=== PATIENT | female | born 1970 | race Caucasian/White ===

== ENCOUNTER → 2017-01-07 | Outpatient (CLI) | payer BC ==
--- NOTE | 2017-01-08 10:43 | MM ---
Reason for exam: screening (asymptomatic). Last mammogram was performed 1 year and 2 months ago. Physical Findings: A clinical breast exam by your physician is recommended on an annual basis and results should be correlated with mammographic findings. MG Screening Mammo w CAD Bilateral CC and MLO view(s) were taken. Prior study comparison: October 26, 2015, bilateral MG screening mammo w CAD. December 26, 2010, left diagnostic mammogram w/CAD. There are scattered fibroglandular densities. No significant changes when compared with prior studies. ASSESSMENT: Benign, BI-RAD 2 RECOMMENDATION: Routine screening mammogram of both breasts in 1 year.
== END ==
LOC: RADMAMWWP 16:42
PROVIDERS: ATTEND Family Medicine
DX: Z12.31 Encounter for screening mammogram for malignant neoplasm of breast (principal)

== ENCOUNTER → 2018-05-24 | Outpatient (CLI) | payer BC ==
--- NOTE | 2018-05-29 09:39 | MM ---
Reason for exam: screening (asymptomatic). Last mammogram was performed 1 year and 4 months ago. MG Screening Mammo w CAD Bilateral CC and MLO view(s) were taken. Prior study comparison: January 07, 2017, bilateral MG screening mammo w CAD. October 26, 2015, bilateral MG screening mammo w CAD. There are scattered fibroglandular densities. There are benign-appearing diffuse and grouped round dystrophic bilateral breast calcifications. No discrete abnormality. Increase in number of calcifications. ASSESSMENT: Benign, BI-RAD 2 RECOMMENDATION: Routine screening mammogram of both breasts in 1 year.
== END | disposition home or self-care (01) ==
LOC: RADMAMWWP 13:24
PROVIDERS: ATTEND Family Medicine
DX: Z12.31 Encounter for screening mammogram for malignant neoplasm of breast (principal)
CPT/HCPCS: 77067

== ENCOUNTER → 2018-05-26 | Outpatient (CLI) | payer BC ==
--- NOTE | 2018-05-26 08:20 | US ---
EXAMINATION TYPE: US abdomen complete DATE OF EXAM: 05/26/2018 COMPARISON: NONE CLINICAL HISTORY: R74.8 Abnormal levels of other serum enzymes. EXAM MEASUREMENTS: Liver Length: 17.0 cm Gallbladder Wall: 0.1 cm CBD: 0.2 cm Spleen: 11.4 cm Right Kidney: 10.0 x 5.4 x 4.2 cm Left Kidney: 11.8 x 5.2 x 4.7 cm Pancreas: Partially Obscured by bowel gas. Tail is poorly visualized. An body visualized appears nor mal. Liver: There is moderate fatty infiltration of the liver. Gallbladder: No stones seen Evidence for sonographic Rizo's sign: No CBD: wnl Spleen: wnl Right Kidney: No hydronephrosis or masses seen Left Kidney: No hydronephrosis or masses seen Upper IVC: wnl Abd Aorta: wnl Suboptimal exam overall due to large patient size and large amounts of overlying bowel gas. IMPRESSION: 1. Moderate fatty infiltration liver. 2. Exam is limited due to patient body habitus and bowel gas.
== END | disposition home or self-care (01) ==
LOC: RADUSWWP 06:50
PROVIDERS: ATTEND Family Medicine
DX: K76.0 Fatty (change of) liver, not elsewhere classified (principal)
CPT/HCPCS: 76700

== ENCOUNTER 2019-06-13 14:23 | Emergency (ER) | payer BC, MEDICARE ==
[2019-06-13 14:32] VITALS: TEMP 98.1
[2019-06-13] MEDS ORDERED: cefTRIAXone IN SWFI 1,000 MG/10 ML SYRINGE IVP STA (15:20)
[2019-06-13] MEDS ORDERED: MORPHINE SULFATE 4 MG/ML SYRINGE IV STA (15:37)
--- NOTE | 2019-06-13 15:41 | ED ---
General Adult HPI - General Chief complaint: Skin/Abscess/Foreign Body Stated complaint: lt leg pain Time Seen by Provider: 06/13/19 14:48 Source: patient, RN notes reviewed, old records reviewed Mode of arrival: ambulatory Limitations: no limitations - History of Present Illness Initial comments: 49-year-old female patient with past history of hypertension, scleroderma, polymyositis procedure chief complaint of painful left inner thigh region. Patient course of this discomfort started on . Reports that she has calcium deposits. Please of this is rubbing against her thigh causing it to rub and become painful. Denies any fevers chills. No other systemic symptoms. Denies any other complaints at this time. Systemic: Pt denies fatigue, fever/chills, rash. Pt denies weakness, night sweats, weight loss. Neuro: Pt denies headache, visual disturbances, syncope or pre-syncope. HEENT: Pt denies ocular discharge or irritation, otalgia, rhinorrhea, pharyngitis or notable lymphadenopathy. Cardiopulmonary: Pt denies chest pain, SOB, heart palpitations, dyspnea on exertion. Abdominal/GI: Pt denies abdominal pain, n/v/d. : Pt denies dysuria, burning w/ urination, frequency/urgency. Denies new onset urinary or bowel incontinence. MSK: Pt denies myalgia, loss of strength or function in extremities. Neuro: Pt denies new onset weakness, paresthesias. - Related Data Previous Rx's Medication Instructions Recorded Cephalexin [Keflex] 500 mg PO Q6HR 10 Days #40 cap 06/13/19 Sulfamethox-Tmp 800-160Mg [Bactrim 1 tab PO Q12HR 10 Days #20 tab 06/13/19 DS 800-160 mg] Allergies Allergy/AdvReac Type Severity Reaction Status Date / Time No Known Allergies Allergy Verified 06/13/19 14:24 Review of Systems ROS Statement: Those systems with pertinent positive or pertinent negative responses have been documented in the HPI. ROS Other: All systems not noted in ROS Statement are negative. Past Medical History Past Medical History: Hypertension, Thyroid Disorder Additional Past Medical History / Comment(s): scleroderma, polymyositis History of Any Multi-Drug Resistant Organisms: None Reported Past Surgical History: Breast Surgery Past Psychological History: No Psychological Hx Reported Smoking Status: Never smoker Past Alcohol Use History: None Reported Past Drug Use History: None Reported General Exam - General Exam Comments Initial Comments: Constitutional: NAD, AOX3, Pt has pleasant affect. HEENT: NC/AT, trachea midline, neck supple, no lymphadenopathy. Posterior phary nx non erythematous, without exudates. External ears appear normal, without discharge. Mucous membranes moist. Eyes PERRLA, EOM intact. There is no scleral icterus. No pallor noted. Cardiopulmonary: RRR, no murmurs, rubs or gallops, no JVD noted. Lungs CTAB in anterior and posterior resendiz. No peripheral edema. Abdominal exam: Abdomen soft and non-distended. Abdomen non-tender to palpation in all 4 quadrants. Bowel sounds active in LLQ. No hepatosplenomegaly. No ecchymosis Neuro: CN II-XII grossly intact. No nuchal rigidity. No raccon eyes, no contreras sign, no hemotympanum. No cervical spinal tenderness. MSK: 4 x 4 centimeters abscess left upper extremity, Erythematous fluctuant mass noted. incision and drainage did display a large amount of pus. No posterior calf tenderness bilaterally, homans sign negative bilaterally. Posterior tibialis and radial pulse +2 bilaterally. Sensation intact in upper and lower extremities. Full active ROM in upper and lower extremities, 5/5 stregnth. Limitations: no limitations Course Vital Signs 06/13/19 06/13/19 14:25 16:24 Temperature 98.1 F Pulse Rate 98 94 Respiratory 16 18 Rate Blood Pressure 180/122 172/94 O2 Sat by Pulse 100 97 Oximetry Procedures - Incision & Drainage Consent Obtained: verbal consent Indication: left medial thigh abscess Site: lower extremity Size (cm): 4 I&D Cleaning Method: Alcohol Wipe Sterile Field Used?: Yes Scalpel Used: #11 I&D Drainage Obtained: Pus Culture Obtained?: Yes Patient Tolerated Procedure: well Medical Decision Making - Medical Decision Making 49-year-old female patient with past history of hypertension, scleroderma, polymyositis procedure chief complaint of painful left inner thigh region. Patient course of this discomfort started on . Reports that she has calcium deposits. Please of this is rubbing against her thigh causing it to rub and become painful. Denies any fevers chills. No other systemic symptoms. Denies any other complaints at this time. Patient vital signs displayed hypertension. Physical exam displayed: 4 x 4 centimeters abscess left upper extremity, Erythematous fluctuant mass noted. incision and drainage did display a large amount of pus. Laboratory investigations are noncompressive. Plain film densely acute process. Patient was discharged will be covered with Bactrim and Keflex. Case discussed the patient seen by Dr. Hamilton. - Lab Data Result diagrams: 06/13/19 15:30 06/13/19 15:30 Lab Results 06/13/19 06/13/19 06/13/19 Range/Units 15:30 15:30 15:30 WBC 9.6 (3.8-10.6) k/uL RBC 4.81 (3.80-5.40) m/uL Hgb 13.6 (11.4-16.0) gm/dL Hct 42.5 (34.0-46.0) % MCV 88.3 (80.0-100.0) fL MCH 28.2 (25.0-35.0) pg MCHC 31.9 (31.0-37.0) g/dL RDW 14.6 (11.5-15.5) % Plt Count 277 (150-450) k/uL Neutrophils % 68 % Lymphocytes % 21 % Monocytes % 6 % Eosinophils % 2 % Basophils % 1 % Neutrophils # 6.5 (1.3-7.7) k/uL Lymphocytes # 2.0 (1.0-4.8) k/uL Monocytes # 0.6 (0-1.0) k/uL Eosinophils # 0.2 (0-0.7) k/uL Basophils # 0.1 (0-0.2) k/uL Sodium 137 (137-145) mmol/L Potassium 3.8 (3.5-5.1) mmol/L Chloride 100 (98-107) mmol/L Carbon Dioxide 28 (22-30) mmol/L Anion Gap 9 mmol/L BUN 8 (7-17) mg/dL Creatinine 0.33 L (0.52-1.04) mg/dL Est GFR (CKD-EPI)AfAm >90 (>60 ml/min/1.73 sqM) Est GFR (CKD-EPI)NonAf >90 (>60 ml/min/1.73 sqM) Glucose 87 (74-99) mg/dL Plasma Lactic Acid Zack (0.7-2.0) mmol/L Calcium 8.3 L (8.4-10.2) mg/dL Total Bilirubin 0.6 (0.2-1.3) mg/dL AST 49 H (14-36) U/L ALT 33 (4-34) U/L Alkaline Phosphatase 131 H (38-126) U/L Total Protein 6.7 (6.3-8.2) g/dL Albumin 3.9 (3.5-5.0) g/dL Urine Color Yellow Urine Appearance Cloudy H (Clear) Urine pH 6.0 (5.0-8.0) Ur Specific [place] 1.021 (1.001-1.035) Urine Protein Trace H (Negative) Urine Glucose (UA) Negative (Negative) Urine Ketones Negative (Negative) Urine Blood Negative (Negative) Urine Nitrite Negative (Negative) Urine Bilirubin Negative (Negative) Urine Urobilinogen <2.0 (<2.0) mg/dL Ur Leukocyte Esterase Small H (Negative) Urine RBC 2 (0-5) /hpf Urine WBC 12 H (0-5) /hpf Ur Squamous Epith Cells 7 H (0-4) /hpf Urine Bacteria Rare H (None) /hpf Hyaline Casts 1 (0-2) /lpf Urine Mucus Few H (None) /hpf 06/13/19 Range/Units 15:39 WBC (3.8-10.6) k/uL RBC (3.80-5.40) m/uL Hgb (11.4-16.0) gm/dL Hct (34.0-46.0) % MCV (80.0-100.0) fL MCH (25.0-35.0) pg MCHC (31.0-37.0) g/dL RDW (11.5-15.5) % Plt Count (150-450) k/uL Neutrophils % % Lymphocytes % % Monocytes % % Eosinophils % % Basophils % % Neutrophils # (1.3-7.7) k/uL Lymphocytes # (1.0-4.8) k/uL Monocytes # (0-1.0) k/uL Eosinophils # (0-0.7) k/uL Basophils # (0-0.2) k/uL Sodium (137-145) mmol/L Potassium (3.5-5.1) mmol/L Chloride (98-107) mmol/L Carbon Dioxide (22-30) mmol/L Anion Gap mmol/L BUN (7-17) mg/dL Creatinine (0.52-1.04) mg/dL Est GFR (CKD-EPI)AfAm (>60 ml/min/1.73 sqM) Est GFR (CKD-EPI)NonAf (>60 ml/min/1.73 sqM) Glucose (74-99) mg/dL Plasma Lactic Acid Zack 1.4 (0.7-2.0) mmol/L Calcium (8.4-10.2) mg/dL Total Bilirubin (0.2-1.3) mg/dL AST (14-36) U/L ALT (4-34) U/L Alkaline Phosphatase (38-126) U/L Total Protein (6.3-8.2) g/dL Albumin (3.5-5.0) g/dL Urine Color Urine Appearance (Clear) Urine pH (5.0-8.0) Ur Specific [place] (1.001-1.035) Urine Protein (Negative) Urine Glucose (UA) (Negative) Urine Ketones (Negative) Urine Blood (Negative) Urine Nitrite (Negative) Urine Bilirubin (Negative) Urine Urobilinogen (<2.0) mg/dL Ur Leukocyte Esterase (Negative) Urine RBC (0-5) /hpf Urine WBC (0-5) /hpf Ur Squamous Epith Cells (0-4) /hpf Urine Bacteria (None) /hpf Hyaline Casts (0-2) /lpf Urine Mucus (None) /hpf Disposition Clinical Impression: Abscess Disposition: HOME SELF-CARE Condition: Stable Instructions (If sedation given, give patient instructions): Abscess (ED) Additional Instructions: Take antibiotics as directed. Follow-up with primary care provider tomorrow. Return to ER if condition worsens. Prescriptions: Sulfamethox-Tmp 800-160Mg [Bactrim DS 800-160 mg] 1 tab PO Q12HR 10 Days #20 tab Cephalexin [Keflex] 500 mg PO Q6HR 10 Days #40 cap Is patient prescribed a controlled substance at d/c from ED?: No Referrals: Mumtaz Huang MD [Primary Care Provider] - 1-2 days
[2019-06-13 15:53] LABS: Basophils # (A) 0.1 k/uL (0-0.2); Basophils % (A) 1 %; Eosinophils # (A) 0.2 k/uL (0-0.7); Eosinophils % (A) 2 %; HCT 42.5 % (34.0-46.0); HGB 13.6 gm/dL (11.4-16.0); Lymphocytes % (A) 21 %; MCH 28.2 pg (25.0-35.0); MCHC 31.9 g/dL (31.0-37.0); MCV 88.3 fL (80.0-100.0); Mean Platelet Volume 8.5; Monocytes # (A) 0.6 k/uL (0-1.0); Monocytes % (A) 6 %; Neutrophils # (A) 6.5 k/uL (1.3-7.7); Neutrophils % (A) 68 %; Platelet Count 277 k/uL (150-450); RBC 4.81 m/uL (3.80-5.40); RDW 14.6 % (11.5-15.5); WBC 9.6 k/uL (3.8-10.6)
[2019-06-13 16:01] LABS: Appearance,Urine Cloudy (Clear); Bacteria,Urine Rare /hpf; Bilirubin,Urine Negative (Negative); Blood,Urine Negative (Negative); Color,Urine Yellow; Glucose,Urine (UA) Negative (Negative); Hyaline Casts,Urine 1 /lpf (0-2); Ketones,Urine Negative (Negative); Leukocyte Esterase,Urine Small (Negative); Mucus,Urine Few /hpf; Nitrite,Urine Negative (Negative); Protein,Urine Trace (Negative); RBC,Urine 2 /hpf (0-5); Specific Gravity,Urine 1.021 (1.001-1.035); Squamous Epithelial Cell,Urine 7 /hpf (0-4); Urobilinogen,Urine <2.0 mg/dL (<2.0); WBC,Urine 12 /hpf (0-5)
[2019-06-13 16:02] LABS: ALT 33 U/L (4-34); AST 49 U/L (14-36); African American GFR (CKD) >90 (>60 ml/min/1.73 sqM); Albumin 3.9 g/dL (3.5-5.0); Alkaline Phosphatase 131 U/L (38-126); Anion Gap 9 mmol/L; Blood Urea Nitrogen 8 mg/dL (7-17); Calcium 8.3 mg/dL (8.4-10.2); Carbon Dioxide 28 mmol/L (22-30); Chloride 100 mmol/L (98-107); Glucose 87 mg/dL (74-99); Non-African American GFR(CKD) >90 (>60 ml/min/1.73 sqM); Potassium 3.8 mmol/L (3.5-5.1); Sodium 137 mmol/L (137-145); Total Bilirubin 0.6 mg/dL (0.2-1.3); Total Protein 6.7 g/dL (6.3-8.2)
--- NOTE | 2019-06-13 16:11 | XR ---
EXAMINATION TYPE: XR femur LT DATE OF EXAM: 06/13/2019 CLINICAL HISTORY: pain TECHNIQUE: Two views of the left femur are obtained. COMPARISON: None. FINDINGS: There is no acute fracture or dislocation seen of the femur. The hip and knee joints cindy ear within normal limits. Increased density throughout the soft tissues may reflect interstitial and vascular engorgement. IMPRESSION: There is no acute fracture or dislocation seen of the femur. ICD 10 NO FRACTURE, INITIAL EVALUATION
[2019-06-13 16:25] VITALS: RESP 18
[2019-06-13] MEDS ORDERED: CEPHALEXIN 500MG STARTER PACK 4 CAP BTL PO STA (17:36)
[2019-06-13] MEDS ORDERED: SULFAMETH-TMP DS STARTER PACK 2 TAB BTL PO STA (17:37)
[2019-06-13] MEDS ORDERED: ACET/COD 300 MG/30 MG STARTER PACK 6 TAB BTL PO STA (17:59)
[2019-06-13 18:03] VITALS: BP 185/107; PULSE 92
--- NOTE | 2019-06-13 18:08 | ED ---
Medical Decision Making - Medical Decision Making Upon discharge pt again hypertensive. Denied any symptoms. Declined medication will take her BP medication at home. - Lab Data Result diagrams: 06/13/19 15:30 06/13/19 15:30 Lab Results 06/13/19 06/13/19 06/13/19 Range/Units 15:30 15:30 15:30 WBC 9.6 (3.8-10.6) k/uL RBC 4.81 (3.80-5.40) m/uL Hgb 13.6 (11.4-16.0) gm/dL Hct 42.5 (34.0-46.0) % MCV 88.3 (80.0-100.0) fL MCH 28.2 (25.0-35.0) pg MCHC 31.9 (31.0-37.0) g/dL RDW 14.6 (11.5-15.5) % Plt Count 277 (150-450) k/uL Neutrophils % 68 % Lymphocytes % 21 % Monocytes % 6 % Eosinophils % 2 % Basophils % 1 % Neutrophils # 6.5 (1.3-7.7) k/uL Lymphocytes # 2.0 (1.0-4.8) k/uL Monocytes # 0.6 (0-1.0) k/uL Eosinophils # 0.2 (0-0.7) k/uL Basophils # 0.1 (0-0.2) k/uL Sodium 137 (137-145) mmol/L Potassium 3.8 (3.5-5.1) mmol/L Chloride 100 (98-107) mmol/L Carbon Dioxide 28 (22-30) mmol/L Anion Gap 9 mmol/L BUN 8 (7-17) mg/dL Creatinine 0.33 L (0.52-1.04) mg/dL Est GFR (CKD-EPI)AfAm >90 (>60 ml/min/1.73 sqM) Est GFR (CKD-EPI)NonAf >90 (>60 ml/min/1.73 sqM) Glucose 87 (74-99) mg/dL Plasma Lactic Acid Zack (0.7-2.0) mmol/L Calcium 8.3 L (8.4-10.2) mg/dL Total Bilirubin 0.6 (0.2-1.3) mg/dL AST 49 H (14-36) U/L ALT 33 (4-34) U/L Alkaline Phosphatase 131 H (38-126) U/L Total Protein 6.7 (6.3-8.2) g/dL Albumin 3.9 (3.5-5.0) g/dL Urine Color Yellow Urine Appearance Cloudy H (Clear) Urine pH 6.0 (5.0-8.0) Ur Specific [place] 1.021 (1.001-1.035) Urine Protein Trace H (Negative) Urine Glucose (UA) Negative (Negative) Urine Ketones Negative (Negative) Urine Blood Negative (Negative) Urine Nitrite Negative (Negative) Urine Bilirubin Negative (Negative) Urine Urobilinogen <2.0 (<2.0) mg/dL Ur Leukocyte Esterase Small H (Negative) Urine RBC 2 (0-5) /hpf Urine WBC 12 H (0-5) /hpf Ur Squamous Epith Cells 7 H (0-4) /hpf Urine Bacteria Rare H (None) /hpf Hyaline Casts 1 (0-2) /lpf Urine Mucus Few H (None) /hpf 06/13/19 Range/Units 15:39 WBC (3.8-10.6) k/uL RBC (3.80-5.40) m/uL Hgb (11.4-16.0) gm/dL Hct (34.0-46.0) % MCV (80.0-100.0) fL MCH (25.0-35.0) pg MCHC (31.0-37.0) g/dL RDW (11.5-15.5) % Plt Count (150-450) k/uL Neutrophils % % Lymphocytes % % Monocytes % % Eosinophils % % Basophils % % Neutrophils # (1.3-7.7) k/uL Lymphocytes # (1.0-4.8) k/uL Monocytes # (0-1.0) k/uL Eosinophils # (0-0.7) k/uL Basophils # (0-0.2) k/uL Sodium (137-145) mmol/L Potassium (3.5-5.1) mmol/L Chloride (98-107) mmol/L Carbon Dioxide (22-30) mmol/L Anion Gap mmol/L BUN (7-17) mg/dL Creatinine (0.52-1.04) mg/dL Est GFR (CKD-EPI)AfAm (>60 ml/min/1.73 sqM) Est GFR (CKD-EPI)NonAf (>60 ml/min/1.73 sqM) Glucose (74-99) mg/dL Plasma Lactic Acid Zack 1.4 (0.7-2.0) mmol/L Calcium (8.4-10.2) mg/dL Total Bilirubin (0.2-1.3) mg/dL AST (14-36) U/L ALT (4-34) U/L Alkaline Phosphatase (38-126) U/L Total Protein (6.3-8.2) g/dL Albumin (3.5-5.0) g/dL Urine Color Urine Appearance (Clear) Urine pH (5.0-8.0) Ur Specific [place] (1.001-1.035) Urine Protein (Negative) Urine Glucose (UA) (Negative) Urine Ketones (Negative) Urine Blood (Negative) Urine Nitrite (Negative) Urine Bilirubin (Negative) Urine Urobilinogen (<2.0) mg/dL Ur Leukocyte Esterase (Negative) Urine RBC (0-5) /hpf Urine WBC (0-5) /hpf Ur Squamous Epith Cells (0-4) /hpf Urine Bacteria (None) /hpf Hyaline Casts (0-2) /lpf Urine Mucus (None) /hpf Disposition Clinical Impression: Abscess Disposition: HOME SELF-CARE Condition: Stable Instructions (If sedation given, give patient instructions): Abscess (ED) Additional Instructions: Take antibiotics as directed. Follow-up with primary care provider tomorrow. Return to ER if condition worsens. Continue to monitor blood pressure at home. Prescriptions: Sulfamethox-Tmp 800-160Mg [Bactrim DS 800-160 mg] 1 tab PO Q12HR 10 Days #20 tab Cephalexin [Keflex] 500 mg PO Q6HR 10 Days #40 cap Is patient prescribed a controlled substance at d/c from ED?: No Referrals: Mumtaz Huang MD [Primary Care Provider] - 1-2 days
== END 2019-06-13 18:34 | disposition home or self-care (01) ==
LOC: EC 14:23
DX: L02.416 Cutaneous abscess of left lower limb (principal); I10 Essential (primary) hypertension
CPT/HCPCS: 36415; 80053; 83605; 85025; 81001; 87040; 87070; 87086; 87205; 73552; 99284; 10060; 96374; 96375; J2270; J0696; 87077; 87186

== ENCOUNTER → 2020-04-09 | Outpatient (CLI) | payer BC ==
--- NOTE | 2020-04-10 07:24 | ECHOF ---
Referral Reason:R00.0 Tachycardia MEASUREMENTS -------- HEIGHT: 162.6 cm WEIGHT: 106.6 kg BP: RVIDd: 3.6 cm (< 3.3) IVSd: 1.1 cm (0.6 - 1.1) LVIDd: 3.8 cm (3.9 - 5.3) LVPWd: 1.3 cm (0.6 - 1.1) IVSs: 1.0 cm LVIDs: 2.7 cm LVPWs: 1.6 cm LAESV Index (A-L): 32.96 ml/m Ao Diam: 3.1 cm (2.0 - 3.7) AV Cusp: 2.1 cm (1.5 - 2.6) MV EXCURSION: 14.523 mm (> 18.000) MV EF SLOPE: 126 mm/s (70 - 150) EPSS: 0.4 cm MV E Bg: 0.65 m/s MV DecT: 136 ms MV A Bg: 0.67 m/s MV E/A Ratio: 0.98 RAP: 5.00 mmHg RVSP: 19.40 mmHg FINDINGS -------- Sinus rhythm. This was a technically adequate study. The left ventricular size is normal. There is mild concentric left ventricular hypertrophy. Overa ll left ventricular systolic function is normal with, an EF between 55 - 60 %. The right ventricle is normal in size. LA is midly dilated 29-33ml/m2. The right atrial size is normal. Interatrial and interventricular septum intact. The aortic valve is trileaflet, and appears structurally normal. No aortic stenosis or regurgitation. The mitral valve is normal. Mild mitral regurgitation is present. The tricuspid valve appears structurally normal. Mild tricuspid regurgitation present. Right vent ricular systolic pressure is normal at < 35 mmHg. The right ventricular systolic pressure, as measu red by Doppler, is 19.40mmHg. There is no pulmonic regurgitation present. The aortic root size is normal. IVC Not well visulized. There is no pericardial effusion. CONCLUSIONS -------- 1. There is mild concentric left ventricular hypertrophy. 2. Overall left ventricular systolic function is normal with, an EF between 55 - 60 %. 3. LA is midly dilated 29-33ml/m2. 4. The aortic valve is trileaflet, and appears structurally normal. No aortic stenosis or regurgitati on. 5. Mild mitral regurgitation is present. 6. Mild tricuspid regurgitation present. C[employer]ESSMAKER: Estephania Lora RDCS
== END | disposition home or self-care (01) ==
LOC: RADECHMAIN 14:11
PROVIDERS: ATTEND Family Medicine
DX: I08.1 Rheumatic disorders of both mitral and tricuspid valves (principal)
CPT/HCPCS: 93306

== ENCOUNTER → 2020-07-16 | Outpatient (CLI) | payer BC ==
--- NOTE | 2020-07-17 14:53 | MM ---
Reason for exam: screening (asymptomatic). Last mammogram was performed 2 years and 2 months ago. History: Benign excisional biopsy of the left breast, 2010. Physical Findings: A clinical breast exam by your physician is recommended on an annual basis and results should be correlated with mammographic findings. MG Screening Mammo w CAD Bilateral CC and MLO view(s) were taken. Prior study comparison: May 24, 2018, bilateral MG screening mammo w CAD. January 07, 2017, bilateral MG screening mammo w CAD. The breast tissue is almost entirely fat. No significant changes when compared with prior studies. ASSESSMENT: Benign, BI-RAD 2 RECOMMENDATION: Routine screening mammogram of both breasts in 1 year.
== END | disposition home or self-care (01) ==
LOC: RADMAMWWP 14:44
PROVIDERS: ATTEND Nurse Practitioner Adult Health
DX: Z12.31 Encounter for screening mammogram for malignant neoplasm of breast (principal)
CPT/HCPCS: 77067

== ENCOUNTER 2021-06-23 13:26 | Observation (INO) | payer BC ==
[2021-06-23] MEDS ORDERED: MORPHINE SULFATE 4 MG/ML SYRINGE IVP STA (14:59)
[2021-06-23] MEDS ORDERED: ONDANSETRON 4 MG/2 ML VIAL IVP STA (14:59)
[2021-06-23] MEDS ORDERED: SODIUM CHLORIDE 0.9% 1,000 ML IV STA (14:59)
[2021-06-23 15:18] LABS: Basophils # (A) 0.1 k/uL (0-0.2); Basophils % (A) 1 %; Eosinophils # (A) 0.1 k/uL (0-0.7); Eosinophils % (A) 2 %; HCT 40.2 % (34.0-46.0); HGB 12.8 gm/dL (11.4-16.0); Lymphocytes # (A) 1.4 k/uL (1.0-4.8); Lymphocytes % (A) 19 %; MCH 26.2 pg (25.0-35.0); MCHC 31.8 g/dL (31.0-37.0); MCV 82.3 fL (80.0-100.0); Mean Platelet Volume 8.8; Monocytes # (A) 0.3 k/uL (0-1.0); Monocytes % (A) 4 %; Neutrophils # (A) 5.1 k/uL (1.3-7.7); Neutrophils % (A) 72 %; Platelet Count 224 k/uL (150-450); RBC 4.88 m/uL (3.80-5.40); WBC 7.1 k/uL (3.8-10.6)
[2021-06-23 15:21] LABS: ALT 8 U/L (4-34); AST 23 U/L (14-36); African American GFR (CKD) >90 (>60 ml/min/1.73 sqM); Albumin 3.9 g/dL (3.5-5.0); Alkaline Phosphatase 191 U/L (38-126); Anion Gap 12 mmol/L; Blood Urea Nitrogen 7 mg/dL (7-17); Calcium 8.1 mg/dL (8.4-10.2); Carbon Dioxide 24 mmol/L (22-30); Chloride 101 mmol/L (98-107); Glucose 122 mg/dL (74-99); Lipase 45 U/L (23-300); Non-African American GFR(CKD) >90 (>60 ml/min/1.73 sqM); Potassium 3.6 mmol/L (3.5-5.1); Sodium 137 mmol/L (137-145); Total Bilirubin 0.6 mg/dL (0.2-1.3); Total Protein 7.1 g/dL (6.3-8.2)
[2021-06-23 15:38] LABS: Appearance,Urine Clear (Clear); Bilirubin,Urine Negative (Negative); Blood,Urine Negative (Negative); Color,Urine Yellow; Glucose,Urine (UA) Negative (Negative); Ketones,Urine Trace (Negative); Leukocyte Esterase,Urine Negative (Negative); Nitrite,Urine Negative (Negative); Protein,Urine Negative (Negative); Specific Gravity,Urine 1.014 (1.001-1.035); Urobilinogen,Urine <2.0 mg/dL (<2.0)
--- NOTE | 2021-06-23 16:05 | US ---
EXAMINATION TYPE: US gallbladder DATE OF EXAM: 06/23/2021 COMPARISON: US CLINICAL HISTORY: epigastric, RUQpain. Pain, N&V EXAM MEASUREMENTS: Liver Length: 20.5 cm Gallbladder Wall: 0.3 cm CBD: 0.4 cm Right Kidney: 11.7 x 3.9 x 4.3 cm Pancreas: wnl, tail obscured by overlying bowel gas Liver: Enlarged, echogenic Gallbladder: wnl Evidence for sonographic Rizo's sign: No CBD: wnl Right Kidney: wnl IMPRESSION: Gallbladder distended measuring 4.3 cm in diameter and 9 cm in length. This could relate to gallbladd er dysfunction or cholecystitis. No gallstones seen. No dilated ducts. Gallbladder increased compared to 05/26/2018 exam.
--- NOTE | 2021-06-23 16:45 | ED ---
Abdominal Pain HPI - General Chief Complaint: Abdominal Pain Stated Complaint: Abdominal Pain Time Seen by Provider: 06/23/21 14:35 Source: patient, family, RN notes reviewed, old records reviewed Mode of arrival: wheelchair Limitations: no limitations - History of Present Illness Initial Comments: Patient is a 51-year-old female, with history of hypertension, thyroid disorder, scleroderma, polymyositis, presenting to the emergency Department complains of upper abdominal pain and nausea and vomiting since this morning. Patient states she has similar episode last weekend but it seemed to go away fairly quickly. She states this happened after he ate a very large meal. This morning had upper abdomen pain radiation towards the right side as well as nausea and vomiting episodes. Patient decided to come in for evaluation. She denies history of abdominal surgeries. She does have history of calcium deposits on her abdomen. Denies shortness of breath, no fevers or chills. She denies any dysuria. She has no further complaints. - Related Data Home Medications Medication Instructions Recorded Confirmed Colchicine 0.6 mg PO DAILY 06/23/21 06/23/21 DULoxetine HCL [Cymbalta] 90 mg PO DAILY 06/23/21 06/23/21 Folic Acid 1 mg PO DAILY 06/23/21 06/23/21 HYDROcodone/APAP 5-325MG [[place] 1 tab PO Q6H PRN 06/23/21 06/23/21 5-325] Losartan Potassium [Cozaar] 100 mg PO DAILY 06/23/21 06/23/21 Omeprazole 20 mg PO DAILY 06/23/21 06/23/21 dilTIAZem HCL 30 mg PO DIRECTED 06/23/21 06/23/21 predniSONE 2 mg PO DAILY 06/23/21 06/23/21 Allergies Allergy/AdvReac Type Severity Reaction Status Date / Time No Known Allergies Allergy Verified 06/23/21 16:03 Review of Systems ROS Statement: Those systems with pertinent positive or pertinent negative responses have been documented in the HPI. ROS Other: All systems not noted in ROS Statement are negative. Past Medical History Past Medical History: Hypertension, Thyroid Disorder Additional Past Medical History / Comment(s): scleroderma, polymyositis History of Any Multi-Drug Resistant Organisms: None Reported Past Surgical History: Breast Surgery Past Psychological History: Anxiety, Depression Smoking Status: Never smoker Past Alcohol Use History: None Reported Past Drug Use History: None Reported General Exam - General Exam Comments Initial Comments: GENERAL: Patient is well-developed and well-nourished. Patient is nontoxic and in mild distress, actively vomiting. HEAD: Atraumatic, normocephalic. EYES: Pupils equal round and reactive to light, extraocular movements intact, sclera anicteric, conjunctiva are normal. Eyelids were unremarkable. ENT: TMs normal, nares patent, oropharynx clear without exudates. Moist mucous membranes. NECK: Normal range of motion, supple without lymphadenopathy or JVD. LUNGS: Unlabored respirations. Breath sounds clear to auscultation bilaterally and equal. No wheezes rales or rhonchi. HEART: Regular rate and rhythm without murmurs, rubs or gallops. ABDOMEN: Soft, tender to palpation epigastric and right upper quadrant, positive guarding. normoactive bowel sounds. patient has fairly large subcutaneous calcium deposits on the right side and left side of her abdomen. MUSCULOSKELETAL: Normal extremities with adequate strength and normal range of motion, no pitting or edema. No clubbing or cyanosis. NEUROLOGICAL: Patient is alert and oriented x 3. SKIN: Warm, Dry, normal turgor, no rashes or lesions noted. Limitations: no limitations Course Vital Signs 06/23/21 06/23/21 13:40 16:34 Temperature 97.5 F L Pulse Rate 86 82 Respiratory 20 20 Rate Blood Pressure 156/97 150/80 O2 Sat by Pulse 100 100 Oximetry Medical Decision Making - Medical Decision Making patient is a 51-year-old female here with epigastric and right upper quadrant pain and nausea and vomiting started this morning. She had similar episode last weekend. Vital signs are stable. Labs are showing a normal white count, normal liver enzymes. Urine is unremarkable. Ultrasound shows a gallbladder distended measuring 4.3 cm in diameter and 9 cm in length. This could be related to gallbladder dysfunction or cholecystitis. No gallstones seen, no dilated ducts. Gallbladder is increased in size compared to 2019 exam. Patient was given fluids, pain control and Zofran. Continues to have pain. Case disussed with Dr. Guevara who agrees to admission. Will consult Medicine for medical management. HIDA scan ordered. Case discussed with Dr. Ralph. - Lab Data Result diagrams: 06/23/21 15:00 06/23/21 15:00 Lab Results 06/23/21 06/23/21 06/23/21 Range/Units 15:00 15:00 15:00 WBC 7.1 (3.8-10.6) k/uL RBC 4.88 (3.80-5.40) m/uL Hgb 12.8 (11.4-16.0) gm/dL Hct 40.2 (34.0-46.0) % MCV 82.3 (80.0-100.0) fL MCH 26.2 (25.0-35.0) pg MCHC 31.8 (31.0-37.0) g/dL RDW 16.0 H (11.5-15.5) % Plt Count 224 (150-450) k/uL MPV 8.8 Neutrophils % 72 % Lymphocytes % 19 % Monocytes % 4 % Eosinophils % 2 % Basophils % 1 % Neutrophils # 5.1 (1.3-7.7) k/uL Lymphocytes # 1.4 (1.0-4.8) k/uL Monocytes # 0.3 (0-1.0) k/uL Eosinophils # 0.1 (0-0.7) k/uL Basophils # 0.1 (0-0.2) k/uL Sodium 137 (137-145) mmol/L Potassium 3.6 (3.5-5.1) mmol/L Chloride 101 (98-107) mmol/L Carbon Dioxide 24 (22-30) mmol/L Anion Gap 12 mmol/L BUN 7 (7-17) mg/dL Creatinine 0.33 L (0.52-1.04) mg/dL Est GFR (CKD-EPI)AfAm >90 (>60 ml/min/1.73 sqM) Est GFR (CKD-EPI)NonAf >90 (>60 ml/min/1.73 sqM) Glucose 122 H (74-99) mg/dL Plasma Lactic Acid Zack 1.6 (0.7-2.0) mmol/L Calcium 8.1 L (8.4-10.2) mg/dL Total Bilirubin 0.6 (0.2-1.3) mg/dL AST 23 (14-36) U/L ALT 8 (4-34) U/L Alkaline Phosphatase 191 H (38-126) U/L Total Protein 7.1 (6.3-8.2) g/dL Albumin 3.9 (3.5-5.0) g/dL Lipase 45 (23-300) U/L Urine Color Urine Appearance (Clear) Urine pH (5.0-8.0) Ur Specific [place] (1.001-1.035) Urine Protein (Negative) Urine Glucose (UA) (Negative) Urine Ketones (Negative) Urine Blood (Negative) Urine Nitrite (Negative) Urine Bilirubin (Negative) Urine Urobilinogen (<2.0) mg/dL Ur Leukocyte Esterase (Negative) 06/23/21 Range/Units 15:25 WBC (3.8-10.6) k/uL RBC (3.80-5.40) m/uL Hgb (11.4-16.0) gm/dL Hct (34.0-46.0) % MCV (80.0-100.0) fL MCH (25.0-35.0) pg MCHC (31.0-37.0) g/dL RDW (11.5-15.5) % Plt Count (150-450) k/uL MPV Neutrophils % % Lymphocytes % % Monocytes % % Eosinophils % % Basophils % % Neutrophils # (1.3-7.7) k/uL Lymphocytes # (1.0-4.8) k/uL Monocytes # (0-1.0) k/uL Eosinophils # (0-0.7) k/uL Basophils # (0-0.2) k/uL Sodium (137-145) mmol/L Potassium (3.5-5.1) mmol/L Chloride (98-107) mmol/L Carbon Dioxide (22-30) mmol/L Anion Gap mmol/L BUN (7-17) mg/dL Creatinine (0.52-1.04) mg/dL Est GFR (CKD-EPI)AfAm (>60 ml/min/1.73 sqM) Est GFR (CKD-EPI)NonAf (>60 ml/min/1.73 sqM) Glucose (74-99) mg/dL Plasma Lactic Acid Zack (0.7-2.0) mmol/L Calcium (8.4-10.2) mg/dL Total Bilirubin (0.2-1.3) mg/dL AST (14-36) U/L ALT (4-34) U/L Alkaline Phosphatase (38-126) U/L Total Protein (6.3-8.2) g/dL Albumin (3.5-5.0) g/dL Lipase (23-300) U/L Urine Color Yellow Urine Appearance Clear (Clear) Urine pH 8.0 (5.0-8.0) Ur Specific [place] 1.014 (1.001-1.035) Urine Protein Negative (Negative) Urine Glucose (UA) Negative (Negative) Urine Ketones Trace H (Negative) Urine Blood Negative (Negative) Urine Nitrite Negative (Negative) Urine Bilirubin Negative (Negative) Urine Urobilinogen <2.0 (<2.0) mg/dL Ur Leukocyte Esterase Negative (Negative) Disposition Clinical Impression: Abdominal pain, Nausea & vomiting Disposition: ADMITTED IP TO THIS [facility] Condition: Stable Is patient prescribed a controlled substance at d/c from ED?: No Referrals: Mumtaz Huang MD [Primary Care Provider] - 1-2 days Decision Date: 06/23/21 Decision Time: 17:02
[2021-06-23] MEDS ORDERED: NALOXONE 0.4 MG/ML 1 ML VIAL IV PRN (16:55)
[2021-06-23] MEDS ORDERED: ONDANSETRON 4 MG/2 ML VIAL IVP PRN (18:04)
[2021-06-23] MEDS: MORPHINE SULFATE 4 MG/ML SYRINGE IV PRN ×2 (18:28→23:16)
[2021-06-23] MEDS: SODIUM CHLORIDE 0.9% 1,000 ML IV SCH (22:49)
[2021-06-23] MEDS: DILTIAZEM ORAL 30 MG TAB PO SCH (22:50)
[2021-06-23] MEDS ORDERED: levETIRAcetam IV 500 MG in SODIUM CHLORIDE 0.9% 100 ML IVPB STA (22:55)
[2021-06-23 23:11] LABS: Glucose,Whole Blood 180 mg/dL (75-99)
--- NOTE | 2021-06-24 01:47 | P.CONS ---
History of Present Illness - Reason for Consult Consult date: 06/24/21 - History of Present Illness Notified of the consult at 11 PM on 06/23 Patient is a 51-year-old with a PMH of hypertension, scleroderma, and polymyositis who presented to the emergency room with complaints of abdominal pain along with nausea and vomiting. The patient was uncooperative at the time of interview and asked to be left alone and was not answering questions appropriately and history thereby obtained from the chart and from the ED staff. The patient had reportedly complained of abdominal pain which started this morning after she had a large medial subsequent nausea and multiple episodes of vomiting. The patient had denied any history of abdominal surgeries and had also denied fever, chills, or shortness of breath. A gallbladder ultrasound had revealed a distended gallbladder measuring at 9 cm with laboratory evaluation showing a lactic acid of 1.6 with alk phos 191. Patient was admitted to the [facility] surgery service and medicine consult. Notified regarding the patient's consult at 11 PM on 06/23 and notified that she had a witnessed tonic-clonic seizure lasting 45 seconds. Keppra 500 mg IV was ordered for the patient. At time of interview, the patient noted abdominal pain but would not elaborate further. She reportedly told the RN that she has a history of seizure disorder but no antiseizure medications were found in the home med list. Review of systems: Pertinent positives and negatives as discussed in HPI, a complete review of systems was performed and all other systems are negative. Physical examination: General: Chronically ill-appearing female, disheveled,, appears older than stated age Derm: Abdominal subcutaneous calcium deposits noted, warm, dry Head: atraumatic, normocephalic, symmetric Eyes: EOMI, no lid lag, anicteric sclera, pupils equal round reactive to light ENT: Nose and ears atraumatic Neck: No thyromegaly, no cervical lymphadenopathy, trachea midline, supple Mouth: no lip lesion, mucus membranes dry Cardiovascular: S1S2 reg, no murmur, positive posterior tibial pulse bilateral, no edema, capillary refill less than 2 seconds Lungs: CTA bilateral, no rhonchi, no rales , no accessory muscle use Abdominal: soft, mild diffuse tenderness, minimal guarding, no appreciable organomegaly, normal bowel sounds Ext: no gross muscle atrophy, no contractures, moving all extremities Neuro: CN II-XI grossly intact Psych: Lethargic, oriented to person and place, not answering questions and uncooperative Assessment/plan Seizure, unclear history -Continue with Ninfa for now -Attempted to contact family with both phone numbers in the chart with no response -Neurochecks -Neurology consult Abdominal pain and distended gallbladder -HIDA scan scheduled for the morning -General surgery following Chronic conditions: Scleroderma: Polymyositis, hypertension -Continue with home meds DVT prophylaxis -Heparin subcu The patient is admitted with an anticipated less than 2 midnight stay for evaluation of seizure d/o CODE STATUS: Full Code Discussed with: Patient Anticipated discharge date: in am Anticipated discharge place: Home Past Medical History Past Medical History: Hypertension, Thyroid Disorder Additional Past Medical History / Comment(s): scleroderma, polymyositis History of Any Multi-Drug Resistant Organisms: None Reported Past Surgical History: Breast Surgery Past Psychological History: Anxiety, Depression Smoking Status: Never smoker Past Alcohol Use History: None Reported Past Drug Use History: None Reported Medications and Allergies Home Medications Medication Instructions Recorded Confirmed Type Colchicine 0.6 mg PO DAILY 06/23/21 06/23/21 History DULoxetine HCL [Cymbalta] 90 mg PO DAILY 06/23/21 06/23/21 History Folic Acid 1 mg PO DAILY 06/23/21 06/23/21 History HYDROcodone/APAP 5-325MG [[place] 1 tab PO Q6H PRN 06/23/21 06/23/21 History 5-325] Losartan Potassium [Cozaar] 100 mg PO DAILY 06/23/21 06/23/21 History Omeprazole 20 mg PO DAILY 06/23/21 06/23/21 History dilTIAZem HCL 30 mg PO DIRECTED 06/23/21 06/23/21 History predniSONE 2 mg PO DAILY 06/23/21 06/23/21 History Allergies Allergy/AdvReac Type Severity Reaction Status Date / Time No Known Allergies Allergy Verified 06/23/21 16:03 Physical Exam Vitals: Vital Signs Temp Pulse Resp BP Pulse Ox 06/24/21 00:28 88 20 158/86 100 06/23/21 22:39 84 14 183/98 06/23/21 22:15 70 24 211/103 90 L 06/23/21 16:34 82 20 150/80 100 06/23/21 13:40 97.5 F L 86 20 156/97 100 Intake and Output 06/23/21 06/23/21 06/24/21 14:59 22:59 06:59 Other: Weight 90.718 kg Results CBC & Chem 7: 06/23/21 15:00 06/23/21 15:00 Labs: Abnormal Lab Results - Last 24 Hours (Table) 06/23/21 06/23/21 06/23/21 Range/Units 15:00 15:00 15:25 RDW 16.0 H (11.5-15.5) % Creatinine 0.33 L (0.52-1.04) mg/dL Glucose 122 H (74-99) mg/dL POC Glucose (mg/dL) (75-99) mg/dL Calcium 8.1 L (8.4-10.2) mg/dL Alkaline Phosphatase 191 H (38-126) U/L Urine Ketones Trace H (Negative) 06/23/21 Range/Units 23:09 RDW (11.5-15.5) % Creatinine (0.52-1.04) mg/dL Glucose (74-99) mg/dL POC Glucose (mg/dL) 180 H (75-99) mg/dL Calcium (8.4-10.2) mg/dL Alkaline Phosphatase (38-126) U/L Urine Ketones (Negative)
[2021-06-24 02:17] LABS: African American GFR (CKD) >90 (>60 ml/min/1.73 sqM); Anion Gap 5 mmol/L; Blood Urea Nitrogen 5 mg/dL (7-17); Calcium 7.7 mg/dL (8.4-10.2); Carbon Dioxide 28 mmol/L (22-30); Chloride 100 mmol/L (98-107); Glucose 145 mg/dL (74-99); Non-African American GFR(CKD) >90 (>60 ml/min/1.73 sqM); Potassium 3.8 mmol/L (3.5-5.1); Sodium 133 mmol/L (137-145)
[2021-06-24] MEDS: MORPHINE SULFATE 4 MG/ML SYRINGE IV PRN ×3 (02:25→21:11)
[2021-06-24] MEDS: HEPARIN SODIUM,PORCINE/PF 5,000 UNIT/0.5 ML SYRINGE SQ SCH ×2 (02:29→09:12)
[2021-06-24 02:35] LABS: HCT 39.3 % (34.0-46.0); HGB 12.1 gm/dL (11.4-16.0); Hypochromasia Slight; MCH 25.7 pg (25.0-35.0); MCHC 30.8 g/dL (31.0-37.0); MCV 83.4 fL (80.0-100.0); Platelet Count 176 k/uL (150-450); RBC 4.71 m/uL (3.80-5.40); RDW 15.9 % (11.5-15.5); WBC 7.9 k/uL (3.8-10.6)
[2021-06-24 06:55] LABS: Basophils # (A) 0.1 k/uL (0-0.2); Basophils % (A) 1 %; Eosinophils # (A) 0.1 k/uL (0-0.7); Eosinophils % (A) 1 %; HCT 42.2 % (34.0-46.0); HGB 12.9 gm/dL (11.4-16.0); Hypochromasia Slight; Lymphocytes # (A) 1.2 k/uL (1.0-4.8); Lymphocytes % (A) 12 %; MCH 26.1 pg (25.0-35.0); MCHC 30.6 g/dL (31.0-37.0); MCV 85.2 fL (80.0-100.0); Mean Platelet Volume 9.3; Monocytes # (A) 0.4 k/uL (0-1.0); Monocytes % (A) 5 %; Neutrophils # (A) 7.9 k/uL (1.3-7.7); Neutrophils % (A) 81 %; Platelet Count 187 k/uL (150-450); RBC 4.95 m/uL (3.80-5.40); RDW 15.5 % (11.5-15.5); WBC 9.8 k/uL (3.8-10.6)
[2021-06-24 07:00] LABS: ALT 11 U/L (4-34); AST 25 U/L (14-36); African American GFR (CKD) >90 (>60 ml/min/1.73 sqM); Albumin 3.8 g/dL (3.5-5.0); Alkaline Phosphatase 171 U/L (38-126); Anion Gap 9 mmol/L; Blood Urea Nitrogen 4 mg/dL (7-17); Calcium 7.9 mg/dL (8.4-10.2); Carbon Dioxide 26 mmol/L (22-30); Chloride 101 mmol/L (98-107); Glucose 108 mg/dL (74-99); Non-African American GFR(CKD) >90 (>60 ml/min/1.73 sqM); Potassium 4.1 mmol/L (3.5-5.1); Sodium 136 mmol/L (137-145); Total Bilirubin 0.8 mg/dL (0.2-1.3)
[2021-06-24] MEDS: FOLIC ACID 1 MG TAB PO SCH (09:12)
[2021-06-24] MEDS: PANTOPRAZOLE 40 MG TABLET PO SCH (09:12)
[2021-06-24] MEDS: DILTIAZEM ORAL 30 MG TAB PO SCH ×3 (09:12→21:28)
[2021-06-24] MEDS: LOSARTAN 50 MG TAB PO SCH (09:12)
--- NOTE | 2021-06-24 09:49 | P.CNNES ---
History of Present Illness Consult date: 06/24/21 Requesting physician: Jaun Nichole Reason for Consult: seizure History of Present Illness: This is a 51-year-old woman with medical history of hypertension, slceroderma and polymyositis who presented to the emergency department on 06/23/2021 for abdominal pain, nausea and vomiting. Neurology team is consulted for seizure- like activity. Some of the history is obtained from medical record and patient family members (who are at bedside). Per the primary team is seems that the patient had a witnessed tonic-clonic seizure lasting for 45 seconds on 06/23/2021. As a result the patient was loaded with Keppra 500 mg then was started on 500 every 12 hours. Per the patient's significant other and her daughter they stated that patient does not have history of seizure and have not witnessed a seizure-like activity at home. Per the patient the patient has history of seizures but is not on any antiepileptic drug but per family members, patient does not have history of seizures. Unknown of patient's history. S he has not had any further seizures in the hospital. She has history of scleroderma and polymyositis diagnosed about 5 years ago at [facility] and was following-up with [employer] in past but per family they think she was told no further work-up is needed from their side as result she is only following-up with her primary care physician. She is generalized weak and walks with a walker. Some of the patient home medications are Prednisone 2mg daily, omeprzole, cymbalata 90mg daily, folic acid 1mg daily, cozaar, cholchicine. Of note her daughter states she had seizure-like activity and it was felt it was due to medication effect. Some other workup in the hospital consisted of: Most recent vital signs is blood pressure of 129/73, heart rate of 87, respiratory of 16, pulse ox of 97% at room air. Upon reviewing the the EMR the only temperature recorded was 97.5 and it seems that on presentation. Gallbladder ultrasound revealed distended gallbladder measuring at 9 cm with elevated lactic acid was all call and phosphatase of 191. General surgery team is on board. Most recent CBC is the white blood cell is within normal limits, hemoglobin, hematocrit is also within normal limits as well as platelet. Most recent sodium is 136, creatinine is 0.29, glucose is 108, calcium is 7.9 Urinalysis is negative for urinary tract infection Jacques virus PCR was not detected. Review of Systems Review of system: The 12 point system was reviewed and apparent positive and negative per HPI. Past Medical History Past Medical History: Hypertension, Thyroid Disorder Additional Past Medical History / Comment(s): scleroderma, polymyositis History of Any Multi-Drug Resistant Organisms: None Reported Past Surgical History: Breast Surgery Past Psychological History: Anxiety, Depression Smoking Status: Never smoker Past Alcohol Use History: None Reported Past Drug Use History: None Reported - Past Family History Father Family Medical History: Hypertension Additional Family Medical History / Comment(s): Heart problems Mother Family Medical History: Cancer Additional Family Medical History / Comment(s): Liver cancer Medications and Allergies Home Medications Medication Instructions Recorded Confirmed Type Colchicine 0.6 mg PO DAILY 06/23/21 06/23/21 History DULoxetine HCL [Cymbalta] 90 mg PO DAILY 06/23/21 06/23/21 History Folic Acid 1 mg PO DAILY 06/23/21 06/23/21 History HYDROcodone/APAP 5-325MG [[place] 1 tab PO Q6H PRN 06/23/21 06/23/21 History 5-325] Losartan Potassium [Cozaar] 100 mg PO DAILY 06/23/21 06/23/21 History Omeprazole 20 mg PO DAILY 06/23/21 06/23/21 History dilTIAZem HCL 30 mg PO DIRECTED 06/23/21 06/23/21 History predniSONE 2 mg PO DAILY 06/23/21 06/23/21 History Allergies Allergy/AdvReac Type Severity Reaction Status Date / Time No Known Allergies Allergy Verified 06/23/21 16:03 Physical Examination - Vital Signs Vital Signs: Vital Signs Temp Pulse Resp BP Pulse Ox 06/24/21 05:13 87 16 129/73 97 06/24/21 04:22 89 17 124/80 99 06/24/21 03:23 87 16 130/88 06/24/21 00:28 88 20 158/86 100 06/23/21 22:39 84 14 183/98 06/23/21 22:15 70 24 211/103 90 L 06/23/21 16:34 82 20 150/80 100 06/23/21 13:40 97.5 F L 86 20 156/97 100 GENERAL: The patient is lying in bed and is mild in acute distress. CHEST: The heart rate is regular rate rhythm. No murmurs to auscultation. LUNG: Clear to auscultation bilaterally no wheezing noted throughout. Not labored breathing. ABDOMEN/GI: Bowel sounds present in all 4 quadrants. No tenderness to palpation throughout. NEUROLOGICAL: Higher mental function: The patient is drowsy but is awakeable to voice. Oriented to self and time. She states she is in the hospital. Patient is following commands. No aphasia and no neglect. Cranial nerves: The pupils are round, equal and reactive to light. Visual resendiz are hard to assess because of her cooperation. Extraocular movement is intact no nystagmus is noted. Facial sensation is normal to touch throughout. The facial strength is normal throughout (facial expression is limited). Hearing is normal bilaterally to hand rub. Tongue is midline and moved [id number] without any difficulty. Has smooth and glaze appearance tongue. No tongue bite noted. No dysarthria is noted. Shoulder shrug is antigravity but limited because of her old weakness. Motor: The strength: Distal strength > proximal (upper and lowers) and that is old per family. She has difficulty raising arms above gravity but able to bend elbow and has hand car cooper of 4- bilaterally. Hip flexion is 3-4, knee extension is 4- and ankle flexion/extension is 5- bilaterally. Slight decrease tone throughout. Cerebellum: could not assess because of her pain. Sensation: Sensation is normal to touch throughout. Has shiny appearance skin in hand. Reflexes (right/left): 1+ throughout. Plantars mute bilaterally. Results - Laboratory Findings CBC and BMP: 06/24/21 05:34 06/24/21 05:34 Abnormal Lab Findings: Abnormal Labs 06/23/21 06/23/21 06/23/21 15:00 15:00 15:25 MCHC RDW 16.0 H Neutrophils # Sodium BUN Creatinine 0.33 L Glucose 122 H POC Glucose (mg/dL) Calcium 8.1 L Alkaline Phosphatase 191 H Urine Ketones Trace H 06/23/21 06/24/21 06/24/21 23:09 01:51 01:51 MCHC 30.8 L RDW 15.9 H Neutrophils # Sodium 133 L BUN 5 L Creatinine 0.26 L Glucose 145 H POC Glucose (mg/dL) 180 H Calcium 7.7 L Alkaline Phosphatase Urine Ketones 06/24/21 06/24/21 05:34 05:34 MCHC 30.6 L RDW Neutrophils # 7.9 H Sodium 136 L BUN 4 L Creatinine 0.29 L Glucose 108 H POC Glucose (mg/dL) Calcium 7.9 L Alkaline Phosphatase 171 H Urine Ketones Assessment and Plan Assessment: New onset seizure (Reported witnessed seizure-like activity (GTC lasting 45 seconds)) Appears provoked. Per family patient does not have history of underlying seizure in past. Abdominal pain and distended gallbladder Hypertension and during this hospital stay her blood pressure was elevated but currently is stable Scleroderma Polymyositis Plan: Ordered routine EEG. Is on Keppra 500 mg every 12 hours and started by the primary team will continue the dose for now. Per family members they would like to continue same medication for now until rest of work-up. If negative they might consider stopping antiepileptic especially this is new onset. Family were notified of side-effects of Keppra (mood/behavioral changes). I ordered a CT of the brain Placed on seizure precautions seizure pads Every 4 neuro checks General surgery team is on board We'll defer the rest of the medical management to the primary team Upon discharge patient needs to follow-up with a neurologist within 1-2 weeks as an outpatient. Per [facility] patient cannot drive for 6 month until seizure-free, avoid the [place], swimming unassisted and avoid using heavy machinery. The plan is discussed with the patient significant other and her daughter (who are at bedside) and patient's nurse. Thank you for the consultation Jese Cisneros M.D. Neuro-hospitalist Time with Patient: Greater than 30
[2021-06-24] MEDS: levETIRAcetam IV 500 MG in SODIUM CHLORIDE 0.9% 100 ML IVPB SCH ×2 (10:19→21:37)
[2021-06-24] MEDS: SODIUM CHLORIDE 0.9% 1,000 ML IV SCH ×2 (10:20→21:11)
--- NOTE | 2021-06-24 10:21 | CT ---
EXAMINATION TYPE: CT brain wo con DATE OF EXAM: 06/24/2021 COMPARISON: None available HISTORY: Seizure. CT DLP: 1172.4 mGy.cm Automated exposure control for dose reduction was used. TECHNIQUE: CT scan of the brain is performed without IV contrast administration. FINDINGS: Unremarkable morphology of the cerebral hemispheres, cerebellum and brainstem. No acute intracranial hemorrhage. No gross acute cortical infarct. No midline shift, herniation or ventriculectomy. Unremarkable montgomery-white matter differentiation, basal cisterns, sella and CP angles. No gross space-o ccupying lesion, vasogenic edema or mass effect. Right scleral buckling, otherwise unremarkable orbits. Clear visualized paranasal sinuses and left ma stoid air cells. Opacified right inferior mastoid air cells. No aggressive bone lesion. IMPRESSION: No acute intracranial abnormality or gross space-occupying lesion by this nonenhanced CT scan.
--- NOTE | 2021-06-24 12:20 | P.GSHP ---
<Aileen Carter - Last Filed: 06/24/21 12:13> History of Present Illness H&P Date: 06/24/21 CHIEF COMPLAINT: Abdominal pain with nausea and vomiting HISTORY OF PRESENT ILLNESS: This is a 51-year-old female presented to the ER with abdominal pain with nausea and vomiting that started around 6 AM yesterday. Apparently she had eaten almond garden the night before. She had been complaining of indigestion and then woke up around 6 AM with complaints of right upper quadrant pain and vomiting. She had a gallbladder ultrasound completed on June 23 that showed a distended gallbladder. And apparently in the ER arou nd 11:00 last night patient had a witnessed tonic clonic seizure lasting 45 seconds. Patient was started on Keppra. No prior history of seizure disorder. Neurology is following. Patient was noted to have slight elevation in her alk phos. Otherwise LFTs are normal. Denies any fever, chills or sweats. PAST MEDICAL HISTORY: Scleroderma, polymyositis, hypertension, thyroid disorder, anxiety and depression PAST SURGICAL HISTORY: Breast surgery. No prior abdominal surgeries MEDICATIONS: See list. ALLERGIES: See list. SOCIAL HISTORY: No illicit drug use. REVIEW OF SYSTEMS: CONSTITUTIONAL: Denies fever or chills. HEENT: Denies blurred vision, vision changes, or eye pain. Denies hemoptysis CARDIOVASCULAR: Denies chest pain or pressure. RESPIRATORY: No shortness of breath. GASTROINTESTINAL: See HPI for pertinent findings HEMATOLOGIC: Denies bleeding disorders. GENITOURINARY: Denies any blood in urine or increased urinary frequency. SKIN: Denies pruitis. Denies rash. PHYSICAL EXAM: VITAL SIGNS: Reviewed GENERAL: Well-developed in no acute distress. HEENT: No sclera icterus. Extraocular movements grossly intact. Moist buccal mucosa. Head is atraumatic, normocephalic. No nasal drainage. ABDOMEN: Soft. Nondistended. Tenderness with palpation right upper quadrant NEUROLOGIC: Lethargic but Able to awaken and answer questions. LABORATORY DATA: WBC 9.8 hemoglobin 12.9 platelets 187 Sodium 136 potassium 4.1 creatinine 0.29 Lactic acid 1.3 AST 25 ALT 11 alk phos 171 total bilirubin 0.8 Urinalysis negative for infection COVID-19 not detected IMAGING: Gallbladder ultrasound shows no bladder distended measuring 4.3 cm in diameter and 9 cm in length. This could relate to gallbladder dysfunction or cholecystitis. No gallstones seen. No dilated ducts. Gallbladder increased compared to 05/26/2018 exam ASSESSMENT: 1. Abdominal pain with nausea and vomiting 2. Distended gallbladder 3. New onset seizure PLAN: -Awaiting HIDA scan results -Further recommendations forthcoming per surgeon -Continue supportive care -Keep patient nothing by mouth -Continue IV fluids -Continue pain medication as needed -Seizure workup per neurology -GI prophylaxis Protonix and DVT prophylaxis subcu heparin Physician Compressor Mechanic note has been reviewed by physician. Signing provider agrees with the documented findings, assessment, and plan of care. Past Medical History Past Medical History: Hypertension, Thyroid Disorder Additional Past Medical History / Comment(s): scleroderma, polymyositis History of Any Multi-Drug Resistant Organisms: None Reported Past Surgical History: Breast Surgery Past Psychological History: Anxiety, Depression Smoking Status: Never smoker Past Alcohol Use History: None Reported Past Drug Use History: None Reported Medications and Allergies Home Medications Medication Instructions Recorded Confirmed Type Colchicine 0.6 mg PO DAILY 06/23/21 06/23/21 History DULoxetine HCL [Cymbalta] 90 mg PO DAILY 06/23/21 06/23/21 History Folic Acid 1 mg PO DAILY 06/23/21 06/23/21 History HYDROcodone/APAP 5-325MG [[place] 1 tab PO Q6H PRN 06/23/21 06/23/21 History 5-325] Losartan Potassium [Cozaar] 100 mg PO DAILY 06/23/21 06/23/21 History Omeprazole 20 mg PO DAILY 06/23/21 06/23/21 History dilTIAZem HCL 30 mg PO DIRECTED 06/23/21 06/23/21 History predniSONE 2 mg PO DAILY 06/23/21 06/23/21 History Allergies Allergy/AdvReac Type Severity Reaction Status Date / Time No Known Allergies Allergy Verified 06/23/21 16:03 Surgical - Exam Vital Signs Temp Pulse Resp BP Pulse Ox 97.5 F L 86 20 156/97 100 06/23/21 13:40 06/23/21 13:40 06/23/21 13:40 06/23/21 13:40 06/23/21 13:40 Results - Labs 06/24/21 05:34 06/24/21 05:34 Abnormal Lab Results - Last 24 Hours (Table) 06/23/21 06/23/21 06/23/21 Range/Units 15:00 15:00 15:25 MCHC (31.0-37.0) g/dL RDW 16.0 H (11.5-15.5) % Neutrophils # (1.3-7.7) k/uL Sodium (137-145) mmol/L BUN (7-17) mg/dL Creatinine 0.33 L (0.52-1.04) mg/dL Glucose 122 H (74-99) mg/dL POC Glucose (mg/dL) (75-99) mg/dL Calcium 8.1 L (8.4-10.2) mg/dL Alkaline Phosphatase 191 H (38-126) U/L Urine Ketones Trace H (Negative) 06/23/21 06/24/21 06/24/21 Range/Units 23:09 01:51 01:51 MCHC 30.8 L (31.0-37.0) g/dL RDW 15.9 H (11.5-15.5) % Neutrophils # (1.3-7.7) k/uL Sodium 133 L (137-145) mmol/L BUN 5 L (7-17) mg/dL Creatinine 0.26 L (0.52-1.04) mg/dL Glucose 145 H (74-99) mg/dL POC Glucose (mg/dL) 180 H (75-99) mg/dL Calcium 7.7 L (8.4-10.2) mg/dL Alkaline Phosphatase (38-126) U/L Urine Ketones (Negative) 06/24/21 06/24/21 Range/Units 05:34 05:34 MCHC 30.6 L (31.0-37.0) g/dL RDW (11.5-15.5) % Neutrophils # 7.9 H (1.3-7.7) k/uL Sodium 136 L (137-145) mmol/L BUN 4 L (7-17) mg/dL Creatinine 0.29 L (0.52-1.04) mg/dL Glucose 108 H (74-99) mg/dL POC Glucose (mg/dL) (75-99) mg/dL Calcium 7.9 L (8.4-10.2) mg/dL Alkaline Phosphatase 171 H (38-126) U/L Urine Ketones (Negative) Diabetes panel 06/23/21 06/24/21 06/24/21 Range/Units 15:00 01:51 05:34 Sodium 137 133 L 136 L (137-145) mmol/L Potassium 3.6 3.8 4.1 (3.5-5.1) mmol/L Chloride 101 100 101 (98-107) mmol/L Carbon Dioxide 24 28 26 (22-30) mmol/L BUN 7 5 L 4 L (7-17) mg/dL Creatinine 0.33 L 0.26 L 0.29 L (0.52-1.04) mg/dL Glucose 122 H 145 H 108 H (74-99) mg/dL Calcium 8.1 L 7.7 L 7.9 L (8.4-10.2) mg/dL AST 23 25 (14-36) U/L ALT 8 11 (4-34) U/L Alkaline Phosphatase 191 H 171 H (38-126) U/L Total Protein 7.1 7.0 (6.3-8.2) g/dL Albumin 3.9 3.8 (3.5-5.0) g/dL Calcium panel 06/23/21 06/24/21 06/24/21 Range/Units 15:00 01:51 05:34 Calcium 8.1 L 7.7 L 7.9 L (8.4-10.2) mg/dL Albumin 3.9 3.8 (3.5-5.0) g/dL Pituitary panel 06/23/21 06/24/21 06/24/21 Range/Units 15:00 01:51 05:34 Sodium 137 133 L 136 L (137-145) mmol/L Potassium 3.6 3.8 4.1 (3.5-5.1) mmol/L Chloride 101 100 101 (98-107) mmol/L Carbon Dioxide 24 28 26 (22-30) mmol/L BUN 7 5 L 4 L (7-17) mg/dL Creatinine 0.33 L 0.26 L 0.29 L (0.52-1.04) mg/dL Glucose 122 H 145 H 108 H (74-99) mg/dL Calcium 8.1 L 7.7 L 7.9 L (8.4-10.2) mg/dL Adrenal panel 06/23/21 06/24/21 06/24/21 Range/Units 15:00 01:51 05:34 Sodium 137 133 L 136 L (137-145) mmol/L Potassium 3.6 3.8 4.1 (3.5-5.1) mmol/L Chloride 101 100 101 (98-107) mmol/L Carbon Dioxide 24 28 26 (22-30) mmol/L BUN 7 5 L 4 L (7-17) mg/dL Creatinine 0.33 L 0.26 L 0.29 L (0.52-1.04) mg/dL Glucose 122 H 145 H 108 H (74-99) mg/dL Calcium 8.1 L 7.7 L 7.9 L (8.4-10.2) mg/dL Total Bilirubin 0.6 0.8 (0.2-1.3) mg/dL AST 23 25 (14-36) U/L ALT 8 11 (4-34) U/L Alkaline Phosphatase 191 H 171 H (38-126) U/L Total Protein 7.1 7.0 (6.3-8.2) g/dL Albumin 3.9 3.8 (3.5-5.0) g/dL <Trevor Guevara - Last Filed: 06/24/21 13:14> Surgical - Exam Vital Signs Temp Pulse Resp BP Pulse Ox 97.5 F L 86 20 156/97 100 06/23/21 13:40 06/23/21 13:40 06/23/21 13:40 06/23/21 13:40 06/23/21 13:40 Results - Labs 06/24/21 05:34 06/24/21 05:34 Abnormal Lab Results - Last 24 Hours (Table) 06/23/21 06/23/21 06/23/21 Range/Units 15:00 15:00 15:25 MCHC (31.0-37.0) g/dL RDW 16.0 H (11.5-15.5) % Neutrophils # (1.3-7.7) k/uL Sodium (137-145) mmol/L BUN (7-17) mg/dL Creatinine 0.33 L (0.52-1.04) mg/dL Glucose 122 H (74-99) mg/dL POC Glucose (mg/dL) (75-99) mg/dL Calcium 8.1 L (8.4-10.2) mg/dL Alkaline Phosphatase 191 H (38-126) U/L Urine Ketones Trace H (Negative) 06/23/21 06/24/21 06/24/21 Range/Units 23:09 01:51 01:51 MCHC 30.8 L (31.0-37.0) g/dL RDW 15.9 H (11.5-15.5) % Neutrophils # (1.3-7.7) k/uL Sodium 133 L (137-145) mmol/L BUN 5 L (7-17) mg/dL Creatinine 0.26 L (0.52-1.04) mg/dL Glucose 145 H (74-99) mg/dL POC Glucose (mg/dL) 180 H (75-99) mg/dL Calcium 7.7 L (8.4-10.2) mg/dL Alkaline Phosphatase (38-126) U/L Urine Ketones (Negative) 06/24/21 06/24/21 Range/Units 05:34 05:34 MCHC 30.6 L (31.0-37.0) g/dL RDW (11.5-15.5) % Neutrophils # 7.9 H (1.3-7.7) k/uL Sodium 136 L (137-145) mmol/L BUN 4 L (7-17) mg/dL Creatinine 0.29 L (0.52-1.04) mg/dL Glucose 108 H (74-99) mg/dL POC Glucose (mg/dL) (75-99) mg/dL Calcium 7.9 L (8.4-10.2) mg/dL Alkaline Phosphatase 171 H (38-126) U/L Urine Ketones (Negative) Diabetes panel 06/23/21 06/24/21 06/24/21 Range/Units 15:00 01:51 05:34 Sodium 137 133 L 136 L (137-145) mmol/L Potassium 3.6 3.8 4.1 (3.5-5.1) mmol/L Chloride 101 100 101 (98-107) mmol/L Carbon Dioxide 24 28 26 (22-30) mmol/L BUN 7 5 L 4 L (7-17) mg/dL Creatinine 0.33 L 0.26 L 0.29 L (0.52-1.04) mg/dL Glucose 122 H 145 H 108 H (74-99) mg/dL Calcium 8.1 L 7.7 L 7.9 L (8.4-10.2) mg/dL AST 23 25 (14-36) U/L ALT 8 11 (4-34) U/L Alkaline Phosphatase 191 H 171 H (38-126) U/L Total Protein 7.1 7.0 (6.3-8.2) g/dL Albumin 3.9 3.8 (3.5-5.0) g/dL Calcium panel 06/23/21 06/24/21 06/24/21 Range/Units 15:00 01:51 05:34 Calcium 8.1 L 7.7 L 7.9 L (8.4-10.2) mg/dL Albumin 3.9 3.8 (3.5-5.0) g/dL Pituitary panel 06/23/21 06/24/21 06/24/21 Range/Units 15:00 01:51 05:34 Sodium 137 133 L 136 L (137-145) mmol/L Potassium 3.6 3.8 4.1 (3.5-5.1) mmol/L Chloride 101 100 101 (98-107) mmol/L Carbon Dioxide 24 28 26 (22-30) mmol/L BUN 7 5 L 4 L (7-17) mg/dL Creatinine 0.33 L 0.26 L 0.29 L (0.52-1.04) mg/dL Glucose 122 H 145 H 108 H (74-99) mg/dL Calcium 8.1 L 7.7 L 7.9 L (8.4-10.2) mg/dL Adrenal panel 06/23/21 06/24/21 06/24/21 Range/Units 15:00 01:51 05:34 Sodium 137 133 L 136 L (137-145) mmol/L Potassium 3.6 3.8 4.1 (3.5-5.1) mmol/L Chloride 101 100 101 (98-107) mmol/L Carbon Dioxide 24 28 26 (22-30) mmol/L BUN 7 5 L 4 L (7-17) mg/dL Creatinine 0.33 L 0.26 L 0.29 L (0.52-1.04) mg/dL Glucose 122 H 145 H 108 H (74-99) mg/dL Calcium 8.1 L 7.7 L 7.9 L (8.4-10.2) mg/dL Total Bilirubin 0.6 0.8 (0.2-1.3) mg/dL AST 23 25 (14-36) U/L ALT 8 11 (4-34) U/L Alkaline Phosphatase 191 H 171 H (38-126) U/L Total Protein 7.1 7.0 (6.3-8.2) g/dL Albumin 3.9 3.8 (3.5-5.0) g/dL Assessment and Plan Plan: HIDA scan shows nonvisualization of the gallbladder consistent with acalculous cholecystitis. Patient will undergo laparoscopic cholecystectomy today.
--- NOTE | 2021-06-24 12:47 | NM ---
Nuclear medicine hepatobiliary scan. HISTORY: Pain. DOSAGE: The patient is 4.4 mCi of Technetium 99m Choletec. FINDINGS: There is heterogeneous extraction. The gallbladder is seen definitively at 90 minutes.. T here is biliary to bowel clearance by 50 minutes. IMPRESSION: 1. Gallbladder is not seen at 90 minutes correlate for cholecystitis. 2. Heterogeneous hepatic extraction could be artifactual correlate with liver function studies.
[2021-06-24] MEDS ORDERED: IV FLUID CONTINUATION 1,000 ML IV ONE (13:48)
[2021-06-24] MEDS ORDERED: ONDANSETRON 4 MG/2 ML VIAL IVP ONE (14:05)
--- NOTE | 2021-06-24 14:08 | P.PN ---
<Kaushik Delarosa - Last Filed: 06/24/21 13:53> Subjective Progress Note Date: 06/24/21 Hospital course: Patient is a very pleasant 51-year-old female with a past medical history of hypertension, scleroderma, and polymyositis. She presented to the emergency department with a chief complaint of abdominal pain accompanied by nausea and vomiting. Patient reports pain in right upper quadrant coming on suddenly this morning accompanied by nausea and vomiting. Patient was admitted under Gen. surgery team and we were consulted for medical management. In the emergency department patient was reported to have a witnessed tonic-clonic seizure lasting approximately 45 seconds. Keppra 500 mg IV was ordered for patient. Patient reporting previous history of an isolated seizure but was never placed on a ntiepileptic medications. Gallbladder ultrasound showing gallbladder distention measuring 4.3 cm in diameter and [address] head negative for acute intercranial process, revealing right scleral buckling with opacified right inferior mastoid air cells. HIDA scan concerning for acute cholecystitis. Physical exam: Patient seen and fully evaluated at bedside and preop. HIDA scan was positive for concerns of acute cholecystitis. Patient being taken to the OR for cholecystectomy with Dr. Guevara. Patient currently reports pain is somewhat controlled from previously administered pain medications and denies any further episodes of nausea or vomiting. Patient has had no further episodes of reported seizure-like activity, possibly secondary to acute uncontrolled pain. At this time we will continue Keppra 500 mg twice a day pending further recommendations from neurology and EEG results. Patient denies having any headache, lightheadedness, dizziness, chest pain, palpitations, shortness of breath, or experiencing any numbness/tingling/weakness in her extremities. Neuro checks to continue every 4 hours along with seizure, aspiration, and fall precautions. Vital signs reviewed and stable. General: Nontoxic, no distress and appears stated age. Derm: Skin warm and dry, normal coloration for ethnicity. Head: Atraumatic, normocephalic and symmetric. Eyes: EOMs intact, no lid lag, and anicteric sclera Mouth: no lip lesions, mucus membranes moist Cardiovascular: regular rate and rhythm with normal S1S2, no murmur, positive posterior tibial pulses bilaterally, and cap refill < 2 seconds. Lungs: Respirations even, regular, and unlabored on room air. Lungs CTA bilat erally, no rhonchi, no rales, no wheezing, and no accessory muscle usage. Abdominal: soft, tenderness upon palpation to right upper quadrant, no guarding, no appreciable organomegaly Ext: ROM intact. No gross muscle atrophy, no edema, no contractures Neuro: Speech clear, face symmetrical and CN II-XII grossly intact with no noted focal neuro deficits Psych: Alert and oriented to person, place, time, and situation. Appropriate and pleasant affect. Assessment and Plan of Care: Seizure activity, Reported Witnessed tonic clonic seizure in the emergency department -Seizure precautions, aspiration precautions, and fall precautions in place. -Neurology consult -Neuro checks -Patient informed of [place] state law stating no driving until seizure free f or 6 months. Patient also instructed to avoid climbing ladders, operating dangerous or heavy machinery or unsupervised swimming until seizure free for 6 months. -Continue Keppra 500 mg IVPB every 12 hours pending further recommendations from neurology. -EEG completed, awaiting results. -CT negative for acute intercranial abnormality. Abdominal pain, VQ scan reporting concerns of cholecystitis -Gen. surgery managing, patient taken to or for cholecystectomy -Gen. surgery to manage pain management, advancement of diet, DVT prophylaxis, and postoperative wound care. Hypertension -Monitor vital signs and Continue daily medication regimen with losartan and Cardizem. Thank you for allowing us to participate in the care of this pleasant patient. Do not hesitate to contact us with questions. Someone can be reached from the [facility] hospitalist group all hours of the day at [phone] or via perfect serve. Objective - Vital Signs Vital signs: Vital Signs Temp 97.3 F L 06/24/21 13:23 Pulse 106 H 06/24/21 13:23 Resp 16 06/24/21 13:23 BP 147/82 06/24/21 13:23 Pulse Ox 99 06/24/21 13:23 Intake & Output 06/23/21 06/24/21 06/24/21 18:59 06:59 18:59 Weight 90.718 kg 90.718 kg Other: Voiding Method Diaper Incontinent - Labs CBC & Chem 7: 06/24/21 05:34 06/24/21 05:34 Labs: Abnormal Lab Results - Last 24 Hours (Table) 06/23/21 06/23/21 06/23/21 Range/Units 15:00 15:00 15:25 MCHC (31.0-37.0) g/dL RDW 16.0 H (11.5-15.5) % Neutrophils # (1.3-7.7) k/uL Sodium (137-145) mmol/L BUN (7-17) mg/dL Creatinine 0.33 L (0.52-1.04) mg/dL Glucose 122 H (74-99) mg/dL POC Glucose (mg/dL) (75-99) mg/dL Calcium 8.1 L (8.4-10.2) mg/dL Alkaline Phosphatase 191 H (38-126) U/L Urine Ketones Trace H (Negative) 06/23/21 06/24/21 06/24/21 Range/Units 23:09 01:51 01:51 MCHC 30.8 L (31.0-37.0) g/dL RDW 15.9 H (11.5-15.5) % Neutrophils # (1.3-7.7) k/uL Sodium 133 L (137-145) mmol/L BUN 5 L (7-17) mg/dL Creatinine 0.26 L (0.52-1.04) mg/dL Glucose 145 H (74-99) mg/dL POC Glucose (mg/dL) 180 H (75-99) mg/dL Calcium 7.7 L (8.4-10.2) mg/dL Alkaline Phosphatase (38-126) U/L Urine Ketones (Negative) 06/24/21 06/24/21 Range/Units 05:34 05:34 MCHC 30.6 L (31.0-37.0) g/dL RDW (11.5-15.5) % Neutrophils # 7.9 H (1.3-7.7) k/uL Sodium 136 L (137-145) mmol/L BUN 4 L (7-17) mg/dL Creatinine 0.29 L (0.52-1.04) mg/dL Glucose 108 H (74-99) mg/dL POC Glucose (mg/dL) (75-99) mg/dL Calcium 7.9 L (8.4-10.2) mg/dL Alkaline Phosphatase 171 H (38-126) U/L Urine Ketones (Negative) <Laverne Cronin A - Last Filed: 06/24/21 18:26> Subjective Kaushik Delarosa NP rendered care for this patient independently, reviewed the findings and plan as documented in the note above. I did not physically speak with or examine the patient on this date. Objective - Vital Signs Vital signs: Vital Signs Temp 98.1 F 06/24/21 15:41 Pulse 97 06/24/21 17:18 Resp 16 06/24/21 17:18 BP 149/78 06/24/21 17:18 Pulse Ox 99 06/24/21 17:18 Intake & Output 06/23/21 06/24/21 06/24/21 18:59 06:59 18:59 Intake Total 950 Output Total 5 Balance 945 Weight 90.718 kg 90.718 kg Intake: IV 950 Output: Estimated Blood Loss 5 Other: Voiding Method Diaper Incontinent - Labs CBC & Chem 7: 06/24/21 05:34 06/24/21 05:34 Labs: Abnormal Lab Results - Last 24 Hours (Table) 06/23/21 06/24/21 06/24/21 Range/Units 23:09 01:51 01:51 MCHC 30.8 L (31.0-37.0) g/dL RDW 15.9 H (11.5-15.5) % Neutrophils # (1.3-7.7) k/uL Sodium 133 L (137-145) mmol/L BUN 5 L (7-17) mg/dL Creatinine 0.26 L (0.52-1.04) mg/dL Glucose 145 H (74-99) mg/dL POC Glucose (mg/dL) 180 H (75-99) mg/dL Calcium 7.7 L (8.4-10.2) mg/dL Alkaline Phosphatase (38-126) U/L 06/24/21 06/24/21 Range/Units 05:34 05:34 MCHC 30.6 L (31.0-37.0) g/dL RDW (11.5-15.5) % Neutrophils # 7.9 H (1.3-7.7) k/uL Sodium 136 L (137-145) mmol/L BUN 4 L (7-17) mg/dL Creatinine 0.29 L (0.52-1.04) mg/dL Glucose 108 H (74-99) mg/dL POC Glucose (mg/dL) (75-99) mg/dL Calcium 7.9 L (8.4-10.2) mg/dL Alkaline Phosphatase 171 H (38-126) U/L
[2021-06-24] MEDS ORDERED: BUPIVACAIN-EPI 0.25%-1:200,000 30 ML VIAL SQ ONE ×2 (14:36→15:08)
[2021-06-24] MEDS ORDERED: SUGAMMADEX SODIUM 500 MG/5 ML SDV IV ONE (14:40)
[2021-06-24] MEDS ORDERED: PROPOFOL 10 MG/ML 20 ML VIAL IV ONE (14:40)
[2021-06-24] MEDS ORDERED: LIDOCAINE 1% INJ 10MG/ML (20 ML MDV) ONE (14:40)
[2021-06-24] MEDS ORDERED: fentaNYL (PF) 50 MCG/ML 2 ML AMP ONE (14:40)
[2021-06-24] MEDS ORDERED: MIDAZOLAM 2 MG/2 ML VIAL ONE (14:40)
[2021-06-24] MEDS ORDERED: ROCURONIUM 10 MG/ML (5 ML VIAL) IV ONE (14:40)
[2021-06-24] MEDS ORDERED: SUCCINYLCHOLINE CHLORIDE 100 MG/5 ML SYR IV ONE (14:40)
[2021-06-24] MEDS ORDERED: PHENYLEPHRINE-0.9% NACL SYG 1,000 MCG/10 ML SYRINGE ONE (14:40)
[2021-06-24] MEDS ORDERED: SODIUM CHLORIDE 0.9% 50 ML with ceFAZolin 2,000 MG IV ONE ×2 (14:45)
--- NOTE | 2021-06-24 15:01 | EEG ---
ELECTROENCEPHALOGRAM REPORT DATE OF SERVICE: 06/24/2021. CLINICAL HISTORY: This is a 51-year-old woman with reported witnessed seizure-like activity. The video EEG is obtained to evaluate for seizure and epileptiform activity. RELEVANT MEDICATIONS: Keppra. EEG TYPE: A routine 21 channel EEG is performed with video using the 10/20 electrode placement system. DESCRIPTION: The background consists of low to moderate voltage of 6.5-7.5 hertz theta activity and rarely to occasionally the background is intermixed with delta activity. There is no physiological stage 2 sleep architecture. There is no focal slowing. Interictal and ictal is none. ACTIVATION PROCEDURE: Photic stimulation did not evoke a posterior driving response. There is no abnormality during the photic stimulation. Hyperventilation is not performed. CLINICAL INTERPRETATION: This is an abnormal routine EEG. The background slowing is suggestive of mild to moderate encephalopathy. There is no focal slowing, epileptiform discharge or seizure on the EEG. Clinical correlation is recommended. ZAHIRA / JESSIE: [id number] / MTDD
[2021-06-24] MEDS ORDERED: LACTATED RINGERS 1,000 ML IV ONE (15:27)
[2021-06-24] MEDS ORDERED: HYDROmorphone 1 MG/ML 1 ML SYRINGE IVP PRN (15:47)
--- NOTE | 2021-06-24 15:47 | P.OP ---
Date of Procedure: 06/24/21 Preoperative Diagnosis: Cholecystitis Postoperative Diagnosis: Cholecystitis Procedure(s) Performed: Laparoscopic cholecystectomy Anesthesia: ELVI Surgeon: Trevor Guevara Estimated Blood Loss (ml): 5 Pathology: other (Gallbladder) Condition: stable Disposition: PACU Description of Procedure: The patient was placed on the operating table. The patient received a general endotracheal tube anesthesia. The patients abdomen was prepped and draped in the usual sterile fashion. Through an infraumbilical stab incision, the fascia of the anterior abdominal wall was grasped with a pair of Kochers and then the Veress needle was placed in the peritoneal cavity. Position of the Veress needle was confirmed with positive drop test. The abdomen was then insufflated. After adequate insufflation, the 10 mm trocar was placed in the peritoneal cavity. Following this the laparoscope was placed in the peritoneal cavity. The patient was placed in the head-up, right side up position and then a 5 mm trocar was placed in the right lateral and right subcostal position under direct visualization. A 8 mm trocar was placed in the epigastric position. The gallbladder was grasped in the fundus and infundibulum. The gallbladder was tense. The gallbladder was suctioned to relieve pressure. The gallbladder was hydropic. Traction on the gallbladder was placed in the lateral and the cephalad positions. The triangle of Calot was visualized.. The cystic duct was bluntly dissected until the union of the cystic duct and common bile duct was seen. A critical view of safety was achieved. The cystic duct was then divided and sealed with the Harmonic scissors. A PDS Endoloop was then placed throughout the cystic duct stump. The cystic artery divided and sealed with the Harmonic scissors. The gallbladder was then removed from the liver bed using Harmonic scissors. The gallbladder was then extracted through the epigastric port site. Operative field was checked for any bleeding spots and Harmonic scissors was used to coagulate the liver bed. The abdomen was irrigated. The trocars were removed. The skin was closed using interrupted 3-0 Vicryl suture. Dermabond dressing were applied. The patient tolerated the procedure well.
[2021-06-25] MEDS: levETIRAcetam IV 500 MG in SODIUM CHLORIDE 0.9% 100 ML IVPB SCH ×2 (09:20→21:12)
[2021-06-25] MEDS: LOSARTAN 50 MG TAB PO SCH (09:21)
[2021-06-25] MEDS: FOLIC ACID 1 MG TAB PO SCH (09:21)
[2021-06-25] MEDS: ENOXAPARIN 40 MG/0.4 ML SYRINGE SQ SCH (09:21)
[2021-06-25] MEDS: DILTIAZEM ORAL 30 MG TAB PO SCH ×3 (09:21→21:12)
[2021-06-25] MEDS: PANTOPRAZOLE 40 MG TABLET PO SCH (09:21)
[2021-06-25] MEDS: MORPHINE SULFATE 4 MG/ML SYRINGE IV PRN ×2 (09:22→21:30)
[2021-06-25] MEDS ORDERED: HYDROcodone/APAP 5-325MG 1 EACH TAB PO PRN (09:27)
--- NOTE | 2021-06-25 11:10 | P.PN ---
<Kaushik Delarosa - Last Filed: 06/25/21 17:55> Subjective Progress Note Date: 06/25/21 Hospital course: Patient is a very pleasant 51-year-old female with a past medical history of hypertension, scleroderma, and polymyositis. She presented to the emergency department with a chief complaint of abdominal pain accompanied by nausea and vomiting. Patient reports pain in right upper quadrant coming on suddenly this morning accompanied by nausea and vomiting. Patient was admitted under Gen. surgery team and we were consulted for medical management. In the emergency department patient was reported to have a witnessed tonic-clonic seizure lasting approximately 45 seconds. Keppra 500 mg IV was ordered for patient. Patient reporting previous history of an isolated seizure but was never placed on a ntiepileptic medications. Gallbladder ultrasound showing gallbladder distention measuring 4.3 cm in diameter and [address] head negative for acute intercranial process, revealing right scleral buckling with opacified right inferior mastoid air cells. HIDA scan concerning for acute cholecystitis. Physical exam: Patient seen and fully evaluated at bedside this morning. She appears to be doing well and denies having any complaints or needs. She reports postoperative pain is controlled at this time and denies having any nausea or vomiting. Patient tolerating regular diet. She reports urinating without difficulty and passing flatus. Patient denies bowel movement during postsurgical period. Patient medically stable at this time. Vital signs reviewed and stable. General: Nontoxic, no distress and appears stated age. Derm: Skin warm and dry, normal coloration for ethnicity. Head: Atraumatic, normocephalic and symmetric. Eyes: EOMs intact, no lid lag, and anicteric sclera Mouth: no lip lesions, mucus membranes moist Cardiovascular: regular rate and rhythm with normal S1S2, no murmur, positive posterior tibial pulses bilaterally, and cap refill < 2 seconds. Lungs: Respirations even, regular, and unlabored on room air. Lungs CTA bilaterally, no rhonchi, no rales, no wheezing, and no accessory muscle usage. Abdominal: soft, no guarding, no appreciable organomegaly. Mild diffuse tenderness, laparoscopic incisions intact with no surrounding erythema or drai nage. Ext: ROM intact. No gross muscle atrophy, no edema, no contractures Neuro: Speech clear, face symmetrical and CN II-XII grossly intact with no noted focal neuro deficits Psych: Alert and oriented to person, place, time, and situation. Appropriate and pleasant affect. Assessment and Plan of Care: Seizure activity, Reported Witnessed tonic clonic seizure in the emergency department -Seizure precautions, aspiration precautions, and fall precautions in place. -Neurology following recommending patient to continue Keppra 500 mg twice a day and follow-up with neurologist and hydraulic jack adjuster outpatient. -Neuro checks -Patient informed of [place] state law stating no driving until seizure free for 6 months. Patient also instructed to avoid climbing ladders, operating dangerous or heavy machinery or unsupervised swimming until seizure free for 6 months. -EEG abnormal findings showing background slowing suggestive of mild to moderate encephalopathy no focal slowing or epileptiform discharge for seizure activity noted on EEG. -CT negative for acute intercranial abnormality. Acute cholecystitis, status post laparoscopic cholecystectomy 06/24/21 Abdominal pain -Gen. surgery following, patient postop day 1 -Gen. surgery managing pain, advancement of diet, DVT prophylaxis, and postoper ative wound care. -Patient tolerating regular diet. Hypertension -Monitor vital signs and Continue daily medication regimen with losartan and Cardizem. Thank you for allowing us to participate in the care of this pleasant patient. Do not hesitate to contact us with questions. Someone can be reached from the [facility] hospitalist group all hours of the day at [phone] or via [employer]. Objective - Vital Signs Vital signs: Vital Signs Temp 99.0 F 06/25/21 08:00 Pulse 106 H 06/25/21 08:00 Resp 16 06/25/21 08:00 BP 128/77 06/25/21 08:00 Pulse Ox 94 L 06/25/21 08:00 Intake & Output 06/24/21 06/25/21 06/25/21 18:59 06:59 18:59 Intake Total 950 Output Total 5 Balance 945 Weight 90.718 kg Intake: IV 950 Output: Estimated Blood Loss 5 Other: Voiding Method Diaper Diaper Incontinent Incontinent # Voids 1 1 # Bowel Movements 0 - Labs CBC & Chem 7: 06/24/21 05:34 06/24/21 05:34 <Laverne Cronin - Last Filed: 06/25/21 18:47> Subjective Kaushik Delarosa NP rendered care for this patient independently, reviewed the findings and plan as documented in the note above. I did not physically speak with or examine the patient on this date. Objective - Vital Signs Vital signs: Vital Signs Temp 98.4 F 06/25/21 14:00 Pulse 101 H 06/25/21 14:00 Resp 17 06/25/21 14:00 BP 155/89 06/25/21 14:00 Pulse Ox 97 06/25/21 14:00 Intake & Output 06/24/21 06/25/21 06/25/21 18:59 06:59 18:59 Intake Total 950 118 Output Total 5 Balance 945 118 Weight 90.718 kg 90.718 kg Intake: IV 950 Oral 118 Output: Estimated Blood Loss 5 Other: Voiding Method Diaper Diaper Diaper Incontinent Incontinent Incontinent # Voids 1 1 # Bowel Movements 0 - Labs CBC & Chem 7: 06/24/21 05:34 06/24/21 05:34 Labs: Abnormal Lab Results - Last 24 Hours (Table) 06/25/21 Range/Units 15:01 Ionized Calcium Isabella 4.0 L (4.5-5.3) mg/dL
[2021-06-25] MEDS: SODIUM CHLORIDE 0.9% 1,000 ML IV SCH ×2 (11:15→21:12)
[2021-06-25 11:19] VITALS: BMI 34.3
--- NOTE | 2021-06-25 12:20 | P.PN ---
Subjective Progress Note Date: 06/25/21 The patient is seen at bedside and she feels somewhat better today compared to yesterday. Per nurse no further seizure-like activity. Objective - Vital Signs Vital signs: Vital Signs Temp 99.0 F 06/25/21 08:00 Pulse 106 H 06/25/21 08:00 Resp 16 06/25/21 08:00 BP 128/77 06/25/21 08:00 Pulse Ox 94 L 06/25/21 08:00 Intake & Output 06/24/21 06/25/21 06/25/21 18:59 06:59 18:59 Intake Total 950 Output Total 5 Balance 945 Weight 90.718 kg 90.718 kg Intake: IV 950 Output: Estimated Blood Loss 5 Other: Voiding Method Diaper Diaper Incontinent Incontinent # Voids 1 1 # Bowel Movements 0 - Exam GENERAL: The patient is lying in bed and is mild in acute distress. NEUROLOGICAL: Higher mental function: The patient is awake, alert, oriented to self and time. She states she is in the hospital. Patient is following commands. No aphasia and no neglect. Cranial nerves: The pupils are round, equal and reactive to light. Has mild ptosis over the left eye. Visual resendiz are hard to assess because of her cooperation. Extraocular movement is intact no nystagmus is noted. Facial sensation is normal to touch throughout. The facial strength is normal throughout (facial expression is limited). Tongue is midline and moved [id number] without any difficulty. Has smooth and glaze appearance tongue. No tongue bite noted. No dysarthria is noted. Shoulder shrug is antigravity but limited because of her old weakness. Motor: The strength: Distal strength > proximal (upper and lowers) and that is old per family. She has difficulty raising arms above gravity but able to bend elbow and has hand police worker of 4- bilaterally. Hip flexion is 3-4, knee extension is 4- and ankle flexion/extension is 5- bilaterally. Slight decrease tone throughout. Sensation: Sensation is normal to touch throughout. Has shiny appearance skin in hand. Reflexes (right/left): 1+ throughout. Plantars mute bilaterally. WORK-UP: Urinalysis is negative for urinary tract infection Jacques virus PCR was not detected. AST of 25 and ALT of 11. Most recent calcium is 7.9 and prior to that was 7.7. CT of the head is reported as no acute intracranial abnormality of gross space-occupying lesion by this noncontrast computed tomography scan Routine EEG on 06/24/2021 is abnormal. The back was SUGGESTIVE of mild to moderate encephalopathy. There is no focal slowing, epileptiform discharges or seizure on the EEG. - Labs CBC & Chem 7: 06/24/21 05:34 06/24/21 05:34 Assessment and Plan Assessment: New onset seizure (Reported witnessed seizure-like activity (GTC lasting 45 seconds)) Appears provoked. Per family patient does not have history of underlying seizure in past. Abdominal pain and distended gallbladder Hypertension and during this hospital stay her blood pressure was elevated but currently is stable Scleroderma Polymyositis Plan: Is on Keppra 500 mg every 12 hours and patient is in agreement of staying on the medication for now. Family were notified of side-effects of Keppra (mood/behavioral changes). I ordered MRI Brain seizure protocol. Ordered ionized calcium, magnesium and phosphorus level. Also ordered TSH. If any abnormality will defer management to primary team. On seizure precautions seizure pads Every 4 neuro checks General surgery team is on board We'll defer the rest of the medical management to the primary team Upon discharge patient needs to follow-up with a neurologist within 1-2 weeks as an outpatient. Patient is following-up with Stylist Apprentice as outpatient. Per [place] DM patient cannot drive for 6 month until seizure-free, avoid the [place], swimming unassisted and avoid using heavy machinery. The plan is discussed with the patient and her nurse. Jese Cisneros M.D. Neuro-hospitalist Time with Patient: Less than 30
--- NOTE | 2021-06-25 13:25 | P.PN ---
Subjective Progress Note Date: 06/25/21 CHIEF COMPLAINT: Cholecystitis HISTORY OF PRESENT ILLNESS: Patient is status post laparoscopic cholecystectomy. She reports no abdominal pain. Denies any nausea or vomiting. She is tolerating diet. She is eating small amounts. No further seizure activity reported. She is followed by neurology placed on [facility]. They've ordered an MRI of the brain. Afebrile. WBC is 9.8 hemoglobin 12.9 sodium 136 potassium 4.1 g her 0.9 PHYSICAL EXAM: VITAL SIGNS: Reviewed. GENERAL: Well-developed in no acute distress. HEENT: No sclera icterus. Extraocular movements grossly intact. Moist buccal mucosa. Head is atraumatic, normocephalic. ABDOMEN: Soft. Nondistended. Nontender. Incision sites clean dry and intact NEUROLOGIC: Alert and oriented. Cranial nerves II through XII grossly intact. ASSESSMENT: 1. Cholecystitis status post laparoscopic cholecystectomy 2. New onset seizure followed by neurology PLAN: -Continue regular diet -Continue pain medication as needed -Encouraged patient to increase activity -Patient is stable from surgical standpoint for discharge when medically cleared Physician Mechanical Cad Drafter note has been reviewed by physician. Signing provider agrees with the documented findings, assessment, and plan of care. Objective - Vital Signs Vital signs: Vital Signs Temp 99.0 F 06/25/21 08:00 Pulse 106 H 06/25/21 08:00 Resp 16 06/25/21 08:00 BP 128/77 06/25/21 08:00 Pulse Ox 94 L 06/25/21 08:00 Intake & Output 06/24/21 06/25/21 06/25/21 18:59 06:59 18:59 Intake Total 950 Output Total 5 Balance 945 Weight 90.718 kg 90.718 kg Intake: IV 950 Output: Estimated Blood Loss 5 Other: Voiding Method Diaper Diaper Incontinent Incontinent # Voids 1 1 # Bowel Movements 0 - Labs CBC & Chem 7: 06/24/21 05:34 06/24/21 05:34
[2021-06-26 04:02] LABS: Magnesium 1.9 mg/dL (1.5-2.4); Phosphorus 4.4 mg/dL (2.4-5.1)
[2021-06-26 07:22] VITALS: BP 144/85; PULSE 103; RESP 14
[2021-06-26] MEDS: levETIRAcetam IV 500 MG in SODIUM CHLORIDE 0.9% 100 ML IVPB SCH (07:43)
[2021-06-26] MEDS: DILTIAZEM ORAL 30 MG TAB PO SCH (07:43)
[2021-06-26] MEDS: ENOXAPARIN 40 MG/0.4 ML SYRINGE SQ SCH (07:44)
[2021-06-26] MEDS: PANTOPRAZOLE 40 MG TABLET PO SCH (07:44)
[2021-06-26] MEDS: LOSARTAN 50 MG TAB PO SCH (07:44)
[2021-06-26] MEDS: FOLIC ACID 1 MG TAB PO SCH (07:44)
[2021-06-26 09:02] VITALS: TEMP 98.1
--- NOTE | 2021-06-26 09:58 | MR ---
EXAMINATION TYPE: MR brain wo con DATE OF EXAM: 06/26/2021 COMPARISON: NONE HISTORY: Seizure TECHNIQUE: T1-weighted sagittal, T2, FLAIR, and diffusion axial, and T2 coronal coronal views of the brain are submitted. FINDINGS: There is no evidence of acute ischemia. The ventricles, basal cisterns, and sulci overlying the conv exities are consistent with the patient's age. There is no mass effect. Craniocervical junction maintained. Sella turcica has a normal appearance. Changes of chronic right mastoiditis and mild sinusitis. Deformity involving the right orbit suggesti ng prior surgery correlate clinically. Partially empty sella turcica. There are few focal areas of ab normal signal seen scattered bilaterally within the white matter of both cerebral hemispheres. May be on the basis of remote ischemic change. No cerebellopontine angle mass. IMPRESSION: 1. Severe right mastoiditis. There are a few scattered areas of nonspecific signal within the white m atter of the occipital lobes and parietal lobes most likely in the basis of remote ischemia. Recommen d a repeat follow-up CT noncontrast head to exclude the possibility of tiny areas of subarachnoid hem orrhage.
[2021-06-26 10:22] LABS: Basophils % (A) 1 %; Eosinophils # (A) 0.1 k/uL (0-0.7); Eosinophils % (A) 2 %; HCT 36.4 % (34.0-46.0); HGB 11.6 gm/dL (11.4-16.0); Hypochromasia Slight; Lymphocytes # (A) 1.6 k/uL (1.0-4.8); Lymphocytes % (A) 22 %; MCH 26.9 pg (25.0-35.0); MCHC 31.9 g/dL (31.0-37.0); MCV 84.3 fL (80.0-100.0); Monocytes # (A) 0.4 k/uL (0-1.0); Monocytes % (A) 5 %; Neutrophils # (A) 5.1 k/uL (1.3-7.7); Neutrophils % (A) 70 %; Platelet Count 183 k/uL (150-450); RBC 4.31 m/uL (3.80-5.40); RDW 15.5 % (11.5-15.5); WBC 7.3 k/uL (3.8-10.6)
--- NOTE | 2021-06-26 11:42 | P.PN ---
<Kaushik Delarosa - Last Filed: 06/26/21 11:07> Subjective Progress Note Date: 06/26/21 Hospital course: Patient is a very pleasant 51-year-old female with a past medical history of hypertension, scleroderma, and polymyositis. She presented to the emergency department with a chief complaint of abdominal pain accompanied by nausea and vomiting. Patient reports pain in right upper quadrant coming on suddenly this morning accompanied by nausea and vomiting. Patient was admitted under Gen. surgery team and we were consulted for medical management. In the emergency department patient was reported to have a witnessed tonic-clonic seizure lasting approximately 45 seconds. Keppra 500 mg IV was ordered for patient. Patient reporting previous history of an isolated seizure but was never placed on a ntiepileptic medications. Gallbladder ultrasound showing gallbladder distention measuring 4.3 cm in diameter and [address] head negative for acute intercranial process, revealing right scleral buckling with opacified right inferior mastoid air cells. HIDA scan concerning for acute cholecystitis. Physical exam: Patient seen and fully evaluated at bedside this morning. She was resting comfortably in bed showing no signs of acute distress. She reports no difficulties tolerating regular diet and denies any episodes of nausea or vomiting. Patient reports that she has had a bowel movement and that her pain has been controlled. Patient denied having any complaints or concerns including headache, lightheadedness, dizziness, chest pain, palpitations, shortness breath, or experiencing any numbness/tingling/weakness in her extremities. Patient continues to have slight tachycardia, patient reports normal baseline finding. Morning labs reviewed and were unremarkable. Patient medically stable for discharge at this time and recommend following up with neurologist, Gen. surgery, and PCP upon discharge. Vital signs reviewed and stable. General: Nontoxic, no distress and appears stated age. Derm: Skin warm and dry, normal coloration for ethnicity. Laparoscopic incisions to abdomen intact with no surrounding erythema or drainage noted. Head: Atraumatic, normocephalic and symmetric. Eyes: EOMs intact, no lid lag, and anicteric sclera Mouth: no lip lesions, mucus membranes moist Cardiovascular: regular rate and rhythm with normal S1S2, no murmur, positive posterior tibial pulses bilaterally, and cap refill < 2 seconds. Lungs: Respirations even, regular, and unlabored on room air. Lungs CTA bilaterally, no rhonchi, no rales, no wheezing, and no accessory muscle usage. Abdominal: soft, no guarding, no appreciable organomegaly. Nontender to palpation. laparoscopic incisions intact with no surrounding erythema or drainage. Ext: ROM intact. No gross muscle atrophy, no edema, no contractures Neuro: Speech clear, face symmetrical and CN II-XII grossly intact with no noted focal neuro deficits Psych: Alert and oriented to person, place, time, and situation. Appropriate and pleasant affect. Assessment and Plan of Care: Seizure activity, Reported Witnessed tonic clonic seizure in the emergency department -Seizure precautions, aspiration precautions, and fall precautions in place. -Neurology following recommending patient to continue Keppra 500 mg twice a day and follow-up with neurologist and vice president of customer service outpatient. -Neuro checks -Patient informed of [place] state law stating no driving until seizure free for 6 months. Patient also instructed to avoid climbing ladders, operating dangerous or heavy machinery or unsupervised swimming until seizure free for 6 months. -EEG abnormal findings showing background slowing suggestive of mild to moderate encephalopathy no focal slowing or epileptiform discharge for seizure activity noted on EEG. -CT negative for acute intercranial abnormality. -MRI brain without contrast report stated severe right mastoiditis with few scattered areas of nonspecific signal within the white matter obvious septal and parietal lobes most likely in the basis of remote ischemia, reviewed by neurologist Dr. Cisneros whom stated no need for further testing and cleared pt from neurology perspective safe for discharge home and follow up outpatient with neurologist. Acute cholecystitis, status post laparoscopic cholecystectomy 06/24/21 Abdominal pain -Gen. surgery following, patient postop day 2 -Gen. surgery managing pain, advancement of diet, DVT prophylaxis, and postoperative wound care. -Patient tolerating regular diet. Hypertension -Monitor vital signs and Continue daily medication regimen with losartan and Cardizem. Thank you for allowing us to participate in the care of this pleasant patient. Do not hesitate to contact us with questions. Someone can be reached from the [facility] hospitalist group all hours of the day at [phone] or via [employer]. Objective - Vital Signs Vital signs: Vital Signs Temp 100.5 F H 06/26/21 07:19 Pulse 103 H 06/26/21 07:19 Resp 14 06/26/21 07:19 BP 144/85 06/26/21 07:19 Pulse Ox 94 L 06/26/21 07:19 Intake & Output 06/25/21 06/26/21 06/26/21 18:59 06:59 18:59 Intake Total 118 Output Total 1100 Balance 118 -1100 Weight 90.718 kg Intake: Oral 118 Output: Urine 1100 Other: Voiding Method Diaper Diaper Incontinent Incontinent - Labs CBC & Chem 7: 06/26/21 10:01 06/24/21 05:34 Labs: Abnormal Lab Results - Last 24 Hours (Table) 06/25/21 Range/Units 15:01 Ionized Calcium Isabella 4.0 L (4.5-5.3) mg/dL <Laverne Cronin - Last Filed: 06/26/21 17:08> Subjective Kaushik Delarosa NP rendered care for this patient independently, reviewed the findings and plan as documented in the note above. I did not physically speak with or examine the patient on this date. Objective - Vital Signs Vital signs: Vital Signs Temp 98.1 F 06/26/21 07:20 Pulse 103 H 06/26/21 07:19 Resp 14 06/26/21 08:45 BP 144/85 06/26/21 07:19 Pulse Ox 94 L 06/26/21 07:19 Intake & Output 06/25/21 06/26/21 06/26/21 18:59 06:59 18:59 Intake Total 118 120 Output Total 1100 Balance 118 -1100 120 Weight 90.718 kg Intake: Oral 118 120 Output: Urine 1100 Other: Voiding Method Diaper Toilet Incontinent Diaper Incontinent - Labs CBC & Chem 7: 06/26/21 10:01 06/24/21 05:34
--- NOTE | 2021-06-26 11:55 | P.PN ---
Subjective Progress Note Date: 06/26/21 The patient is seen at bedside and per nurse no further seizure-like activity. Objective - Vital Signs Vital signs: Vital Signs Temp 98.1 F 06/26/21 09:01 Pulse 103 H 06/26/21 07:19 Resp 14 06/26/21 08:45 BP 144/85 06/26/21 07:19 Pulse Ox 94 L 06/26/21 07:19 Intake & Output 06/25/21 06/26/21 06/26/21 18:59 06:59 18:59 Intake Total 118 120 Output Total 1100 Balance 118 -1100 120 Weight 90.718 kg Intake: Oral 118 120 Output: Urine 1100 Other: Voiding Method Diaper Toilet Incontinent Diaper Incontinent - Exam GENERAL: The patient is lying in bed and is mild in acute distress. NEUROLOGICAL: Higher mental function: The patient is awake, alert, oriented to self and time. She states she is in the hospital. Patient is following commands. No aphasia and no neglect. Cranial nerves: The pupils are round, equal and reactive to light. Has mild ptosis over the left eye. Visual resendiz are hard to assess because of her cooperation. Extraocular movement is intact no nystagmus is noted. Facial sensation is normal to touch throughout. The facial strength is normal throughout (facial expression is limited). Tongue is midline and moved [id number] without any difficulty. Has smooth and glaze appearance tongue. No tongue bite noted. No dysarthria is noted. Shoulder shrug is antigravity but limited because of her old weakness. Motor: The strength: Distal strength > proximal (upper and lowers) and that is old per family. She has difficulty raising arms above gravity but able to bend elbow and has hand wool hat forming machine tender of 4- bilaterally. Hip flexion is 3-4, knee extension is 4- and ankle flexion/extension is 5- bilaterally. Slight decrease tone throughout. Sensation: Sensation is normal to touch throughout. Has shiny appearance skin in hand. Reflexes (right/left): 1+ throughout. Plantars mute bilaterally. WORK-UP: Urinalysis is negative for urinary tract infection Jacques virus PCR was not detected. AST of 25 and ALT of 11. Most recent calcium is 7.9 and prior to that was 7.7. CT of the head on 06/24/21 is reported as no acute intracranial abnormality of gross space-occupying lesion by this noncontrast computed tomography scan Routine EEG on 06/24/2021 is abnormal. The back was SUGGESTIVE of mild to moderate encephalopathy. There is no focal slowing, epileptiform discharges or seizure on the EEG. MRI of the brain w/o on 06/26/21 is reported as severe right mastoiditis. A few scattered areas of nonspecific signal within the white matter of the occipital lobe and parietal lobe most likely in the basis of remote ischemia. Recommend a repeat follow-up CT noncontrast head to exclude possibility of tiny area of subarachnoid hemorrhage. I personally reviewed it with Dr. Stanford (radiologist) and he stated it could possibly PRES since hyperintese lesion is seen on occipital, parietal lesion. - Labs CBC & Chem 7: 06/26/21 10:01 06/24/21 05:34 Labs: Abnormal Lab Results - Last 24 Hours (Table) 06/25/21 Range/Units 15:01 Ionized Calcium Isabella 4.0 L (4.5-5.3) mg/dL Assessment and Plan Assessment: New onset seizure (Reported witnessed seizure-like activity (GTC lasting 45 seconds)) Appears provoked (hypocalcemia, uncontrolled hypertension with possible PRES on MRI). Per family patient does not have history of underlying seizure in past. Hypocalcemia (with calcium level VII.9 and ionized calcium is 4.0) Hypertensive urgency on presentation (as high as 211/103)--improved. Abdominal pain and distended gallbladder Scleroderma Polymyositis Plan: Is on Keppra 500 mg every 12 hours and patient is in agreement of staying on the medication for now. Family were notified of side-effects of Keppra (mood/behavioral changes). ICT of the head on 06/24/21 is reported as no acute intracranial abnormality of gross space-occupying lesion by this noncontrast computed tomography scan Routine EEG on 06/24/2021 is abnormal. The back was SUGGESTIVE of mild to moderate encephalopathy. There is no focal slowing, epileptiform discharges or seizure on the EEG. MRI of the brain w/o on 06/26/21 is reported as severe right mastoiditis. A few scattered areas of nonspecific signal within the white matter of the occipital lobe and parietal lobe most likely in the basis of remote ischemia. Recommend a repeat follow-up CT noncontrast head to exclude possibility of tiny area of subarachnoid hemorrhage. I personally reviewed it with Dr. Stanford (radiologist) and he stated it could possibly PRES since hyperintese lesion is seen on occipital, parietal lesion. I feel possibly it's more press and I don't feel this was subarachnoid hemorrhage since the patient had a previous CT and was negative for any bleed. I recommend a repeat MRI of the brain within 2-3 weeks as an outpatient. Ionized calcium is 4.0, and the calcium level 7.9. Patient has a hypocalcemia will defer the management to the primary team Phosphorus is 4.4, magnesium is 1.9, TSH is 1.97. On seizure precautions seizure pads Every 4 neuro checks General surgery team is on board We'll defer the rest of the medical management to the primary team Upon discharge patient needs to follow-up with a neurologist within 1-2 weeks as an outpatient. Patient is following-up with Claims Auditor as outpatient. Per [facility] patient cannot drive for 6 month until seizure-free, avoid the [place], swimming unassisted and avoid using heavy machinery. The plan is discussed with the patient and her nurse. Patinet is clear from neurological perspective. Jese Cisneros M.D. Neuro-hospitalist Time with Patient: Less than 30
[2021-06-26] MEDS: SODIUM CHLORIDE 0.9% 1,000 ML IV SCH (14:02)
--- NOTE | 2021-06-26 14:57 | P.DS ---
Providers Date of admission: 06/23/21 16:56 Expected date of discharge: 06/26/21 Attending physician: Trevor Guevara Consults: 06/23/21 18:24 Consult Physician Routine Consulting Provider: Jeramy Rosenberg Consult Reason/Comments: medical management Do you want consulting provider notified?: Yes, Notify in am 06/24/21 01:46 Consult Physician Urgent Consulting Provider: Dilia Olsen Consult Reason/Comments: seizure Do you want consulting provider notified?: Yes Primary care physician: Mumtaz Co[facility]ho [facility] Course: Discharge diagnosis 1. Cholecystitis status post laparoscopic cholecystectomy 2. New onset seizure followed by neurology Hospital course This is a 51-year-old female presented to the ER with abdominal pain with nausea and vomiting that started around 6 AM yesterday. Apparently she had eaten almond garden the night before. She had been complaining of indigestion and then woke up around 6 AM with complaints of right upper quadrant pain and vomiting. She had a gallbladder ultrasound completed on June 23 that showed a distended gallbladder. And apparently in the ER around 11:00 last night patient had a witnessed tonic clonic seizure lasting 45 seconds. Patient was started on Keppra. No prior history of seizure disorder. Neurology is following. Patient was noted to have slight elevation in her alk phos. Otherwise LFTs are normal. Denies any fever, chills or sweats. HIDA scan completed showing gallbladder not seen correlate for cholecystitis. Patient is status post laparoscopic cholecystectomy. She tolerated surgery well. She is tolerating diet. She is having flatus. She has been up and ambulating. She also seen by neurology and medical service due to her seizures she was started on Keppra. Patient did have an MRI of the brain completed today please refer to neurology note. Also patient will follow-up with neurology outpatient. She's had no further seizures. She is stable for discharge. She's been cleared by ne urology and absent service for discharge. Please refer to chart for any further details. Physician Ballistic Technician note has been reviewed by physician. Signing provider agrees with the documented findings, assessment, and plan of care. Patient Condition at Discharge: Stable Plan - Discharge Summary Discharge Rx Participant: No New Discharge Prescriptions: New levETIRAcetam [Keppra] 500 mg PO Q12HR 30 Days #60 tab Continue Losartan Potassium [Cozaar] 100 mg PO DAILY HYDROcodone/APAP 5-325MG [[place] 5-325] 1 tab PO Q6H PRN PRN Reason: Pain Folic Acid 1 mg PO DAILY predniSONE 2 mg PO DAILY Omeprazole 20 mg PO DAILY DULoxetine HCL [Cymbalta] 90 mg PO DAILY dilTIAZem HCL 30 mg PO DIRECTED Colchicine 0.6 mg PO DAILY Discharge Medication List Colchicine 0.6 mg PO DAILY 06/23/21 [History] DULoxetine HCL [Cymbalta] 90 mg PO DAILY 06/23/21 [History] Folic Acid 1 mg PO DAILY 06/23/21 [History] HYDROcodone/APAP 5-325MG [[place] 5-325] 1 tab PO Q6H PRN 06/23/21 [History] Losartan Potassium [Cozaar] 100 mg PO DAILY 06/23/21 [History] Omeprazole 20 mg PO DAILY 06/23/21 [History] dilTIAZem HCL 30 mg PO DIRECTED 06/23/21 [History] predniSONE 2 mg PO DAILY 06/23/21 [History] levETIRAcetam [Keppra] 500 mg PO Q12HR 30 Days #60 tab 06/25/21 [Rx] Follow up Appointment(s)/Referral(s): Shira Saha MD [REFERRING] - 1 Week Mumtaz Huang MD [Primary Care Provider] - 1-2 days Trevor Guevara MD [STAFF PHYSICIAN] - 1 Week Patient Instructions/Handouts: Seizure/Epilepsy Discharge Instructions & Follow-Up Activity/Diet/Wound Care/Special Instructions: Activity: As tolerated. Take breaks as needed. Diet: Heart healthy and carb consistent diet. Avoid salts, or foods with hidden salts such as canned or boxed foods and frozen dinners. Extra salt makes your heart work harder and traps the fluid in your body for longer. Special Instructions: Take all of your medications as directed and remember to keep all of your doctor's appointments and follow-up as needed. Thank you for allowing us to participate in your care, it was truly a pleasure having you for our patient!!! No driving while taking [place] No lifting over 10 pounds You may shower. No soaking or tub baths for 2 weeks Very light activity until you are reevaluated at your follow up appointment with your surgeon Discharge Disposition: HOME SELF-CARE
== END 2021-06-26 16:53 | disposition home or self-care (01) ==
LOC: EC 13:26 → 1SOBS 16:56 → 6NMEDSUR 06-24 05:08
PROVIDERS: ADMIT Surgery; ATTEND Surgery
DX: K81.0 Acute cholecystitis (principal); I16.0 Hypertensive urgency; R56.9 Unspecified convulsions; R94.01 Abnormal electroencephalogram [EEG]; E83.51 Hypocalcemia; I10 Essential (primary) hypertension; H70.91 Unspecified mastoiditis, right ear; M33.20 Polymyositis, organ involvement unspecified; M34.9 Systemic sclerosis, unspecified; E07.9 Disorder of thyroid, unspecified; F32.A Depression, unspecified; F41.9 Anxiety disorder, unspecified; Z20.822 Contact with and (suspected) exposure to COVID-19; Z79.52 Long term (current) use of systemic steroids; Z79.899 Other long term (current) drug therapy; Z82.49 Family history of ischemic heart disease and other diseases of the circulatory system; Z80.0 Family history of malignant neoplasm of digestive organs
CPT/HCPCS: 47562; 96376 ×2; 96365; 96366 ×2; 96372; 96361; 96375; 99285; 36415; 95816; 97530 ×2; 97162; 88304; 80053 ×2; 80048; 84443; 82330; 83605 ×2; 83690; 83735; 84100; 85025 ×3; 85027; 81003; 87635; 76705; 70450; 70551; 78226; G0378 ×5; A9537; J2250; J2270 ×3; J2405 ×2; J0690; J2001; J1650 ×2; J3010; J1953 ×4; J2370; J0330; J2704; J1644

== ENCOUNTER → 2021-07-16 | Outpatient (CLI) | payer BC ==
--- NOTE | 2021-07-17 09:00 | ECHOF ---
Referral Reason:I27.21 Pulm arterial hypertension MEASUREMENTS -------- HEIGHT: 162.6 cm WEIGHT: 86.2 kg BP: RVIDd: 2.6 cm (< 3.3) IVSd: 1.4 cm (0.6 - 1.1) LVIDd: 3.8 cm (3.9 - 5.3) LVPWd: 1.1 cm (0.6 - 1.1) IVSs: 1.3 cm LVIDs: 3.4 cm LVPWs: 0.9 cm LAESV Index (A-L): 17.92 ml/m Ao Diam: 3.0 cm (2.0 - 3.7) AV Cusp: 1.6 cm (1.5 - 2.6) MV EXCURSION: 22.907 mm (> 18.000) MV EF SLOPE: 90 mm/s (70 - 150) EPSS: 0.2 cm MV E Bg: 0.46 m/s MV DecT: 191 ms MV A Bg: 0.90 m/s MV E/A Ratio: 0.51 RAP: 5.00 mmHg RVSP: 13.89 mmHg FINDINGS -------- Sinus rhythm. This was a technically adequate study. The left ventricular size is normal. There is moderate concentric left ventricular hypertrophy. O verall left ventricular systolic function is low-normal with, an EF between 50 - 55 %. The right ventricle is normal in size. Normal LA size by volume 22+/-6 ml/m2. The right atrial size is normal. The aortic valve is trileaflet, and appears structurally normal. No aortic stenosis or regurgitation. Mild mitral regurgitation is present. Mild tricuspid regurgitation present. Right ventricular systolic pressure is normal at < 35 mmHg. There is no pulmonic regurgitation present. There is no pericardial effusion. CONCLUSIONS -------- 1. The left ventricular size is normal. 2. There is moderate concentric left ventricular hypertrophy. 3. Overall left ventricular systolic function is low-normal with, an EF between 50 - 55 %. 4. The right ventricle is normal in size. 5. Normal LA size by volume 22+/-6 ml/m2. 6. The right atrial size is normal. 7. The aortic valve is trileaflet, and appears structurally normal. No aortic stenosis or regurgitati on. 8. Mild mitral regurgitation is present. 9. Mild tricuspid regurgitation present. 10. There is no pericardial effusion. HOOP ROLLS OPERATOR: Estephania Lora RDCS
== END | disposition home or self-care (01) ==
LOC: RADECHMAIN 15:12
PROVIDERS: ATTEND Family Medicine
DX: I08.1 Rheumatic disorders of both mitral and tricuspid valves (principal)
CPT/HCPCS: 93306

== ENCOUNTER 2021-09-01 19:10 | Emergency (ER) | payer BC, MEDICARE ==
[2021-09-01 19:41] LABS: Anisocytosis Slight; Basophils % (A) 1 %; Eosinophils # (A) 0.2 k/uL (0-0.7); Eosinophils % (A) 3 %; HCT 36.2 % (34.0-46.0); HGB 12.1 gm/dL (11.4-16.0); Lymphocytes # (A) 1.7 k/uL (1.0-4.8); Lymphocytes % (A) 34 %; MCH 27.5 pg (25.0-35.0); MCHC 33.5 g/dL (31.0-37.0); MCV 82.1 fL (80.0-100.0); Mean Platelet Volume 8.2; Monocytes # (A) 0.3 k/uL (0-1.0); Monocytes % (A) 7 %; Neutrophils # (A) 2.8 k/uL (1.3-7.7); Neutrophils % (A) 54 %; Platelet Count 197 k/uL (150-450); RBC 4.41 m/uL (3.80-5.40); RDW 16.7 % (11.5-15.5); WBC 5.2 k/uL (3.8-10.6)
[2021-09-01 19:57] LABS: Acetaminophen <10.0 ug/mL; African American GFR (CKD) >90 (>60 ml/min/1.73 sqM); Anion Gap 8 mmol/L; Blood Urea Nitrogen 7 mg/dL (7-17); Calcium 7.3 mg/dL (8.4-10.2); Carbon Dioxide 27 mmol/L (22-30); Chloride 103 mmol/L (98-107); Glucose 86 mg/dL (74-99); Non-African American GFR(CKD) >90 (>60 ml/min/1.73 sqM); Potassium 3.5 mmol/L (3.5-5.1); Sodium 138 mmol/L (137-145)
--- NOTE | 2021-09-01 20:41 | ED ---
General Adult HPI - General Chief complaint: Recheck/Abnormal Lab/Rx Stated complaint: Overdose Time Seen by Provider: 09/01/21 19:14 Source: patient, family, EMS, RN notes reviewed, old records reviewed Mode of arrival: EMS Limitations: no limitations - History of Present Illness Initial comments: 51-year-old female presents from home, family had requested evaluation as the patient took 2 of her prescribed [place]. This is prescribed for chronic pain. She admits to taking too and she usually just takes 1. The family was concerned. Patient is alert at the time my evaluation. No complaints. 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 She denies suicidal thoughts. She states this was taken just for pain. She has no complaints but is agreeable to basic laboratory testing. - Related Data Home Medications Medication Instructions Recorded Confirmed Colchicine 0.6 mg PO DAILY 06/23/21 06/23/21 DULoxetine HCL [Cymbalta] 90 mg PO DAILY 06/23/21 06/23/21 Folic Acid 1 mg PO DAILY 06/23/21 06/23/21 HYDROcodone/APAP 5-325MG [[place] 1 tab PO Q6H PRN 06/23/21 06/23/21 5-325] Losartan Potassium [Cozaar] 100 mg PO DAILY 06/23/21 06/23/21 Omeprazole 20 mg PO DAILY 06/23/21 06/23/21 dilTIAZem HCL 30 mg PO DIRECTED 06/23/21 06/23/21 predniSONE 2 mg PO DAILY 06/23/21 06/23/21 Previous Rx's Medication Instructions Recorded levETIRAcetam [Keppra] 500 mg PO Q12HR 30 Days #60 tab 06/25/21 Allergies Allergy/AdvReac Type Severity Reaction Status Date / Time No Known Allergies Allergy Verified 09/01/21 19:29 Review of Systems ROS Statement: Those systems with pertinent positive or pertinent negative responses have been documented in the HPI. ROS Other: All systems not noted in ROS Statement are negative. Past Medical History Past Medical History: Hypertension, Thyroid Disorder Additional Past Medical History / Comment(s): scleroderma, polymyositis History of Any Multi-Drug Resistant Organisms: None Reported Past Surgical History: Breast Surgery Additional Past Surgical History / Comment(s): Surgeries for scleroderma calcium deposits, bilateral cataract removals, surgery for detached retina. Past Anesthesia/Blood Transfusion Reactions: No Reported Reaction Past Psychological History: Anxiety, Depression Smoking Status: Never smoker Past Alcohol Use History: None Reported Past Drug Use History: None Reported - Past Family History Father Family Medical History: Hypertension Additional Family Medical History / Comment(s): Heart problems Mother Family Medical History: Cancer Additional Family Medical History / Comment(s): Liver cancer General Exam Limitations: no limitations General appearance: alert, in no apparent distress Head exam: Present: atraumatic, normocephalic Eye exam: Present: normal appearance, PERRL ENT exam: Present: normal exam Neck exam: Present: normal inspection. Absent: tenderness, meningismus Respiratory exam: Present: normal lung sounds bilaterally. Absent: respiratory distress, wheezes Cardiovascular Exam: Present: regular rate, normal rhythm GI/Abdominal exam: Present: soft. Absent: distended, tenderness Extremities exam: Present: normal capillary refill. Absent: pedal edema Neurological exam: Present: alert, oriented X3, CN II-XII intact. Absent: motor sensory deficit Skin exam: Present: warm, dry, intact. Absent: cyanosis, diaphoretic Course Vital Signs 09/01/21 19:26 Temperature 97.8 F Pulse Rate 91 Respiratory 20 Rate Blood Pressure 147/90 O2 Sat by Pulse 100 Oximetry Medical Decision Making - Medical Decision Making CBC is normal, calcium is 7.3 which is slightly low. Negative Tylenol level. Patient really has no complaints, the family just wanted an evaluation. She is alert and oriented and able to make her own decisions. She will follow-up with her primary care physician. Return parameters discussed. - Lab Data Result diagrams: 09/01/21 19:31 09/01/21 19:31 Lab Results 09/01/21 09/01/21 Range/Units 19:31 19:31 WBC 5.2 (3.8-10.6) k/uL RBC 4.41 (3.80-5.40) m/uL Hgb 12.1 (11.4-16.0) gm/dL Hct 36.2 (34.0-46.0) % MCV 82.1 (80.0-100.0) fL MCH 27.5 (25.0-35.0) pg MCHC 33.5 (31.0-37.0) g/dL RDW 16.7 H (11.5-15.5) % Plt Count 197 (150-450) k/uL MPV 8.2 Neutrophils % 54 % Lymphocytes % 34 % Monocytes % 7 % Eosinophils % 3 % Basophils % 1 % Neutrophils # 2.8 (1.3-7.7) k/uL Lymphocytes # 1.7 (1.0-4.8) k/uL Monocytes # 0.3 (0-1.0) k/uL Eosinophils # 0.2 (0-0.7) k/uL Basophils # 0.0 (0-0.2) k/uL Anisocytosis Slight Sodium 138 (137-145) mmol/L Potassium 3.5 (3.5-5.1) mmol/L Chloride 103 (98-107) mmol/L Carbon Dioxide 27 (22-30) mmol/L Anion Gap 8 mmol/L BUN 7 (7-17) mg/dL Creatinine 0.29 L (0.52-1.04) mg/dL Est GFR (CKD-EPI)AfAm >90 (>60 ml/min/1.73 sqM) Est GFR (CKD-EPI)NonAf >90 (>60 ml/min/1.73 sqM) Glucose 86 (74-99) mg/dL Calcium 7.3 L (8.4-10.2) mg/dL Acetaminophen <10.0 ug/mL Disposition Clinical Impression: Chronic pain Disposition: HOME SELF-CARE Condition: Fair Instructions (If sedation given, give patient instructions): Chronic Pain (ED) Is patient prescribed a controlled substance at d/c from ED?: No Referrals: Mumtaz Huang MD [Primary Care Provider] - 1-2 days Time of Disposition: 20:41
[2021-09-01 21:18] VITALS: BP 144/88; PULSE 76; RESP 18; TEMP 97.9
== END 2021-09-01 21:18 | disposition home or self-care (01) ==
LOC: EC 19:10
DX: G89.29 Other chronic pain (principal); I10 Essential (primary) hypertension
CPT/HCPCS: 36415; 80048; 80143; 85025; 99284

== ENCOUNTER → 2021-09-06 | Outpatient (CLI) | payer BC ==
[~2021-09-06] MED LIST: REGADENOSON 0.4 MG/5 ML SYRINGE IV PRN
--- NOTE | 2021-09-06 11:49 | NM ---
EXAMINATION TYPE: NM stress lexiscan cardiolite DATE OF EXAM: 09/06/2021 COMPARISON: NONE HISTORY: Cardiomegaly per order. History of hypertension and family history of heart attack with palp itations. TECHNIQUE: After the intravenous administration of 9.7 mCi Tc 99m Sestamibi - Cardiolite resting SPE CT images acquired 45 minutes post injection. The patient received 0.4mg Lexiscan, 24.2 mCi Tc 99m Sestamibi - Stress images obtained [address] injection FINDINGS: Review of stress and rest SPECT images demonstrates marked artifact from right ventricular wall and d iaphragm making interpretation of the inferior left ventricular wall nondiagnostic. Gated analysis s hows normal wall motion with an estimated left ventricular ejection fraction of 69 %. IMPRESSION: Suboptimal study. Nondiagnostic evaluation of the inferior left ventricular wall noted. No scintigraphic evidence for reversible ischemia otherwise.
--- NOTE | 2021-09-06 13:44 | CA ---
Lexiscan Nuclear Stress Test Report Name: Tami Wood Exam Date: 09/06/2021 10:24 Exam Location: [facility] Ht (in): 64 Wt (lb): 179 BSA: 1.87 Ordering Phys: Mumtaz Huang MD Referring Phys: Diamond Bhakta Technologist: Viktor Ha Age: 51 Gender: F : 1970 Procedure CPT: Indications: I51.7 Cardiomegaly ICD-10 Codes: Patient History: Cardiomegaly Medications: Flonase, Hydrochlorathiazide, Prednazone, Follic Acid, Methotresate, Losartan, Levothyroxine, Deloxitine, Omeperazole, Fildenafil, Colcahicine Meds past 24 hrs: Pretest Chest Pain: STRESS TEST Lexiscan Protocol Exercise Duration (min:sec): 02:[address] Depressions (mm): Angina Score: Reid Score: Resting HR (bpm): 91 Peak HR (bpm): 104 Resting BP (mmHg): 147 / 69 Peak BP (mmHg): 147 / 69 MPHR: 169 Target HR: 144 % MPHR: 62 METS: 1.0 Total Dose: Peak Dose: Atropine: Double Product: 66981 BP Response: Stress Termination: NA Stress Symptoms: No Sypmtoms Stress Summary: ECG ANALYSIS Resting ECG: Stress ECG: CONCLUSIONS Baseline EKG revealed normal sinus rhythm with no significant ST-T changes. With Lexiscan infusion the heart rate went up from 94 bpm to 100 bpm and blood pressure changed from 147/69- 111/67 and gradually came back to baseline. Patient was asymptomatic. By EKG criteria this is a unremarkable Lexiscan stress test. The nuclear scan results will be reported by radiologist Dr. Amari Felix MD (Electronically Signed) Final Date: 06 September 2021 13:43
== END | disposition home or self-care (01) ==
LOC: RADNMMAIN 08:16
PROVIDERS: ATTEND Family Medicine
DX: I51.7 Cardiomegaly (principal)
CPT/HCPCS: 93017; 78452; A9500; J2785

== ENCOUNTER → 2021-09-21 | Outpatient (CLI) | payer BC | END | disposition home or self-care (01) | LOC: LABWHC1 10:40 | PROVIDERS: ATTEND Psychiatry & Neurology Neurology | DX: R56.9 Unspecified convulsions (principal) | CPT/HCPCS: 36415; 80177 ==

== ENCOUNTER 2022-02-05 13:36 | Inpatient (IN) | payer BC, MEDICARE ==
--- NOTE | 2022-02-05 16:25 | XR ---
EXAMINATION TYPE: XR foot complete RT DATE OF EXAM: 02/05/2022 COMPARISON: None HISTORY: Pain TECHNIQUE: 3 view right foot FINDINGS: Structures are osteopenic. There is valgus deviation of the distal third digit. There is significant prominent soft tissue swelling over the distal fifth metatarsal and digit. Exten sive calcifications are present over the fifth metatarsophalangeal joint as well as calcifications be tween the first and second and second and third digits. Calcifications are adjacent to the first meta tarsophalangeal joint spaces, lateral to the second metatarsal proximal phalanx second digit. Dense c alcification is through the pad of the heel. Diffuse soft tissue swelling is present. There is some c alcification within the subcutaneous tissues of the distal foreleg. Consider scleroderma within the d ifferential. Gout should be considered. Joint space destruction however is not identified. IMPRESSION: 1. Extensive calcification at the fifth metatarsophalangeal joint and some at the first metatarsopha langeal joint as well as soft tissue calcification within the distal foreleg and along the pad of the heel. Consider scleroderma. Gout considered less likely. Differential diagnosis could include dystro phic soft tissue calcification.
--- NOTE | 2022-02-05 17:36 | ED ---
Extremity Problem HPI - General Chief complaint: Extremity Problem,Nontraumatic Stated complaint: rt foot wound Time Seen by Provider: 02/05/22 16:17 Source: patient Mode of arrival: ambulatory Limitations: no limitations - History of Present Illness Initial comments: Patient is a 51-year-old female with history of scleroderma presenting with chief complaint of pain and swelling to the right foot. Patient noticed a few days ago that there was a localized area of tenderness and swelling on the lateral side of the foot close to the fifth digit. Patient states that as days have gone on and is becoming more painful and swollen, it does not feel like her usual calcium deposits. She is concerned for an abscess. It is mainly white in color, and fluctuant. Denies any fever, chills, nausea, vomiting, numbness, tingling, weakness. - Related Data Home Medications Medication Instructions Recorded Confirmed Colchicine 0.6 mg PO HS 06/23/21 02/05/22 DULoxetine HCL [Cymbalta] 90 mg PO HS 06/23/21 02/05/22 Folic Acid 1 mg PO HS 06/23/21 02/05/22 Losartan Potassium [Cozaar] 100 mg PO HS 06/23/21 02/05/22 Omeprazole 20 mg PO HS 06/23/21 02/05/22 Levothyroxine Sodium [Synthroid] 88 mcg PO DAILY 02/05/22 02/05/22 Methotrexate 50mg/2ml Soln 25 mg INJ TRAYLOR 02/05/22 02/05/22 Sildenafil [Revatio] 20 mg PO DIRECTED 02/05/22 02/05/22 buprenorphine HCL [Belbuca] 150 mcg BUCCAL HS 02/05/22 02/05/22 dilTIAZem HCL [dilTIAZem HCL 24Hr 120 mg PO HS 02/05/22 02/05/22 ER (CD)] hydroCHLOROthiazide [Hydrodiuril] 50 mg PO DAILY 02/05/22 02/05/22 predniSONE 2.5 mg PO Q48H 02/05/22 02/05/22 Allergies Allergy/AdvReac Type Severity Reaction Status Date / Time No Known Allergies Allergy Verified 02/05/22 21:17 Review of Systems ROS Statement: Those systems with pertinent positive or pertinent negative responses have been documented in the HPI. ROS Other: All systems not noted in ROS Statement are negative. Past Medical History Past Medical History: Hypertension, Thyroid Disorder Additional Past Medical History / Comment(s): scleroderma, polymyositis History of Any Multi-Drug Resistant Organisms: None Reported Past Surgical History: Breast Surgery Additional Past Surgical History / Comment(s): Surgeries for scleroderma calcium deposits, bilateral cataract removals, surgery for detached retina. Past Anesthesia/Blood Transfusion Reactions: No Reported Reaction Past Psychological History: Anxiety, Depression Smoking Status: Never smoker Past Alcohol Use History: None Reported Past Drug Use History: None Reported - Past Family History Father Family Medical History: Hypertension Additional Family Medical History / Comment(s): Heart problems Mother Family Medical History: Cancer Additional Family Medical History / Comment(s): Liver cancer General Exam Limitations: no limitations General appearance: alert, in no apparent distress Head exam: Present: atraumatic, normocephalic, normal inspection Eye exam: Present: normal appearance, EOMI. Absent: scleral icterus, periorbital swelling Neck exam: Present: normal inspection Respiratory exam: Present: normal lung sounds bilaterally. Absent: respiratory distress, wheezes, rales, rhonchi, stridor Cardiovascular Exam: Present: regular rate, normal rhythm, normal heart sounds. Absent: systolic murmur, diastolic murmur, rubs, gallop, clicks Right Foot/Toe exam: Present: tenderness, swelling. Absent: erythema Neurological exam: Present: alert, oriented X3, CN II-XII intact Psychiatric exam: Present: normal affect, normal mood Course Vital Signs 02/05/22 02/05/22 02/05/22 14:48 21:00 22:42 Temperature 97.9 F 98.7 F 98.5 F Pulse Rate 59 L 100 105 H Respiratory 16 16 16 Rate Blood Pressure 122/91 153/71 149/87 O2 Sat by Pulse 95 98 98 Oximetry Procedures - Incision & Drainage Consent Obtained: verbal consent Site: foot Needle Aspiration Performed?: Yes I&D Drainage Obtained: Pus Culture Obtained?: Yes Patient Tolerated Procedure: well Medical Decision Making - Medical Decision Making Patient is a 51-year-old female history of scleroderma presenting with chief complaint of painful bump to the right foot. Patient states over the past few days there has been a area of tenderness and swelling that has been increasing in size, located on the lateral portion of the foot just beneath the pinky toe. On examination there is fluctuance and surrounding erythema, pus is seen underneath the skin. Area was drained using an 18-gauge needle and culture was sent. Labs show WBC 10.0. Lactic acid 2.3 and CRP 6.6. Patient is started on clindamycin. I spoke with Dr. Nichole who agreed to admit the patient. I discussed this case with my attending Dr. Ambrose. - Lab Data Result diagrams: 02/05/22 19:15 02/05/22 19:15 Lab Results 02/05/22 02/05/22 02/05/22 Range/Units 19:15 19:15 19:15 WBC 10.0 (3.8-10.6) k/uL RBC 4.62 (3.80-5.40) m/uL Hgb 12.0 (11.4-16.0) gm/dL Hct 38.5 (34.0-46.0) % MCV 83.2 (80.0-100.0) fL MCH 26.1 (25.0-35.0) pg MCHC 31.3 (31.0-37.0) g/dL RDW 15.9 H (11.5-15.5) % Plt Count 258 (150-450) k/uL MPV 8.3 Neutrophils % (Manual) 74 % Band Neuts % (Manual) 4 % Lymphocytes % (Manual) 20 % Monocytes % (Manual) 2 % Eosinophils % (Manual) 1 % Neutrophils # (Manual) 7.80 H (1.3-7.7) k/uL Lymphocytes # (Manual) 2.00 (1.0-4.8) k/uL Monocytes # (Manual) 0.20 (0-1.0) k/uL Eosinophils # (Manual) 0.10 (0-0.7) k/uL Nucleated RBCs 0 (0-0) /100 WBC Manual Slide Review Performed Hypochromasia Slight Sodium 133 L (137-145) mmol/L Potassium 3.9 (3.5-5.1) mmol/L Chloride 97 L (98-107) mmol/L Carbon Dioxide 24 (22-30) mmol/L Anion Gap 12 mmol/L BUN 11 (7-17) mg/dL Creatinine 0.27 L (0.52-1.04) mg/dL Est GFR (CKD-EPI)AfAm >90 (>60 ml/min/1.73 sqM) Est GFR (CKD-EPI)NonAf >90 (>60 ml/min/1.73 sqM) Glucose 105 H (74-99) mg/dL Lactic Ac Sepsis Rflx Plasma Lactic Acid Zack 2.3 H* (0.7-2.0) mmol/L Calcium 8.0 L (8.4-10.2) mg/dL Total Bilirubin 0.6 (0.2-1.3) mg/dL AST 20 (14-36) U/L ALT 7 (4-34) U/L Alkaline Phosphatase 179 H (38-126) U/L C-Reactive Protein 6.6 H (<1.0) mg/dL Total Protein 5.8 L (6.3-8.2) g/dL Albumin 3.0 L (3.5-5.0) g/dL 02/05/22 Range/Units 20:19 WBC (3.8-10.6) k/uL RBC (3.80-5.40) m/uL Hgb (11.4-16.0) gm/dL Hct (34.0-46.0) % MCV (80.0-100.0) fL MCH (25.0-35.0) pg MCHC (31.0-37.0) g/dL RDW (11.5-15.5) % Plt Count (150-450) k/uL MPV Neutrophils % (Manual) % Band Neuts % (Manual) % Lymphocytes % (Manual) % Monocytes % (Manual) % Eosinophils % (Manual) % Neutrophils # (Manual) (1.3-7.7) k/uL Lymphocytes # (Manual) (1.0-4.8) k/uL Monocytes # (Manual) (0-1.0) k/uL Eosinophils # (Manual) (0-0.7) k/uL Nucleated RBCs (0-0) /100 WBC Manual Slide Review Hypochromasia Sodium (137-145) mmol/L Potassium (3.5-5.1) mmol/L Chloride (98-107) mmol/L Carbon Dioxide (22-30) mmol/L Anion Gap mmol/L BUN (7-17) mg/dL Creatinine (0.52-1.04) mg/dL Est GFR (CKD-EPI)AfAm (>60 ml/min/1.73 sqM) Est GFR (CKD-EPI)NonAf (>60 ml/min/1.73 sqM) Glucose (74-99) mg/dL Lactic Ac Sepsis Rflx Y Plasma Lactic Acid Zack (0.7-2.0) mmol/L Calcium (8.4-10.2) mg/dL Total Bilirubin (0.2-1.3) mg/dL AST (14-36) U/L ALT (4-34) U/L Alkaline Phosphatase (38-126) U/L C-Reactive Protein (<1.0) mg/dL Total Protein (6.3-8.2) g/dL Albumin (3.5-5.0) g/dL Disposition Clinical Impression: Abscess Disposition: ADMITTED IP TO THIS HOSP Condition: Fair Time of Disposition: 20:52 Decision to Admit Reason: Admit from EC Decision Date: 02/05/22 Decision Time: 20:52
[2022-02-05] MEDS ORDERED: HYDROmorphone 1 MG/ML 1 ML SYRINGE IM STA (18:34)
[2022-02-05 19:39] LABS: HCT 38.5 % (34.0-46.0); Hypochromasia Slight; MCH 26.1 pg (25.0-35.0); MCHC 31.3 g/dL (31.0-37.0); MCV 83.2 fL (80.0-100.0); Mean Platelet Volume 8.3; Platelet Count 258 k/uL (150-450); RBC 4.62 m/uL (3.80-5.40); RDW 15.9 % (11.5-15.5)
[2022-02-05 20:15] LABS: ALT 7 U/L (4-34); AST 20 U/L (14-36); African American GFR (CKD) >90 (>60 ml/min/1.73 sqM); Alkaline Phosphatase 179 U/L (38-126); Anion Gap 12 mmol/L; Blood Urea Nitrogen 11 mg/dL (7-17); C Reactive Protein 6.6 mg/dL (<1.0); Carbon Dioxide 24 mmol/L (22-30); Chloride 97 mmol/L (98-107); Glucose 105 mg/dL (74-99); Non-African American GFR(CKD) >90 (>60 ml/min/1.73 sqM); Potassium 3.9 mmol/L (3.5-5.1); Sodium 133 mmol/L (137-145); Total Bilirubin 0.6 mg/dL (0.2-1.3); Total Protein 5.8 g/dL (6.3-8.2)
[2022-02-05] MEDS ORDERED: CLINDAMYCIN 600 MG in DEXTROSE 5% IN WATER 50 ML IVPB STA ×2 (20:37)
[2022-02-05 20:45] LABS: Band Neutrophils % 4 %; Neutrophils % (M) 74 %; Nucleated Red Blood Cells 0 /100 WBC (0-0); Total Cells Counted 200
[2022-02-05] MEDS ORDERED: ACETAMINOPHEN TAB 325 MG TAB PO PRN (20:50)
[2022-02-05] MEDS ORDERED: NALOXONE 0.4 MG/ML 1 ML VIAL IV PRN (20:50)
[2022-02-05] MEDS ORDERED: SODIUM CHLORIDE 0.9% 1,000 ML IV ONE (20:51)
[2022-02-05] MEDS: SODIUM CHLORIDE 0.9% 1,000 ML IV SCH (23:07)
--- NOTE | 2022-02-06 03:18 | P.HPIM ---
History of Present Illness H&P Date: 02/05/22 The patient is a 51-year-old female with a PMH of scleroderma (with severe calcinosis) follows with Dr Bell, hypertension, hypothyroidism, and multiple nonhealing ulcers who presents to the emergency room with complaints of right foot swelling and pain. The patient reports the pain started over the past 1 week and gradually worsened. Nonhealing ulcers over her bilateral anterior hips. She denied fever, chest discomfort, shortness of, nausea, vomiting, abdominal pain, diarrhea. The patient was noted to have a palpable abscess near the right fifth toe, which was drained in the emergency room. Laboratory evaluation was remarkable for lactic acid 2.3, CRP 6.6. Foot x-ray did reveal multiple joint severe constipation. Review of systems: Pertinent positives and negatives as discussed in HPI, a complete review of systems was performed and all other systems are negative. Physical examination: General: Ill-appearing female, no distress, appears at stated age, normal weight Derm: Bilateral anterior hip large calcific ulcerations with purulent base and surrounding erythema, right lateral fifth toe base tenderness with erythema and induration, warm Head: atraumatic, normocephalic, symmetric Eyes: EOMI, no lid lag, anicteric sclera, pupils equal round reactive to light ENT: Nose and ears atraumatic Neck: No cervical lymphadenopathy, trachea midline, supple Mouth: no lip lesion, mucus membranes moist Cardiovascular: S1S2 reg, no murmur, positive dorsalis pedis pulse bilateral, no edema Lungs: CTA bilateral, no rhonchi, no rales, no accessory muscle use Abdominal: soft, nontender to palpation, no guarding Ext: muscle strength 3 out of 5 in all 4 extremities grossly, muscle atrophy noted throughout Neuro: CN II-XI grossly intact, no gross focal neuro deficits Psych: Alert, oriented, appropriate affect Assessment/plan Multiple nonhealing ulcers -Infectious disease and wound care consult -Continue clindamycin IV 600 mg every 6 hourly -Follow-up blood and wound cultures Lactic acidosis -Monitor for resolution -Continue with IV fluids Chronic conditions: Hypertension, hypothyroidism -Continue with home meds DVT prophylaxis -Heparin subcu The patient is admitted with an anticipated greater than 2 midnight stay for evaluation of ulcers. CODE STATUS: Full Code Discussed with: Patient Anticipated discharge date: 3-[address]: Home Past Medical History Past Medical History: Hypertension, Thyroid Disorder Additional Past Medical History / Comment(s): scleroderma, polymyositis History of Any Multi-Drug Resistant Organisms: None Reported Past Surgical History: Breast Surgery Additional Past Surgical History / Comment(s): Surgeries for scleroderma calcium deposits, bilateral cataract removals, surgery for detached retina. Past Anesthesia/Blood Transfusion Reactions: No Reported Reaction Past Psychological History: Anxiety, Depression Smoking Status: Never smoker Past Alcohol Use History: None Reported Past Drug Use History: None Reported - Past Family History Father Family Medical History: Hypertension Additional Family Medical History / Comment(s): Heart problems Mother Family Medical History: Cancer Additional Family Medical History / Comment(s): Liver cancer Medications and Allergies Home Medications Medication Instructions Recorded Confirmed Type Colchicine 0.6 mg PO HS 06/23/21 02/05/22 History DULoxetine HCL [Cymbalta] 90 mg PO HS 06/23/21 02/05/22 History Folic Acid 1 mg PO HS 06/23/21 02/05/22 History Losartan Potassium [Cozaar] 100 mg PO HS 06/23/21 02/05/22 History Omeprazole 20 mg PO HS 06/23/21 02/05/22 History Levothyroxine Sodium [Synthroid] 88 mcg PO DAILY 02/05/22 02/05/22 History Methotrexate 50mg/2ml Soln 25 mg INJ TRAYLOR 02/05/22 02/05/22 History Sildenafil [Revatio] 20 mg PO DIRECTED 02/05/22 02/05/22 History buprenorphine HCL [Belbuca] 150 mcg BUCCAL HS 02/05/22 02/05/22 History dilTIAZem HCL [dilTIAZem HCL 24Hr 120 mg PO HS 02/05/22 02/05/22 History ER (CD)] hydroCHLOROthiazide [Hydrodiuril] 50 mg PO DAILY 02/05/22 02/05/22 History predniSONE 2.5 mg PO Q48H 02/05/22 02/05/22 History Allergies Allergy/AdvReac Type Severity Reaction Status Date / Time No Known Allergies Allergy Verified 02/05/22 21:17 Physical Exam Vitals: Vital Signs Temp Pulse Resp BP Pulse Ox 02/05/22 14:48 97.9 F 59 L 16 122/91 95 Intake and Output 02/05/22 02/05/22 02/05/22 06:59 14:59 22:59 Other: Weight 79.379 kg Results CBC & Chem 7: 02/05/22 19:15 02/05/22 19:15 Labs: Abnormal Lab Results - Last 24 Hours (Table) 02/05/22 02/05/22 02/05/22 Range/Units 19:15 19:15 19:15 RDW 15.9 H (11.5-15.5) % Neutrophils # (Manual) 7.80 H (1.3-7.7) k/uL Sodium 133 L (137-145) mmol/L Chloride 97 L (98-107) mmol/L Creatinine 0.27 L (0.52-1.04) mg/dL Glucose 105 H (74-99) mg/dL Plasma Lactic Acid Zack 2.3 H* (0.7-2.0) mmol/L Calcium 8.0 L (8.4-10.2) mg/dL Alkaline Phosphatase 179 H (38-126) U/L C-Reactive Protein 6.6 H (<1.0) mg/dL Total Protein 5.8 L (6.3-8.2) g/dL Albumin 3.0 L (3.5-5.0) g/dL
[2022-02-06] MEDS: CLINDAMYCIN 600 MG in DEXTROSE 5% IN WATER 50 ML IVPB SCH ×8 (03:57→23:13)
[2022-02-06 06:36] LABS: Basophils % (A) 1 %; Eosinophils # (A) 0.1 k/uL (0-0.7); Eosinophils % (A) 2 %; HCT 32.2 % (34.0-46.0); HGB 10.2 gm/dL (11.4-16.0); Hypochromasia Slight; Lymphocytes # (A) 1.6 k/uL (1.0-4.8); Lymphocytes % (A) 25 %; MCH 25.9 pg (25.0-35.0); MCHC 31.5 g/dL (31.0-37.0); MCV 82.2 fL (80.0-100.0); Mean Platelet Volume 8.8; Monocytes # (A) 0.4 k/uL (0-1.0); Monocytes % (A) 7 %; Neutrophils % (A) 64 %; Platelet Count 223 k/uL (150-450); RBC 3.92 m/uL (3.80-5.40); RDW 15.6 % (11.5-15.5); WBC 6.2 k/uL (3.8-10.6)
[2022-02-06 06:54] LABS: ALT <6 U/L (4-34); AST 13 U/L (14-36); African American GFR (CKD) >90 (>60 ml/min/1.73 sqM); Albumin 2.5 g/dL (3.5-5.0); Alkaline Phosphatase 153 U/L (38-126); Anion Gap 8 mmol/L; Blood Urea Nitrogen 9 mg/dL (7-17); Calcium 7.1 mg/dL (8.4-10.2); Carbon Dioxide 28 mmol/L (22-30); Chloride 99 mmol/L (98-107); Glucose 108 mg/dL (74-99); Non-African American GFR(CKD) >90 (>60 ml/min/1.73 sqM); Potassium 3.1 mmol/L (3.5-5.1); Sodium 135 mmol/L (137-145); Total Bilirubin 0.4 mg/dL (0.2-1.3); Total Protein 4.7 g/dL (6.3-8.2)
[2022-02-06] MEDS: predniSONE 2.5 MG TAB PO SCH (08:44)
[2022-02-06] MEDS: LEVOTHYROXINE 88 MCG TAB PO SCH (08:44)
[2022-02-06] MEDS: POTASSIUM CHLORIDE 10 MEQ in WATER FOR INJECTION 1 100ML.BAG IVPB SCH ×4 (08:51→13:49)
[2022-02-06] MEDS: HEPARIN SODIUM,PORCINE/PF 5,000 UNIT/0.5 ML SYRINGE SQ SCH ×3 (08:52→23:13)
--- NOTE | 2022-02-06 10:18 | P.PN ---
Subjective Progress Note Date: 02/06/22 The patient is a 51-year-old female with a PMH of scleroderma (with severe calcinosis) follows with Dr Bell, hypertension, hypothyroidism, and multiple nonhealing ulcers who presents to the emergency room with complaints of right foot swelling and pain. The patient reports the pain started over the past 1 week and gradually worsened. Nonhealing ulcers over her bilateral anterior hips. She denied fever, chest discomfort, shortness of, nausea, vomiting, abdominal pain, diarrhea. The patient was noted to have a palpable abscess near the right fifth toe, which was drained in the emergency room. Laboratory evaluation was remarkable for lactic acid 2.3, CRP 6.6. Foot x-ray did reveal multiple joint severe calcification. Patient was started on clindamycin IV. Infectious disease was consulted. Wound care was consulted. Wound and blood culture was pending. Patient was seen and examined. No acute events overnight. Patient reports increased pain in her right lower extremity when ambulating. She has no other complaints. General: Ill-appearing female, no distress, appears at stated age, normal weight Derm: Bilateral anterior hip large calcific ulcerations with purulent base and surrounding erythema, right lateral fifth toe base tenderness with erythema and induration, warm Head: atraumatic, normocephalic, symmetric Eyes: EOMI, no lid lag, anicteric sclera ENT: Nose and ears atraumatic Neck: No cervical lymphadenopathy, trachea midline, supple Mouth: no lip lesion, mucus membranes moist Cardiovascular: S1S2 reg, no murmur, no edema Lungs: CTA bilateral, no rhonchi, no rales, no accessory muscle use Ext: muscle strength 3 out of 5 in all 4 extremities grossly, muscle atrophy noted throughout Neuro: no gross focal neuro deficits Psych: Alert, oriented, appropriate affect #Multiple nonhealing ulcers with history of scleroderma #Hypokalemia #Normocytic anemia #Hypertension #Hypothyroidism Resolved: Lactic acidosis Patient be continued on clindamycin IV. CRP elevated. Wound care and infectious disease consulted. Blood culture and wound culture pending. She does not meet sepsis criteria. Potassium will be replaced with 40 mEq potassium chloride IV. BMP will be r epeated tomorrow morning. Drop in hemoglobin likely dilutional. No signs of active bleeding. Continue to monitor. Continue diltiazem, hydrochlorothiazide, losartan. Monitor vitals, adjust medication if necessary. Continue Synthroid. Objective - Vital Signs Vital signs: Vital Signs Temp 98.2 F 02/06/22 07:00 Pulse 94 02/06/22 07:00 Resp 14 02/06/22 08:44 BP 109/69 02/06/22 07:00 Pulse Ox 99 02/06/22 07:00 FiO2 Intake & Output 02/05/22 02/06/22 02/06/22 18:59 06:59 18:59 Intake Total 118 Balance 118 Weight 79.379 kg 79.379 kg Intake: Oral 118 Other: Voiding Method Bedside Commode # Voids 1 1 - Labs CBC & Chem 7: 02/06/22 06:15 02/06/22 06:15 Labs: Abnormal Lab Results - Last 24 Hours (Table) 02/05/22 02/05/22 02/05/22 Range/Units 19:15 19:15 19:15 Hgb (11.4-16.0) gm/dL Hct (34.0-46.0) % RDW 15.9 H (11.5-15.5) % Neutrophils # (Manual) 7.80 H (1.3-7.7) k/uL Sodium 133 L (137-145) mmol/L Potassium (3.5-5.1) mmol/L Chloride 97 L (98-107) mmol/L Creatinine 0.27 L (0.52-1.04) mg/dL Glucose 105 H (74-99) mg/dL Plasma Lactic Acid Zack 2.3 H* (0.7-2.0) mmol/L Calcium 8.0 L (8.4-10.2) mg/dL AST (14-36) U/L Alkaline Phosphatase 179 H (38-126) U/L C-Reactive Protein 6.6 H (<1.0) mg/dL Total Protein 5.8 L (6.3-8.2) g/dL Albumin 3.0 L (3.5-5.0) g/dL 02/06/22 02/06/22 Range/Units 06:15 06:15 Hgb 10.2 L (11.4-16.0) gm/dL Hct 32.2 L (34.0-46.0) % RDW 15.6 H (11.5-15.5) % Neutrophils # (Manual) (1.3-7.7) k/uL Sodium 135 L (137-145) mmol/L Potassium 3.1 L (3.5-5.1) mmol/L Chloride (98-107) mmol/L Creatinine 0.32 L (0.52-1.04) mg/dL Glucose 108 H (74-99) mg/dL Plasma Lactic Acid Zack (0.7-2.0) mmol/L Calcium 7.1 L (8.4-10.2) mg/dL AST 13 L (14-36) U/L Alkaline Phosphatase 153 H (38-126) U/L C-Reactive Protein (<1.0) mg/dL Total Protein 4.7 L (6.3-8.2) g/dL Albumin 2.5 L (3.5-5.0) g/dL Microbiology - Last 24 Hours (Table) 02/05/22 18:36 Gram Stain - Preliminary Foot - Right Wound Culture - Preliminary
[2022-02-06] MEDS: HYDROmorphone 1 MG/ML 1 ML SYRINGE IVP PRN ×3 (10:20→21:19)
--- NOTE | 2022-02-06 11:04 | P.CONS ---
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 Patient states that the ulcerations are extremely painful they do come and go. She has been to multiple doctors without any relief. Patient has multiple open ulcerations with granulation and calcium deposit noted within the wound bed. Minimal slough noted. She has medical history is significant for hypertension thyroid disease scleroderma and polymyositis. Review Of Systems: Constitutional: No fever, no chills, no night sweats. No weight change. No weakness, fatigue or lethargy. No daytime sleepiness. Integumentary:reports wounds, no lesions. No rash or pruritus. No unusual bruising. No change in hair or nails. Physical exam: General Appearance: Alert, cooperative, no distress, appears stated age. Skin: See HPI all other Skin color, texture, tugor normal, no rashes or lesions. Neurologic: Alert oriented x3 Assessment: 1. Nonhealing ulcerations and multiple sites with fat layer exposure 2.calciphylaxis Plan: 1. Apply Santyl, saline moistened gauze, dry gauze and ABD secure with tape to all open ulcerations. 2. Follow-up with dermatology Thank you for the consultation any questions please contact the wound care center DNP note has been reviewed and discussed with Dr. Brooks and the impression and plan of care has been directed as dictated. Past Medical History Past Medical History: Hypertension, Thyroid Disorder Additional Past Medical History / Comment(s): scleroderma, polymyositis History of Any Multi-Drug Resistant Organisms: None Reported Past Surgical History: Breast Surgery Additional Past Surgical History / Comment(s): Surgeries for scleroderma calcium deposits, bilateral cataract removals, surgery for detached retina. Past Anesthesia/Blood Transfusion Reactions: No Reported Reaction Past Psychological History: Anxiety, Depression Smoking Status: Never smoker Past Alcohol Use History: None Reported Past Drug Use History: None Reported - Past Family History Father Family Medical History: Hypertension Additional Family Medical History / Comment(s): Heart problems Mother Family Medical History: Cancer Additional Family Medical History / Comment(s): Liver cancer Medications and Allergies Home Medications Medication Instructions Recorded Confirmed Type Colchicine 0.6 mg PO HS 06/23/21 02/05/22 History DULoxetine HCL [Cymbalta] 90 mg PO HS 06/23/21 02/05/22 History Folic Acid 1 mg PO HS 06/23/21 02/05/22 History Losartan Potassium [Cozaar] 100 mg PO HS 06/23/21 02/05/22 History Omeprazole 20 mg PO HS 06/23/21 02/05/22 History Levothyroxine Sodium [Synthroid] 88 mcg PO DAILY 02/05/22 02/05/22 History Methotrexate 50mg/2ml Soln 25 mg INJ TRAYLOR 02/05/22 02/05/22 History Sildenafil [Revatio] 20 mg PO BID 02/05/22 02/06/22 History buprenorphine HCL [Belbuca] 150 mcg BUCCAL HS 02/05/22 02/05/22 History dilTIAZem HCL [dilTIAZem HCL 24Hr 120 mg PO HS 02/05/22 02/05/22 History ER (CD)] hydroCHLOROthiazide [Hydrodiuril] 50 mg PO DAILY 02/05/22 02/05/22 History predniSONE 2.5 mg PO Q48H 02/05/22 02/05/22 History Allergies Allergy/AdvReac Type Severity Reaction Status Date / Time No Known Allergies Allergy Verified 02/05/22 21:17 Physical Exam Vitals: Vital Signs Temp Pulse Pulse Resp BP BP Pulse Ox 02/06/22 08:44 14 02/06/22 07:00 98.2 F 94 14 109/69 99 02/06/22 00:03 98.3 F 54 L 18 142/86 99 02/05/22 22:46 98.9 F 98 18 137/89 100 02/05/22 22:42 98.5 F 105 H 16 149/87 98 02/05/22 21:00 98.7 F 100 16 153/71 98 02/05/22 14:48 97.9 F 59 L 16 122/91 95 Intake and Output 02/05/22 02/06/22 02/06/22 22:59 06:59 14:59 Intake Total 118 Balance 118 Intake: Oral 118 Other: Voiding Method Bedside Commode # Voids 0 1 1 # Bowel Movements 1 Weight 79.379 kg Results CBC & Chem 7: 02/06/22 06:15 02/06/22 06:15 Labs: Abnormal Lab Results - Last 24 Hours (Table) 02/05/22 02/05/22 02/05/22 Range/Units 19:15 19:15 19:15 Hgb (11.4-16.0) gm/dL Hct (34.0-46.0) % RDW 15.9 H (11.5-15.5) % Neutrophils # (Manual) 7.80 H (1.3-7.7) k/uL Sodium 133 L (137-145) mmol/L Potassium (3.5-5.1) mmol/L Chloride 97 L (98-107) mmol/L Creatinine 0.27 L (0.52-1.04) mg/dL Glucose 105 H (74-99) mg/dL Plasma Lactic Acid Zack 2.3 H* (0.7-2.0) mmol/L Calcium 8.0 L (8.4-10.2) mg/dL AST (14-36) U/L Alkaline Phosphatase 179 H (38-126) U/L C-Reactive Protein 6.6 H (<1.0) mg/dL Total Protein 5.8 L (6.3-8.2) g/dL Albumin 3.0 L (3.5-5.0) g/dL 02/06/22 02/06/22 Range/Units 06:15 06:15 Hgb 10.2 L (11.4-16.0) gm/dL Hct 32.2 L (34.0-46.0) % RDW 15.6 H (11.5-15.5) % Neutrophils # (Manual) (1.3-7.7) k/uL Sodium 135 L (137-145) mmol/L Potassium 3.1 L (3.5-5.1) mmol/L Chloride (98-107) mmol/L Creatinine 0.32 L (0.52-1.04) mg/dL Glucose 108 H (74-99) mg/dL Plasma Lactic Acid Zack (0.7-2.0) mmol/L Calcium 7.1 L (8.4-10.2) mg/dL AST 13 L (14-36) U/L Alkaline Phosphatase 153 H (38-126) U/L C-Reactive Protein (<1.0) mg/dL Total Protein 4.7 L (6.3-8.2) g/dL Albumin 2.5 L (3.5-5.0) g/dL Microbiology - Last 24 Hours (Table) 02/05/22 18:36 Gram Stain - Preliminary Foot - Right Wound Culture - Preliminary Assessment and Plan (1) Non-healing ulcer of multiple sites with fat layer exposed Current Visit: Yes Status: Acute Code(s): L98.492 - NON-PRS CHRONIC ULCER OF SKIN OF SITES W FAT LAYER EXPOSED SNOMED Code(s): 37029002 (2) Calciphylaxis cutis Current Visit: Yes Status: Acute Code(s): E83.59 - OTHER DISORDERS OF CALCIUM METABOLISM SNOMED Code(s): 718622449
--- NOTE | 2022-02-06 12:29 | P.CONS ---
History of Present Illness - Reason for Consult Consult date: 02/06/22 Abscess Requesting physician: Christina Keith - Chief Complaint Right foot swelling and wound - History of Present Illness This a pleasant 51-year-old female with a history of scleroderma, hypertension and thyroid disorder. Patient has had surgeries in the past for her scleroderma and calcium deposits. She states that she was concern for a wound that she noticed on her right foot about one week ago which has progressively become more red, drainage with pain and swelling of the right foot. She denies any injury to the foot., No fevers or chills. Denies any shortness of breath, chest pain, abdominal pain, nausea vomiting. She has also multiple other wounds on her body related to her scleroderma and calcium deposits. Review of Systems A 14 point review systems was completed all pertinent positives and negatives as stated in the HPI. Past Medical History Past Medical History: Hypertension, Thyroid Disorder Additional Past Medical History / Comment(s): scleroderma, polymyositis History of Any Multi-Drug Resistant Organisms: None Reported Past Surgical History: Breast Surgery Additional Past Surgical History / Comment(s): Surgeries for scleroderma calcium deposits, bilateral cataract removals, surgery for detached retina. Past Anesthesia/Blood Transfusion Reactions: No Reported Reaction Past Psychological History: Anxiety, Depression Smoking Status: Never smoker Past Alcohol Use History: None Reported Past Drug Use History: None Reported - Past Family History Father Family Medical History: Hypertension Additional Family Medical History / Comment(s): Heart problems Mother Family Medical History: Cancer Additional Family Medical History / Comment(s): Liver cancer Medications and Allergies Home Medications Medication Instructions Recorded Confirmed Type Colchicine 0.6 mg PO HS 06/23/21 02/05/22 History DULoxetine HCL [Cymbalta] 90 mg PO HS 06/23/21 02/05/22 History Folic Acid 1 mg PO HS 06/23/21 02/05/22 History Losartan Potassium [Cozaar] 100 mg PO HS 06/23/21 02/05/22 History Omeprazole 20 mg PO HS 06/23/21 02/05/22 History Levothyroxine Sodium [Synthroid] 88 mcg PO DAILY 02/05/22 02/05/22 History Methotrexate 50mg/2ml Soln 25 mg INJ TRAYLOR 02/05/22 02/05/22 History Sildenafil [Revatio] 20 mg PO BID 02/05/22 02/06/22 History buprenorphine HCL [Belbuca] 150 mcg BUCCAL HS 02/05/22 02/05/22 History dilTIAZem HCL [dilTIAZem HCL 24Hr 120 mg PO HS 02/05/22 02/05/22 History ER (CD)] hydroCHLOROthiazide [Hydrodiuril] 50 mg PO DAILY 02/05/22 02/05/22 History predniSONE 2.5 mg PO Q48H 02/05/22 02/05/22 History Allergies Allergy/AdvReac Type Severity Reaction Status Date / Time No Known Allergies Allergy Verified 02/05/22 21:17 Physical Exam Vitals: Vital Signs Temp Pulse Pulse Resp BP BP Pulse Ox 02/06/22 08:44 14 02/06/22 07:00 98.2 F 94 14 109/69 99 02/06/22 00:03 98.3 F 54 L 18 142/86 99 02/05/22 22:46 98.9 F 98 18 137/89 100 02/05/22 22:42 98.5 F 105 H 16 149/87 98 02/05/22 21:00 98.7 F 100 16 153/71 98 02/05/22 14:48 97.9 F 59 L 16 122/91 95 Intake and Output 02/05/22 02/06/22 02/06/22 22:59 06:59 14:59 Intake Total 118 Balance 118 Intake: Oral 118 Other: Voiding Method Bedside Commode # Voids 0 1 1 # Bowel Movements 1 Weight 79.379 kg General appearance: The patient is alert, oriented, appears in no acute distress. HET: Head is normocephalic and atraumatic. Pupils are equal and reactive. Neck: Supple without lymphadenopathy. Trachea midline. No audible carotid bruit. Heart: S1 S2. Regular rate and rhythm. Lungs: Clear to auscultation bilaterally. Abdomen: Soft, nontender, nondistended. Extremities: Bilateral palpable femoral, PT and DP pulses. Patient has nodularity/calcium deposits in the popliteal region. Rght foot lateral aspect surrounding the fifth toe with abscess, purulent drainage. With surrounding erythema Skin: Patient with dressings to bilateral hips. Neurological: No focal deficits. alert and oriented 3. Results CBC & Chem 7: 02/06/22 06:15 02/06/22 06:15 Labs: Abnormal Lab Results - Last 24 Hours (Table) 02/05/22 02/05/22 02/05/22 Range/Units 19:15 19:15 19:15 Hgb (11.4-16.0) gm/dL Hct (34.0-46.0) % RDW 15.9 H (11.5-15.5) % Neutrophils # (Manual) 7.80 H (1.3-7.7) k/uL Sodium 133 L (137-145) mmol/L Potassium (3.5-5.1) mmol/L Chloride 97 L (98-107) mmol/L Creatinine 0.27 L (0.52-1.04) mg/dL Glucose 105 H (74-99) mg/dL Plasma Lactic Acid Zack 2.3 H* (0.7-2.0) mmol/L Calcium 8.0 L (8.4-10.2) mg/dL AST (14-36) U/L Alkaline Phosphatase 179 H (38-126) U/L C-Reactive Protein 6.6 H (<1.0) mg/dL Total Protein 5.8 L (6.3-8.2) g/dL Albumin 3.0 L (3.5-5.0) g/dL 02/06/22 02/06/22 Range/Units 06:15 06:15 Hgb 10.2 L (11.4-16.0) gm/dL Hct 32.2 L (34.0-46.0) % RDW 15.6 H (11.5-15.5) % Neutrophils # (Manual) (1.3-7.7) k/uL Sodium 135 L (137-145) mmol/L Potassium 3.1 L (3.5-5.1) mmol/L Chloride (98-107) mmol/L Creatinine 0.32 L (0.52-1.04) mg/dL Glucose 108 H (74-99) mg/dL Plasma Lactic Acid Zack (0.7-2.0) mmol/L Calcium 7.1 L (8.4-10.2) mg/dL AST 13 L (14-36) U/L Alkaline Phosphatase 153 H (38-126) U/L C-Reactive Protein (<1.0) mg/dL Total Protein 4.7 L (6.3-8.2) g/dL Albumin 2.5 L (3.5-5.0) g/dL Microbiology - Last 24 Hours (Table) 02/05/22 18:36 Gram Stain - Preliminary Foot - Right Wound Culture - Preliminary Comments: X-ray right foot reports extensive calcification at the fifth metatarsophalangeal joint and some at the first metatarsophalangeal joint as well as soft tissue calcification within the distal foreleg and along the pad of the heel. Consider scleroderma. Gout considered less likely. Differential diagnosis could include dystrophic soft tissue calcification. Assessment and Plan Assessment: 1. Abscess right foot, possible osteomyelitis 2. Scleroderma Plan: 1. Continue on IV antibiotics per recommendations of infectious disease 2. She is scheduled for I&D, possible fifth toe amputation Thursday 3. Nothing by mouth after midnight Thursday Thank you for this consultation, we will continue to follow. The impression and plan of care has been dictated as directed. I performed a history and examination of this patient, discussed the same with the dictator. I agree with the dictator's note ,documented as a scribe. Any additional findings or plans will be noted.
--- NOTE | 2022-02-06 13:11 | P.GSCN ---
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 Patient with multiple open wounds present. She has been seen by various surgeons, wound care providers, and plastic surgeons in the past. She has a large area of calcium deposit involving the left hip region with a large open wound there. She was told in the past by plastic surgery this was not amenable to surgical resection and closure. We were consulted today because of 2 areas involving her upper buttock region bilaterally. Both areas suspicious for abscess. We were consulted for incision and drainage of those sites. Review of Systems The patient denies any acute changes in vision or hearing, no dysphagia or odynophagia, no chest pain or shortness of breath, no dysuria or hematuria, no headache, no runny nose, no rectal bleeding or melena, no unexplained weight loss Past Medical History Past Medical History: Hypertension, Thyroid Disorder Additional Past Medical History / Comment(s): scleroderma, polymyositis History of Any Multi-Drug Resistant Organisms: None Reported Past Surgical History: Breast Surgery Additional Past Surgical History / Comment(s): Surgeries for scleroderma calcium deposits, bilateral cataract removals, surgery for detached retina. Past Anesthesia/Blood Transfusion Reactions: No Reported Reaction Past Psychological History: Anxiety, Depression Smoking Status: Never smoker Past Alcohol Use History: None Reported Past Drug Use History: None Reported - Past Family History Father Family Medical History: Hypertension Additional Family Medical History / Comment(s): Heart problems Mother Family Medical History: Cancer Additional Family Medical History / Comment(s): Liver cancer Medications and Allergies Home Medications Medication Instructions Recorded Confirmed Type Colchicine 0.6 mg PO HS 06/23/21 02/05/22 History DULoxetine HCL [Cymbalta] 90 mg PO HS 06/23/21 02/05/22 History Folic Acid 1 mg PO HS 06/23/21 02/05/22 History Losartan Potassium [Cozaar] 100 mg PO HS 06/23/21 02/05/22 History Omeprazole 20 mg PO HS 06/23/21 02/05/22 History Levothyroxine Sodium [Synthroid] 88 mcg PO DAILY 02/05/22 02/05/22 History Methotrexate 50mg/2ml Soln 25 mg INJ TRAYLOR 02/05/22 02/05/22 History Sildenafil [Revatio] 20 mg PO BID 02/05/22 02/06/22 History buprenorphine HCL [Belbuca] 150 mcg BUCCAL HS 02/05/22 02/05/22 History dilTIAZem HCL [dilTIAZem HCL 24Hr 120 mg PO HS 02/05/22 02/05/22 History ER (CD)] hydroCHLOROthiazide [Hydrodiuril] 50 mg PO DAILY 02/05/22 02/05/22 History predniSONE 2.5 mg PO Q48H 02/05/22 02/05/22 History Allergies Allergy/AdvReac Type Severity Reaction Status Date / Time No Known Allergies Allergy Verified 02/05/22 21:17 Surgical - Exam Vital Signs Temp Pulse Resp BP Pulse Ox 97.9 F 59 L 16 122/91 95 02/05/22 14:48 02/05/22 14:48 02/05/22 14:48 02/05/22 14:48 02/05/22 14:48 Physical exam: General: Well-developed, well-nourished HEENT: Normocephalic, sclerae nonicteric Abdomen: Nontender, nondistended Extremities: No edema, multiple calcified nodules throughout the body, large calcified mass left hip region with open wound present, left upper buttock with area of erythema measuring 6 x 5 cm, central area of fluctuance measuring 3 cm with central wound measuring less than 1 cm draining pus, right lateral buttock with 2 x 2 centimeter abscess with small superficial wound draining purulent fluid Neuro: Alert and oriented Results - Labs 02/06/22 06:15 02/06/22 06:15 Abnormal Lab Results - Last 24 Hours (Table) 02/05/22 02/05/22 02/05/22 Range/Units 19:15 19:15 19:15 Hgb (11.4-16.0) gm/dL Hct (34.0-46.0) % RDW 15.9 H (11.5-15.5) % Neutrophils # (Manual) 7.80 H (1.3-7.7) k/uL Sodium 133 L (137-145) mmol/L Potassium (3.5-5.1) mmol/L Chloride 97 L (98-107) mmol/L Creatinine 0.27 L (0.52-1.04) mg/dL Glucose 105 H (74-99) mg/dL Plasma Lactic Acid Zack 2.3 H* (0.7-2.0) mmol/L Calcium 8.0 L (8.4-10.2) mg/dL AST (14-36) U/L Alkaline Phosphatase 179 H (38-126) U/L C-Reactive Protein 6.6 H (<1.0) mg/dL Total Protein 5.8 L (6.3-8.2) g/dL Albumin 3.0 L (3.5-5.0) g/dL 02/06/22 02/06/22 Range/Units 06:15 06:15 Hgb 10.2 L (11.4-16.0) gm/dL Hct 32.2 L (34.0-46.0) % RDW 15.6 H (11.5-15.5) % Neutrophils # (Manual) (1.3-7.7) k/uL Sodium 135 L (137-145) mmol/L Potassium 3.1 L (3.5-5.1) mmol/L Chloride (98-107) mmol/L Creatinine 0.32 L (0.52-1.04) mg/dL Glucose 108 H (74-99) mg/dL Plasma Lactic Acid Zack (0.7-2.0) mmol/L Calcium 7.1 L (8.4-10.2) mg/dL AST 13 L (14-36) U/L Alkaline Phosphatase 153 H (38-126) U/L C-Reactive Protein (<1.0) mg/dL Total Protein 4.7 L (6.3-8.2) g/dL Albumin 2.5 L (3.5-5.0) g/dL Microbiology - Last 24 Hours (Table) 02/05/22 18:36 Gram Stain - Preliminary Foot - Right Wound Culture - Preliminary Diabetes panel 02/05/22 02/06/22 Range/Units 19:15 06:15 Sodium 133 L 135 L (137-145) mmol/L Potassium 3.9 3.1 L (3.5-5.1) mmol/L Chloride 97 L 99 (98-107) mmol/L Carbon Dioxide 24 28 (22-30) mmol/L BUN 11 9 (7-17) mg/dL Creatinine 0.27 L 0.32 L (0.52-1.04) mg/dL Glucose 105 H 108 H (74-99) mg/dL Calcium 8.0 L 7.1 L (8.4-10.2) mg/dL AST 20 13 L (14-36) U/L ALT 7 <6 (4-34) U/L Alkaline Phosphatase 179 H 153 H (38-126) U/L Total Protein 5.8 L 4.7 L (6.3-8.2) g/dL Albumin 3.0 L 2.5 L (3.5-5.0) g/dL Calcium panel 02/05/22 02/06/22 Range/Units 19:15 06:15 Calcium 8.0 L 7.1 L (8.4-10.2) mg/dL Albumin 3.0 L 2.5 L (3.5-5.0) g/dL Pituitary panel 02/05/22 02/06/22 Range/Units 19:15 06:15 Sodium 133 L 135 L (137-145) mmol/L Potassium 3.9 3.1 L (3.5-5.1) mmol/L Chloride 97 L 99 (98-107) mmol/L Carbon Dioxide 24 28 (22-30) mmol/L BUN 11 9 (7-17) mg/dL Creatinine 0.27 L 0.32 L (0.52-1.04) mg/dL Glucose 105 H 108 H (74-99) mg/dL Calcium 8.0 L 7.1 L (8.4-10.2) mg/dL Adrenal panel 02/05/22 02/06/22 Range/Units 19:15 06:15 Sodium 133 L 135 L (137-145) mmol/L Potassium 3.9 3.1 L (3.5-5.1) mmol/L Chloride 97 L 99 (98-107) mmol/L Carbon Dioxide 24 28 (22-30) mmol/L BUN 11 9 (7-17) mg/dL Creatinine 0.27 L 0.32 L (0.52-1.04) mg/dL Glucose 105 H 108 H (74-99) mg/dL Calcium 8.0 L 7.1 L (8.4-10.2) mg/dL Total Bilirubin 0.6 0.4 (0.2-1.3) mg/dL AST 20 13 L (14-36) U/L ALT 7 <6 (4-34) U/L Alkaline Phosphatase 179 H 153 H (38-126) U/L Total Protein 5.8 L 4.7 L (6.3-8.2) g/dL Albumin 3.0 L 2.5 L (3.5-5.0) g/dL Assessment and Plan (1) Abscess of buttock Narrative/Plan: 51-year-old female with buttock abscess bilateral buttock region. Left is larger in size than the right. We'll proceed with incision and drainage tomorrow. We'll see if vascular surgery can coordinate their procedure with ours. Risks of bleeding, infection, nonhealing wound formation, possible need for further surgery reviewed. She understands and wishes to proceed. Current Visit: Yes Status: Acute Code(s): L02.31 - CUTANEOUS ABSCESS OF BUTTOCK SNOMED Code(s): 65875212
[2022-02-06] MEDS: SODIUM CHLORIDE 0.9% 1,000 ML IV SCH ×2 (13:54→23:13)
[2022-02-06] MEDS: COLLAGENASE 250 UNIT/GM OINTMENT 30 GM TUBE TOPICAL SCH (16:08)
[2022-02-06] MEDS: DULoxetine HCL 30 MG CAPSULE.DR PO SCH (21:17)
[2022-02-06] MEDS: COLCHICINE 0.6 MG EACH PO SCH (21:18)
[2022-02-06] MEDS: PANTOPRAZOLE 40 MG TABLET PO SCH (21:18)
[2022-02-06] MEDS: LOSARTAN 50 MG TAB PO SCH (21:18)
[2022-02-06] MEDS: DILTIAZEM CD 120 MG CAP.ER.24H PO SCH (21:18)
[2022-02-06] MEDS: FOLIC ACID 1 MG TAB PO SCH (23:13)
--- NOTE | 2022-02-06 23:54 | P.CONS ---
History of Present Illness - Reason for Consult Consult date: 02/06/22 - History of Present Illness Patient is a 51-year-old female with a past medical history significant for scleroderma in this patient with multiple wounds patient presenting to the ER last evening for evaluation of the right foot swelling and pain in this patient symptom started about a week ago before presentation to the hospital patient denies having history of any trauma has been complaining of pain to the right fifth toe rated to be more of a dull aching at times sharp 7-8 out of 10 no radiation and did have some purulent drainage patient also have multiple pressure ulcer to bilateral hip area that has been chronic for her however denies having any recent worsening patient was admitted to the hospital was afebrile and patient did have a normal white count local cultures have been obtained which are currently pending patient did have x-ray of the right foot which shows extensive calcification left fifth metatarsophalangeal joint and concern for dystrophic calcification patient has been admitted to the hospital currently being treated with clindamycin infectious disease was consulted for further management of antibiotic therapy Past Medical History Past Medical History: Hypertension, Thyroid Disorder Additional Past Medical History / Comment(s): scleroderma, polymyositis History of Any Multi-Drug Resistant Organisms: None Reported Past Surgical History: Breast Surgery Additional Past Surgical History / Comment(s): Surgeries for scleroderma calcium deposits, bilateral cataract removals, surgery for detached retina. Past Anesthesia/Blood Transfusion Reactions: No Reported Reaction Past Psychological History: Anxiety, Depression Smoking Status: Never smoker Past Alcohol Use History: None Reported Past Drug Use History: None Reported - Past Family History Father Family Medical History: Hypertension Additional Family Medical History / Comment(s): Heart problems Mother Family Medical History: Cancer Additional Family Medical History / Comment(s): Liver cancer Medications and Allergies Home Medications Medication Instructions Recorded Confirmed Type Colchicine 0.6 mg PO HS 06/23/21 02/05/22 History DULoxetine HCL [Cymbalta] 90 mg PO HS 06/23/21 02/05/22 History Folic Acid 1 mg PO HS 06/23/21 02/05/22 History Losartan Potassium [Cozaar] 100 mg PO HS 06/23/21 02/05/22 History Omeprazole 20 mg PO HS 06/23/21 02/05/22 History Levothyroxine Sodium [Synthroid] 88 mcg PO DAILY 02/05/22 02/05/22 History Methotrexate 50mg/2ml Soln 25 mg INJ TRAYLOR 02/05/22 02/05/22 History Sildenafil [Revatio] 20 mg PO BID 02/05/22 02/06/22 History buprenorphine HCL [Belbuca] 150 mcg BUCCAL HS 02/05/22 02/05/22 History dilTIAZem HCL [dilTIAZem HCL 24Hr 120 mg PO HS 02/05/22 02/05/22 History ER (CD)] hydroCHLOROthiazide [Hydrodiuril] 50 mg PO DAILY 02/05/22 02/05/22 History predniSONE 2.5 mg PO Q48H 02/05/22 02/05/22 History Allergies Allergy/AdvReac Type Severity Reaction Status Date / Time No Known Allergies Allergy Verified 02/05/22 21:17 Physical Exam Vitals: Vital Signs Temp Pulse Pulse Resp BP BP Pulse Ox 02/06/22 08:44 14 02/06/22 07:00 98.2 F 94 14 109/69 99 02/06/22 00:03 98.3 F 54 L 18 142/86 99 02/05/22 22:46 98.9 F 98 18 137/89 100 02/05/22 22:42 98.5 F 105 H 16 149/87 98 02/05/22 21:00 98.7 F 100 16 153/71 98 02/05/22 14:48 97.9 F 59 L 16 122/91 95 Intake and Output 02/05/22 02/06/22 02/06/22 22:59 06:59 14:59 Intake Total 118 Balance 118 Intake: Oral 118 Other: Voiding Method Bedside Commode # Voids 0 1 1 Weight 79.379 kg Results CBC & Chem 7: 02/06/22 06:15 02/06/22 06:15 Labs: Abnormal Lab Results - Last 24 Hours (Table) 02/05/22 02/05/22 02/05/22 Range/Units 19:15 19:15 19:15 Hgb (11.4-16.0) gm/dL Hct (34.0-46.0) % RDW 15.9 H (11.5-15.5) % Neutrophils # (Manual) 7.80 H (1.3-7.7) k/uL Sodium 133 L (137-145) mmol/L Potassium (3.5-5.1) mmol/L Chloride 97 L (98-107) mmol/L Creatinine 0.27 L (0.52-1.04) mg/dL Glucose 105 H (74-99) mg/dL Plasma Lactic Acid Zack 2.3 H* (0.7-2.0) mmol/L Calcium 8.0 L (8.4-10.2) mg/dL AST (14-36) U/L Alkaline Phosphatase 179 H (38-126) U/L C-Reactive Protein 6.6 H (<1.0) mg/dL Total Protein 5.8 L (6.3-8.2) g/dL Albumin 3.0 L (3.5-5.0) g/dL 02/06/22 02/06/22 Range/Units 06:15 06:15 Hgb 10.2 L (11.4-16.0) gm/dL Hct 32.2 L (34.0-46.0) % RDW 15.6 H (11.5-15.5) % Neutrophils # (Manual) (1.3-7.7) k/uL Sodium 135 L (137-145) mmol/L Potassium 3.1 L (3.5-5.1) mmol/L Chloride (98-107) mmol/L Creatinine 0.32 L (0.52-1.04) mg/dL Glucose 108 H (74-99) mg/dL Plasma Lactic Acid Zack (0.7-2.0) mmol/L Calcium 7.1 L (8.4-10.2) mg/dL AST 13 L (14-36) U/L Alkaline Phosphatase 153 H (38-126) U/L C-Reactive Protein (<1.0) mg/dL Total Protein 4.7 L (6.3-8.2) g/dL Albumin 2.5 L (3.5-5.0) g/dL Microbiology - Last 24 Hours (Table) 02/05/22 18:36 Gram Stain - Preliminary Foot - Right Wound Culture - Preliminary Assessment and Plan Plan: 1patient with right fifth toe abscess and cellulitis concerning for a infected callus on the plantar aspect of the right foot at the base of the fifth metatarsal head like responsible for the sepsis and will need to cover for the gram-positive skin luis suggestive for his plus anaerobes in view of the foul- smelling noticed at the time of dressing changes. 2patient related vascular surgery evaluation for drainage of this abscess and deep culture 3-patient also have a chronic nonhealing wound to bilateral hip area that may benefit from surgical debridement for which general surgery be consulted 4continue with clindamycin we will add cefazolin 2 g every 8 hours We will follow on clinical condition and cultures to further adjust medication if needed Thank you for this consultation will follow this patient along with you Time with Patient: Greater than 30
[2022-02-07] MEDS: CLINDAMYCIN 600 MG in DEXTROSE 5% IN WATER 50 ML IVPB SCH ×4 (03:14→10:28)
[2022-02-07] MEDS: HYDROmorphone 1 MG/ML 1 ML SYRINGE IVP PRN ×3 (03:58→20:18)
[2022-02-07] MEDS: LEVOTHYROXINE 88 MCG TAB PO SCH (05:30)
[2022-02-07 05:48] LABS: African American GFR (CKD) >90 (>60 ml/min/1.73 sqM); Anion Gap 9 mmol/L; Blood Urea Nitrogen 5 mg/dL (7-17); Calcium 7.6 mg/dL (8.4-10.2); Carbon Dioxide 26 mmol/L (22-30); Chloride 98 mmol/L (98-107); Glucose 107 mg/dL (74-99); Non-African American GFR(CKD) >90 (>60 ml/min/1.73 sqM); Potassium 3.5 mmol/L (3.5-5.1); Sodium 133 mmol/L (137-145)
[2022-02-07] MEDS ORDERED: LEVOTHYROXINE 88 MCG TAB PO SCH (06:30)
[2022-02-07] MEDS ORDERED: IV FLUID CONTINUATION 1,000 ML IV ONE ×2 (06:35→07:42)
[2022-02-07] MEDS ORDERED: ONDANSETRON 4 MG/2 ML VIAL ONE (06:51)
[2022-02-07] MEDS ORDERED: ONDANSETRON 4 MG/2 ML VIAL IVP ONE (06:54)
[2022-02-07] MEDS ORDERED: DEXAMETHASONE SOD PHOSPHATE 4 MG/ML 1 ML VIAL IVP ONE (06:55)
[2022-02-07] MEDS ORDERED: MIDAZOLAM 2 MG/2 ML VIAL ONE (07:30)
[2022-02-07] MEDS ORDERED: LIDOCAINE 2% INJ 20 MG/ML (2 ML VIAL) ONE (07:30)
[2022-02-07] MEDS ORDERED: PROPOFOL 10 MG/ML 20 ML VIAL IV ONE (07:30)
[2022-02-07] MEDS ORDERED: PHENYLEPHRINE-0.9% NACL SYG 1,000 MCG/10 ML SYRINGE ONE (07:30)
[2022-02-07] MEDS ORDERED: SODIUM CHLORIDE 0.9% 50 ML with ceFAZolin 2,000 MG IV ONE ×4 (07:30→07:42)
[2022-02-07] MEDS ORDERED: fentaNYL (PF) 50 MCG/ML 2 ML AMP ONE (07:30)
--- NOTE | 2022-02-07 08:13 | P.OP ---
Date of Procedure: 02/07/22 Description of Procedure: Preoperative diagnosis: [Right fifth toe abscess] Postoperative diagnosis: Same Procedure: [Incision and drainage with sharp excisional debridement of right fifth toe wound to bone measuring 3.2 x 1.7 x 1.0 cm] Surgeon: Alaina Stahl D.O. EBL: [Less than 5 mL] IV fluids: [See records] Urine output: [Not measured none] Drains: [None] Complications: [None immediately apparent] Condition: [Stable to recovery] Operative indication and findings: [Patient is a 51-year-old female with calciphylaxis and scleroderma who has multiple areas of calcium deposition. She has an abscess of her right fifth toe that requires drainage and possibly amputation. Risks and benefits were discussed. She seemingly understood and was willing to proceed] Procedure in detail: [Patient was taken to the operative suite placed in supine position. The right lower extremity was prepped and draped in usual sterile fashion. A preprocedure timeout was performed, all parties were in agreement. An incision was made over the area of fluctuance with purulent drainage and cultures were obtained. The overlying portion of nonviable skin was excised with scalpel. Given the calciphylaxis and deposits, a curet was utilized and the cavity was debrided. This did probe to the level of the bone. There was a plantar wound that also is congruent with this wound. The area was copiously irrigated, this time no amputation is performed as conservative hopes for improvement and healing of wound since there is no definite evidence of osteomyelitis at this time. The area was copiously irrigated and iodoform packing was placed. Dressings were placed. ]
--- NOTE | 2022-02-07 08:38 | P.OP ---
Date of Procedure: 02/07/22 Procedure(s) Performed: PREOPERATIVE DIAGNOSIS: Bilateral buttock abscess POSTOPERATIVE DIAGNOSIS: Left buttock abscess PROCEDURE: Incision and drainage left buttock abscess SURGEON: Dorothy EBL: 5 mL ANESTHESIA: Gen. COMPLICATIONS: None OPERATIVE PROCEDURE: Patient was kept in the operating room after her procedure by Dr. Stahl. She was placed initially in the left decubitus position. The right buttock region was inspected. No definable abscess was seen at this time. The patient had a few small wounds present related to pressure necrosis overlying the calciphylaxis deposits. No visible abscess was identified at this time. The patient was placed then in the right decubitus position. The left bu ttock abscess was noted. The thin portion of skin that was erythematous and fluctuant was removed using the scalpel. Entrance into a subcutaneous abscess cavity took place measuring 1.5 x 4 cm. This was irrigated. This was then packed with iodoform gauze. Sterile dressing was applied. DISPOSITION: Stable to recovery room
[2022-02-07] MEDS: HEPARIN SODIUM,PORCINE/PF 5,000 UNIT/0.5 ML SYRINGE SQ SCH ×3 (10:11→23:46)
[2022-02-07] MEDS: SODIUM CHLORIDE 0.9% 1,000 ML IV SCH (10:12)
--- NOTE | 2022-02-07 12:56 | P.PN ---
Subjective Progress Note Date: 02/07/22 The patient is a 51-year-old female with a PMH of scleroderma (with severe calcinosis) follows with Dr Bell, hypertension, hypothyroidism, and multiple nonhealing ulcers who presents to the emergency room with complaints of right foot swelling and pain. The patient reports the pain started over the past 1 week and gradually worsened. Nonhealing ulcers over her bilateral anterior hips. She denied fever, chest discomfort, shortness of, nausea, vomiting, abdominal pain, diarrhea. The patient was noted to have a palpable abscess near the right fifth toe, which was drained in the emergency room. Laboratory evaluation was remarkable for lactic acid 2.3, CRP 6.6. Foot x-ray did reveal multiple joint severe calcification. Patient was started on clindamycin IV. Infectious disease was consulted. Wound care was consulted. Wound and blood culture was pending. Patient was seen and examined. No acute events overnight. Patient reports fatigue. She has no other complaints. Underwent I&D, debridement of the right fifth toe along with I&D of left buttock abscess. General: Ill-appearing female, no distress, appears at stated age, normal weight Derm: Bilateral anterior hip large calcific ulcerations with purulent base and surrounding erythema, right lateral fifth toe base tenderness with erythema and induration, warm Head: atraumatic, normocephalic, symmetric Eyes: EOMI, no lid lag, anicteric sclera ENT: Nose and ears atraumatic Neck: No cervical lymphadenopathy, trachea midline, supple Mouth: no lip lesion, mucus membranes moist Cardiovascular: S1S2 reg, no murmur, no edema Lungs: CTA bilateral, no rhonchi, no rales, no accessory muscle use Ext: muscle strength 3 out of 5 in all 4 extremities grossly, muscle atrophy noted throughout Neuro: no gross focal neuro deficits Psych: Alert, oriented, appropriate affect #Multiple nonhealing ulcers with history of scleroderma #Normocytic anemia #Hypertension #Hypothyroidism Resolved: Lactic acidosis, hypokalemia Clindamycin be discontinued and patient be started on cefazolin. CRP elevated. Wound care and infectious disease consulted. Blood cultures negative. Wound cultures growing presumptive staph. Status post I&D right fifth toe and left buttock abscess. Intraoperative wound culture pending. She does not meet sepsi s criteria. Drop in hemoglobin likely dilutional. No signs of active bleeding. Continue to monitor. Continue diltiazem, hydrochlorothiazide, losartan. Monitor vitals, adjust medication if necessary. Continue Synthroid. Objective - Vital Signs Vital signs: Vital Signs Temp 97.7 F 02/07/22 09:32 Pulse 88 02/07/22 10:30 Resp 17 02/07/22 10:20 BP 109/75 02/07/22 10:30 Pulse Ox 100 02/07/22 10:30 FiO2 Intake & Output 02/06/22 02/07/22 02/07/22 18:59 06:59 18:59 Intake Total 336 350 Output Total 1200 5 Balance 336 -1200 345 Intake: IV 350 Oral 336 Output: Urine 1200 Estimated Blood Loss 5 Other: Voiding Method Bedside Commode External Catheter External Catheter # Voids 1 1 # Bowel Movements 1 - Labs CBC & Chem 7: 02/06/22 06:15 02/07/22 05:30 Labs: Abnormal Lab Results - Last 24 Hours (Table) 02/07/22 Range/Units 05:30 Sodium 133 L (137-145) mmol/L BUN 5 L (7-17) mg/dL Creatinine 0.31 L (0.52-1.04) mg/dL Glucose 107 H (74-99) mg/dL Calcium 7.6 L (8.4-10.2) mg/dL Microbiology - Last 24 Hours (Table) 02/06/22 11:01 Gram Stain - Preliminary Foot - Right Wound Culture - Preliminary Presumptive Staph aureus 02/05/22 22:00 Blood Culture - Preliminary Blood No Growth after 24 hours 02/05/22 21:45 Blood Culture - Preliminary Blood No Growth after 24 hours 02/05/22 18:36 Gram Stain - Preliminary Foot - Right Wound Culture - Preliminary Presumptive Staph aureus 02/06/22 11:01 Anaerobic Culture - Preliminary Foot - Right
--- NOTE | 2022-02-07 13:11 | P.PN ---
Subjective Progress Note Date: 02/07/22 Principal diagnosis: Right foot infected callus and bilateral hip chronic wounds Patient is a 51-year-old female with a past medical history significant for scleroderma did have a chronic nonhealing wound of bilateral hip area and this patient presented to hospital with infected callus on the plantar aspect of the right foot at the base of the fifth metatarsal head with associated abscess and cellulitis in this patient who is status post surgical drainage of these wound completed on 02/07/2022 both by vascular surgery and Gen. surgery. On today's evaluation that is 02/07/2022, the patient denies having any fever or any chills, the patient pain to the right foot and bilateral hip wound is currently controlled patient denies having any chest pain or shortness of breath or cough no nausea no vomiting no abdominal pain and no diarrhea Objective - Vital Signs Vital signs: Vital Signs Temp 97.7 F 02/07/22 09:32 Pulse 88 02/07/22 10:30 Resp 17 02/07/22 10:20 BP 109/75 02/07/22 10:30 Pulse Ox 100 02/07/22 10:30 FiO2 Intake & Output 02/06/22 02/07/22 02/07/22 18:59 06:59 18:59 Intake Total 336 350 Output Total 1200 5 Balance 336 -1200 345 Intake: IV 350 Oral 336 Output: Urine 1200 Estimated Blood Loss 5 Other: Voiding Method Bedside Commode External Catheter External Catheter # Voids 1 1 # Bowel Movements 1 - Exam GENERAL DESCRIPTION: Middle-aged female lying in bed in no distress RESPIRATORY SYSTEM: Unlabored breathing , decreased breath sounds at bases HEART: S1 S2 regular rate and rhythm , ABDOMEN: Soft , no tenderness EXTREMITIES: Right foot wound is dressed no drainage on the dressing - Labs CBC & Chem 7: 02/06/22 06:15 02/07/22 05:30 Labs: Abnormal Lab Results - Last 24 Hours (Table) 02/07/22 Range/Units 05:30 Sodium 133 L (137-145) mmol/L BUN 5 L (7-17) mg/dL Creatinine 0.31 L (0.52-1.04) mg/dL Glucose 107 H (74-99) mg/dL Calcium 7.6 L (8.4-10.2) mg/dL Microbiology - Last 24 Hours (Table) 02/06/22 11:01 Gram Stain - Preliminary Foot - Right Wound Culture - Preliminary Presumptive Staph aureus 02/05/22 22:00 Blood Culture - Preliminary Blood No Growth after 24 hours 02/05/22 21:45 Blood Culture - Preliminary Blood No Growth after 24 hours 02/05/22 18:36 Gram Stain - Preliminary Foot - Right Wound Culture - Preliminary Presumptive Staph aureus 02/06/22 11:01 Anaerobic Culture - Preliminary Foot - Right Assessment and Plan (1) Abscess Current Visit: Yes Status: Acute Code(s): L02.91 - CUTANEOUS ABSCESS, UNSPECIFIED SNOMED Code(s): 292585389 (2) Non-healing ulcer of multiple sites with fat layer exposed Current Visit: Yes Status: Acute Code(s): L98.492 - NON-PRS CHRONIC ULCER OF SKIN OF SITES W FAT LAYER EXPOSED SNOMED Code(s): 78397641 Plan: 1patient with right fifth toe abscess and cellulitis concerning for a infected callus on the plantar aspect of the right foot at the base of the fifth metatarsal head like responsible for the sepsis local culture currently showing staph aureus likely MSSA 2patient is status post vascular surgery evaluation for drainage of this abscess and deep culture obtained on 02/07/2022 3-patient also have a chronic nonhealing wound to bilateral hip area and is status post surgical debridement by general surgery on 02/07/2022 4patient to continue with cefazolin 2 g every 8 hours however discontinue clindamycin discussed with the medical team Time with Patient: Less than 30
--- NOTE | 2022-02-07 13:14 | CDI ---
Documentation Clarification Form Date: 02/07/2022 12:29:05 PM From: Kacie Putnam RN, CCDS Admit Date: 02/06/2022 03:17:00 AM Patient Name: Tami Wood Visit Number: [id number] Discharge Date: ATTENTION: The Clinical Documentation Specialists (CDI) and [facility] Coding Staff appreciate your assistance in clarifying documentation. Please respond to the clarification below the line at the bottom and electronically sign. The CDI & [facility] Coding staff will review the response and follow-up if needed. Please note: Queries are made part of the Legal Health Record. If you have any questions, please contact the author of this message via ITS. Dr. Stone De La Cruz Incision and drainage of left buttock abscess was in the procedure report on 02/07/2022. Additional clarification regarding the procedure is requested. 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 Procedure report has a left buttock abscess was noted. The thin portion of skin that was erythematous and fluctuant was removed using the scalpel. Treatment: 02/07 I/D Cefazolin 2,000 MG IVPB Q 8 HRS Clindamycin 600 MG IVPB Q 6 HRS 02/06-02/07 Please further clarify the technique used in the procedure: [ X ] Excisional debridement (the removal of necrotic, devitalized tissue or slough by means of cutting away of tissue) [ ] Non-excisional debridement (the removal of necrotic, devitalized tissue or slough by means of flushing, brushing, or washing. (Irrigation) [ ] Other; please specify [ ] Unable to determine Five elements required for accurate and compliant documentation of a debridement: Technique used (e.g., excisional, excised, cutting, brushing, jet lavage etc.) Instrument(s) used (e.g., scalpel, curette, etc.) Nature of the tissue removed (e.g., necrotic, devitalized tissues, non-viable tissue, etc.) Appearance and size of the wound (e.g., down to fresh bleeding tissue, 7cm x 10cm, etc.) Depth of the debridement* (e.g., skin, subcutaneous tissue, fascia, muscle, bone, etc.) (Template Last Revised: July 2020) MTDD
[2022-02-07] MEDS: COLLAGENASE 250 UNIT/GM OINTMENT 30 GM TUBE TOPICAL SCH (15:54)
[2022-02-07] MEDS: PANTOPRAZOLE 40 MG TABLET PO SCH (20:19)
[2022-02-07] MEDS: LOSARTAN 50 MG TAB PO SCH (20:19)
[2022-02-07] MEDS: DILTIAZEM CD 120 MG CAP.ER.24H PO SCH (20:19)
[2022-02-07] MEDS: COLCHICINE 0.6 MG EACH PO SCH (20:19)
[2022-02-07] MEDS: DULoxetine HCL 30 MG CAPSULE.DR PO SCH (20:19)
[2022-02-07] MEDS: FOLIC ACID 1 MG TAB PO SCH (20:19)
[2022-02-08] MEDS: SODIUM CHLORIDE 0.9% 1,000 ML IV SCH ×2 (02:27→16:48)
[2022-02-08] MEDS: HYDROmorphone 1 MG/ML 1 ML SYRINGE IVP PRN ×4 (02:27→21:53)
[2022-02-08] MEDS: LEVOTHYROXINE 88 MCG TAB PO SCH (05:47)
[2022-02-08] MEDS: HEPARIN SODIUM,PORCINE/PF 5,000 UNIT/0.5 ML SYRINGE SQ SCH ×3 (08:28→23:43)
[2022-02-08] MEDS: predniSONE 2.5 MG TAB PO SCH (08:29)
--- NOTE | 2022-02-08 10:10 | P.PN ---
Subjective Progress Note Date: 02/08/22 The patient is a 51-year-old female with a PMH of scleroderma (with severe calcinosis) follows with Dr Bell, hypertension, hypothyroidism, and multiple nonhealing ulcers who presents to the emergency room with complaints of right foot swelling and pain. The patient reports the pain started over the past 1 week and gradually worsened. Nonhealing ulcers over her bilateral anterior hips. She denied fever, chest discomfort, shortness of, nausea, vomiting, abdominal pain, diarrhea. The patient was noted to have a palpable abscess near the right fifth toe, which was drained in the emergency room. Laboratory evaluation was remarkable for lactic acid 2.3, CRP 6.6. Foot x-ray did reveal multiple joint severe calcification. Patient was started on clindamycin IV. Infectious disease was consulted. Wound care was consulted. Wound and blood culture was pending. Patient was seen and examined. No acute events overnight. Underwent I&D, debridement of the right fifth toe along with I&D of left buttock abscess. General: Ill-appearing female, no distress, appears at stated age, normal weight Derm: Bilateral anterior hip large, right lateral fifth toe base wrapped with dressing c/d/i Head: atraumatic, normocephalic, symmetric Eyes: EOMI, no lid lag, anicteric sclera ENT: Nose and ears atraumatic Neck: No cervical lymphadenopathy, trachea midline, supple Mouth: no lip lesion, mucus membranes moist Cardiovascular: S1S2 reg, no murmur, no edema Lungs: CTA bilateral, no rhonchi, no rales, no accessory muscle use Ext: muscle strength 3 out of 5 in all 4 extremities grossly, muscle atrophy noted throughout Neuro: no gross focal neuro deficits Psych: Alert, oriented, appropriate affect #Multiple nonhealing ulcers with history of scleroderma #Normocytic anemia #Hypertension #Hypothyroidism Resolved: Lactic acidosis, hypokalemia Clindamycin be discontinued and patient be continued on cefazolin. CRP elevated. Wound care and infectious disease consulted. Blood cultures negative. Wound cultures growing presumptive staph. Status post I&D right fifth toe and left buttock abscess. Intraoperative wound culture pending. She does not meet sepsis criteria. Drop in hemoglobin likely dilutional. No signs of active bleeding. Continue to monitor. Continue diltiazem, hydrochlorothiazide, losartan. Monitor vitals, adjust medication if necessary. Continue Synthroid. Case discussed with Dr. Keith, patient will likely need IV antibioitics on discharge. This cannot be set up until Thursday. Medically stable. Objective - Vital Signs Vital signs: Vital Signs Temp 98.2 F 02/07/22 19:57 Pulse 77 02/08/22 02:00 Resp 16 02/08/22 02:00 BP 120/80 02/08/22 02:00 Pulse Ox 93 L 02/08/22 02:00 FiO2 Intake & Output 02/07/22 02/08/22 02/08/22 18:59 06:59 18:59 Intake Total 550 500 Output Total 1005 800 Balance -455 -300 Intake: IV 350 Oral 200 500 Output: Urine 1000 800 Estimated Blood Loss 5 Other: Voiding Method External Catheter External Catheter - Labs CBC & Chem 7: 02/06/22 06:15 02/07/22 05:30 Labs: Microbiology - Last 24 Hours (Table) 02/07/22 08:35 Gram Stain - Preliminary Buttock Wound Culture - Preliminary 02/07/22 08:36 Gram Stain - Preliminary Toe - Right Fifth Wound Culture - Preliminary 02/05/22 22:00 Blood Culture - Preliminary Blood No Growth after 48 hours 02/05/22 21:45 Blood Culture - Preliminary Blood No Growth after 48 hours 02/05/22 18:36 Gram Stain - Final Foot - Right Wound Culture - Final Staphylococcus aureus 02/07/22 08:35 Anaerobic Culture - Preliminary Buttock 02/07/22 08:36 Anaerobic Culture - Preliminary Toe - Right Fifth 02/06/22 11:01 Gram Stain - Preliminary Foot - Right Wound Culture - Preliminary Presumptive Staph aureus
[2022-02-08] MEDS: COLLAGENASE 250 UNIT/GM OINTMENT 30 GM TUBE TOPICAL SCH (12:30)
--- NOTE | 2022-02-08 14:02 | P.PN ---
Subjective Progress Note Date: 02/08/22 CHIEF COMPLAINT: Status post debridement buttocks HISTORY OF PRESENT ILLNESS: The patient is a 51-year-old female status post debridement of bilateral buttocks. Pain is tolerable. She is tolerating re gular diet. Patient reports being fed by friends and family. She has difficulty raising her hands due to generalized weakness. ROS: No reports of nausea and vomiting. No fevers or chills. No new chest pain. PHYSICAL EXAM: VITAL SIGNS: Reviewed CONSTITUTIONAL: Cachectic. No acute distress. EYES: Conjuctivae without sclera icterus. Extraocular movements grossly intact. HEAD, EARS, NOSE, THROAT: Moist buccal mucosa. Head is atraumatic, normocephalic. Hears conversational speech. No nasal drainage. RESPIRATORY: Non-labored respirations and equal bilateral excursions. CARDIOVASCULAR: Palpable 2+ radial pulses. ABDOMEN: No peritonitis. MUSCULOSKELETAL: No gross deformity of the lower extremities noted. No clubbing. No cyanosis. SKIN: Good skin turgor. Well perfused. NEUROLOGIC: Cranial nerves II through XII grossly intact. No focal or lateralizing signs. PSYCH: Appropriate affect. Alert and oriented to person, place and time. CLINICAL LABS: Reviewed. ASSESSMENT: 1. Scleroderma 2. Underweight, BMI 13.6 3. Status post debridement buttocks PLAN: 1. Encourage dietary intake for proper wound healing 2. Schedule nonnarcotic pain medication Tylenol prescribed 500 mg every 6 hours Objective - Vital Signs Vital signs: Vital Signs Temp 98.2 F 02/07/22 19:57 Pulse 77 02/08/22 08:29 Resp 16 02/08/22 08:29 BP 120/80 02/08/22 02:00 Pulse Ox 93 L 02/08/22 02:00 FiO2 Intake & Output 02/07/22 02/08/22 02/08/22 18:59 06:59 18:59 Intake Total 550 500 Output Total 1005 800 Balance -455 -300 Weight 35.834 kg Intake: IV 350 Oral 200 500 Output: Urine 1000 800 Estimated Blood Loss 5 Other: Voiding Method External Catheter External Catheter External Catheter - Labs CBC & Chem 7: 02/06/22 06:15 02/07/22 05:30 Labs: Microbiology - Last 24 Hours (Table) 02/07/22 08:35 Gram Stain - Preliminary Buttock Wound Culture - Preliminary Presumptive Staph aureus 02/07/22 08:36 Gram Stain - Preliminary Toe - Right Fifth Wound Culture - Preliminary Presumptive Staph aureus 02/05/22 22:00 Blood Culture - Preliminary Blood No Growth after 48 hours 02/05/22 21:45 Blood Culture - Preliminary Blood No Growth after 48 hours 02/05/22 18:36 Gram Stain - Final Foot - Right Wound Culture - Final Staphylococcus aureus 02/07/22 08:35 Anaerobic Culture - Preliminary Buttock 02/07/22 08:36 Anaerobic Culture - Preliminary Toe - Right Fifth
[2022-02-08] MEDS: ACETAMINOPHEN TAB 500 MG TAB PO SCH ×2 (19:05→22:59)
[2022-02-08] MEDS: FOLIC ACID 1 MG TAB PO SCH (21:46)
[2022-02-08] MEDS: DILTIAZEM CD 120 MG CAP.ER.24H PO SCH (21:46)
[2022-02-08] MEDS: COLCHICINE 0.6 MG EACH PO SCH (21:46)
[2022-02-08] MEDS: PANTOPRAZOLE 40 MG TABLET PO SCH (21:46)
[2022-02-08] MEDS: DULoxetine HCL 30 MG CAPSULE.DR PO SCH (21:46)
[2022-02-08] MEDS: LOSARTAN 50 MG TAB PO SCH (21:46)
[2022-02-09] MEDS: LEVOTHYROXINE 88 MCG TAB PO SCH (05:18)
[2022-02-09] MEDS: HYDROmorphone 1 MG/ML 1 ML SYRINGE IVP PRN ×2 (05:19→09:11)
[2022-02-09] MEDS: ACETAMINOPHEN TAB 500 MG TAB PO SCH ×3 (05:19→17:48)
[2022-02-09] MEDS: SODIUM CHLORIDE 0.9% 1,000 ML IV SCH ×2 (06:57→07:53)
[2022-02-09] MEDS: HEPARIN SODIUM,PORCINE/PF 5,000 UNIT/0.5 ML SYRINGE SQ SCH ×2 (07:51→16:38)
[2022-02-09] MEDS: COLLAGENASE 250 UNIT/GM OINTMENT 30 GM TUBE TOPICAL SCH (09:10)
--- NOTE | 2022-02-09 10:54 | P.PN ---
Subjective Progress Note Date: 02/09/22 The patient is a 51-year-old female with a PMH of scleroderma (with severe calcinosis) follows with Dr Bell, hypertension, hypothyroidism, and multiple nonhealing ulcers who presents to the emergency room with complaints of right foot swelling and pain. The patient reports the pain started over the past 1 week and gradually worsened. Nonhealing ulcers over her bilateral anterior hips. She denied fever, chest discomfort, shortness of, nausea, vomiting, abdominal pain, diarrhea. The patient was noted to have a palpable abscess near the right fifth toe, which was drained in the emergency room. Laboratory evaluation was remarkable for lactic acid 2.3, CRP 6.6. Foot x-ray did reveal multiple joint severe calcification. Patient was started on clindamycin IV. Infectious disease was consulted. Wound care was consulted. Wound and blood culture was pending. Patient was seen and examined. No acute events overnight. Underwent I&D, debridement of the right fifth toe along with I&D of left buttock abscess. She reports well controlled pain. General: Ill-appearing female, no distress, appears at stated age, normal weight Derm: Bilateral anterior hip large, right lateral fifth toe base wrapped with dressing c/d/i Head: atraumatic, normocephalic, symmetric Eyes: EOMI, no lid lag, anicteric sclera ENT: Nose and ears atraumatic Neck: No cervical lymphadenopathy, trachea midline, supple Mouth: no lip lesion, mucus membranes moist Cardiovascular: S1S2 reg, no murmur, no edema Lungs: CTA bilateral, no rhonchi, no rales, no accessory muscle use Ext: muscle strength 3 out of 5 in all 4 extremities grossly, muscle atrophy noted throughout Neuro: no gross focal neuro deficits Psych: Alert, oriented, appropriate affect #Multiple nonhealing ulcers with history of scleroderma #Normocytic anemia #Hypertension #Hypothyroidism Resolved: Lactic acidosis, hypokalemia Clindamycin be discontinued and patient be continued on cefazolin. CRP elevated. Wound care and infectious disease consulted. Blood cultures negative. Wound cultures growing staph. Status post I&D right fifth toe and left buttock abscess. Intraoperative wound culture pending. She does not meet sepsis criteria. Drop in hemoglobin likely dilutional. No signs of active bleeding. Continue to monitor. Continue diltiazem, hydrochlorothiazide, losartan. Monitor vitals, adjust medication if necessary. Continue Synthroid. Case discussed with Dr. Keith, patient will likely need IV antibioitics on discharge. This cannot be set up until Thursday. Medically stable. Objective - Vital Signs Vital signs: Vital Signs Temp 97.7 F 02/09/22 07:50 Pulse 86 02/09/22 07:50 Resp 18 02/09/22 09:11 BP 112/74 02/09/22 09:08 Pulse Ox 100 02/09/22 07:50 FiO2 Intake & Output 02/08/22 02/09/22 02/09/22 18:59 06:59 18:59 Intake Total 240 500 118 Output Total 1100 Balance -860 500 118 Weight 35.834 kg Intake: Oral 240 500 118 Output: Urine 1100 Other: Voiding Method External Catheter External Catheter External Catheter - Labs CBC & Chem 7: 02/06/22 06:15 02/07/22 05:30 Labs: Microbiology - Last 24 Hours (Table) 02/07/22 08:35 Gram Stain - Final Buttock Wound Culture - Final Staphylococcus aureus 02/07/22 08:36 Gram Stain - Final Toe - Right Fifth Wound Culture - Final Staphylococcus aureus 02/05/22 22:00 Blood Culture - Preliminary Blood No Growth after 72 hours 02/05/22 21:45 Blood Culture - Preliminary Blood No Growth after 72 hours 02/06/22 11:01 Anaerobic Culture - Preliminary Foot - Right 02/06/22 11:01 Gram Stain - Final Foot - Right Wound Culture - Final Staphylococcus aureus
[2022-02-09] MEDS: HYDROcodone/APAP 5-325MG 1 EACH TAB PO PRN ×2 (13:23→18:26)
--- NOTE | 2022-02-09 15:12 | P.PN ---
Subjective Progress Note Date: 02/09/22 CHIEF COMPLAINT: Status post debridement buttocks HISTORY OF PRESENT ILLNESS: The patient is a 51-year-old female status post debridement of bilateral buttocks. Her pain is well-controlled. She feels better today than yesterday. Family is at bedside. She obtain relief with scheduled Tylenol. ROS: No reports of nausea and vomiting. No fevers or chills. No new chest pain. PHYSICAL EXAM: VITAL SIGNS: Reviewed CONSTITUTIONAL: Cachectic. No acute distress. EYES: Conjuctivae without sclera icterus. Extraocular movements grossly intact. HEAD, EARS, NOSE, THROAT: Moist buccal mucosa. Head is atraumatic, normocephalic. Hears conversational speech. No nasal drainage. RESPIRATORY: Non-labored respirations and equal bilateral excursions. CARDIOVASCULAR: Palpable 2+ radial pulses. ABDOMEN: No peritonitis. MUSCULOSKELETAL: No gross deformity of the lower extremities noted. No clubbing. No cyanosis. Dressing intact. SKIN: Good skin turgor. Well perfused. NEUROLOGIC: Cranial nerves II through XII grossly intact. No focal or lateralizing signs. PSYCH: Appropriate affect. Alert and oriented to person, place and time. CLINICAL LABS: Reviewed. No new labs ASSESSMENT: 1. Scleroderma 2. Underweight, BMI 13.6 3. Status post debridement buttocks PLAN: 1. Diet as tolerated. 2. Dressing changes daily. Objective - Vital Signs Vital signs: Vital Signs Temp 97.7 F 02/09/22 07:50 Pulse 86 02/09/22 07:50 Resp 18 02/09/22 09:11 BP 112/74 02/09/22 09:08 Pulse Ox 100 02/09/22 07:50 FiO2 Intake & Output 02/08/22 02/09/22 02/09/22 18:59 06:59 18:59 Intake Total 240 500 118 Output Total 1100 Balance -860 500 118 Weight 35.834 kg Intake: Oral 240 500 118 Output: Urine 1100 Other: Voiding Method External Catheter External Catheter External Catheter - Labs CBC & Chem 7: 02/06/22 06:15 02/07/22 05:30 Labs: Microbiology - Last 24 Hours (Table) 02/07/22 08:35 Anaerobic Culture - Preliminary Buttock 02/07/22 08:36 Anaerobic Culture - Preliminary Toe - Right Fifth 02/07/22 08:35 Gram Stain - Final Buttock Wound Culture - Final Staphylococcus aureus 02/07/22 08:36 Gram Stain - Final Toe - Right Fifth Wound Culture - Final Staphylococcus aureus 02/05/22 22:00 Blood Culture - Preliminary Blood No Growth after 72 hours 02/05/22 21:45 Blood Culture - Preliminary Blood No Growth after 72 hours 02/06/22 11:01 Anaerobic Culture - Preliminary Foot - Right 02/06/22 11:01 Gram Stain - Final Foot - Right Wound Culture - Final Staphylococcus aureus
[2022-02-09] MEDS: PANTOPRAZOLE 40 MG TABLET PO SCH (21:12)
[2022-02-09] MEDS: FOLIC ACID 1 MG TAB PO SCH (21:12)
[2022-02-09] MEDS: LOSARTAN 50 MG TAB PO SCH (21:12)
[2022-02-09] MEDS: DILTIAZEM CD 120 MG CAP.ER.24H PO SCH (21:12)
[2022-02-09] MEDS: COLCHICINE 0.6 MG EACH PO SCH (21:12)
[2022-02-09] MEDS: DULoxetine HCL 30 MG CAPSULE.DR PO SCH (21:16)
--- NOTE | 2022-02-09 23:54 | P.PN ---
Subjective Progress Note Date: 02/08/22 Principal diagnosis: Right foot infected callus and bilateral hip chronic wounds Patient is a 51-year-old female with a past medical history significant for scleroderma did have a chronic nonhealing wound of bilateral hip area and this patient presented to hospital with infected callus on the plantar aspect of the right foot at the base of the fifth metatarsal head with associated abscess and cellulitis in this patient who is status post surgical drainage of these wound completed on 02/07/2022 both by vascular surgery and Gen. surgery. On today's evaluation that is 02/08/2022 the patient denies having any fever or any chills the patient is breathing comfortably no chest pain or shortness of breath or cough denies any worsening pain to her wound area and no diarrhea Objective - Vital Signs Vital signs: Vital Signs Temp 98.2 F 02/07/22 19:57 Pulse 77 02/08/22 02:00 Resp 16 02/08/22 02:00 BP 120/80 02/08/22 02:00 Pulse Ox 93 L 02/08/22 02:00 FiO2 Intake & Output 02/07/22 02/08/22 02/08/22 18:59 06:59 18:59 Intake Total 550 500 Output Total 1005 800 Balance -455 -300 Intake: IV 350 Oral 200 500 Output: Urine 1000 800 Estimated Blood Loss 5 Other: Voiding Method External Catheter External Catheter - Exam GENERAL DESCRIPTION: Middle-aged female lying in bed in no distress RESPIRATORY SYSTEM: Unlabored breathing , decreased breath sounds at bases HEART: S1 S2 regular rate and rhythm , ABDOMEN: Soft , no tenderness EXTREMITIES: Right foot wound is dressed no drainage on the dressing - Labs CBC & Chem 7: 02/06/22 06:15 02/07/22 05:30 Labs: Microbiology - Last 24 Hours (Table) 02/07/22 08:35 Gram Stain - Preliminary Buttock Wound Culture - Preliminary 02/07/22 08:36 Gram Stain - Preliminary Toe - Right Fifth Wound Culture - Preliminary 02/05/22 22:00 Blood Culture - Preliminary Blood No Growth after 48 hours 02/05/22 21:45 Blood Culture - Preliminary Blood No Growth after 48 hours 02/05/22 18:36 Gram Stain - Final Foot - Right Wound Culture - Final Staphylococcus aureus 02/07/22 08:35 Anaerobic Culture - Preliminary Buttock 02/07/22 08:36 Anaerobic Culture - Preliminary Toe - Right Fifth 02/06/22 11:01 Gram Stain - Preliminary Foot - Right Wound Culture - Preliminary Presumptive Staph aureus Assessment and Plan (1) Abscess Current Visit: Yes Status: Acute Code(s): L02.91 - CUTANEOUS ABSCESS, UNSPECIFIED SNOMED Code(s): 705697963 (2) Non-healing ulcer of multiple sites with fat layer exposed Current Visit: Yes Status: Acute Code(s): L98.492 - NON-PRS CHRONIC ULCER OF SKIN OF SITES W FAT LAYER EXPOSED SNOMED Code(s): 11853261 Plan: 1patient with right fifth toe abscess and cellulitis concerning for a infected callus on the plantar aspect of the right foot at the base of the fifth metatarsal head like responsible for the sepsis local culture currently showing staph aureus likely MSSA 2patient is status post vascular surgery evaluation for drainage of this abscess and deep culture obtained on 02/07/2022 3-patient also have a chronic nonhealing wound to bilateral hip area and is status post surgical debridement by general surgery on 02/07/2022 4Patient cultures are currently growing MSSA patient to continue with the cefazolin and monitor clinical course closely Time with Patient: Less than 30
--- NOTE | 2022-02-09 23:56 | P.PN ---
Subjective Progress Note Date: 02/09/22 Principal diagnosis: Right foot infected callus and bilateral hip chronic wounds Patient is a 51-year-old female with a past medical history significant for scleroderma did have a chronic nonhealing wound of bilateral hip area and this patient presented to hospital with infected callus on the plantar aspect of the right foot at the base of the fifth metatarsal head with associated abscess and cellulitis in this patient who is status post surgical drainage of these wound completed on 02/07/2022 both by vascular surgery and Gen. surgery. On today's evaluation that is 02/09/2022 the patient denies having any fever or any chills, the patient is breathing comfortably on room air no chest pain or shortness of breath or cough overall pain discomfort to bilateral hip as well as right foot wound has decreased intensity no nausea no vomiting or diarrhea Objective - Vital Signs Vital signs: Vital Signs Temp 97.7 F 02/09/22 07:50 Pulse 86 02/09/22 07:50 Resp 18 02/09/22 09:11 BP 112/74 02/09/22 09:08 Pulse Ox 100 02/09/22 07:50 FiO2 Intake & Output 02/08/22 02/09/22 02/09/22 18:59 06:59 18:59 Intake Total 240 500 118 Output Total 1100 Balance -860 500 118 Weight 35.834 kg Intake: Oral 240 500 118 Output: Urine 1100 Other: Voiding Method External Catheter External Catheter External Catheter - Labs CBC & Chem 7: 02/06/22 06:15 02/07/22 05:30 Labs: Microbiology - Last 24 Hours (Table) 02/07/22 08:35 Gram Stain - Final Buttock Wound Culture - Final Staphylococcus aureus 02/07/22 08:36 Gram Stain - Final Toe - Right Fifth Wound Culture - Final Staphylococcus aureus 02/05/22 22:00 Blood Culture - Preliminary Blood No Growth after 72 hours 02/05/22 21:45 Blood Culture - Preliminary Blood No Growth after 72 hours 02/06/22 11:01 Anaerobic Culture - Preliminary Foot - Right 02/06/22 11:01 Gram Stain - Final Foot - Right Wound Culture - Final Staphylococcus aureus Assessment and Plan (1) Abscess Current Visit: Yes Status: Acute Code(s): L02.91 - CUTANEOUS ABSCESS, UNSPECIFIED SNOMED Code(s): 836592119 (2) Non-healing ulcer of multiple sites with fat layer exposed Current Visit: Yes Status: Acute Code(s): L98.492 - NON-PRS CHRONIC ULCER OF SKIN OF SITES W FAT LAYER EXPOSED SNOMED Code(s): 37827938 Plan: 1patient with right fifth toe abscess and cellulitis concerning for a infected callus on the plantar aspect of the right foot at the base of the fifth metatarsal head like responsible for the sepsis local culture currently showing staph aureus likely MSSA 2patient is status post vascular surgery evaluation for drainage of this abscess and deep culture obtained on 02/07/2022 Which has been finalized as MSSA 3-patient also have a chronic nonhealing wound to bilateral hip area and is status post surgical debridement by general surgery on 02/07/2022 4Patient seem to have shown clinical improvement however patient still have significant inflammation at the right fifth toe wound debridement site and will benefit from outpatient IV cefazolin once again she should be able to go home from ID standpoint, continue with cefazolin 2 g every 8 hours Time with Patient: Less than 30
[2022-02-10] MEDS: HEPARIN SODIUM,PORCINE/PF 5,000 UNIT/0.5 ML SYRINGE SQ SCH ×2 (00:12→08:50)
[2022-02-10] MEDS: ACETAMINOPHEN TAB 500 MG TAB PO SCH ×3 (00:13→14:37)
[2022-02-10] MEDS: HYDROcodone/APAP 5-325MG 1 EACH TAB PO PRN (01:38)
[2022-02-10] MEDS: LEVOTHYROXINE 88 MCG TAB PO SCH (06:03)
[2022-02-10] MEDS: predniSONE 2.5 MG TAB PO SCH (08:49)
[2022-02-10] MEDS: HYDROmorphone 1 MG/ML 1 ML SYRINGE IVP PRN ×2 (08:50→15:00)
[2022-02-10 09:16] VITALS: TEMP 97.7
--- NOTE | 2022-02-10 10:31 | P.PN ---
Subjective Progress Note Date: 02/10/22 Patient seen and examined today as a follow-up for right foot incision and drainage with surgical debridement of the fifth toe wound to bone. She is postop day #3. No acute changes. States her last dressing change was yesterday evening. She's been afebrile. Objective - Vital Signs Vital signs: Vital Signs Temp 98.9 F 02/10/22 02:20 Pulse 72 02/10/22 02:20 Resp 17 02/10/22 02:20 BP 132/74 02/10/22 02:20 Pulse Ox 99 02/10/22 02:20 FiO2 Intake & Output 02/09/22 02/10/22 02/10/22 18:59 06:59 18:59 Intake Total 118 Output Total 1050 Balance -932 Intake: Oral 118 Output: Urine 1050 Other: Voiding Method External Catheter External Catheter # Voids 2 # Bowel Movements 1 - Exam General appearance: The patient is alert, oriented, appears in no acute distress. HET: Head is normocephalic and atraumatic. Neck: Supple without lymphadenopathy. Trachea midline. No audible carotid bruit. Extremities: Normal skin color and turgor. Wound to right lateral aspect of foot near fifth toe with healthy tissue, minimal bleeding. Packed with iodoform dressing. No surrounding erythema. Good capillary refill. Neurological: No focal deficits. Strength and sensation are grossly intact. - Labs CBC & Chem 7: 02/06/22 06:15 02/07/22 05:30 Labs: Microbiology - Last 24 Hours (Table) 02/05/22 22:00 Blood Culture - Preliminary Blood No Growth after 96 hours 02/05/22 21:45 Blood Culture - Preliminary Blood No Growth after 96 hours 02/07/22 08:35 Anaerobic Culture - Preliminary Buttock 02/07/22 08:36 Anaerobic Culture - Preliminary Toe - Right Fifth 02/07/22 08:35 Gram Stain - Final Buttock Wound Culture - Final Staphylococcus aureus 02/07/22 08:36 Gram Stain - Final Toe - Right Fifth Wound Culture - Final Staphylococcus aureus Assessment and Plan Assessment: 1. Abscess right foot, possible osteomyelitis status post incision and drainage with sharp excisional debridement of right fifth toe wound to bone 2. Scleroderma Plan: 1. Continue with recommendations from medical team 2. Daily dressing changes with iodoform, 4 x 4, Kerlix 3. Recommend follow up outpatient with [facility] Thank you for this consultation, we will sign off at this time. The impression and plan of care has been dictated as directed. I performed a history and examination of this patient, discussed the same with the dictator. I agree with the dictator's note ,documented as a scribe. Any additional findings or plans will be noted.
--- NOTE | 2022-02-10 10:45 | P.DS ---
Providers Date of admission: 02/06/22 03:17 Expected date of discharge: 02/10/22 Attending physician: Jaun Nichole MD Consults: 02/06/22 03:15 Consult Physician Urgent Consulting Provider: Christina Keith Consult Reason/Comments: Nonhealing ulcers with abscess Do you want consulting provider notified?: Yes 02/06/22 10:59 Consult Physician Routine Consulting Provider: Alaina Stahl Consult Reason/Comments: R FOOT INFECTION Do you want consulting provider notified?: Yes 02/06/22 11:56 Consult Physician Routine Consulting Provider: Stone De La Cruz Consult Reason/Comments: abcess to R and L hip and buttocks Do you want consulting provider notified?: Yes Primary care physician: [place] Hospital Course: The patient is a 51-year-old female with a PMH of scleroderma (with severe calcinosis) follows with Dr Bell, hypertension, hypothyroidism, and multiple nonhealing ulcers who presents to the emergency room with complaints of right foot swelling and pain. The patient reports the pain started over the past 1 week and gradually worsened. Nonhealing ulcers over her bilateral anterior hips. She denied fever, chest discomfort, shortness of, nausea, vomiting, abdominal pain, diarrhea. The patient was noted to have a palpable abscess near the right fifth toe, which was drained in the emergency room. Laboratory evaluation was remarkable for lactic acid 2.3, CRP 6.6. Foot x-ray did reveal multiple joint severe calcification. Patient was started on clindamycin IV. Infectious disease was consulted. Wound care was consulted. Patient underwent I&D right fifth toe and left buttock abscess. Wound cultures grew staph aureus. Clindamycin was discontinued for Cefazolin. Case was discussed with Dr. Keith and recommended PICC line and 2 weeks of Cefazolin 2g IV Q8H. Case management was on board. PT and OT worked with the patient during her hospitalization. Patient was seen and examined. No acute events overnight. She reports well controlled pain. General: Ill-appearing female, no distress, appears at stated age, normal weight Derm: Bilateral anterior hip large, right lateral fifth toe base wrapped with dressing c/d/i Head: atraumatic, normocephalic, symmetric Eyes: EOMI, no lid lag, anicteric sclera ENT: Nose and ears atraumatic Neck: No cervical lymphadenopathy, trachea midline, supple Mouth: no lip lesion, mucus membranes moist Ext: muscle strength 3 out of 5 in all 4 extremities grossly, muscle atrophy noted throughout Neuro: no gross focal neuro deficits Psych: Alert, oriented, appropriate affect Discharge Diagnosis: #Multiple nonhealing ulcers with history of scleroderma #Normocytic anemia #Hypertension #Hypothyroidism Resolved: Lactic acidosis, hypokalemia This complex discharge took 35 minutes to complete. Pertinent Studies: Foot XR Procedures: I&D right fifth toe and left buttock abscess Patient Condition at Discharge: Stable Plan - Discharge Summary Discharge Rx Participant: Yes New Discharge Prescriptions: New HYDROcodone/APAP 5-325MG [Waterflow 5-325] 1 each PO Q4HR PRN #18 tab PRN Reason: Pain Continue Losartan Potassium [Cozaar] 100 mg PO HS Folic Acid 1 mg PO HS predniSONE 2.5 mg PO Q48H hydroCHLOROthiazide [Hydrodiuril] 50 mg PO DAILY Omeprazole 20 mg PO HS DULoxetine HCL [Cymbalta] 90 mg PO HS Colchicine 0.6 mg PO HS Sildenafil [Revatio] 20 mg PO BID Methotrexate 50mg/2ml Soln 25 mg INJ TRAYLOR Levothyroxine Sodium [Synthroid] 88 mcg PO DAILY dilTIAZem HCL [dilTIAZem HCL 24Hr ER (CD)] 120 mg PO HS buprenorphine HCL [Belbuca] 150 mcg BUCCAL HS Discharge Medication List Colchicine 0.6 mg PO HS 06/23/21 [History] DULoxetine HCL [Cymbalta] 90 mg PO HS 06/23/21 [History] Folic Acid 1 mg PO HS 06/23/21 [History] Losartan Potassium [Cozaar] 100 mg PO HS 06/23/21 [History] Omeprazole 20 mg PO HS 06/23/21 [History] Levothyroxine Sodium [Synthroid] 88 mcg PO DAILY 02/05/22 [History] Methotrexate 50mg/2ml Soln 25 mg INJ TRAYLOR 02/05/22 [History] Sildenafil [Revatio] 20 mg PO BID 02/05/22 [History] buprenorphine HCL [Belbuca] 150 mcg BUCCAL HS 02/05/22 [History] dilTIAZem HCL [dilTIAZem HCL 24Hr ER (CD)] 120 mg PO HS 02/05/22 [History] hydroCHLOROthiazide [Hydrodiuril] 50 mg PO DAILY 02/05/22 [History] predniSONE 2.5 mg PO Q48H 02/05/22 [History] HYDROcodone/APAP 5-325MG [Waterflow 5-325] 1 each PO Q4HR PRN #18 tab 02/10/22 [Rx] Follow up Appointment(s)/Referral(s): Stone De La Cruz MD [Medical Doctor] - 1 Week Mumtaz Huang MD [Primary Care Provider] - 1-2 days Alaina Stahl DO [STAFF PHYSICIAN] - [facility] [NON-STAFF] - 1 Week Activity/Diet/Wound Care/Special Instructions: Diet: Regular FU PCP within 1-2 day of DC. FU Surgery and Vascular surgery within 1 week of DC. Take all medications as advised. Discharge Disposition: HOME SELF-CARE
--- NOTE | 2022-02-10 13:24 | P.PN ---
Subjective Progress Note Date: 02/10/22 CHIEF COMPLAINT: Left buttocks abscess HISTORY OF PRESENT ILLNESS: Patient is status post incision and drainage of left buttock abscess. Treatment on antibiotics. She reports that her pain has improved greatly since surgery. She is currently sitting on the bedside chair. She denies any nausea vomiting. Tolerating diet. Afebrile. She is scheduled for discharge today. Buttocks wound culture MSSA PHYSICAL EXAM: VITAL SIGNS: Reviewed. GENERAL: Well-developed in no acute distress. HEENT: No sclera icterus. Extraocular movements grossly intact. Moist buccal mucosa. Head is atraumatic, normocephalic. ABDOMEN: Soft. Nondistended. Nontender. NEUROLOGIC: Alert and oriented. Cranial nerves II through XII grossly intact. ASSESSMENT: 1. Left buttocks abscess status post incision and drainage PLAN: -Continue local wound care. We'll have nursing staff change dressing and shower patient. We'll have them repack the left buttocks wound with iodoform gauze. -Antibiotics per ID service Physician Lcac Radar Operator/Navigator note has been reviewed by physician. Signing provider agrees with the documented findings, assessment, and plan of care. I have personally seen and examined the patient, reviewed the TERRAZZO FINISHER /PAs history, exam and MDM and agree with the assessment and plan as written. Based on total visit time, I have performed more than 50% of the visit. As above: Patient seems to be doing about the same. Pain is better after incision and drainage left buttock. Continue local wound care. Stable for discharge. Objective - Vital Signs Vital signs: Vital Signs Temp 97.7 F 02/10/22 08:00 Pulse 90 02/10/22 08:00 Resp 16 02/10/22 08:00 BP 125/84 02/10/22 08:00 Pulse Ox 100 02/10/22 08:00 FiO2 Intake & Output 02/09/22 02/10/22 02/10/22 18:59 06:59 18:59 Intake Total 118 360 Output Total 1050 Balance -932 360 Intake: Oral 118 360 Output: Urine 1050 Other: Voiding Method External Catheter External Catheter # Voids 2 # Bowel Movements 1 - Labs CBC & Chem 7: 02/06/22 06:15 02/07/22 05:30 Labs: Microbiology - Last 24 Hours (Table) 02/06/22 11:01 Anaerobic Culture - Final Foot - Right 02/05/22 22:00 Blood Culture - Preliminary Blood No Growth after 96 hours 02/05/22 21:45 Blood Culture - Preliminary Blood No Growth after 96 hours 02/07/22 08:35 Anaerobic Culture - Preliminary Buttock 02/07/22 08:36 Anaerobic Culture - Preliminary Toe - Right Fifth 02/07/22 08:35 Gram Stain - Final Buttock Wound Culture - Final Staphylococcus aureus 02/07/22 08:36 Gram Stain - Final Toe - Right Fifth Wound Culture - Final Staphylococcus aureus
[2022-02-10 14:26] VITALS: BP 110/75; RESP 18
[2022-02-10 17:17] VITALS: PULSE 85
== END 2022-02-10 18:44 | disposition home health service (06) | DRG 571 ==
LOC: EC 13:36 → 6NMEDSUR 20:55 → OBSVTOIN 02-06 03:17
PROVIDERS: ADMIT Internal Medicine; ATTEND Internal Medicine
PROC: 0H9MXZX Drainage of Right Foot Skin, External Approach, Diagnostic (ICD-10-PCS; 2022-02-05)
PROC: 0JB90ZZ Excision of Buttock Subcutaneous Tissue and Fascia, Open Approach (ICD-10-PCS; principal; 2022-02-07 07:30)
PROC: 0QBQ0ZZ Excision of Right Toe Phalanx, Open Approach (ICD-10-PCS; 2022-02-07 07:30)
PROC: 05HC33Z Insertion of Infusion Device into Left Basilic Vein, Percutaneous Approach (ICD-10-PCS; 2022-02-10)
DX: L02.611 Cutaneous abscess of right foot (principal); E87.20 Acidosis, unspecified; M33.20 Polymyositis, organ involvement unspecified; L02.31 Cutaneous abscess of buttock; L03.115 Cellulitis of right lower limb; Z68.1 Body mass index [BMI] 19.9 or less, adult; M34.9 Systemic sclerosis, unspecified; E83.59 Other disorders of calcium metabolism; L98.492 Non-pressure chronic ulcer of skin of other sites with fat layer exposed; Z28.310 Unvaccinated for COVID-19; R63.6 Underweight; D64.9 Anemia, unspecified; E87.6 Hypokalemia; E03.9 Hypothyroidism, unspecified; I10 Essential (primary) hypertension; K59.00 Constipation, unspecified; F32.A Depression, unspecified; F41.9 Anxiety disorder, unspecified; Z79.890 Hormone replacement therapy; Z79.52 Long term (current) use of systemic steroids; Z79.891 Long term (current) use of opiate analgesic; Z79.899 Other long term (current) drug therapy
CPT/HCPCS: 10160; 36410; 36415; 76937; 80048; 80053; 83605; 85025; 86140; 87040; 87070; 87075; 87077; 87186; 87205; 88304; 96365; 96375; 99284

== ENCOUNTER → 2023-03-09 | Outpatient (CLI) | payer BC ==
[2023-03-09 22:11] LABS: Basophils # (A) 0.06 X 10*3/uL (0.00-0.10); Basophils % (A) 0.6 %; Eosinophils # (A) 0.11 X 10*3/uL (0.04-0.35); Eosinophils % (A) 1.2 %; HCT 35.7 % (37.2-46.3); HGB 10.1 d/dL (12.0-15.0); Lymphocytes # (A) 1.92 X 10*3/uL (0.90-5.00); Lymphocytes % (A) 20.5 %; MCH 21.8 pg (27.0-32.0); MCHC 28.3 d/dL (32.0-37.0); MCV 76.9 FL (80.0-97.0); Mean Platelet Volume 10.9 FL (9.5-12.2); Monocytes % (A) 6.4 %; NRBC Per 100 WBC 0 X 10*3/uL (0.00-0.01); Neutrophils # (A) 6.62 X 10*3/uL (1.80-7.70); Neutrophils % (A) 70.8 %; Platelet Count 340 X 10*3/uL (140-440); RBC 4.64 X 10*6/uL (4.10-5.20); WBC 9.36 X 10*3/uL (4.50-10.00)
[2023-03-09 22:27] LABS: Creatine Kinase 22 U/L (26-186)
[2023-03-09 22:37] LABS: Erythrocyte Sedimentation Rate 91 mm/Hr (0-30)
[2023-03-10 07:56] LABS: ALT 6 U/L (8-44); AST 7 U/L (13-35); BUN/Creat Ratio 38.33 Ratio (12.00-20.00); Blood Urea Nitrogen 11.5 mg/dL (9.0-27.0); Calcium 8.1 mg/dL (8.7-10.3); Carbon Dioxide 26.3 mmol/L (21.6-31.8); Chloride 102 mmol/L (96-109); Glucose 87 mg/dL (70-110); Potassium 3.9 mmol/L (3.5-5.5); Sodium 139 mmol/L (135-145)
== END | disposition home or self-care (01) ==
LOC: LABWHC1 12:17
PROVIDERS: ATTEND Internal Medicine Rheumatology
DX: M34.9 Systemic sclerosis, unspecified (principal)
CPT/HCPCS: 36415; 80048; 82085; 82550; 84450; 84460; 85025; 85652; 86140

== ENCOUNTER → 2023-04-13 | Outpatient (CLI) | payer BC ==
[2023-04-13 14:09] LABS: Ionized Calcium 4.5 mg/dL (4.5-5.3)
[2023-04-13 18:57] LABS: Blood Urea Nitrogen 8.4 mg/dL (9.0-27.0); Calcium 8.4 mg/dL (8.7-10.3); Carbon Dioxide 26.2 mmol/L (21.6-31.8); Chloride 100 mmol/L (96-109); Glucose 101 mg/dL (70-110); Potassium 3.8 mmol/L (3.5-5.5); Sodium 140 mmol/L (135-145)
== END | disposition home or self-care (01) ==
LOC: LABWHC1 12:25
PROVIDERS: ATTEND Internal Medicine Rheumatology
DX: M81.0 Age-related osteoporosis without current pathological fracture (principal)
CPT/HCPCS: 36415; 80048; 82306; 82330

== ENCOUNTER 2023-08-24 17:45 | Emergency (ER) | payer BC ==
[2023-08-24 18:07] VITALS: TEMP 97.5
--- NOTE | 2023-08-24 18:48 | ED ---
General Adult HPI - General Chief complaint: Recheck/Abnormal Lab/Rx Stated complaint: SOB Time Seen by Provider: 08/24/23 18:05 Source: patient Mode of arrival: ambulatory Limitations: no limitations - History of Present Illness Initial comments: This patient is a 53-year-old woman who was sent here from the clinic with concern that she may have had a pulmonary embolism or possibly OK. The patient was complaining of weakness and dyspnea when she saw her primary physician. She had some labs performed as outpatient. She received phone call and was told to go to emergency department. Patient was told that she had test that indicated she may have a blood clot or an OK. I did receive a fax from the clinic that showed an elevated high-sensitivity troponin and an elevated D-dimer, tests obtained earlier today. Patient currently denies chest pain. -: days(s) Location: chest Severity scale (1-10): 0 Quality: dull Consistency: now resolved Improves with: none Worsens with: none Associated Symptoms: shortness of breath, weakness Treatments Prior to Arrival: none - Related Data Home Medications Medication Instructions Recorded Confirmed Colchicine 0.6 mg PO HS 06/23/21 02/05/22 DULoxetine HCL [Cymbalta] 90 mg PO HS 06/23/21 02/05/22 Folic Acid 1 mg PO HS 06/23/21 02/05/22 Losartan Potassium [Cozaar] 100 mg PO HS 06/23/21 02/05/22 Omeprazole 20 mg PO HS 06/23/21 02/05/22 Levothyroxine Sodium [Synthroid] 88 mcg PO DAILY 02/05/22 02/05/22 Methotrexate 50mg/2ml Soln 25 mg INJ TRAYLOR 02/05/22 02/05/22 Sildenafil [Revatio] 20 mg PO BID 02/05/22 02/06/22 buprenorphine HCL [Belbuca] 150 mcg BUCCAL HS 02/05/22 02/05/22 dilTIAZem HCL [dilTIAZem HCL 24Hr 120 mg PO HS 02/05/22 02/05/22 ER (CD)] hydroCHLOROthiazide [Hydrodiuril] 50 mg PO DAILY 02/05/22 02/05/22 predniSONE 2.5 mg PO Q48H 02/05/22 02/05/22 Previous Rx's Medication Instructions Recorded HYDROcodone/APAP 5-325MG [[place] 1 each PO Q4HR PRN #18 tab 02/10/22 5-325] Allergies Allergy/AdvReac Type Severity Reaction Status Date / Time No Known Allergies Allergy Verified 02/05/22 21:17 Review of Systems ROS Statement: Those systems with pertinent positive or pertinent negative responses have been documented in the HPI. ROS Other: All systems not noted in ROS Statement are negative. Constitutional: Denies: fever, chills, weakness Respiratory: Reports: dyspnea. Denies: cough, wheezes Cardiovascular: Reports: chest pain. Denies: palpitations, dyspnea on exertion, edema, syncope Gastrointestinal: Denies: abdominal pain, nausea, vomiting, diarrhea Genitourinary: Denies: dysuria, hematuria Musculoskeletal: Denies: back pain Skin: Denies: rash Neurological: Denies: headache, weakness, numbness Past Medical History Past Medical History: Hypertension, Thyroid Disorder Additional Past Medical History / Comment(s): scleroderma, polymyositis History of Any Multi-Drug Resistant Organisms: None Reported Past Surgical History: Breast Surgery Additional Past Surgical History / Comment(s): Surgeries for scleroderma calcium deposits, bilateral cataract removals, surgery for detached retina. Past Anesthesia/Blood Transfusion Reactions: No Reported Reaction Past Psychological History: Anxiety, Depression Smoking Status: Never smoker Past Alcohol Use History: None Reported Past Drug Use History: None Reported - Past Family History Father Family Medical History: Hypertension Additional Family Medical History / Comment(s): Heart problems Mother Family Medical History: Cancer Additional Family Medical History / Comment(s): Liver cancer General Exam Limitations: no limitations General appearance: alert, in no apparent distress Head exam: Present: atraumatic, normocephalic Eye exam: Present: normal appearance. Absent: scleral icterus, conjunctival injection Neck exam: Present: normal inspection Respiratory exam: Present: normal lung sounds bilaterally. Absent: respiratory distress, wheezes, rales, rhonchi, stridor, accessory muscle use Cardiovascular Exam: Present: normal rhythm, tachycardia, normal heart sounds. Absent: systolic murmur, diastolic murmur, rubs, gallop GI/Abdominal exam: Present: soft. Absent: distended, tenderness, guarding, rebound, rigid, mass Extremities exam: Present: normal inspection, normal capillary refill. Absent: pedal edema, calf tenderness Back exam: Present: normal inspection. Absent: CVA tenderness (R), CVA tenderness (L) Neurological exam: Present: alert Skin exam: Present: warm, dry, intact, normal color. Absent: rash Course Vital Signs 08/24/23 08/24/23 08/24/23 17:50 17:54 18:53 Temperature 97.5 F L Pulse Rate 124 H 108 H 105 H Respiratory 20 18 20 Rate Blood Pressure 112/70 120/79 O2 Sat by Pulse 100 95 Oximetry 08/24/23 08/24/23 18:57 21:01 Temperature Pulse Rate 100 Respiratory 20 18 Rate Blood Pressure 126/62 O2 Sat by Pulse 100 Oximetry EKG Findings - EKG Results: EKG: interpreted by ERMD, sinus rhythm, normal axis, normal QRS EKG shows: tachycardia (Rate 104 bpm) - Blocks, [place], Hypertrophy, ST Abn: Repolarization changes or abnormalities: nonspecific abnormality, ST segment, and/or T wave Medical Decision Making - Medical Decision Making The patient had CT scan of the chest which I interpreted as negative for acute pulmonary embolism Was pt. sent in by a medical professional or institution ([facility]EDEL[facility] Tran, [employer], urgent care, hospital, or jail...) When possible be specific @ -[No] Did you speak to anyone other than the patient for history (EMS, parent, family, police, friend...)? What history was obtained from this source @ -[Patient's family did contribute to history Did you review nursing and triage notes (agree or disagree)? Why? @ -[I reviewed and agree with nursing and triage notes] Were old charts reviewed (outside hosp., previous admission, EMS record, old EKG, old radiological studies, urgent care reports/EKG's, jail records)? Report findings @ -[No old charts were reviewed] Differential Diagnosis (chest pain, altered mental status, abdominal pain women, abdominal pain men, vaginal bleeding, weakness, fever, dyspnea, syncope, headache, dizziness, GI bleed, back pain, seizure, CVA, palpatations, mental health, musculoskeletal)? @ -[Differential Chest Pain: Stable Angina, Unstable Angina, STEMI, NSTEMI Aortic Dissection, Pneumothorax, Musculoskeletal, Esophageal Spasm GERD, Cholecystitis, Pancreatitis, Zoster, this is not meant to be an all-inclusive list. EKG interpreted by me (3pts min.). @ -[Interpreted as above] X-rays interpreted by me (1pt min.). @ -[None done] CT interpreted by me (1pt min.). @ -[I interpreted as above U/S interpreted by me (1pt. min.). @ -[None done] What testing was considered but not performed or refused? (CT, X-rays, U/S, labs)? Why? @ -[None] What meds were considered but not given or refused? Why? @ -[None] Did you discuss the management of the patient with other professionals (professionals i.e. , PA, [employer]ENT, lab, RT, psych nurse, oncology social worker, dental office coordinator, teacher, environmental health officer, case fitter)? Give summary @ -[No] Was smoking cessation discussed for >3mins.? @ -[No] Was critical care preformed (if so, how long)? @ -[No] Were there social determinants of health that impacted care today? How? (Homelessness, low income, unemployed, alcoholism, drug addiction, tra nsportation, low edu. Level, literacy, decrease access to med. care, fci, rehab)? @ -[No] Was there de-escalation of care discussed even if they declined (Discuss DNR or withdrawal of care, Hospice)? DNR status @ -[No] What co-morbidities impacted this encounter? (DM, HTN, Smoking, COPD, CAD, Can cer, CVA, ARF, Chemo, Hep., AIDS, mental health diagnosis, sleep apnea, morbid obesity)? @ -[None] Was patient admitted / discharged? Hospital course, mention meds given and route, prescriptions, significant lab abnormalities, going to OR and other pertinent info. @ -[Patient is 53-year-old woman sent from urgent care to have additional studies related to chest pain. Hour troponin came back negative and the patient's CT for possible pulmonary embolism was negative. The patient was feeling well and after being given the news stated that she wanted to go home. At this point she does appear to be stable to have further outpatient evaluation and treatment. We discussed return parameters Undiagnosed new problem with uncertain prognosis? @ -[No] Drug Therapy requiring intensive monitoring for toxicity (Heparin, Nitro, Insulin, Cardizem)? @ -[No] Were any procedures done? @ -[No] Diagnosis/symptom? @ -[Acute on chronic chest pain Acute, or Chronic, or Acute on Chronic? @ -[Acute on chronic Uncomplicated (without systemic symptoms) or Complicated (systemic symptoms)? @ -Uncomplicated Side effects of treatment? @ -[No] Exacerbation, Progression, or Severe Exacerbation? @ -[No] Poses a threat to life or bodily function? How? (Chest pain, USA, OK, pneumonia, PE, COPD, DKA, ARF, appy, cholecystitis, CVA, Diverticulitis, Homicidal, Suicidal, threat to staff... and all critical care pts) @ -[No] - Lab Data Result diagrams: 08/24/23 18:50 08/24/23 18:50 Lab Results 08/24/23 08/24/23 08/24/23 Range/Units 18:50 18:50 18:50 WBC 10.9 H (3.8-10.6) k/uL RBC 4.20 (3.80-5.40) m/uL Hgb 10.2 L (11.4-16.0) gm/dL Hct 32.9 L (34.0-46.0) % MCV 78.4 L (80.0-100.0) fL MCH 24.4 L (25.0-35.0) pg MCHC 31.2 (31.0-37.0) g/dL RDW 16.4 H (11.5-15.5) % Plt Count 348 (150-450) k/uL MPV 7.6 Neutrophils % 75 % Lymphocytes % 16 % Monocytes % 5 % Eosinophils % 3 % Basophils % 1 % Neutrophils # 8.2 H (1.3-7.7) k/uL Lymphocytes # 1.7 (1.0-4.8) k/uL Monocytes # 0.5 (0-1.0) k/uL Eosinophils # 0.3 (0-0.7) k/uL Basophils # 0.1 (0-0.2) k/uL Anisocytosis Slight Microcytosis Slight Sodium 133 L (137-145) mmol/L Potassium 3.6 (3.5-5.1) mmol/L Chloride 99 (98-107) mmol/L Carbon Dioxide 25 (22-30) mmol/L Anion Gap 9 mmol/L BUN 9 (7-17) mg/dL Creatinine 0.32 L (0.52-1.04) mg/dL Est GFR (CKD-EPI)AfAm >90 (>60 ml/min/1.73 sqM) Est GFR (CKD-EPI)NonAf >90 (>60 ml/min/1.73 sqM) Glucose 103 H (74-99) mg/dL Calcium 8.0 L (8.4-10.2) mg/dL Magnesium 1.6 (1.6-2.3) mg/dL Total Bilirubin 0.4 (0.2-1.3) mg/dL AST 17 (14-36) U/L ALT 9 (4-34) U/L Alkaline Phosphatase 128 H (38-126) U/L Troponin I <0.012 (0.000-0.034) ng/mL NT-Pro-B Natriuret Pep 222 pg/mL Total Protein 5.3 L (6.3-8.2) g/dL Albumin 2.8 L (3.5-5.0) g/dL Disposition Clinical Impression: Chest pain Disposition: HOME SELF-CARE Condition: Good Instructions (If sedation given, give patient instructions): Chest Pain (ED) Is patient prescribed a controlled substance at d/c from ED?: No Referrals: Mumtaz Huang MD [Primary Care Provider] - 1-2 days Asa Elizabeth MD [Medical Doctor] - 1-2 days
[2023-08-24 19:26] LABS: Anisocytosis Slight; Basophils # (A) 0.1 k/uL (0-0.2); Basophils % (A) 1 %; Eosinophils # (A) 0.3 k/uL (0-0.7); Eosinophils % (A) 3 %; HCT 32.9 % (34.0-46.0); HGB 10.2 gm/dL (11.4-16.0); Lymphocytes # (A) 1.7 k/uL (1.0-4.8); Lymphocytes % (A) 16 %; MCH 24.4 pg (25.0-35.0); MCHC 31.2 g/dL (31.0-37.0); MCV 78.4 fL (80.0-100.0); Mean Platelet Volume 7.6; Microcytosis Slight; Monocytes # (A) 0.5 k/uL (0-1.0); Monocytes % (A) 5 %; Neutrophils # (A) 8.2 k/uL (1.3-7.7); Neutrophils % (A) 75 %; Platelet Count 348 k/uL (150-450); RDW 16.4 % (11.5-15.5); WBC 10.9 k/uL (3.8-10.6)
[2023-08-24 20:04] LABS: ALT 9 U/L (4-34); AST 17 U/L (14-36); African American GFR (CKD) >90 (>60 ml/min/1.73 sqM); Albumin 2.8 g/dL (3.5-5.0); Alkaline Phosphatase 128 U/L (38-126); Anion Gap 9 mmol/L; Blood Urea Nitrogen 9 mg/dL (7-17); Carbon Dioxide 25 mmol/L (22-30); Chloride 99 mmol/L (98-107); Glucose 103 mg/dL (74-99); Magnesium 1.6 mg/dL (1.6-2.3); Non-African American GFR(CKD) >90 (>60 ml/min/1.73 sqM); Potassium 3.6 mmol/L (3.5-5.1); Sodium 133 mmol/L (137-145); Total Bilirubin 0.4 mg/dL (0.2-1.3); Total Protein 5.3 g/dL (6.3-8.2)
--- NOTE | 2023-08-24 20:09 | CT ---
EXAMINATION TYPE: CT chest angio for PE CT DLP: 410.4 mGycm, Automated exposure control for dose reduction was used. DATE OF EXAM: 08/24/2023 7:57 PM COMPARISON: None CLINICAL INDICATION:Female, 53 years old with history of dyspnea, possible PE; Difficulty breathing, weakness, history of scleroderma TECHNIQUE/CONTRAST: CTA scan of the thorax is performed with IV Contrast, patient injected with 80 mL of Isovue 370, MIP images are created and reviewed these are created on a separate workstation.. FINDINGS: Pulmonary Artery: There is no evidence for a filling defect within the pulmonary vasculature to sugge st acute pulmonary embolism. The pulmonary artery is of normal size. Lungs/Pleura: No evidence of focal consolidation, pleural effusion or pneumothorax. Airway: Large airways are patent. Heart: Heart is within normal limits for size. Vasculature: No evidence of aortic aneurysm. Mediastinum: No gross evidence of adenopathy. The esophagus is patulous with layering debris. Musculoskeletal: No acute osseous abnormalities. Evidence of rotator cuff tears with fatty atrophy of the subscapularis and other muscles of the rotator cuffs bilaterally. Soft Tissues: Scattered subcutaneous calcifications which are somewhat curvilinear possibly sequela o f patient's known history of scleroderma. Lower neck: No significant findings. Upper Abdomen: No significant findings. IMPRESSION: 1. No evidence of pulmonary embolism. 2. Evidence of patient's known history of scleroderma with subcutaneous calcifications scattered thro ughout the patient's body and a patulous esophagus with layering ingested contents and/or reflux. 3. Severe atrophy changes of the rotator cuff muscles bilaterally. Correlate for underlying rotator c uff injuries.
[2023-08-24 20:10] LABS: NT-Pro-B-Type Natriuretic Pept 222 pg/mL
[2023-08-24 21:14] VITALS: BP 126/62; PULSE 100; RESP 18
== END 2023-08-24 21:03 | disposition home or self-care (01) ==
LOC: EC 17:45
DX: R07.9 Chest pain, unspecified (principal); R00.0 Tachycardia, unspecified
CPT/HCPCS: 36415; 93005; 83880; 80053; 83735; 84484; 85025; 71275; 99285; Q9967

== ENCOUNTER 2023-09-04 12:35 | Inpatient (IN) | payer BC, MEDICARE ==
--- NOTE | 2023-09-04 12:43 | ED ---
Dizziness HPI - General Source: patient, RN notes reviewed Mode of arrival: EMS Limitations: no limitations - History of Present Illness MD Complaint: dizziness <Polly Victoria - Last Filed: 09/04/23 12:40> - General Source: patient, family, RN notes reviewed Limitations: no limitations <Juve Coleman - Last Filed: 09/04/23 21:09> - General Chief Complaint: Dizziness Stated Complaint: dizziness Time Seen by Provider: 09/04/23 12:40 - History of Present Illness Initial Comments: Quick Note: This is a 53-year-old female who presents to the emergency department for dizziness. Patient states that this has been going on for a couple of weeks. The dizziness used to be present only when standing, but is now present also at rest. She has also been short of breath for the last month. She was evaluated here for this couple of weeks ago and had a pulmonary embolism ruled out. Denies any chest pain. (Polly Victoria) Patient is a 53-year-old female presenting to the emergency department with shortness of breath. Symptoms have progressed the last few days. Patient states symptoms are exertional. Patient does have mild warmth in her chest however no pain. Patient does have some mild leg swelling when questioned and feels this is new. No calf pain. Patient does have history of sarcoidosis as well as polymyositis. Patient feels symptoms are getting worse and is having some associated lightheadedness. (Juve Coleman) - Related Data Home Medications Medication Instructions Recorded Confirmed Colchicine 0.6 mg PO HS 06/23/21 09/04/23 DULoxetine HCL [Cymbalta] 90 mg PO HS 06/23/21 09/04/23 Omeprazole 20 mg PO HS 06/23/21 09/04/23 Levothyroxine Sodium [Synthroid] 88 mcg PO DAILY 02/05/22 09/04/23 dilTIAZem HCL [dilTIAZem HCL 24Hr 120 mg PO HS 02/05/22 09/04/23 ER (CD)] Cholecalciferol [Vitamin D3 (25 25 mcg PO HS 09/04/23 09/04/23 Mcg = 1000 Iu)] Ibuprofen [Motrin] 800 mg PO Q6H PRN 09/04/23 09/04/23 Loperamide [Imodium] 2 - 4 mg PO QID PRN 09/04/23 09/04/23 Losartan [Cozaar] 50 mg PO HS 09/04/23 09/04/23 Methotrexate Sodium 25mg/Ml 25 mg INJ TRAYLOR 09/04/23 09/04/23 Multivitamins, Thera [Multivitamin 1 tab PO HS 09/04/23 09/04/23 (formulary)] NIFEdipine XL [Procardia Xl] 30 mg PO HS 09/04/23 09/04/23 Naproxen Sod/Diphenhydramine 1 tab PO HS PRN 09/04/23 09/04/23 [Aleve Pm Caplet] buprenorphine HCL [Belbuca] 450 mcg BUCCAL BID 09/04/23 09/04/23 predniSONE 1 mg PO HS 09/04/23 09/04/23 Allergies Allergy/AdvReac Type Severity Reaction Status Date / Time No Known Allergies Allergy Verified 09/04/23 19:57 Review of Systems ROS Other: All systems not noted in ROS Statement are negative. <Polly Victoria - Last Filed: 09/04/23 12:40> ROS Other: All systems not noted in ROS Statement are negative. Constitutional: Denies: fever Eyes: Denies: eye pain ENT: Denies: ear pain Respiratory: Reports: as per HPI. Denies: cough Cardiovascular: Reports: as per HPI, dyspnea on exertion Endocrine: Reports: fatigue Gastrointestinal: Denies: abdominal pain Musculoskeletal: Denies: back pain <Juve Coleman - Last Filed: 09/04/23 21:09> ROS Statement: Those systems with pertinent positive or pertinent negative responses have been documented in the HPI. Past Medical History Past Medical History: Hypertension, Thyroid Disorder Additional Past Medical History / Comment(s): scleroderma, polymyositis History of Any Multi-Drug Resistant Organisms: None Reported Past Surgical History: Breast Surgery Additional Past Surgical History / Comment(s): Surgeries for scleroderma calcium deposits, bilateral cataract removals, surgery for detached retina. Past Anesthesia/Blood Transfusion Reactions: No Reported Reaction Past Psychological History: Anxiety, Depression Smoking Status: Never smoker Past Alcohol Use History: None Reported Past Drug Use History: None Reported - Past Family History Father Family Medical History: Hypertension Additional Family Medical History / Comment(s): Heart problems Mother Family Medical History: Cancer Additional Family Medical History / Comment(s): Liver cancer <Polly Victoria - Last Filed: 09/04/23 12:40> General Exam <Polly Victoria - Last Filed: 09/04/23 12:40> Limitations: no limitations General appearance: alert, in no apparent distress Eye exam: Present: normal appearance Neck exam: Present: normal inspection Respiratory exam: Present: normal lung sounds bilaterally Cardiovascular Exam: Present: regular rate, normal rhythm GI/Abdominal exam: Present: soft. Absent: tenderness Extremities exam: Present: pedal edema (+1 bilateral), other (Arthritic changes of the fingers causing deformed). Absent: calf tenderness Neurological exam: Present: alert Psychiatric exam: Present: normal affect, normal mood Skin exam: Present: normal color <Juve Coleman - Last Filed: 09/04/23 21:09> - General Exam Comments Initial Comments: Visual Physical Exam Vital signs reviewed General: Well-appearing, nontoxic, no acute distress. Head: Normocephalic, atraumatic Eyes: PERRLA, EOMI ENT: Airway patent Chest: Nonlabored breathing Skin: No visual rash, normal skin tone Neuro: Alert and oriented 3 Musculoskeletal: No gross abnormalities (Polly Victoria) Course Vital Signs 09/04/23 09/04/23 12:43 19:46 Temperature 97.7 F Pulse Rate 121 H 102 H Respiratory 16 18 Rate Blood Pressure 103/80 130/89 O2 Sat by Pulse 96 94 L Oximetry EKG Findings - EKG Results: EKG: interpreted by ERMD, sinus rhythm, normal axis, normal QRS, normal ST/T EKG shows: tachycardia <Juve Coleman - Last Filed: 09/04/23 21:09> Medical Decision Making <Polly Victoria - Last Filed: 09/04/23 12:40> - Lab Data Result diagrams: 09/04/23 13:48 09/04/23 13:54 <Juve Coleman - Last Filed: 09/04/23 21:09> - Medical Decision Making I performed the QuickNote portion of this chart. Signed Polly Victoria PA-C. (Polly Victoria) Was pt. sent in by a medical professional or institution (ENEDELIA Tran, MEDICAL TRANSPORT SPECIALIST, urgent care, hospital, or fdc...) When possible be specific @ -No Did you speak to anyone other than the patient for history (EMS, parent, family, police, friend...)? What history was obtained from this source @ -No Did you review nursing and triage notes (agree or disagree)? Why? @ -I reviewed and agree with nursing and triage notes Were old charts reviewed (outside hosp., previous admission, EMS record, old EKG, old radiological studies, urgent care reports/EKG's, fdc records)? Report findings @ -No old charts were reviewed Differential Diagnosis (chest pain, altered mental status, abdominal pain women, abdominal pain men, vaginal bleeding, weakness, fever, dyspnea, syncope, headache, dizziness, GI bleed, back pain, seizure, CVA, palpatations, mental health, musculoskeletal)? @ -Differential Chest Pain: Stable Angina, Unstable Angina, STEMI, NSTEMI Aortic Dissection, Pneumothorax, Musculoskeletal, Esophageal Spasm GERD, Cholecystitis, Pancreatitis, Zoster, this is not meant to be an all-inclusive list. EKG interpreted by me (3pts min.). @ -As above X-rays interpreted by me (1pt min.). @ -Chest x-ray shows no acute process. Radiologist report pending CT interpreted by me (1pt min.). @ -None done U/S interpreted by me (1pt. min.). @ -None done What testing was considered but not performed or refused? (CT, X-rays, U/S, labs)? Why? @ -None What meds were considered but not given or refused? Why? @ -None Did you discuss the management of the patient with other professionals (professionals i.e. , PA, MEDICAL TRANSPORT SPECIALIST, lab, RT, psych nurse, social and political studies professor, laundry agent, teacher, commercial loan officer, employment evaluator/case manager)? Give summary @ -Case was discussed with Dr. Flores who will admit covering Dr. Huang Was smoking cessation discussed for >3mins.? @ -No Was critical care preformed (if so, how long)? @ -No Were there social determinants of health that impacted care today? How? ([place] elessness, low income, unemployed, alcoholism, drug addiction, transportation, low edu. Level, literacy, decrease access to med. care, retirement, rehab)? @ -No Was there de-escalation of care discussed even if they declined (Discuss DNR or withdrawal of care, Hospice)? DNR status @ -No What co-morbidities impacted this encounter? (DM, HTN, Smoking, COPD, CAD, Cancer, CVA, ARF, Chemo, Hep., AIDS, mental health diagnosis, sleep apnea, morbid obesity)? @ -Patient does have underlying sarcoidosis and polymyositis Was patient admitted / discharged? Hospital course, mention meds given and route, prescriptions, significant lab abnormalities, going to OR and other pertinent info. @ -Patient reevaluated and resting comfortably in bed. Patient and family are updated on results and plan. Patient will be admitted with cardiac consult. Admission orders written. Undiagnosed new problem with uncertain prognosis? @ -No Drug Therapy requiring intensive monitoring for toxicity (Heparin, Nitro, Insuli n, Cardizem)? @ -No Were any procedures done? @ -No Diagnosis/symptom? @ -Chest pain Acute, or Chronic, or Acute on Chronic? @ -Acute Uncomplicated (without systemic symptoms) or Complicated (systemic symptoms)? @ -Default Side effects of treatment? @ -No Exacerbation, Progression, or Severe Exacerbation? @ -No Poses a threat to life or bodily function? How? (Chest pain, USA, OR, pneumonia, PE, COPD, DKA, ARF, appy, cholecystitis, CVA, Diverticulitis, Homicidal, Suicidal, threat to staff... and all critical care pts) @ -No (Juve Coleman) - Lab Data Lab Results 09/04/23 09/04/23 09/04/23 Range/Units 13:48 13:48 13:54 WBC 14.0 H (3.8-10.6) k/uL RBC 5.52 H (3.80-5.40) m/uL Hgb 13.5 D (11.4-16.0) gm/dL Hct 44.2 (34.0-46.0) % MCV 80.0 (80.0-100.0) fL MCH 24.4 L (25.0-35.0) pg MCHC 30.4 L (31.0-37.0) g/dL RDW 16.8 H (11.5-15.5) % Plt Count 473 H (150-450) k/uL MPV 7.4 Neutrophils % 84 % Lymphocytes % 10 % Monocytes % 4 % Eosinophils % 1 % Basophils % 1 % Neutrophils # 11.8 H (1.3-7.7) k/uL Lymphocytes # 1.4 (1.0-4.8) k/uL Monocytes # 0.5 (0-1.0) k/uL Eosinophils # 0.2 (0-0.7) k/uL Basophils # 0.1 (0-0.2) k/uL Anisocytosis Slight Microcytosis Slight PT 11.6 (10.0-12.5) sec INR 1.1 (<1.2) Sodium 136 L (137-145) mmol/L Potassium 3.7 (3.5-5.1) mmol/L Chloride 99 (98-107) mmol/L Carbon Dioxide 25 (22-30) mmol/L Anion Gap 12 mmol/L BUN 8 (7-17) mg/dL Creatinine 0.29 L (0.52-1.04) mg/dL Est GFR (CKD-EPI)AfAm >90 (>60 ml/min/1.73 sqM) Est GFR (CKD-EPI)NonAf >90 (>60 ml/min/1.73 sqM) Glucose 122 H (74-99) mg/dL Lactic Ac Sepsis Rflx Plasma Lactic Acid Zack (0.7-2.0) mmol/L Calcium 8.1 L (8.4-10.2) mg/dL Total Bilirubin 0.9 (0.2-1.3) mg/dL AST 44 H (14-36) U/L ALT 21 (4-34) U/L Alkaline Phosphatase 236 H (38-126) U/L Troponin I (0.000-0.034) ng/mL NT-Pro-B Natriuret Pep pg/mL Total Protein 6.6 (6.3-8.2) g/dL Albumin 3.4 L (3.5-5.0) g/dL 09/04/23 09/04/23 09/04/23 Range/Units 13:54 13:54 13:54 WBC (3.8-10.6) k/uL RBC (3.80-5.40) m/uL Hgb (11.4-16.0) gm/dL Hct (34.0-46.0) % MCV (80.0-100.0) fL MCH (25.0-35.0) pg MCHC (31.0-37.0) g/dL RDW (11.5-15.5) % Plt Count (150-450) k/uL MPV Neutrophils % % Lymphocytes % % Monocytes % % Eosinophils % % Basophils % % Neutrophils # (1.3-7.7) k/uL Lymphocytes # (1.0-4.8) k/uL Monocytes # (0-1.0) k/uL Eosinophils # (0-0.7) k/uL Basophils # (0-0.2) k/uL Anisocytosis Microcytosis PT (10.0-12.5) sec INR (<1.2) Sodium (137-145) mmol/L Potassium (3.5-5.1) mmol/L Chloride (98-107) mmol/L Carbon Dioxide (22-30) mmol/L Anion Gap mmol/L BUN (7-17) mg/dL Creatinine (0.52-1.04) mg/dL Est GFR (CKD-EPI)AfAm (>60 ml/min/1.73 sqM) Est GFR (CKD-EPI)NonAf (>60 ml/min/1.73 sqM) Glucose (74-99) mg/dL Lactic Ac Sepsis Rflx Plasma Lactic Acid Zack 2.4 H* (0.7-2.0) mmol/L Calcium (8.4-10.2) mg/dL Total Bilirubin (0.2-1.3) mg/dL AST (14-36) U/L ALT (4-34) U/L Alkaline Phosphatase (38-126) U/L Troponin I <0.012 (0.000-0.034) ng/mL NT-Pro-B Natriuret Pep 382 pg/mL Total Protein (6.3-8.2) g/dL Albumin (3.5-5.0) g/dL 09/04/23 09/04/23 Range/Units 14:38 18:57 WBC (3.8-10.6) k/uL RBC (3.80-5.40) m/uL Hgb (11.4-16.0) gm/dL Hct (34.0-46.0) % MCV (80.0-100.0) fL MCH (25.0-35.0) pg MCHC (31.0-37.0) g/dL RDW (11.5-15.5) % Plt Count (150-450) k/uL MPV Neutrophils % % Lymphocytes % % Monocytes % % Eosinophils % % Basophils % % Neutrophils # (1.3-7.7) k/uL Lymphocytes # (1.0-4.8) k/uL Monocytes # (0-1.0) k/uL Eosinophils # (0-0.7) k/uL Basophils # (0-0.2) k/uL Anisocytosis Microcytosis PT (10.0-12.5) sec INR (<1.2) Sodium (137-145) mmol/L Potassium (3.5-5.1) mmol/L Chloride (98-107) mmol/L Carbon Dioxide (22-30) mmol/L Anion Gap mmol/L BUN (7-17) mg/dL Creatinine (0.52-1.04) mg/dL Est GFR (CKD-EPI)AfAm (>60 ml/min/1.73 sqM) Est GFR (CKD-EPI)NonAf (>60 ml/min/1.73 sqM) Glucose (74-99) mg/dL Lactic Ac Sepsis Rflx Y Plasma Lactic Acid Zack 1.5 (0.7-2.0) mmol/L Calcium (8.4-10.2) mg/dL Total Bilirubin (0.2-1.3) mg/dL AST (14-36) U/L ALT (4-34) U/L Alkaline Phosphatase (38-126) U/L Troponin I (0.000-0.034) ng/mL NT-Pro-B Natriuret Pep pg/mL Total Protein (6.3-8.2) g/dL Albumin (3.5-5.0) g/dL Disposition <Polly Victoria - Last Filed: 09/04/23 12:40> Is patient prescribed a controlled substance at d/c from ED?: No Time of Disposition: 21:09 <Juve Coleman - Last Filed: 09/04/23 21:09> Clinical Impression: Chest pain Disposition: ADMITTED IP TO THIS HOSP Referrals: Mumtaz Huang MD [Primary Care Provider] - 1-2 days
[2023-09-04 13:59] LABS: Anisocytosis Slight; Basophils # (A) 0.1 k/uL (0-0.2); Basophils % (A) 1 %; Eosinophils # (A) 0.2 k/uL (0-0.7); Eosinophils % (A) 1 %; HCT 44.2 % (34.0-46.0); Lymphocytes # (A) 1.4 k/uL (1.0-4.8); Lymphocytes % (A) 10 %; MCH 24.4 pg (25.0-35.0); MCHC 30.4 g/dL (31.0-37.0); Mean Platelet Volume 7.4; Microcytosis Slight; Monocytes # (A) 0.5 k/uL (0-1.0); Monocytes % (A) 4 %; Neutrophils # (A) 11.8 k/uL (1.3-7.7); Neutrophils % (A) 84 %; Platelet Count 473 k/uL (150-450); RBC 5.52 m/uL (3.80-5.40); RDW 16.8 % (11.5-15.5)
[2023-09-04 14:04] LABS: INR 1.1 (<1.2); Prothrombin Time 11.6 sec (10.0-12.5)
[2023-09-04 14:14] LABS: HGB 13.5 gm/dL (11.4-16.0)
[2023-09-04 14:28] LABS: ALT 21 U/L (4-34); AST 44 U/L (14-36); African American GFR (CKD) >90 (>60 ml/min/1.73 sqM); Albumin 3.4 g/dL (3.5-5.0); Alkaline Phosphatase 236 U/L (38-126); Anion Gap 12 mmol/L; Blood Urea Nitrogen 8 mg/dL (7-17); Calcium 8.1 mg/dL (8.4-10.2); Carbon Dioxide 25 mmol/L (22-30); Chloride 99 mmol/L (98-107); Glucose 122 mg/dL (74-99); Non-African American GFR(CKD) >90 (>60 ml/min/1.73 sqM); Potassium 3.7 mmol/L (3.5-5.1); Sodium 136 mmol/L (137-145); Total Bilirubin 0.9 mg/dL (0.2-1.3); Total Protein 6.6 g/dL (6.3-8.2)
[2023-09-04] MEDS ORDERED: NITROGLYCERIN SL TABS 0.4 MG TAB SUBLINGUAL PRN (21:09)
--- NOTE | 2023-09-04 21:20 | XR ---
EXAMINATION TYPE: XR chest 2V DATE OF EXAM: 09/04/2023 7:18 PM CLINICAL INDICATION:Female, 53 years old with history of dyspnea; [facility] COMPARISON: CTA chest 08/24/2023 TECHNIQUE: XR chest 2V. Frontal and lateral views of the chest.. FINDINGS: Lines/Tubes/Devices: No indwelling lines are seen. Extrinsic structures project over the chest. Heart/mediastinum: Heart size is normal. Mediastinal silhouette stable. Mildly tortuous aorta. Pulmonary vascularity: Not increased, Lungs/Pleura: There is no evidence of pleural effusion, focal consolidation, or pneumothorax. Musculoskeletal: No acute osseous abnormality demonstrated in the limits of the exam. Mild degenerat mitchel changes. Mild elevation of the right more so than left humeral heads, can be seen with chronic ro tator cuff disease. Other findings: There are extensive amorphous and serpentine areas of high attenuation throughout the right arm and abdomen primarily, nonspecific but likely represent soft tissue calcifications. This c ould be related to patient's history of scleroderma. IMPRESSION: No acute cardiopulmonary abnormality.
--- NOTE | 2023-09-04 22:24 | P.HPIM ---
History of Present Illness H&P Date: 09/04/23 Chief Complaint: SOB 53 year old female with scleroderma and polymyositis shortness of breath with short exertion, over the past month and getting worse, today was getting worse , and had an episode of warmth sensation in the chest radiating to the arm , with numbness and tingling , reports nausea , and dizziness, and heart racing denies any vomiting, sweating all this while sitting doing nothing. she denies any orthopnea , PNDs. denies any URI. abd pain , gi bleeding denies any travel , no recent hospital stay , no fever no chills no cardiac history , had a stress test couple years ago , came back inconclusive. denies any smoking drugs or alcohol review of systems Pertinent positives as noted in HPI. All other systems were reviewed and are negative on exam Constitutional: No acute distress, Eyes: Anicteric sclerae, moist conjunctiva, Pupils equal round reactive to light ENMT: NC/AT Oropharynx clear, no erythema, or exudates Neck: Supple, no masses, or JVD No carotid bruits No thyromegaly Lungs: Clear to auscultation Clear to percussion Normal respiratory effort, no accessory muscle use Cardiovascular: Heart regular in rate and rhythm, No murmurs, gallops, or rubs No peripheral edema Abdominal: Soft Nontender, no guarding, rebound or rigidity Abdomen moving with respiration Normoactive bowel sounds Skin: multiple areas of skin calcification, with ulceration . patient has multiple wounds over her abd, and thighs. one area inparticular, over the left lower quadrant , seems to be infected with multiple ulcers packed but has foul smelling purulent drainage and erythema ,tender to plapation. another area of ulceration over the right thigh also packed with silver dressing, no erythema or minimal Extremities: No digital cyanosis Pedal pulses intact and symmetrical Radial pulses intact and symmetrical No calf tenderness Psychiatric: Alert and oriented to person, place and time Appropriate affect fair judgement Neuro Muscles Strength 4/5 in all 4 extremities Sensation to light touch grossly present throughout Cranial nerves II-XII grossly intact Past Medical History Past Medical History: Hypertension, Thyroid Disorder Additional Past Medical History / Comment(s): scleroderma, polymyositis History of Any Multi-Drug Resistant Organisms: None Reported Past Surgical History: Breast Surgery Additional Past Surgical History / Comment(s): Surgeries for scleroderma calcium deposits, bilateral cataract removals, surgery for detached retina. Past Anesthesia/Blood Transfusion Reactions: No Reported Reaction Past Psychological History: Anxiety, Depression Smoking Status: Never smoker Past Alcohol Use History: None Reported Past Drug Use History: None Reported - Past Family History Father Family Medical History: Hypertension Additional Family Medical History / Comment(s): Heart problems Mother Family Medical History: Cancer Additional Family Medical History / Comment(s): Liver cancer Medications and Allergies Home Medications Medication Instructions Recorded Confirmed Type Colchicine 0.6 mg PO HS 06/23/21 09/04/23 History DULoxetine HCL [Cymbalta] 90 mg PO HS 06/23/21 09/04/23 History Omeprazole 20 mg PO HS 06/23/21 09/04/23 History Levothyroxine Sodium [Synthroid] 88 mcg PO DAILY 02/05/22 09/04/23 History dilTIAZem HCL [dilTIAZem HCL 24Hr 120 mg PO HS 02/05/22 09/04/23 History ER (CD)] Cholecalciferol [Vitamin D3 (25 25 mcg PO HS 09/04/23 09/04/23 History Mcg = 1000 Iu)] Ibuprofen [Motrin] 800 mg PO Q6H PRN 09/04/23 09/04/23 History Loperamide [Imodium] 2 - 4 mg PO QID PRN 09/04/23 09/04/23 History Losartan [Cozaar] 50 mg PO HS 09/04/23 09/04/23 History Methotrexate Sodium 25mg/Ml 25 mg INJ TRAYLOR 09/04/23 09/04/23 History Multivitamins, Thera [Multivitamin 1 tab PO HS 09/04/23 09/04/23 History (formulary)] NIFEdipine XL [Procardia Xl] 30 mg PO HS 09/04/23 09/04/23 History Naproxen Sod/Diphenhydramine 1 tab PO HS PRN 09/04/23 09/04/23 History [Aleve Pm Caplet] buprenorphine HCL [Belbuca] 450 mcg BUCCAL BID 09/04/23 09/04/23 History predniSONE 1 mg PO HS 09/04/23 09/04/23 History Allergies Allergy/AdvReac Type Severity Reaction Status Date / Time No Known Allergies Allergy Verified 09/04/23 19:57 Physical Exam Vitals: Vital Signs Temp Pulse Resp BP Pulse Ox 09/04/23 19:46 102 H 18 130/89 94 L 09/04/23 12:43 97.7 F 121 H 16 103/80 96 Intake and Output 09/04/23 09/04/23 09/04/23 06:59 14:59 22:59 Other: Weight 83.461 kg Results CBC & Chem 7: 09/04/23 13:48 09/04/23 13:54 Labs: Abnormal Lab Results - Last 24 Hours (Table) 09/04/23 09/04/23 09/04/23 Range/Units 13:48 13:54 13:54 WBC 14.0 H (3.8-10.6) k/uL RBC 5.52 H (3.80-5.40) m/uL MCH 24.4 L (25.0-35.0) pg MCHC 30.4 L (31.0-37.0) g/dL RDW 16.8 H (11.5-15.5) % Plt Count 473 H (150-450) k/uL Neutrophils # 11.8 H (1.3-7.7) k/uL Sodium 136 L (137-145) mmol/L Creatinine 0.29 L (0.52-1.04) mg/dL Glucose 122 H (74-99) mg/dL Plasma Lactic Acid Zack 2.4 H* (0.7-2.0) mmol/L Calcium 8.1 L (8.4-10.2) mg/dL AST 44 H (14-36) U/L Alkaline Phosphatase 236 H (38-126) U/L Albumin 3.4 L (3.5-5.0) g/dL Assessment and Plan Assessment: 53 year old female with scleroderma , presented due to progressive exertional dyspnea over past month , but worsening today associated with warmth up her chest and radiating to her left arm while resting doing noting, came in concerned for heart attack. I discussed the case with ED doc and I accepted the admission for exertional dyspnea rule out ACS , arrhythmia , and sepsis secondary to multiple infected skin ulceration. with anticipated length of stay > 2 midnights sepsis , infected skin ulceration exertional dyspnea , rule out arrhythmia scleroderma , rule out infilterative heart disease director professional services trops negative check echocardiogram supplemental oxygen as needed check blood cultures start vanco dosing by [employer] , flagyl 500 mg po TID (difficult IV access) ID consult cardio consult IVF hydration with normal saline 2 L bolus then 130 cc per hour tylenol for fever White count elevated 14 Heart rate elevated 120 Lactic acid 2.2 improved to 1.5 Hypothyroid Continue with levothyroxine hypertension losartan Nifedipine Cardizem Hemoglobin 13.5 unremarkable Sodium 136 potassium 3.7 BUN 8 creatinine 0.29 Chest x-ray no acute cardiopulmonary process Full code DVT prophylaxis heparin subcu 3 times daily
[2023-09-04] MEDS: ASPIRIN 81 MG PO STA (23:03)
[2023-09-04] MEDS: SODIUM CHLORIDE 0.9% 1,000 ML IV SCH (23:03)
[2023-09-04] MEDS ORDERED: VANCOMYCIN IV PER PHARMACY 1 EACH MISC MISCELLANE PRN (23:59)
[2023-09-05] MEDS: NITROGLYCERIN OINT 1 INCH/GM PACKET TOPICAL SCH (00:51)
[2023-09-05] MEDS: SODIUM CHLORIDE 0.9% 2,000 ML IV ONE (00:51)
[2023-09-05] MEDS: metroNIDAZOLE 500 MG TAB PO SCH (00:51)
[2023-09-05] MEDS: HEPARIN SODIUM,PORCINE 5,000 UNIT/ML 1 ML VIAL SQ SCH (00:52)
[2023-09-05 01:03] LABS: Appearance,Urine Cloudy (Clear); Bacteria,Urine Occasional /hpf; Bilirubin,Urine Negative (Negative); Blood,Urine Negative (Negative); Color,Urine Yellow; Glucose,Urine (UA) Negative (Negative); Ketones,Urine 1+ (Negative); Leukocyte Esterase,Urine Small (Negative); Mucus,Urine Many /hpf; Nitrite,Urine Negative (Negative); Protein,Urine 1+ (Negative); RBC,Urine 1 /hpf (0-5); Specific Gravity,Urine 1.025 (1.001-1.035); Squamous Epithelial Cell,Urine 8 /hpf (0-4); WBC,Urine 7 /hpf (0-5)
[2023-09-05] MEDS: VANCOMYCIN 1,250 MG in SODIUM CHLORIDE 0.9% 250 ML IVPB ONE (01:35)
[2023-09-05] MEDS ORDERED: ONDANSETRON 4 MG/2 ML VIAL IVP PRN (04:46)
[2023-09-05] MEDS: HYDROmorphone 0.5 MG/0.5 ML SYRINGE IVP PRN (05:05)
[2023-09-05 06:35] LABS: Chol/HDL Ratio 3.07 Ratio; LDL Cholesterol,Calculated 51.7 mg/dL (0.0-131.0); VLDL Calculation 19.12 mg/dL (5.00-40.00)
--- NOTE | 2023-09-05 10:58 | P.CRDCN ---
History of Present Illness History of present illness: HISTORY OF PRESENT ILLNESS: This is a 53-year-old female with a past medical history significant for scleroderma and hypertension. Patient does not follow with a technology training associate but she has been evaluated by Dr. Felix during an inpatient hospitalization in 2021. We have been asked to see the patient in consultation for chest pain. Patient examined at the bedside. Patient states over the past month she has been having episodes of shortness of breath. She states at home when she is walking from room to room she becomes winded. She states yesterday the shortness of breath seem to be worse than it has been the past few weeks. She states that when she stood up she felt lightheaded and felt like she was going to pass out. She reports that she got a warm sensation going across her chest and down both of her arms. She also reports having some tingling in both of her arms at that time. The patient currently denies any chest pain or pressure. She denies any shortness of breath. Vital signs are stable. Patient denies a previous history of CAD. She is a non-smoker. DIAGNOSTICS: - EKG reveals sinus mechanism with no signs of acute ischemia. - Chest xray negative for acute process. - Laboratory data: WBC 14.0. Hemoglobin 13.5. Platelet count 473. Sodium 136. Potassium 3.7. BUN 8. Creatinine 0.29. Troponin negative x 3. proBNP 382. Cholesterol 105. LDL 51. - Current home cardiac medications include losartan 50 mg at night, nifedipine 30 mg at night, and diltiazem CD 120 mg at night. - Most recent echocardiogram obtained in July 2021 revealed ejection fraction 50 to 55%, mild MR, mild TR -Patient underwent Lexiscan stress test in August 2021 which was a suboptimal study. Nondiagnostic evaluation of the inferior left ventricular wall noted. No sonographic evidence for reversible ischemia otherwise. REVIEW OF SYSTEMS: At the time of my exam: CONSTITUTIONAL: Denies fever or chills. HEENT: Denies blurred vision, vision changes, or eye pain. Denies hemoptysis CARDIOVASCULAR: Denies chest pain. Denies orthopnea. Denies PND. Denies palpitations RESPIRATORY: Denies shortness of breath. GASTROINTESTINAL: Denies abdominal pain. Denies nausea or vomiting. HEMATOLOGIC: Denies bleeding disorders. GENITOURINARY: Denies any blood in urine. SKIN: Denies pruitis. Denies rash. Reports multiple skin wounds. PHYSICAL EXAM: VITAL SIGNS: Reviewed. GENERAL: Well-developed in no acute distress. HEENT: Head is normocephalic. Pupils are equal, round. Sclerae anicteric. Mucous membranes of the mouth are moist. Neck supple. No JVD or thyromegaly LUNGS: Respirations even and unlabored. Lungs essentially clear to auscultation bilaterally. HEART: Regular rate and rhythm. S1 and S2 heard. ABDOMEN: Soft. Nondistended. Nontender. EXTREMITIES: Normal range of motion. No clubbing or cyanosis. Peripheral pulses intact. No lower extremity edema. Multiple skin wounds/ulcerations noted. NEUROLOGIC: Awake and alert. Oriented x 3. ASSESSMENT: Chest pain, troponin negative x 3 Leukocytosis; suspect secondary to multiple skin wounds/ulcerations Hypertension Scleroderma Multiple skin wounds/ulcerations, secondary to scleroderma per patient PLAN: An acute coronary event has been ruled out Obtain 2D echo to assess cardiac structure and function Add aspirin 81 mg daily Patient does not require statin therapy as her LDL resulted at 51 and total cho lesterol 105. Patient to undergo dobutamine stress test on Thursday Further recommendations pending patient course Nurse practitioner note has been reviewed by physician. Signing provider agrees with the documented findings, assessment, and plan of care documented by DRUG ABUSE TECHNICIAN as a scribe. Past Medical History Past Medical History: Hypertension, Thyroid Disorder Additional Past Medical History / Comment(s): scleroderma, polymyositis History of Any Multi-Drug Resistant Organisms: None Reported Past Surgical History: Breast Surgery Additional Past Surgical History / Comment(s): Surgeries for scleroderma calcium deposits, bilateral cataract removals, surgery for detached retina. Past Anesthesia/Blood Transfusion Reactions: No Reported Reaction Past Psychological History: Anxiety, Depression Smoking Status: Never smoker Past Alcohol Use History: None Reported Past Drug Use History: None Reported - Past Family History Father Family Medical History: Hypertension Additional Family Medical History / Comment(s): Heart problems Mother Family Medical History: Cancer Additional Family Medical History / Comment(s): Liver cancer Medications and Allergies Home Medications Medication Instructions Recorded Confirmed Type Colchicine 0.6 mg PO HS 06/23/21 09/04/23 History DULoxetine HCL [Cymbalta] 90 mg PO HS 06/23/21 09/04/23 History Omeprazole 20 mg PO HS 06/23/21 09/04/23 History Levothyroxine Sodium [Synthroid] 88 mcg PO DAILY 02/05/22 09/04/23 History dilTIAZem HCL [dilTIAZem HCL 24Hr 120 mg PO HS 02/05/22 09/04/23 History ER (CD)] Cholecalciferol [Vitamin D3 (25 25 mcg PO HS 09/04/23 09/04/23 History Mcg = 1000 Iu)] Ibuprofen [Motrin] 800 mg PO Q6H PRN 09/04/23 09/04/23 History Loperamide [Imodium] 2 - 4 mg PO QID PRN 09/04/23 09/04/23 History Losartan [Cozaar] 50 mg PO HS 09/04/23 09/04/23 History Methotrexate Sodium 25mg/Ml 25 mg INJ TRAYLOR 09/04/23 09/04/23 History Multivitamins, Thera [Multivitamin 1 tab PO HS 09/04/23 09/04/23 History (formulary)] NIFEdipine XL [Procardia Xl] 30 mg PO HS 09/04/23 09/04/23 History Naproxen Sod/Diphenhydramine 1 tab PO HS PRN 09/04/23 09/04/23 History [Aleve Pm Caplet] buprenorphine HCL [Belbuca] 450 mcg BUCCAL BID 09/04/23 09/04/23 History predniSONE 1 mg PO HS 09/04/23 09/04/23 History Allergies Allergy/AdvReac Type Severity Reaction Status Date / Time No Known Allergies Allergy Verified 09/04/23 19:57 Physical Exam Vitals: Vital Signs Temp Pulse Pulse Resp BP BP Pulse Ox 09/05/23 07:00 98.0 F 98 15 111/70 100 09/05/23 05:08 91 18 136/68 94 L 09/04/23 19:46 102 H 18 130/89 94 L 09/04/23 12:43 97.7 F 121 H 16 103/80 96 Results 09/04/23 13:48 09/04/23 13:54 Cardiac Enzymes 09/04/23 09/04/23 09/04/23 Range/Units 13:54 13:54 21:16 AST 44 H (14-36) U/L Troponin I <0.012 <0.012 (0.000-0.034) ng/mL 09/04/23 Range/Units 22:54 AST (14-36) U/L Troponin I <0.012 (0.000-0.034) ng/mL Coagulation 09/04/23 Range/Units 13:48 PT 11.6 (10.0-12.5) sec Lipids 09/04/23 Range/Units 22:54 Triglycerides 95.60 (0.00-149.00) mg/dL Cholesterol 105.00 (0.00-200.00) mg/dL HDL Cholesterol 34.20 L (40.00-60.00) mg/dL Cholesterol/HDL Ratio 3.07 Ratio CBC 09/04/23 Range/Units 13:48 WBC 14.0 H (3.8-10.6) k/uL RBC 5.52 H (3.80-5.40) m/uL Hgb 13.5 D (11.4-16.0) gm/dL Hct 44.2 (34.0-46.0) % Plt Count 473 H (150-450) k/uL Comprehensive Metabolic Panel 09/04/23 Range/Units 13:54 Sodium 136 L (137-145) mmol/L Potassium 3.7 (3.5-5.1) mmol/L Chloride 99 (98-107) mmol/L Carbon Dioxide 25 (22-30) mmol/L BUN 8 (7-17) mg/dL Creatinine 0.29 L (0.52-1.04) mg/dL Glucose 122 H (74-99) mg/dL Calcium 8.1 L (8.4-10.2) mg/dL AST 44 H (14-36) U/L ALT 21 (4-34) U/L Alkaline Phosphatase 236 H (38-126) U/L Total Protein 6.6 (6.3-8.2) g/dL Albumin 3.4 L (3.5-5.0) g/dL Current Medications Generic Name Dose Route Start Last Admin Trade Name Freq PRN Reason Stop Dose Admin Aspirin 325 mg 09/05/23 09:00 Aspirin 325 Mg Tab PO DAILY [facility] Cholecalciferol 25 mcg 09/05/23 21:00 Cholecalciferol 25 Mcg (1000 Iu) Tablet PO HS [facility] Colchicine 0.6 mg 09/05/23 21:00 Colchicine 0.6 Mg Each PO HS [facility] Duloxetine HCl 90 mg 09/05/23 21:00 Duloxetine Hcl 30 Mg Capsule. PO HS [facility] Heparin Sodium (Porcine) 5,000 unit 09/05/23 00:00 09/05/23 00:52 Heparin Sodium,Porcine 5,000 Unit/Ml 1 Ml Vial SQ 5,000 unit Q8HR [facility] Administration Hydromorphone HCl 0.5 mg 09/05/23 04:46 09/05/23 05:05 Hydromorphone 0.5 Mg/0.5 Ml Syringe IVP 0.5 mg Q3HR PRN Administration Pain Sodium Chloride 1,000 mls @ 130 mls/hr 09/04/23 22:30 09/05/23 07:10 Saline 0.9% IV 130 mls/hr .[id number] [facility] Administration Vancomycin HCl 1,250 mg/ 250 mls @ 125 mls/hr 09/05/23 10:00 Sodium Chloride IVPB Q8H [facility] Levothyroxine Sodium 88 mcg 09/05/23 07:00 Levothyroxine 88 Mcg Tab PO DAILY@0700 [facility] Losartan Potassium 50 mg 09/05/23 21:00 Losartan 50 Mg Tab PO HS [facility] Metronidazole 500 mg 09/05/23 00:00 09/05/23 00:51 Metronidazole 500 Mg Tab PO 500 mg TID [facility] Administration Protocol Miscellaneous Information 0 each 09/06/23 09:00 Vancomycin Trough Due 1 Each Misc MISCELLANE 09/06/23 09:01 DIRECTED ONE Multivitamins 1 each 09/05/23 21:00 Multivitamins, Thera 1 Each Tab PO HS [facility] Nifedipine 30 mg 09/05/23 21:00 Nifedipine Xl 30 Mg Tab.Er.24 PO HS [facility] Nitroglycerin 0.4 mg 09/04/23 21:09 Nitroglycerin Sl Tabs 0.4 Mg Tab SUBLINGUAL Q5M PRN Chest Pain Nitroglycerin 1 inch 09/05/23 00:00 09/05/23 05:05 Nitroglycerin Oint 1 Inch/Gm Packet TOPICAL 1 inch Q6HR [facility] Administration Non-Formulary Medication 450 mcg 09/05/23 09:00 Buprenorphine Hcl [Belbuca] SUBLINGUAL BID [facility] Ondansetron HCl 4 mg 09/05/23 04:46 Ondansetron 4 Mg/2 Ml Vial IVP Q6HR PRN Nausea And Vomiting Pantoprazole Sodium 40 mg 09/05/23 21:00 Pantoprazole 40 Mg Tablet PO HS [facility] Prednisone 1 mg 09/05/23 21:00 Prednisone 1 Mg Tab PO HS [facility] 09/04/23 13:48 09/04/23 13:54
[2023-09-05] MEDS: NON FORMULARY DRUG (Buprenorphine Hcl [Belbuca] 450 MCG Film) SUBLINGUAL SCH (11:20)
[2023-09-05] MEDS: LEVOTHYROXINE 88 MCG TAB PO SCH (12:17)
[2023-09-05] MEDS: VANCOMYCIN 1,250 MG in SODIUM CHLORIDE 0.9% 250 ML IVPB SCH ×2 (12:37→13:05)
[2023-09-05] MEDS: ASPIRIN 325 MG TAB PO SCH (13:05)
--- NOTE | 2023-09-05 14:35 | P.PN ---
Subjective Progress Note Date: 09/05/23 Hospital course: Patient is a pleasant 53-year-old female with a past medical history of hypertension, hypothyroidism, anxiety, depression, scleroderma and polymyositis. She presented to the emergency department with a chief complaint of shortness of breath and complaints of a warm sensation radiating through her chest and arm accompanied by numbness, tingling, nausea, dizziness, and palpitations. She underwent evaluation in the emergency department. Upon arrival vital signs sh owing tachycardia with heart rate of 121, blood pressure 103/80, respiratory rate 16, temp 97.7 F, and SpO2 of 96% on room air. EKG was completed showing sinus tachycardia at 103 bpm. Chest x-ray negative for acute cardiopulmonary process. Labs completed and reviewed. CBC showing leukocytosis with WBC count of 14.0 and thrombocytosis with platelet count of 473. Coagulation profile normal findings. BMP unremarkable. Initial lactic acid elevated at 2.4. Troponin was negative at less than 0.012. proBNP 382. Triglycerides normal findings at 95.60 and lipid profile unremarkable with the exception of low HDL of 34.20. Urinalysis was a contaminated specimen but not concerning for infect ion. Blood cultures obtained and sent to lab for analysis. Patient started on broad-spectrum IV antibiotics with vancomycin. She was admitted under our services with consultation to cardiology and infectious disease. Troponins trended overnight and all were negative at less than 0.012 x 3 draws. Repeat lactate showing resolution of lactic acidosis after IV fluid hydration resulting at 1.5. Physical exam: Vital signs reviewed and stable. General: Nontoxic, no distress and appears older than stated age, chronically ill appearing. Derm: Skin warm and dry, normal coloration for ethnicity. multiple areas of skin calcification, with ulceration . patient has multiple wounds over her abd, and thighs. one area inparticular, over the left lower quadrant , seems to be infected with multiple ulcers packed but has foul smelling purulent drainage and erythema ,tender to plapation. another area of ulceration over the right thigh also packed with silver dressing, no erythema or minimal Head: Atraumatic, normocephalic and symmetric. Eyes: EOMs intact, no lid lag, and anicteric sclera Mouth: no lip lesions, mucus membranes moist Cardiovascular: regular rate and rhythm with normal S1S2, no murmur, positive posterior tibial pulses bilaterally, and cap refill < 2 seconds. Lungs: Respirations even, regular, and unlabored on room air. Lungs CTA bilaterally, no rhonchi, no rales, no wheezing, and no accessory muscle usage. Abdominal: soft, nontender to palpation, no guarding, no appreciable organomegaly Ext: ROM intact. No gross muscle atrophy, no edema, no contractures Neuro: Speech clear, face symmetrical and CN II-XII grossly intact with no noted focal neuro deficits Psych: Alert and oriented to person, place, time, and situation. Appropriate and pleasant affect. Assessment and Plan of Care: History of scleroderma with multiple open ulcerations with purulent drainage concerning for infection Sepsis upon arrival, secondary to above Leukocytosis secondary to above Thrombocytosis, likely reactive secondary to infectious process -Continue IV antibiotics with Flagyl 500 mg p.o. 3 times daily and vancomycin 1250 mg every 8 hours and monitor renal function and vancomycin trough closely for any signs of vancomycin associated renal toxicity -Follow-up on blood cultures and obtain wound cultures -Consult placed to infectious disease and wound care Atypical chest pain, acute coronary event ruled out -Cardiology consulted, reviewed documentation in chart scheduling patient for dobutamine stress test on 09/07/2023 -Telemetry monitoring -Troponins trended overnight all negative at less than 0.012 x 3 draws. -Cardiac diet -Continue aspirin 81 mg daily, losartan 50 mg nightly and Procardia 30 mg nightly -Lipid profile with a.m. labs. -Echocardiogram to be completed Polymyositis -Hold methotrexate secondary to current infected ulcers and sepsis upon arrival. -Continue buprenorphine 450 mcg twice daily Hypertension -Continue daily medication regimen with losartan 50 mg daily and Procardia 30 mg nightly. Hypothyroidism -Continue daily medication regimen with levothyroxine 88 mcg daily. Data and imaging reviewed: Troponins trended overnight and all were negative at less than 0.012 x 3 draws. Repeat lactate showing resolution of lactic acidosis after IV fluid hydration resulting at 1.5. Repeat morning EKG completed showing normal sinus rhythm at 90 bpm. Vital signs reviewed. Blood pressure 111/70, heart rate 98, respiratory rate 15, temp 98.0 F, and SpO2 100% on room air. CODE STATUS: Full code DVT prophylaxis: Heparin Anticipated discharge date: Clinical course to determine Anticipated discharge place: Clinical course to determine Patient was seen independently by Nurse Pracitioner. This document was prepared using [employer] dictation software. Please allow for errors in tug captain, while rare they do occur. Kaushik Delarosa, FLARING MACHINE OPERATOR rendered care for this patient independently, reviewed the findings and plan as documented in the note above. I did not physically speak with or examine the patient on this date. Objective - Vital Signs Vital signs: Vital Signs Temp 98.0 F 09/05/23 07:00 Pulse 98 09/05/23 07:00 Resp 15 09/05/23 07:00 BP 111/70 09/05/23 07:00 Pulse Ox 100 09/05/23 07:00 FiO2 Intake & Output 09/04/23 09/05/23 09/05/23 18:59 06:59 18:59 Weight 83.461 kg - Labs CBC & Chem 7: 09/04/23 13:48 09/04/23 13:54 Labs: Abnormal Lab Results - Last 24 Hours (Table) 09/04/23 09/04/23 09/04/23 Range/Units 13:48 13:54 13:54 WBC 14.0 H (3.8-10.6) k/uL RBC 5.52 H (3.80-5.40) m/uL MCH 24.4 L (25.0-35.0) pg MCHC 30.4 L (31.0-37.0) g/dL RDW 16.8 H (11.5-15.5) % Plt Count 473 H (150-450) k/uL Neutrophils # 11.8 H (1.3-7.7) k/uL Sodium 136 L (137-145) mmol/L Creatinine 0.29 L (0.52-1.04) mg/dL Glucose 122 H (74-99) mg/dL Plasma Lactic Acid Zack 2.4 H* (0.7-2.0) mmol/L Calcium 8.1 L (8.4-10.2) mg/dL AST 44 H (14-36) U/L Alkaline Phosphatase 236 H (38-126) U/L Albumin 3.4 L (3.5-5.0) g/dL HDL Cholesterol (40.00-60.00) mg/dL Urine Appearance (Clear) Urine Protein (Negative) Urine Ketones (Negative) Ur Leukocyte Esterase (Negative) Urine WBC (0-5) /hpf Ur Squamous Epith Cells (0-4) /hpf Urine Bacteria (None) /hpf Urine Mucus (None) /hpf 09/04/23 09/05/23 Range/Units 22:54 00:49 WBC (3.8-10.6) k/uL RBC (3.80-5.40) m/uL MCH (25.0-35.0) pg MCHC (31.0-37.0) g/dL RDW (11.5-15.5) % Plt Count (150-450) k/uL Neutrophils # (1.3-7.7) k/uL Sodium (137-145) mmol/L Creatinine (0.52-1.04) mg/dL Glucose (74-99) mg/dL Plasma Lactic Acid Zack (0.7-2.0) mmol/L Calcium (8.4-10.2) mg/dL AST (14-36) U/L Alkaline Phosphatase (38-126) U/L Albumin (3.5-5.0) g/dL HDL Cholesterol 34.20 L (40.00-60.00) mg/dL Urine Appearance Cloudy H (Clear) Urine Protein 1+ H (Negative) Urine Ketones 1+ H (Negative) Ur Leukocyte Esterase Small H (Negative) Urine WBC 7 H (0-5) /hpf Ur Squamous Epith Cells 8 H (0-4) /hpf Urine Bacteria Occasional H (None) /hpf Urine Mucus Many H (None) /hpf
[2023-09-05] MEDS ORDERED: DILTIAZEM CD 120 MG CAP.ER.24H PO SCH (21:00)
[2023-09-05] MEDS: PANTOPRAZOLE 40 MG TABLET PO SCH (21:58)
[2023-09-05] MEDS: NIFEdipine XL 30 MG TAB.ER.24 PO SCH (21:58)
[2023-09-05] MEDS: CHOLECALCIFEROL 25 MCG (1000 IU) TABLET PO SCH (21:58)
[2023-09-05] MEDS: LOSARTAN 50 MG TAB PO SCH (21:58)
[2023-09-05] MEDS: MULTIVITAMINS, THERA 1 EACH TAB PO SCH (21:58)
[2023-09-05] MEDS: DULoxetine HCL 30 MG CAPSULE.DR PO SCH (21:58)
[2023-09-05] MEDS: COLCHICINE 0.6 MG EACH PO SCH (21:58)
[2023-09-05] MEDS: predniSONE 1 MG TAB PO SCH (21:58)
[2023-09-06] MEDS ORDERED: DOBUTamine DRIP for NUC MED 500 MG in DEXTROSE/WATER 1 250ML.BAG IV PRN (06:00)
[2023-09-06 09:58] LABS: ALT 9 U/L (8-44); AST 18 U/L (13-35); Albumin 2.7 g/dL (3.8-4.9); Albumin/Globulin Ratio 1.59 Ratio (1.60-3.17); Alkaline Phosphatase 134 U/L (41-126); BUN/Creat Ratio <11.67 Ratio (12.00-20.00); Blood Urea Nitrogen <3.5 mg/dL (9.0-27.0); Calcium 7.5 mg/dL (8.7-10.3); Carbon Dioxide 22.8 mmol/L (21.6-31.8); Chloride 104 mmol/L (96-109); Globulin 1.7 g/dL (1.6-3.3); Glucose 118 mg/dL (70-110); Magnesium 1.6 mg/dL (1.5-2.4); Potassium 3.3 mmol/L (3.5-5.5); Sodium 138 mmol/L (135-145); Total Bilirubin 0.2 mg/dL (0.3-1.2); Total Protein 4.4 g/dL (6.2-8.2)
[2023-09-06 10:01] LABS: HCT 30.2 % (37.2-46.3); HGB 9.2 g/dL (12.0-15.0); MCH 24.2 pg (27.0-32.0); MCHC 30.5 g/dL (32.0-37.0); MCV 79.5 FL (80.0-97.0); Mean Platelet Volume 9.7 FL (9.5-12.2); NRBC Per 100 WBC 0 X 10*3/uL (0.00-0.01); Platelet Count 310 X 10*3/uL (140-440); RDW 17.7 % (11.5-14.5)
--- NOTE | 2023-09-06 10:38 | P.CONS ---
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 and then the patient has for many years previously treated at the wound care and now has been taking care of at home by the home care nurse patient presenting to [facility] concerning for increasing shortness of breath that has been progressively getting worse over the last few days to weeks and also complaining of episode of warm sensation in the chest radiating to arm with numbness and tingling patient on presentation to the hospital was afebrile and no fever have recorded subsequently patient was mildly tachycardic but not hypotensive or hypoxic patient did have a white count of 14,000 with a left shift creatinine 0.29 urine mildly positive patient did have a chest x-ray no acute cardiopulmonary disease process has been admitted to hospital for cardiac workup patient was also started on vancomycin concerning for infected wound to bilateral lateral hip area infectious disease was consulted for further management of antibiotic therapy patient complaining of slightly more pain to the wound mostly dull aching 3-4 out of 10 no radiation and did have some drainage, the patient current local wound care has been Aquacel silver dressing Past Medical History Past Medical History: Hypertension, Thyroid Disorder Additional Past Medical History / Comment(s): scleroderma, polymyositis History of Any Multi-Drug Resistant Organisms: None Reported Past Surgical History: Breast Surgery Additional Past Surgical History / Comment(s): Surgeries for scleroderma calcium deposits, bilateral cataract removals, surgery for detached retina. Past Anesthesia/Blood Transfusion Reactions: No Reported Reaction Past Psychological History: Anxiety, Depression Smoking Status: Never smoker Past Alcohol Use History: None Reported Past Drug Use History: None Reported - Past Family History Father Family Medical History: Hypertension Additional Family Medical History / Comment(s): Heart problems Mother Family Medical History: Cancer Additional Family Medical History / Comment(s): Liver cancer Medications and Allergies Home Medications Medication Instructions Recorded Confirmed Type Colchicine 0.6 mg PO HS 06/23/21 09/04/23 History DULoxetine HCL [Cymbalta] 90 mg PO HS 06/23/21 09/04/23 History Omeprazole 20 mg PO HS 06/23/21 09/04/23 History Levothyroxine Sodium [Synthroid] 88 mcg PO DAILY 02/05/22 09/04/23 History dilTIAZem HCL [dilTIAZem HCL 24Hr 120 mg PO HS 02/05/22 09/04/23 History ER (CD)] Cholecalciferol [Vitamin D3 (25 25 mcg PO HS 09/04/23 09/04/23 History Mcg = 1000 Iu)] Ibuprofen [Motrin] 800 mg PO Q6H PRN 09/04/23 09/04/23 History Loperamide [Imodium] 2 - 4 mg PO QID PRN 09/04/23 09/04/23 History Losartan [Cozaar] 50 mg PO HS 09/04/23 09/04/23 History Methotrexate Sodium 25mg/Ml 25 mg INJ TRAYLOR 09/04/23 09/04/23 History Multivitamins, Thera [Multivitamin 1 tab PO HS 09/04/23 09/04/23 History (formulary)] NIFEdipine XL [Procardia Xl] 30 mg PO HS 09/04/23 09/04/23 History Naproxen Sod/Diphenhydramine 1 tab PO HS PRN 09/04/23 09/04/23 History [Aleve Pm Caplet] buprenorphine HCL [Belbuca] 450 mcg BUCCAL BID 09/04/23 09/04/23 History predniSONE 1 mg PO HS 09/04/23 09/04/23 History Allergies Allergy/AdvReac Type Severity Reaction Status Date / Time No Known Allergies Allergy Verified 09/04/23 19:57 Physical Exam Vitals: Vital Signs Temp Pulse Pulse Resp BP BP Pulse Ox 09/05/23 07:00 98.0 F 98 15 111/70 100 09/05/23 05:08 91 18 136/68 94 L 09/04/23 19:46 102 H 18 130/89 94 L 09/04/23 12:43 97.7 F 121 H 16 103/80 96 Results CBC & Chem 7: 09/06/23 03:58 09/06/23 10:14 Labs: Abnormal Lab Results - Last 24 Hours (Table) 09/04/23 09/04/23 09/04/23 Range/Units 13:48 13:54 13:54 WBC 14.0 H (3.8-10.6) k/uL RBC 5.52 H (3.80-5.40) m/uL MCH 24.4 L (25.0-35.0) pg MCHC 30.4 L (31.0-37.0) g/dL RDW 16.8 H (11.5-15.5) % Plt Count 473 H (150-450) k/uL Neutrophils # 11.8 H (1.3-7.7) k/uL Sodium 136 L (137-145) mmol/L Creatinine 0.29 L (0.52-1.04) mg/dL Glucose 122 H (74-99) mg/dL Plasma Lactic Acid Zack 2.4 H* (0.7-2.0) mmol/L Calcium 8.1 L (8.4-10.2) mg/dL AST 44 H (14-36) U/L Alkaline Phosphatase 236 H (38-126) U/L Albumin 3.4 L (3.5-5.0) g/dL HDL Cholesterol (40.00-60.00) mg/dL Urine Appearance (Clear) Urine Protein (Negative) Urine Ketones (Negative) Ur Leukocyte Esterase (Negative) Urine WBC (0-5) /hpf Ur Squamous Epith Cells (0-4) /hpf Urine Bacteria (None) /hpf Urine Mucus (None) /hpf 09/04/23 09/05/23 Range/Units 22:54 00:49 WBC (3.8-10.6) k/uL RBC (3.80-5.40) m/uL MCH (25.0-35.0) pg MCHC (31.0-37.0) g/dL RDW (11.5-15.5) % Plt Count (150-450) k/uL Neutrophils # (1.3-7.7) k/uL Sodium (137-145) mmol/L Creatinine (0.52-1.04) mg/dL Glucose (74-99) mg/dL Plasma Lactic Acid Zack (0.7-2.0) mmol/L Calcium (8.4-10.2) mg/dL AST (14-36) U/L Alkaline Phosphatase (38-126) U/L Albumin (3.5-5.0) g/dL HDL Cholesterol 34.20 L (40.00-60.00) mg/dL Urine Appearance Cloudy H (Clear) Urine Protein 1+ H (Negative) Urine Ketones 1+ H (Negative) Ur Leukocyte Esterase Small H (Negative) Urine WBC 7 H (0-5) /hpf Ur Squamous Epith Cells 8 H (0-4) /hpf Urine Bacteria Occasional H (None) /hpf Urine Mucus Many H (None) /hpf Assessment and Plan Plan: 1patient with a chronic nonhealing wound to bilateral lateral hip/thigh area related to her polymyositis now with slight more drainage pain and did have elevated white count concerning for secondary infection likely from gram- positive skin luis 2-wound culture has been obtained results will be followed 3-local wound care with a dry Aquacel silver dressing change daily to every 48 hours depends upon drainage 4-vancomycin pharmacy to dose while waiting for the culture to finalize We will follow on clinical condition and cultures to further adjust medication if needed Thank you for this consultation we will follow the patient along with you Dictation was produced using [email or web address] dictation software. please excuse any grammatical, word or spelling errors. Time with Patient: Greater than 30
[2023-09-06 11:16] LABS: Erythrocyte Sedimentation Rate 38 mm/Hr (0-30)
[2023-09-06] MEDS: ASPIRIN 81 MG PO SCH (11:19)
[2023-09-06] MEDS: METOPROLOL SUCCINATE (ER) 50 MG TAB.ER.24H PO SCH (11:19)
[2023-09-06 11:21] LABS: African American GFR (CKD) >90 (>60 ml/min/1.73 sqM); Non-African American GFR(CKD) >90 (>60 ml/min/1.73 sqM)
[2023-09-06] MEDS: VANCOMYCIN TROUGH DUE 1 EACH MISC MISCELLANE ONE (12:00)
[2023-09-06] MEDS: VANCOMYCIN 1,000 MG in SODIUM CHLORIDE 0.9% 250 ML IVPB SCH (13:17)
[2023-09-06] MEDS: POTASSIUM CHLORIDE ER 20 MEQ TAB.ER PO STA (13:17)
[2023-09-06] MEDS: MAGNESIUM SULFATE-D5W PMX 1 GM in DEXTROSE/WATER 1 100ML.BAG IVPB SCH (15:39)
--- NOTE | 2023-09-06 16:26 | P.PN ---
Subjective Progress Note Date: 09/06/23 Hospital course: Patient is a pleasant 53-year-old female with a past medical history of hypertension, hypothyroidism, anxiety, depression, scleroderma and polymyositis. She presented to the emergency department with a chief complaint of shortness of breath and complaints of a warm sensation radiating through her chest and arm accompanied by numbness, tingling, nausea, dizziness, and palpitations. She underwent evaluation in the emergency department. Upon arrival vital signs sh owing tachycardia with heart rate of 121, blood pressure 103/80, respiratory rate 16, temp 97.7 F, and SpO2 of 96% on room air. EKG was completed showing sinus tachycardia at 103 bpm. Chest x-ray negative for acute cardiopulmonary process. Labs completed and reviewed. CBC showing leukocytosis with WBC count of 14.0 and thrombocytosis with platelet count of 473. Coagulation profile normal findings. BMP unremarkable. Initial lactic acid elevated at 2.4. Troponin was negative at less than 0.012. proBNP 382. Triglycerides normal findings at 95.60 and lipid profile unremarkable with the exception of low HDL of 34.20. Urinalysis was a contaminated specimen but not concerning for infect ion. Blood cultures obtained and sent to lab for analysis. Patient started on broad-spectrum IV antibiotics with vancomycin. She was admitted under our services with consultation to cardiology and infectious disease. Troponins trended overnight and all were negative at less than 0.012 x 3 draws. Repeat lactate showing resolution of lactic acidosis after IV fluid hydration resulting at 1.5. Physical exam: Patient seen and fully evaluated at bedside this morning. She was resting in bed currently reports just feeling tired. She denies currently having any chest pain, dizziness, lightheadedness, nausea, vomiting, or any other complaints at this time. Vital signs reviewed and stable. General: Nontoxic, no distress and appears older than stated age, chronically ill appearing. Derm: Skin warm and dry, normal coloration for ethnicity. multiple areas of skin calcification, with ulceration . patient has multiple wounds over her abd, and thighs. one area inparticular, over the left lower quadrant , seems to be infected with multiple ulcers packed but has foul smelling purulent drainage and erythema ,tender to plapation. another area of ulceration over the right thigh also packed with silver dressing, no erythema or minimal Head: Atraumatic, normocephalic and symmetric. Eyes: EOMs intact, no lid lag, and anicteric sclera Mouth: no lip lesions, mucus membranes moist Cardiovascular: regular rate and rhythm with normal S1S2, no murmur, positive posterior tibial pulses bilaterally, and cap refill < 2 seconds. Lungs: Respirations even, regular, and unlabored on room air. Lungs CTA bilaterally, no rhonchi, no rales, no wheezing, and no accessory muscle usage. Abdominal: soft, nontender to palpation, no guarding, no appreciable organomegaly Ext: ROM intact. No gross muscle atrophy, no edema, no contractures Neuro: Speech clear, face symmetrical and CN II-XII grossly intact with no noted focal neuro deficits Psych: Alert and oriented to person, place, time, and situation. Appropriate and pleasant affect. Assessment and Plan of Care: History of scleroderma with multiple open ulcerations with purulent drainage concerning for infection Sepsis upon arrival, secondary to above Leukocytosis secondary to above. Resolved Thrombocytosis, likely reactive secondary to infectious process. Resolved -Continue IV antibiotics with Flagyl 500 mg p.o. 3 times daily and vancomycin 1000 mg every 8 hours and monitor renal function and vancomycin trough closely for any signs of vancomycin associated renal toxicity. Vancomycin trough therapeutic at 21.6. -Infectious disease following, reviewed documentation in chart -Blood culture showing no growth to date. -Wound cultures pending -Consult placed to infectious disease and wound care Atypical chest pain, acute coronary event ruled out -Cardiology consulted, reviewed documentation in chart scheduling patient for d obutamine stress test on 09/07/2023 -Continue Telemetry monitoring -Troponins trended all negative at less than 0.012 x 3 draws. -Cardiac diet, NPO at midnight -Continue aspirin 81 mg daily, losartan 50 mg nightly and Procardia 30 mg nightly -Lipid profile showing low HDL of 34.20 otherwise normal findings. -Echocardiogram to be completed Hypomagnesemia Hypokalemia -Potassium 3.3, orders placed for K-Dur 40 mEq p.o. x 1 dose. -Magnesium 1.6 orders placed for mag sulfate 2 g IVPB x 1 dose. -Order placed for repeat morning labs and will follow-up with results and replace abnormal electrolyte values as indicated based upon these findings. Polymyositis -Hold methotrexate secondary to current infected ulcers and sepsis upon arrival. -Continue buprenorphine 450 mcg twice daily Hypertension -Continue daily medication regimen with losartan 50 mg daily and Procardia 30 mg nightly. Hypothyroidism -Continue daily medication regimen with levothyroxine 88 mcg daily. Data and imaging reviewed: Labs completed and reviewed. CBC showing stable normocytic anemia with hemoglobin of 9.2. BMP revealing hypokalemia with potassium of 3.3. Blood glucose 118. Magnesium low at 1.6. Liver profile showing elevated alkaline phosphatase of 134. ESR elevated at 38 and CRP of 7.90. Vancomycin trough therapeutic at 21.6. Vital signs reviewed. Blood pressure 126/77, heart rate 98, respiratory rate 15, temp 98.0 F, and SpO2 of 98% on room air. CODE STATUS: Full code DVT prophylaxis: Heparin Anticipated discharge date: Clinical course to determine Anticipated discharge place: Clinical course to determine Patient was seen independently by Nurse Pracitioner. This document was prepared using [employer] dictation software. Please allow for errors in curtain fitter, while rare they do occur. Kaushik Delarosa NP rendered care for this patient independently, reviewed the findings and plan as documented in the note above. I did not physically speak with or examine the patient on this date. Objective - Vital Signs Vital signs: Vital Signs Temp 98.0 F 09/06/23 07:00 Pulse 98 09/06/23 07:00 Resp 15 09/06/23 07:00 BP 126/77 09/06/23 07:00 Pulse Ox 98 09/06/23 07:00 FiO2 Intake & Output 09/05/23 09/06/23 09/06/23 18:59 06:59 18:59 Weight 83.461 kg Other: # Voids 1 1 - Labs CBC & Chem 7: 09/06/23 03:58 09/06/23 10:14
--- NOTE | 2023-09-06 16:58 | P.PN ---
Subjective Progress Note Date: 09/06/23 Principal diagnosis: Reason for follow-up is bilateral lateral hip/thigh area wound and cellulitis Patient is a 53-year-old female with a past medical history significan t for hypertension scleroderma polymyositis anxiety depression and this patient who did have a chronic nonhealing wound to bilateral lateral hip/upper thigh area related to her polymyositis admitted to the hospital with worsening shortness of breath and chest pain also with increasing pain and drainage from the wound area concerning for wound infection and cellulitis On today's evaluation that is 09/06/2023, patient has been afebrile, patient is breathing comfortably and is currently on room air, patient denies having any significant cough no chest pain shortness of breath, patient denies nausea vomiting or diarrhea and no abdominal pain, denies any worsening pain to bilateral hip/lateral thigh wound area. Patient white count normalized to 9.20, creatinine 0.3 cultures are pending Objective - Vital Signs Vital signs: Vital Signs Temp 98.0 F 09/06/23 07:00 Pulse 98 09/06/23 07:00 Resp 15 09/06/23 07:00 BP 126/77 09/06/23 07:00 Pulse Ox 98 09/06/23 07:00 FiO2 Intake & Output 09/05/23 09/06/23 09/06/23 18:59 06:59 18:59 Weight 83.461 kg Other: # Voids 1 1 - Exam GENERAL DESCRIPTION: Middle-aged female lying in bed in no distress RESPIRATORY SYSTEM: Unlabored breathing , decreased breath sounds at bases HEART: S1 S2 regular rate and rhythm , ABDOMEN: Soft , no tenderness EXTREMITIES: Bilateral hip/thigh area wounds are currently dressed - Labs CBC & Chem 7: 09/06/23 03:58 09/06/23 10:14 Labs: Abnormal Lab Results - Last 24 Hours (Table) 09/06/23 09/06/23 09/06/23 Range/Units 03:58 03:58 10:14 RBC 3.80 L (4.10-5.20) X 10*6/uL Hgb 9.2 L (12.0-15.0) g/dL Hct 30.2 L (37.2-46.3) % MCV 79.5 L (80.0-97.0) FL MCH 24.2 L (27.0-32.0) pg MCHC 30.5 L (32.0-37.0) g/dL RDW 17.7 H (11.5-14.5) % ESR 38 H (0-30) mm/Hr Potassium 3.3 L (3.5-5.5) mmol/L BUN <3.5 L (9.0-27.0) mg/dL Creatinine 0.3 L 0.24 L (0.6-1.5) mg/dL BUN/Creatinine Ratio <11.67 L (12.00-20.00) Ratio Glucose 118 H (70-110) mg/dL Calcium 7.5 L (8.7-10.3) mg/dL Total Bilirubin 0.2 L (0.3-1.2) mg/dL Alkaline Phosphatase 134 H (41-126) U/L C-Reactive Protein 7.90 H (0.00-0.80) mg/dL Total Protein 4.4 L (6.2-8.2) g/dL Albumin 2.7 L (3.8-4.9) g/dL Albumin/Globulin Ratio 1.59 L (1.60-3.17) Ratio Assessment and Plan (1) Bilateral lower leg cellulitis Current Visit: Yes Status: Acute Code(s): L03.116 - CELLULITIS OF LEFT LOWER LIMB; L03.115 - CELLULITIS OF RIGHT LOWER LIMB SNOMED Code(s): 776391595 (2) Non-healing ulcer of multiple sites with fat layer exposed Current Visit: No Status: Acute Code(s): L98.492 - NON-PRS CHRONIC ULCER OF SKIN OF SITES W FAT LAYER EXPOSED SNOMED Code(s): 34481896 Plan: 1patient with a chronic nonhealing wound to bilateral lateral hip/thigh area related to her polymyositis now with slight more drainage pain and did have elevated white count concerning for secondary infection likely from gram- positive skin luis 2-wound culture has been obtained results are currently pending 3-patient to continue local wound care with a dry Aquacel silver dressing change daily to every 48 hours depends upon drainage 4 patient is currently covered with-vancomycin pharmacy to dose while waiting for the culture to finalize, discharge antibiotic on the basis of final culture Dictation was produced using [employer] software. please excuse any grammatical, word or spelling errors. Time with Patient: Less than 30
--- NOTE | 2023-09-06 21:29 | PN ---
PROGRESS NOTE SUBJECTIVE: A 53-year-old lady, who is admitted to hospital with chest pain. She ruled out for myocardial infarction and is to undergo a dobutamine stress echo tomorrow. This morning, clinically, she is doing well and is free of symptoms. OBJECTIVE: GENERAL: Comfortable at rest. VITAL SIGNS: Stable. CHEST: Reveals good air entry bilaterally. HEART: Reveals first and second heart sounds and a systolic murmur at the apex. ABDOMEN: Soft. EXTREMITIES: Did not reveal any edema. Peripheral pulses are felt. ASSESSMENT: Chest pain, rule out coronary artery disease. PLAN: The patient will undergo a stress test tomorrow and will decide on further course of action based on stress test findings. MMODL / IJN: [id number] /
[2023-09-07 07:41] LABS: African American GFR (CKD) >90 (>60 ml/min/1.73 sqM); Non-African American GFR(CKD) >90 (>60 ml/min/1.73 sqM)
[2023-09-07] MEDS: CEFEPIME 2 GM in SODIUM CHLORIDE 0.9% 100 ML IVPB SCH (11:20)
[2023-09-07] MEDS ORDERED: DOBUTamine DRIP for NUC MED 500 MG/250 ML BAG IV ONE (11:50)
[2023-09-07] MEDS ORDERED: ATROPINE SULFATE 0.1 MG/ML 10ML SYRINGE ONE (12:15)
--- NOTE | 2023-09-07 12:49 | P.PN ---
Subjective Progress Note Date: 09/07/23 Principal diagnosis: Reason for follow-up is bilateral lateral hip/thigh area wound and cellulitis Patient is a 53-year-old female with a past medical history significan t for hypertension scleroderma polymyositis anxiety depression and this patient who did have a chronic nonhealing wound to bilateral lateral hip/upper thigh area related to her polymyositis admitted to the hospital with worsening shortness of breath and chest pain also with increasing pain and drainage from the wound area concerning for wound infection and cellulitis On today's evaluation that is 09/07/2023,the patient denies any fever or any chills, patient is breathing comfortably on room air, the patient denies chest pain shortness of breath and no significant cough, patient denies abdominal pain, no nausea vomiting or diarrhea, the patient pain to the bilateral hip area has slightly decreased in intensity. Patient white count is down to 9.20 as of yesterday creatinine 0.27 culture with gram-negative bacilli and Staph aureus Objective - Vital Signs Vital signs: Vital Signs Temp 97.4 F L 09/07/23 07:00 Pulse 80 09/07/23 07:00 Resp 16 09/07/23 07:00 BP 122/84 09/07/23 07:00 Pulse Ox 100 09/07/23 07:00 FiO2 Intake & Output 09/06/23 09/07/23 09/07/23 18:59 06:59 18:59 Output Total 1150 800 Balance -1150 -800 Output: Urine 1150 800 Other: Voiding Method External Catheter # Voids 2 0 - Exam GENERAL DESCRIPTION: Middle-aged female lying in bed in no distress RESPIRATORY SYSTEM: Unlabored breathing , decreased breath sounds at bases HEART: S1 S2 regular rate and rhythm , ABDOMEN: Soft , no tenderness EXTREMITIES: Bilateral hip/thigh area wounds are currently dressed - Labs CBC & Chem 7: 09/06/23 03:58 09/07/23 06:56 Labs: Abnormal Lab Results - Last 24 Hours (Table) 09/06/23 09/06/23 09/07/23 Range/Units 03:58 10:14 06:56 ESR 38 H (0-30) mm/Hr Creatinine 0.24 L 0.27 L (0.52-1.04) mg/dL Microbiology - Last 24 Hours (Table) 09/06/23 02:00 Gram Stain - Preliminary Hip - Left Wound Culture - Preliminary Gram Neg Bacilli Presumptive Staph aureus Gram Neg Bacilli#2 09/06/23 02:00 Gram Stain - Preliminary Thigh - Right Wound Culture - Preliminary Gram Neg Bacilli Presumptive Staph aureus 09/06/23 02:00 Gram Stain - Preliminary Thigh - Left Wound Culture - Preliminary Presumptive Staph aureus Gram Neg Bacilli 09/05/23 05:15 Blood Culture - Preliminary Blood Assessment and Plan (1) Bilateral lower leg cellulitis Current Visit: Yes Status: Acute Code(s): L03.116 - CELLULITIS OF LEFT LOWER LIMB; L03.115 - CELLULITIS OF RIGHT LOWER LIMB SNOMED Code(s): 214023247 (2) Non-healing ulcer of multiple sites with fat layer exposed Current Visit: No Status: Acute Code(s): L98.492 - NON-PRS CHRONIC ULCER OF SKIN OF SITES W FAT LAYER EXPOSED SNOMED Code(s): 97698192 Plan: 1patient with a chronic nonhealing wound to bilateral lateral hip/thigh area related to her polymyositis now with slight more drainage pain and did have elevated white count concerning for secondary infection likely from gram- positive skin luis 2-wound culture has been obtained results are currently pending 3-patient to continue local wound care with a dry Aquacel silver dressing change daily to every 48 hours depends upon drainage 4 patient local culture currently growing Staph aureus and gram-negative patient to continue vancomycin we will add cefepime for the gram-negative while waiting for the culture to finalize Dictation was produced using [employer] dictation software. please excuse any grammatical, word or spelling errors. Time with Patient: Less than 30
[2023-09-07 13:34] LABS: Anisocytosis Slight; HCT 31.2 % (34.0-46.0); Hypochromasia Marked; MCHC 29.8 g/dL (31.0-37.0); MCV 83.8 fL (80.0-100.0); Mean Platelet Volume 8.2; Platelet Count 291 k/uL (150-450); RBC 3.72 m/uL (3.80-5.40); RDW 16.9 % (11.5-15.5); WBC 7.3 k/uL (3.8-10.6)
[2023-09-07 13:49] LABS: Anion Gap 4 mmol/L; Blood Urea Nitrogen <2 mg/dL (7-17); Calcium 7.3 mg/dL (8.4-10.2); Carbon Dioxide 24 mmol/L (22-30); Chloride 109 mmol/L (98-107); Glucose 96 mg/dL (74-99); HGB 9.3 gm/dL (11.4-16.0); Potassium 3.3 mmol/L (3.5-5.1); Sodium 137 mmol/L (137-145)
--- NOTE | 2023-09-07 14:01 | CA ---
Dobutamine Stress Echocardiogram Report Tami Wood Age: 53 Gender: F : 1970 Exam Date: 09/07/2023 12:05 Exam Location: [facility] Ordering Physician: Deanna Aguilar Referring Physician: [id number] Analyst: Nila Ballard RDCS Technologist: Ht (in): 64 Wt (lb): 184 Procedure CPT: Indication: CP ICD-9 Codes: Rhythm: Patient History: CHEST PAIN, DIFFICULTY IN BREATHING, PALPITATIONS, HTN, FAMILY HX OF HEART DISEASE Cardiac Medications: Medications in past 24 hours: Contrast: Total Dose (mL): Stress Results Protocol: Dobutamine Peak Dose (???g/kg/min): 40 Duration (min:sec): Atropine:(mg) Target HR: 142 Double Product: [id number] Resting HR: 84 Resting BP: 155 / 80 Peak HR: 156 Peak BP: 182 / 86 Max Predicted HR: 167 93 % Max Predicted HR Stress Summary: 0.5 mg ATROPINE ADMIN BP Response: Reason for Termination: TARGET HR REACHED. Cardiac Symptoms: NO SYMPTOMS ECG Analysis Resting EKG: Stress EKG: Arrhythmia: Echo Analysis Base Echo Analysis: Low Echo Anaylsis: Peak Echo Analysis: Recovery Echo: MEASUREMENTS (Male/Female) Normal Values CONCLUSIONS Mild EKG changes in response to dobutamine Normal echocardiogram in response to dobutamine Dr. William De La O MD (Electronically Signed) Final Date: 07 September 2023 14:00
--- NOTE | 2023-09-07 14:03 | CA ---
Transthoracic Echo Report Name: Tami Wood Age: 53 Gender: F : 1970 Exam Date: 09/07/2023 09:22 Exam Location: [facility] Ht (in): 64 Wt (lb): 184 Ordering Physician: Ambika Rodriguez MD Attending/Referring Phys: [id number], Jennifer Group Reservations Coordinator Kerri Warren RDCS Procedure CPT: Indications: infilterative heart disease, arrhythmia Cardiac Hx: Technical Quality: Fair Contrast 1: Total Dose (mL): Contrast 2: Total Dose (mL): MEASUREMENTS (Male / Female) Normal Values 2D ECHO LV Diastolic Diameter PLAX 3.7 cm 4.2 - 5.9 / 3.9 - 5.3 cm LV Systolic Diameter PLAX 2.6 cm IVS Diastolic Thickness 1.1 cm 0.6 - 1.0 / 0.6 - 0.9 cm LVPW Diastolic Thickness 1.0 cm 0.6 - 1.0 / 0.6 - 0.9 cm LV Relative Wall Thickness 0.6 RV Internal Dim ED PLAX 2.2 cm LA Volume 51.2 cm??? 18 - 58 / 22 - 52 cm??? LA Volume Index 26.0 cm???/m??? 16 - 28 cm???/m??? M-MODE Aortic Root Diameter MM 2.8 cm LA Systolic Diameter MM 2.3 cm LA Ao Ratio MM 0.8 AV Cusp Separation MM 1.4 cm DOPPLER AV Peak Velocity 144.7 cm/s AV Peak Gradient 8.4 mmHg AV Mean Velocity 93.8 cm/s AV Mean Gradient 4.0 mmHg AV Velocity Time Integral 29.3 cm LVOT Peak Velocity 118.6 cm/s LVOT Peak Gradient 5.6 mmHg LVOT Velocity Time Integral 24.2 cm MV Area PHT 4.1 cm??? Mitral E Point Velocity 83.4 cm/s Mitral A Point Velocity 66.8 cm/s Mitral E to A Ratio 1.2 MV Deceleration Time 186.7 ms MV E' Velocity 8.3 cm/s Mitral E to MV E' Ratio 10.0 TR Peak Velocity 197.7 cm/s TR Peak Gradient 15.6 mmHg Right Ventricular Systolic Press 20.6 mmHg FINDINGS Left Ventricle Mildly increased left ventricular wall thickness. Left ventricular cavity size normal. Normal left ventricular systolic function with no obvious regional wall motion abnormalities. Left ventricular ejection fraction is estimated at 50 %. Right Ventricle Normal right ventricular size and function. Right ventricular systolic pressure within normal limits. Right Atrium Normal right atrial size. Left Atrium Normal left atrial size. Mitral Valve Structurally normal mitral valve. Mild mitral regurgitation. Aortic Valve Trileaflet aortic valve. No aortic valve stenosis or regurgitation. Tricuspid Valve Structurally normal tricuspid valve. Mild tricuspid regurgitation. Pulmonic Valve Structurally normal pulmonic valve. Pericardium No pericardial effusion. Aorta Normal size aortic root and proximal ascending aorta. CONCLUSIONS Low-normal LV systolic function with EF at 50% Previewed by: Dr. William De La O MD (Electronically Signed) Final Date: 07 September 2023 14:02
--- NOTE | 2023-09-07 14:53 | P.PN ---
Subjective Progress Note Date: 09/07/23 HISTORY OF PRESENT ILLNESS: This is a 53-year-old female with a past medical history significant for sc leroderma and hypertension. 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 Felix during an inpatient hospitalization in 2021. We have been asked to see the patient in consultation for chest pain. Patient examined at the bedside. Patient states over the past month she has been having episodes of shortness of breath. She states at home when she is walking from room to room she becomes winded. She states yesterday the shortness of breath seem to be worse than it has been the past few weeks. She states that when she stood up she felt lightheaded and felt like she was going to pass out. She reports that she got a warm sensation going across her chest and down both of her arms. She also reports having some tingling in both of her arms at that time. The patient currently denies any chest pain or pressure. She denies any shortness of breath. Vital signs are stable. Patient denies a previous history of CAD. She is a non-smoker. DIAGNOSTICS: - EKG reveals sinus mechanism with no signs of acute ischemia. - Chest xray negative for acute process. - Laboratory data: WBC 14.0. Hemoglobin 13.5. Platelet count 473. Sodium 136. Potassium 3.7. BUN 8. Creatinine 0.29. Troponin negative x 3. proBNP 382. Cholesterol 105. LDL 51. - Current home cardiac medications include losartan 50 mg at night, nifedipine 30 mg at night, and diltiazem CD 120 mg at night. - Most recent echocardiogram obtained in July 2021 revealed ejection fraction 50 to 55%, mild MR, mild TR -Patient underwent Lexiscan stress test in August 2021 which was a suboptimal study. Nondiagnostic evaluation of the inferior left ventricular wall noted. No sonographic evidence for reversible ischemia otherwise. 09/06 Patient has been ruled out for myocardial infarction and is scheduled for dobutamine stress test today. No complaints of chest pain. Repeat creatinine 0.27. Repeat hemoglobin is down to 9.3 when she presented with hemoglobin of 13.5. Potassium 3.3. Echocardiogram reveals EF of 50%. Dobutamine stress echocardiogram reveals mild EKG changes in response to utamine. Normal echocardiogram and response to dobutamine. PHYSICAL EXAM: VITAL SIGNS: Reviewed. Blood pressure 122/84, heart rate 80, pulse ox 100% on room air. GENERAL: Well-developed in no acute distress. HEENT: Head is normocephalic. Pupils are equal, round. Conjunctival pale. Sclerae anicteric. LUNGS: Respirations even and unlabored. Lungs essentially clear to auscultation bilaterally. HEART: Regular rate and rhythm. S1 and S2 heard. EXTREMITIES: Normal range of motion. No clubbing or cyanosis. Peripheral pulses intact. No lower extremity edema. Multiple skin wounds/ulcerations noted. NEUROLOGIC: Awake and alert. Oriented x 3. ASSESSMENT: Atypical chest pain, An acute coronary event has been ruled out Leukocytosis; suspect secondary to multiple skin wounds/ulcerations Hypertension Scleroderma Multiple skin wounds/ulcerations, secondary to scleroderma per patient Anemia PLAN: Continue current cardiac meds Patient does not require statin therapy as her LDL resulted at 51 and total cholesterol 105. Replace potassium Patient is cleared for discharge from cardiology and may follow-up with Dr. Dre Sanchez in 1 to 2 weeks. Nurse practitioner note has been reviewed by physician. Signing provider agrees with the documented findings, assessment, and plan of care documented by PRACTICAL NURSING TEACHER as a scribe. Objective - Vital Signs Vital signs: Vital Signs Temp 97.4 F L 09/07/23 07:00 Pulse 80 09/07/23 07:00 Resp 16 09/07/23 07:00 BP 122/84 09/07/23 07:00 Pulse Ox 100 09/07/23 07:00 FiO2 Intake & Output 09/06/23 09/07/23 09/07/23 18:59 06:59 18:59 Output Total 1150 Balance -1150 Output: Urine 1150 Other: Voiding Method External Catheter # Voids 2 0 - Labs CBC & Chem 7: 09/07/23 06:56 09/07/23 06:56 Labs: Abnormal Lab Results - Last 24 Hours (Table) 09/06/23 09/06/23 09/06/23 Range/Units 03:58 03:58 10:14 RBC 3.80 L (4.10-5.20) X 10*6/uL Hgb 9.2 L (12.0-15.0) g/dL Hct 30.2 L (37.2-46.3) % MCV 79.5 L (80.0-97.0) FL MCH 24.2 L (27.0-32.0) pg MCHC 30.5 L (32.0-37.0) g/dL RDW 17.7 H (11.5-14.5) % ESR 38 H (0-30) mm/Hr Potassium 3.3 L (3.5-5.5) mmol/L BUN <3.5 L (9.0-27.0) mg/dL Creatinine 0.3 L 0.24 L (0.6-1.5) mg/dL BUN/Creatinine Ratio <11.67 L (12.00-20.00) Ratio Glucose 118 H (70-110) mg/dL Calcium 7.5 L (8.7-10.3) mg/dL Total Bilirubin 0.2 L (0.3-1.2) mg/dL Alkaline Phosphatase 134 H (41-126) U/L C-Reactive Protein 7.90 H (0.00-0.80) mg/dL Total Protein 4.4 L (6.2-8.2) g/dL Albumin 2.7 L (3.8-4.9) g/dL Albumin/Globulin Ratio 1.59 L (1.60-3.17) Ratio // Range/Units 06:56 RBC (4.10-5.20) X 10*6/uL Hgb (12.0-15.0) g/dL Hct (37.2-46.3) % MCV (80.0-97.0) FL MCH (27.0-32.0) pg MCHC (32.0-37.0) g/dL RDW (11.5-14.5) % ESR (0-30) mm/Hr Potassium (3.5-5.5) mmol/L BUN (9.0-27.0) mg/dL Creatinine 0.27 L (0.6-1.5) mg/dL BUN/Creatinine Ratio (12.00-20.00) Ratio Glucose (70-110) mg/dL Calcium (8.7-10.3) mg/dL Total Bilirubin (0.3-1.2) mg/dL Alkaline Phosphatase (41-126) U/L C-Reactive Protein (0.00-0.80) mg/dL Total Protein (6.2-8.2) g/dL Albumin (3.8-4.9) g/dL Albumin/Globulin Ratio (1.60-3.17) Ratio Microbiology - Last 24 Hours (Table) 09/06/23 02:00 Gram Stain - Preliminary Thigh - Left 09/06/23 02:00 Gram Stain - Preliminary Hip - Left 09/06/23 02:00 Gram Stain - Preliminary Thigh - Right 09/05/23 05:15 Blood Culture - Preliminary Blood
[2023-09-07] MEDS: POTASSIUM CHLORIDE ER 20 MEQ TAB.ER PO STA (15:25)
--- NOTE | 2023-09-07 16:43 | P.PN ---
Subjective Progress Note Date: 09/07/23 Hospital course: Patient is a pleasant 53-year-old female with a past medical history of hypertension, hypothyroidism, anxiety, depression, scleroderma and polymyositis. She presented to the emergency department with a chief complaint of shortness of breath and complaints of a warm sensation radiating through her chest and arm accompanied by numbness, tingling, nausea, dizziness, and palpitations. She underwent evaluation in the emergency department. Upon arrival vital signs sh owing tachycardia with heart rate of 121, blood pressure 103/80, respiratory rate 16, temp 97.7 F, and SpO2 of 96% on room air. EKG was completed showing sinus tachycardia at 103 bpm. Chest x-ray negative for acute cardiopulmonary process. Labs completed and reviewed. CBC showing leukocytosis with WBC count of 14.0 and thrombocytosis with platelet count of 473. Coagulation profile normal findings. BMP unremarkable. Initial lactic acid elevated at 2.4. Troponin was negative at less than 0.012. proBNP 382. Triglycerides normal findings at 95.60 and lipid profile unremarkable with the exception of low HDL of 34.20. Urinalysis was a contaminated specimen but not concerning for infect ion. Blood cultures obtained and sent to lab for analysis. Patient started on broad-spectrum IV antibiotics with vancomycin. She was admitted under our services with consultation to cardiology and infectious disease. Troponins trended overnight and all were negative at less than 0.012 x 3 draws. Repeat lactate showing resolution of lactic acidosis after IV fluid hydration resulting at 1.5. Dobutamine stress test showing mild EKG changes in response to dobutamine but normal echocardiogram and response to dobutamine. Echocardiogram revealed preserved EF of 50% with no significant valvular or structural abnormalities reported. Wound cultures preliminarily positive for gram-negative bacilli and presumptive Staph aureus and remains on antibiotics with vancomycin and Flagyl. Physical exam: Patient seen and fully evaluated at bedside this morning. She was resting in bed and again only complaint is just feeling fatigued and tired. She denies having any further episodes of chest pain/pressure. She is awaiting to be taken down for stress echo later today. Vital signs reviewed and stable. General: Nontoxic, no distress and appears older than stated age, chronically ill appearing. Derm: Skin warm and dry, normal coloration for ethnicity. multiple areas of skin calcification, with ulceration . patient has multiple wounds over her abd, and thighs. one area inparticular, over the left lower quadrant , seems to be infected with multiple ulcers packed but has foul smelling purulent drainage and erythema ,tender to plapation. another area of ulceration over the right thigh also packed with silver dressing, no erythema or minimal Head: Atraumatic, normocephalic and symmetric. Eyes: EOMs intact, no lid lag, and anicteric sclera Mouth: no lip lesions, mucus membranes moist Cardiovascular: regular rate and rhythm with normal S1S2, no murmur, positive posterior tibial pulses bilaterally, and cap refill < 2 seconds. Lungs: Respirations even, regular, and unlabored on room air. Lungs CTA bilaterally, no rhonchi, no rales, no wheezing, and no accessory muscle usage. Abdominal: soft, nontender to palpation, no guarding, no appreciable organomegaly Ext: ROM intact. No gross muscle atrophy, no edema, no contractures Neuro: Speech clear, face symmetrical and CN II-XII grossly intact with no noted focal neuro deficits Psych: Alert and oriented to person, place, time, and situation. Appropriate and pleasant affect. Assessment and Plan of Care: History of scleroderma with multiple open ulcerations with purulent drainage concerning for infection Sepsis upon arrival, secondary to above -Continue IV antibiotics with Flagyl 500 mg p.o. 3 times daily and vancomycin 1000 mg every 8 hours and monitor renal function and vancomycin trough closely for any signs of vancomycin associated renal toxicity. Vancomycin trough therapeutic at 21.6. -Infectious disease following, reviewed documentation in chart -Blood culture showing no growth to date. -Wound cultures preliminarily positive for gram-negative bacilli and presumptive Staph aureus. -Consult placed to wound care, appreciate recommendations Atypical chest pain, acute coronary event ruled out -Cardiology following and took patient for dobutamine stress test this morning. -Dobutamine stress test showing mild EKG changes in response to dobutamine but normal echocardiogram and response to dobutamine. -Echocardiogram revealed preserved EF of 50% with no significant valvular or structural abnormalities reported. -Continue Telemetry monitoring -Troponins negative -Cardiac diet -Continue aspirin 81 mg daily, losartan 50 mg nightly and Procardia 30 mg nightly -Lipid profile showing low HDL of 34.20 otherwise normal findings. Hypokalemia -Potassium 3.3, orders placed for K-Dur 40 mEq p.o. x 1 dose. -Order placed for repeat morning labs and will follow-up with results and replace abnormal electrolyte values as indicated based upon these findings. Hypomagnesemia -Magnesium was 1.6. Patient received 2 g magnesium sulfate IVPB and we will repeat magnesium levels with a.m. labs tomorrow morning and replace any abnormal electrolyte values if indicated based upon these findings. Polymyositis. Hold methotrexate secondary to current infected ulcers and sepsis upon arrival. Continue buprenorphine 450 mcg twice daily Hypertension. Continue daily medication regimen with losartan 50 mg daily and Pr ocardia 30 mg nightly. Hypothyroidism. Continue daily medication regimen with levothyroxine 88 mcg daily. Leukocytosis secondary to above. Resolved Thrombocytosis, likely reactive secondary to infectious process. Resolved Data and imaging reviewed: Labs completed and reviewed. CBC showing stable normocytic anemia with hemoglobin of 9.3. BMP revealing hypokalemia with potassium of 3.3 and mild hyperchloremia with chloride of 109. Calcium was low at 7.3 but corrected calcium is 8.3.. Blood glucose 96..ESR elevated at 38 and CRP of 7.90. Vanc omycin trough therapeutic at 21.6. -Wound cultures preliminarily positive for gram-negative bacilli and presumptive Staph aureus. Vital signs reviewed. Blood pressure 122/84, heart rate 80, respiratory rate 16, temp 97.4 F, and SpO2 of 100% on room air. Dobutamine stress test showing mild EKG changes in response to dobutamine but normal echocardiogram and response to dobutamine. Echocardiogram revealed preserved EF of 50% with no significant valvular or structural abnormalities reported. CODE STATUS: Full code DVT prophylaxis: Heparin Anticipated discharge date: Clinical course to determine Anticipated discharge place: Clinical course to determine Patient was seen independently by Nurse Pracitioner. This document was prepared using [employer] dictation software. Please allow for errors in snow shoveler, while rare they do occur. Kaushik Delarosa NP rendered care for this patient independently, reviewed the findings and plan as documented in the note above. I did not physically speak with or examine the patient on this date. Objective - Vital Signs Vital signs: Vital Signs Temp 97.4 F L 09/07/23 07:00 Pulse 80 09/07/23 07:00 Resp 16 09/07/23 07:00 BP 122/84 09/07/23 07:00 Pulse Ox 100 09/07/23 07:00 FiO2 Intake & Output 04/09/07/23 09/07/23 18:59 06:59 18:59 Output Total 1150 Balance -1150 Output: Urine 1150 Other: Voiding Method External Catheter # Voids 2 0 - Labs CBC & Chem 7: 09/07/23 06:56 09/07/23 06:56 Labs: Abnormal Lab Results - Last 24 Hours (Table) 09/06/23 09/06/23 09/06/23 Range/Units 03:58 03:58 10:14 RBC 3.80 L (4.10-5.20) X 10*6/uL Hgb 9.2 L (12.0-15.0) g/dL Hct 30.2 L (37.2-46.3) % MCV 79.5 L (80.0-97.0) FL MCH 24.2 L (27.0-32.0) pg MCHC 30.5 L (32.0-37.0) g/dL RDW 17.7 H (11.5-14.5) % ESR 38 H (0-30) mm/Hr Potassium 3.3 L (3.5-5.5) mmol/L BUN <3.5 L (9.0-27.0) mg/dL Creatinine 0.3 L 0.24 L (0.6-1.5) mg/dL BUN/Creatinine Ratio <11.67 L (12.00-20.00) Ratio Glucose 118 H (70-110) mg/dL Calcium 7.5 L (8.7-10.3) mg/dL Total Bilirubin 0.2 L (0.3-1.2) mg/dL Alkaline Phosphatase 134 H (41-126) U/L C-Reactive Protein 7.90 H (0.00-0.80) mg/dL Total Protein 4.4 L (6.2-8.2) g/dL Albumin 2.7 L (3.8-4.9) g/dL Albumin/Globulin Ratio 1.59 L (1.60-3.17) Ratio 09/07/23 Range/Units 06:56 RBC (4.10-5.20) X 10*6/uL Hgb (12.0-15.0) g/dL Hct (37.2-46.3) % MCV (80.0-97.0) FL MCH (27.0-32.0) pg MCHC (32.0-37.0) g/dL RDW (11.5-14.5) % ESR (0-30) mm/Hr Potassium (3.5-5.5) mmol/L BUN (9.0-27.0) mg/dL Creatinine 0.27 L (0.6-1.5) mg/dL BUN/Creatinine Ratio (12.00-20.00) Ratio Glucose (70-110) mg/dL Calcium (8.7-10.3) mg/dL Total Bilirubin (0.3-1.2) mg/dL Alkaline Phosphatase (41-126) U/L C-Reactive Protein (0.00-0.80) mg/dL Total Protein (6.2-8.2) g/dL Albumin (3.8-4.9) g/dL Albumin/Globulin Ratio (1.60-3.17) Ratio Microbiology - Last 24 Hours (Table) 09/06/23 02:00 Gram Stain - Preliminary Thigh - Left 09/06/23 02:00 Gram Stain - Preliminary Hip - Left 09/06/23 02:00 Gram Stain - Preliminary Thigh - Right 09/05/23 05:15 Blood Culture - Preliminary Blood
[2023-09-08] MEDS: VANCOMYCIN TROUGH DUE 1 EACH MISC MISCELLANE ONE (05:47)
[2023-09-08 08:36] LABS: HCT 30.7 % (37.2-46.3); HGB 9.5 g/dL (12.0-15.0); MCH 24.7 pg (27.0-32.0); MCHC 30.9 g/dL (32.0-37.0); MCV 79.7 FL (80.0-97.0); Mean Platelet Volume 9.9 FL (9.5-12.2); NRBC Per 100 WBC 0 X 10*3/uL (0.00-0.01); Platelet Count 288 X 10*3/uL (140-440); RBC 3.85 X 10*6/uL (4.10-5.20); RDW 18.3 % (11.5-14.5); WBC 8.63 X 10*3/uL (4.50-10.00)
[2023-09-08 09:23] LABS: ALT 8 U/L (8-44); AST 16 U/L (13-35); Albumin 2.3 g/dL (3.8-4.9); Albumin/Globulin Ratio 1.35 Ratio (1.60-3.17); Alkaline Phosphatase 107 U/L (41-126); BUN/Creat Ratio <11.67 Ratio (12.00-20.00); Blood Urea Nitrogen <3.5 mg/dL (9.0-27.0); Calcium 7.2 mg/dL (8.7-10.3); Chloride 106 mmol/L (96-109); Globulin 1.7 g/dL (1.6-3.3); Glucose 124 mg/dL (70-110); Potassium 3.8 mmol/L (3.5-5.5); Sodium 136 mmol/L (135-145); Total Bilirubin <0.2 mg/dL (0.3-1.2)
--- NOTE | 2023-09-08 10:27 | P.PN ---
Subjective Progress Note Date: 09/08/23 Hospital course: Patient is a pleasant 53-year-old female with a past medical history of hypertension, hypothyroidism, anxiety, depression, scleroderma and polymyositis. She presented to the emergency department with a chief complaint of shortness of breath and complaints of a warm sensation radiating through her chest and arm accompanied by numbness, tingling, nausea, dizziness, and palpitations. She underwent evaluation in the emergency department. Upon arrival vital signs showing tachycardia with heart rate of 121, blood pressure 103/80, respiratory rate 16, temp 97.7 F, and SpO2 of 96% on room air. EKG was completed showing s inus tachycardia at 103 bpm. Chest x-ray negative for acute cardiopulmonary process. Labs completed and reviewed. CBC showing leukocytosis with WBC count of 14.0 and thrombocytosis with platelet count of 473. Coagulation profile normal findings. BMP unremarkable. Initial lactic acid elevated at 2.4. Troponin was negative at less than 0.012. proBNP 382. Triglycerides normal findings at 95.60 and lipid profile unremarkable with the exception of low HDL of 34.20. Urinalysis was a contaminated specimen but not concerning for infection. Blood cultures obtained and sent to lab for analysis. Patient started on broad-spectrum IV antibiotics with vancomycin. She was admitted under our services with consultation to cardiology and infectious disease. Troponins trended overnight and all were negative at less than 0.012 x 3 draws. Repeat lactate showing resolution of lactic acidosis after IV fluid hydration resulting at 1.5. Dobutamine stress test showing mild EKG changes in response to dobutamine but normal echocardiogram and response to dobutamine. Echocardiogram revealed preserved EF of 50% with no significant valvular or structural abnormalities reported. Wound cultures positive for E. coli, MRSA, and Pseudomonas aeruginosa and remains on antibiotics vancomycin and Flagyl and was started on cefepime as well.. Physical exam: Patient seen and fully evaluated at bedside this morning. She was resting in bed and again only complaint is just feeling extremely fatigued and tired. She denies having any further episodes of chest pain/pressure or any other complaints of pain at this time. Vital signs reviewed and stable. General: Nontoxic, no distress and appears older than stated age, chronically ill appearing. Derm: Skin warm and dry, normal coloration for ethnicity. multiple areas of skin calcification, with ulceration . patient has multiple wounds over her abd, and thighs. one area inparticular, over the left lower quadrant , seems to be infected with multiple ulcers packed but has foul smelling purulent drainage and erythema ,tender to plapation. another area of ulceration over the right thigh also packed with silver dressing, no erythema or minimal Head: Atraumatic, normocephalic and symmetric. Eyes: EOMs intact, no lid lag, and anicteric sclera Mouth: no lip lesions, mucus membranes moist Cardiovascular: regular rate and rhythm with normal S1S2, no murmur, positive posterior tibial pulses bilaterally, and cap refill < 2 seconds. Lungs: Respirations even, regular, and unlabored on room air. Lungs CTA bilaterally, no rhonchi, no rales, no wheezing, and no accessory muscle usage. Abdominal: soft, nontender to palpation, no guarding, no appreciable organomegaly Ext: ROM intact. No gross muscle atrophy, no edema, no contractures Neuro: Speech clear, face symmetrical and CN II-XII grossly intact with no noted focal neuro deficits Psych: Alert and oriented to person, place, time, and situation. Appropriate and pleasant affect. Assessment and Plan of Care: Infected ulcers E. coli, MRSA, and Pseudomonas aeruginosa. Scleroderma with multiple open infected ulcerations with purulent drainage Sepsis upon arrival, secondary to above -Continue IV antibiotics with Flagyl 500 mg p.o. 3 times daily and vancomycin 1000 mg every 8 hours and monitor renal function and vancomycin trough closely for any signs of vancomycin associated renal toxicity. Vancomycin trough therapeutic at 15.5. -Infectious disease following, reviewed documentation in chart -Blood culture showing no growth to date. -Wound cultures positive for E. coli, MRSA, and Pseudomonas aeruginosa. -Consult placed to wound care, appreciate recommendations Atypical chest pain, acute coronary event ruled out -Cardiology evaluated and took patient for dobutamine stress test 09/07/2023 and clearing patient from cardiac perspective. -Dobutamine stress test showing mild EKG changes in response to dobutamine but normal echocardiogram and response to dobutamine. -Echocardiogram revealed preserved EF of 50% with no significant valvular or structural abnormalities reported. -Continue Telemetry monitoring -Troponins negative -Cardiac diet -Continue aspirin 81 mg daily, losartan 50 mg nightly and Procardia 30 mg nightly -Lipid profile showing low HDL of 34.20 otherwise normal findings. Hypokalemia, resolved. Hypomagnesemia, replaced. Polymyositis. Hold methotrexate secondary to current infected ulcers and sepsis upon arrival. Continue buprenorphine 450 mcg twice daily Hypertension. Continue daily medication regimen with losartan 50 mg daily and Procardia 30 mg nightly. Hypothyroidism. Continue daily medication regimen with levothyroxine 88 mcg daily. Microcytic anemia. Hemoglobin is stable, patient denies having any bleeding or bruising. Order placed for iron profile. Leukocytosis secondary to above. Resolved Thrombocytosis, likely reactive secondary to infectious process. Resolved Data and imaging reviewed: Labs completed and reviewed. CBC showing stable normocytic anemia with hemoglobin of 9.5. BMP unremarkable. Calcium was low at 7.2 but corrected calcium is 8.6.. Blood glucose 124. Vancomycin trough therapeutic at 15.5. -Wound cultures positive for E. coli, MRSA, and Pseudomonas aeruginosa Vital signs reviewed. Blood pressure 127/75, heart rate 78, respiratory rate 16, temp 97.5 F, and SpO2 of 100% on room air. CODE STATUS: Full code DVT prophylaxis: Heparin Anticipated discharge date: Clinical course to determine Anticipated discharge place: Home with home care Patient was seen independently by Nurse Pracitioner. This document was prepared using [employer] dictation software. Please allow for errors in rn spine, while rare they do occur. Kaushik Delarosa NP rendered care for this patient independently, reviewed the findings and plan as documented in the note above. I did not physically speak with or examine the patient on this date. Objective - Vital Signs Vital signs: Vital Signs Temp 97.5 F L 09/08/23 07:31 Pulse 78 09/08/23 07:31 Resp 16 09/08/23 07:31 BP 127/75 09/08/23 07:31 Pulse Ox 100 09/08/23 07:31 FiO2 Intake & Output 09/07/23 09/08/23 09/08/23 18:59 06:59 18:59 Intake Total 1508 Output Total 800 1000 Balance 708 -1000 Intake: Intake, IV Titration 1390 Amount Cefepime 2 gm In Sodium 100 Chloride 0.9% 100 ml @ 25 mls/hr IVPB Q8HR [facility] Rx# :[id number] Sodium Chloride 0.9% 1, 1040 000 ml @ 130 mls/hr IV . [id number] [facility] Rx#:[id number] Vancomycin 1,000 mg In 250 Sodium Chloride 0.9% 250 ml @ 125 mls/hr IVPB Q8H [facility] Rx#:[id number] Oral 118 Output: Urine 800 1000 Other: # Voids 1 1 # Bowel Movements 1 - Labs CBC & Chem 7: 09/08/23 04:34 09/08/23 04:34 Labs: Abnormal Lab Results - Last 24 Hours (Table) 09/07/23 09/07/23 Range/Units 06:56 06:56 RBC 3.72 L (3.80-5.40) m/uL Hgb 9.3 L D (11.4-16.0) gm/dL Hct 31.2 L (34.0-46.0) % MCHC 29.8 L (31.0-37.0) g/dL RDW 16.9 H (11.5-15.5) % Potassium 3.3 L (3.5-5.1) mmol/L Chloride 109 H (98-107) mmol/L BUN <2 L (7-17) mg/dL Creatinine 0.27 L (0.52-1.04) mg/dL Calcium 7.3 L (8.4-10.2) mg/dL Microbiology - Last 24 Hours (Table) 09/05/23 05:15 Blood Culture - Preliminary Blood 09/06/23 02:00 Gram Stain - Preliminary Hip - Left Wound Culture - Preliminary Gram Neg Bacilli Presumptive Staph aureus Gram Neg Bacilli#2 09/06/23 02:00 Gram Stain - Preliminary Thigh - Right Wound Culture - Preliminary Gram Neg Bacilli Presumptive Staph aureus 09/06/23 02:00 Gram Stain - Preliminary Thigh - Left Wound Culture - Preliminary Presumptive Staph aureus Gram Neg Bacilli
--- NOTE | 2023-09-08 11:30 | P.CONS ---
History of Present Illness - Reason for Consult Consult date: 09/08/23 wound care - History of Present Illness This is a pleasant 53-year-old female with past medical history significant for hypertension, hypothyroidism, anxiety, depression, scleroderma, and polymyositis. She is being seen on [address] for nonhealing ulcerations to the bilateral upper thighs and abdomen. Patient has multiple open ulcerations with fat layer exposure with slough and nonviable tissue present wound edges are attached to the wound base. Minimal granulation noted. Moderate serous drainage. Patient states that she follows with wound care at [facility] and home care. She has been utilizing absorptive silver dry to the site. Patient states that they have had increased drainage that is yellow in appearance. Swabs of the site were taken preliminary wound cultures are positive for gram- negative bacilli presumptive Staph aureus she is currently on antibiotics with vancomycin and Flagyl. At this time we are utilizing absorptive silver to the site. Review Of Systems: Constitutional: No fever, no chills, no night sweats. No weight change. No weakness, fatigue or lethargy. No daytime sleepiness. Integumentary:reports wounds, no lesions. No rash or pruritus. No unusual bruising. No change in hair or nails. Physical exam: General Appearance: Alert, cooperative, no distress, appears stated age. Skin: See HPI all other Skin color, texture, tugor normal, no rashes or lesions. Neurologic: Alert oriented x3 Assessment: 1. Nonhealing ulceration with fat layer exposure right thigh 2. Nonhealing ulcerations with fat layer exposure left thigh 3. Nonhealing ulcerations with fat layer exposure other site abdomen Plan: 1. Apply absorptive silver dry cover with ABD and secure with tape. Change Thursday. Continue with home care and wound care appointments upon discharge. Thank you for the consultation any questions please contact the wound care center DNP note has been reviewed and discussed with Dr. Brooks and the impression and plan of care has been directed as dictated. Past Medical History Past Medical History: Hypertension, Thyroid Disorder Additional Past Medical History / Comment(s): scleroderma, polymyositis History of Any Multi-Drug Resistant Organisms: None Reported Past Surgical History: Breast Surgery Additional Past Surgical History / Comment(s): Surgeries for scleroderma calcium deposits, bilateral cataract removals, surgery for detached retina. Past Anesthesia/Blood Transfusion Reactions: No Reported Reaction Past Psychological History: Anxiety, Depression Smoking Status: Never smoker Past Alcohol Use History: None Reported Past Drug Use History: None Reported - Past Family History Father Family Medical History: Hypertension Additional Family Medical History / Comment(s): Heart problems Mother Family Medical History: Cancer Additional Family Medical History / Comment(s): Liver cancer Medications and Allergies Home Medications Medication Instructions Recorded Confirmed Type Colchicine 0.6 mg PO HS 06/23/21 09/04/23 History DULoxetine HCL [Cymbalta] 90 mg PO HS 06/23/21 09/04/23 History Omeprazole 20 mg PO HS 06/23/21 09/04/23 History Levothyroxine Sodium [Synthroid] 88 mcg PO DAILY 02/05/22 09/04/23 History dilTIAZem HCL [dilTIAZem HCL 24Hr 120 mg PO HS 02/05/22 09/04/23 History ER (CD)] Cholecalciferol [Vitamin D3 (25 25 mcg PO HS 09/04/23 09/04/23 History Mcg = 1000 Iu)] Ibuprofen [Motrin] 800 mg PO Q6H PRN 09/04/23 09/04/23 History Loperamide [Imodium] 2 - 4 mg PO QID PRN 09/04/23 09/04/23 History Losartan [Cozaar] 50 mg PO HS 09/04/23 09/04/23 History Methotrexate Sodium 25mg/Ml 25 mg INJ TRAYLOR 09/04/23 09/04/23 History Multivitamins, Thera [Multivitamin 1 tab PO HS 09/04/23 09/04/23 History (formulary)] NIFEdipine XL [Procardia Xl] 30 mg PO HS 09/04/23 09/04/23 History Naproxen Sod/Diphenhydramine 1 tab PO HS PRN 09/04/23 09/04/23 History [Aleve Pm Caplet] buprenorphine HCL [Belbuca] 450 mcg BUCCAL BID 09/04/23 09/04/23 History predniSONE 1 mg PO HS 09/04/23 09/04/23 History Allergies Allergy/AdvReac Type Severity Reaction Status Date / Time No Known Allergies Allergy Verified 09/04/23 19:57 Physical Exam Vitals: Vital Signs Temp Pulse Resp BP BP BP Pulse Ox 09/08/23 07:31 97.5 F L 78 16 127/75 100 09/08/23 01:38 98.2 F 79 16 130/68 100 09/07/23 19:49 98.3 F 92 18 129/82 99 09/07/23 15:04 97.8 F 89 16 107/72 99 09/07/23 13:00 98 F 100 15 147/98 100 Intake and Output 09/07/23 09/08/23 09/08/23 22:59 06:59 14:59 Output Total 1000 600 Balance -1000 -600 Output: Urine 1000 600 Other: # Voids 1 # Bowel Movements 1 Results CBC & Chem 7: 09/08/23 04:34 09/08/23 04:34 Labs: Abnormal Lab Results - Last 24 Hours (Table) 09/07/23 09/07/23 09/08/23 Range/Units 06:56 06:56 04:34 RBC 3.72 L 3.85 L (3.80-5.40) m/uL Hgb 9.3 L D 9.5 L (11.4-16.0) gm/dL Hct 31.2 L 30.7 L (34.0-46.0) % MCV 79.7 L (80.0-97.0) FL MCH 24.7 L (27.0-32.0) pg MCHC 29.8 L 30.9 L (31.0-37.0) g/dL RDW 16.9 H 18.3 H (11.5-15.5) % Potassium 3.3 L (3.5-5.1) mmol/L Chloride 109 H (98-107) mmol/L BUN <2 L (7-17) mg/dL Creatinine 0.27 L (0.52-1.04) mg/dL BUN/Creatinine Ratio (12.00-20.00) Ratio Glucose (70-110) mg/dL Calcium 7.3 L (8.4-10.2) mg/dL Total Bilirubin (0.3-1.2) mg/dL Total Protein (6.2-8.2) g/dL Albumin (3.8-4.9) g/dL Albumin/Globulin Ratio (1.60-3.17) Ratio 09/08/23 Range/Units 04:34 RBC (3.80-5.40) m/uL Hgb (11.4-16.0) gm/dL Hct (34.0-46.0) % MCV (80.0-97.0) FL MCH (27.0-32.0) pg MCHC (31.0-37.0) g/dL RDW (11.5-15.5) % Potassium (3.5-5.1) mmol/L Chloride (98-107) mmol/L BUN <3.5 L (7-17) mg/dL Creatinine 0.3 L (0.52-1.04) mg/dL BUN/Creatinine Ratio <11.67 L (12.00-20.00) Ratio Glucose 124 H (70-110) mg/dL Calcium 7.2 L (8.4-10.2) mg/dL Total Bilirubin <0.2 L (0.3-1.2) mg/dL Total Protein 4.0 L (6.2-8.2) g/dL Albumin 2.3 L (3.8-4.9) g/dL Albumin/Globulin Ratio 1.35 L (1.60-3.17) Ratio Microbiology - Last 24 Hours (Table) 09/05/23 05:15 Blood Culture - Preliminary Blood 09/06/23 02:00 Gram Stain - Preliminary Hip - Left Wound Culture - Preliminary Gram Neg Bacilli Presumptive Staph aureus Gram Neg Bacilli#2 09/06/23 02:00 Gram Stain - Preliminary Thigh - Right Wound Culture - Preliminary Gram Neg Bacilli Presumptive Staph aureus 09/06/23 02:00 Gram Stain - Preliminary Thigh - Left Wound Culture - Preliminary Presumptive Staph aureus Gram Neg Bacilli Assessment and Plan (1) Non-pressure chronic ulcer of left thigh with fat layer exposed Current Visit: Yes Status: Acute Code(s): L97.122 - NON-PRESSURE CHRONIC ULCER OF LEFT THIGH W FAT LAYER EXPOSED SNOMED Code(s): 70679916244328929 (2) Non-pressure chronic ulcer of right thigh with fat layer exposed Current Visit: Yes Status: Acute Code(s): L97.112 - NON-PRS CHRONIC ULCER OF RIGHT THIGH W FAT LAYER EXPOSED SNOMED Code(s): 06770170906851634 (3) Non-pressure chronic ulcer of skin of other sites with fat layer exposed Current Visit: Yes Status: Acute Code(s): L98.492 - NON-PRS CHRONIC ULCER OF SKIN OF SITES W FAT LAYER EXPOSED SNOMED Code(s): 21776681
[2023-09-08 21:34] LABS: % Iron Saturation 20.41 (12.00-45.00)
[2023-09-09] MEDS: LIDOCAINE 1% INJ 10MG/ML (30 ML VIAL-PF) SQ ONE (08:05)
--- NOTE | 2023-09-09 08:19 | P.OP ---
Date of Procedure: 09/09/23 Description of Procedure: Date of Procedure: Preoperative Diagnosis: Need for long-term IV antibiotic access. Postoperative Diagnosis: Same. Procedure(s) Performed: Ultrasound-guided cannulation left brachial vein. Insertion of peripherally inserted central catheter under fluoroscopic guidance. Anesthesia: local (1% Xylocaine.) Surgeon: Favio Estimated Blood Loss (ml): 5 IV fluids (ml): 0 Urine output (ml): 0 Pathology: none sent Condition: stable Disposition: no change Indications for Procedure: Patient is a 53-year-old female. Patient will require long-term IV antibiotics as an outpatient patient is offered a PICC line to allow for intravenous administration of antibiotics. Description of Procedure: Patient was brought to the special procedure suite. The left upper extremity sterilely prepped and draped in usual manner. Ultrasound was utilized to identify the brachial vein as there is no visualized cephalic or basilic. The brachial vein which was normally compressible free of visible thrombus. Permenant image was stored. 1% Xylocaine was utilized for local anesthesia tissues overlying the vein. Through this anesthetized area and with the aid of ultrasound a micropuncture needle was utilized to cannulate the vein. Once cannulated, Softip guidewire was advanced into the vein. The needle was withdrawn and a micropuncture sheath and dilator advanced over the guidewire. The guidewire was withdrawn and exchanged for the PICC guidewire and measured 47 cm to the cavoatrial junction. The catheter was cut to size and advanced into the cavoatrial junction without resistance. The sheath was peeled away. Blood was easily withdrawn through the catheter and the catheter was then flushed with heparinized saline solution and secured to the skin. Patient tolerated procedure well and was returned to their room in satisfactory and stable condition.
--- NOTE | 2023-09-09 08:50 | IR ---
PICC Insertion: EXAMINATION TYPE: IR cvc insert >=5 years Intraoperative/procedural fluoroscopic services were provid ed. CLINICAL INDICATION:Female, 53 years old with history of Abx, 0.3m/0.001DAP, 4F 47 lt brachial PICC; , [facility] Total fluoroscopy time is 0.3 min. DAP: 0.001 uGym2 Please see the operative/procedural note for further details.
[2023-09-09 10:32] LABS: HCT 30.2 % (37.2-46.3); HGB 9.2 g/dL (12.0-15.0); MCH 24.8 pg (27.0-32.0); MCHC 30.5 g/dL (32.0-37.0); MCV 81.4 FL (80.0-97.0); Mean Platelet Volume 9.8 FL (9.5-12.2); NRBC Per 100 WBC 0 X 10*3/uL (0.00-0.01); Platelet Count 289 X 10*3/uL (140-440); RBC 3.71 X 10*6/uL (4.10-5.20); RDW 18.6 % (11.5-14.5); WBC 6.59 X 10*3/uL (4.50-10.00)
[2023-09-09 11:52] LABS: ALT <5 U/L (8-44); AST 13 U/L (13-35); Albumin 2.3 g/dL (3.8-4.9); Albumin/Globulin Ratio 1.44 Ratio (1.60-3.17); Alkaline Phosphatase 91 U/L (41-126); BUN/Creat Ratio <11.67 Ratio (12.00-20.00); Blood Urea Nitrogen <3.5 mg/dL (9.0-27.0); Calcium 7.5 mg/dL (8.7-10.3); Carbon Dioxide 22.1 mmol/L (21.6-31.8); Chloride 107 mmol/L (96-109); Globulin 1.6 g/dL (1.6-3.3); Glucose 86 mg/dL (70-110); Magnesium 1.5 mg/dL (1.5-2.4); Potassium 3.3 mmol/L (3.5-5.5); Sodium 141 mmol/L (135-145); Total Bilirubin <0.2 mg/dL (0.3-1.2); Total Protein 3.9 g/dL (6.2-8.2)
--- NOTE | 2023-09-09 16:44 | P.PN ---
Subjective Progress Note Date: 09/09/23 Hospital course: Patient is a pleasant 53-year-old female with a past medical history of hypertension, hypothyroidism, anxiety, depression, scleroderma and polymyositis. She presented to the emergency department with a chief complaint of shortness of breath and complaints of a warm sensation radiating through her chest and arm accompanied by numbness, tingling, nausea, dizziness, and palpitations. She underwent evaluation in the emergency department. Upon arrival vital signs showing tachycardia with heart rate of 121, blood pressure 103/80, respiratory rate 16, temp 97.7 F, and SpO2 of 96% on room air. EKG was completed showing s inus tachycardia at 103 bpm. Chest x-ray negative for acute cardiopulmonary process. Labs completed and reviewed. CBC showing leukocytosis with WBC count of 14.0 and thrombocytosis with platelet count of 473. Coagulation profile normal findings. BMP unremarkable. Initial lactic acid elevated at 2.4. Troponin was negative at less than 0.012. proBNP 382. Triglycerides normal findings at 95.60 and lipid profile unremarkable with the exception of low HDL of 34.20. Urinalysis was a contaminated specimen but not concerning for infection. Blood cultures obtained and sent to lab for analysis. Patient started on broad-spectrum IV antibiotics with vancomycin. She was admitted under our services with consultation to cardiology and infectious disease. Troponins trended overnight and all were negative at less than 0.012 x 3 draws. Repeat lactate showing resolution of lactic acidosis after IV fluid hydration resulting at 1.5. Dobutamine stress test showing mild EKG changes in response to dobutamine but normal echocardiogram and response to dobutamine. Echocardiogram revealed preserved EF of 50% with no significant valvular or structural abnormalities reported. Wound cultures positive for E. coli, MRSA, and Pseudomonas aeruginosa and remains on antibiotics vancomycin and Flagyl and was started on cefepime as well.. Physical exam: Patient seen and fully evaluated at bedside this morning. She was resting in bed and again only complaint is just feeling extremely tired. She denies having any other complaints including headache, lightheadedness, dizziness, chest pain, palpitations, shortness of breath or experiencing any pain or discomfort at this time. Vital signs reviewed and stable. General: Nontoxic, no distress and appears older than stated age, chronically ill appearing. Derm: Skin warm and dry, normal coloration for ethnicity. multiple areas of skin calcification, with ulceration . patient has multiple wounds over her abd, and thighs. one area inparticular, over the left lower quadrant , seems to be infected with multiple ulcers packed but has foul smelling purulent drainage and erythema ,tender to plapation. another area of ulceration over the right thigh also packed with silver dressing, no erythema or minimal Head: Atraumatic, normocephalic and symmetric. Eyes: EOMs intact, no lid lag, and anicteric sclera Mouth: no lip lesions, mucus membranes moist Cardiovascular: regular rate and rhythm with normal S1S2, no murmur, positive posterior tibial pulses bilaterally, and cap refill < 2 seconds. Lungs: Respirations even, regular, and unlabored on room air. Lungs CTA bilaterally, no rhonchi, no rales, no wheezing, and no accessory muscle usage. Abdominal: soft, nontender to palpation, no guarding, no appreciable organomegaly Ext: ROM intact. No gross muscle atrophy, no edema, no contractures Neuro: Speech clear, face symmetrical and CN II-XII grossly intact with no noted focal neuro deficits Psych: Alert and oriented to person, place, time, and situation. Appropriate and pleasant affect. Assessment and Plan of Care: Infected ulcers E. coli, MRSA, and Pseudomonas aeruginosa. Scleroderma with multiple open infected ulcerations with purulent drainage Sepsis upon arrival, secondary to above -Continue IV antibiotics with Flagyl 500 mg p.o. 3 times daily and vancomycin 1000 mg every 8 hours and monitor renal function and vancomycin trough closely for any signs of vancomycin associated renal toxicity. Vancomycin trough therapeutic at 15.5. -Infectious disease following, reviewed documentation in chart -PICC line placed -Blood culture showing no growth to date. -Wound cultures positive for E. coli, MRSA, and Pseudomonas aeruginosa. -Wound care following. - Due to skin lesion check methotrexate level as this can cause ulcerations if toxicity develops. Atypical chest pain, acute coronary event ruled out -Cardiology evaluated and took patient for dobutamine stress test 09/07/2023 and clearing patient from cardiac perspective. -Dobutamine stress test showing mild EKG changes in response to dobutamine but normal echocardiogram and response to dobutamine. -Echocardiogram revealed preserved EF of 50% with no significant valvular or structural abnormalities reported. -Continue Telemetry monitoring -Troponins negative -Cardiac diet -Continue aspirin 81 mg daily, losartan 50 mg nightly and Procardia 30 mg nig htly -Lipid profile showing low HDL of 34.20 otherwise normal findings. Hypokalemia, resolved. Hypomagnesemia, replaced. Polymyositis. Hold methotrexate secondary to current infected ulcers and sepsis upon arrival. Continue buprenorphine 450 mcg twice daily Hypertension. Continue daily medication regimen with losartan 50 mg daily and Procardia 30 mg nightly. Hypothyroidism. Continue daily medication regimen with levothyroxine 88 mcg daily. Microcytic anemia. Hemoglobin is stable, patient denies having any bleeding or bruising. Order placed for iron profile. Leukocytosis secondary to above. Resolved Thrombocytosis, likely reactive secondary to infectious process. Resolved Data and imaging reviewed: Labs completed and reviewed. CBC showing stable normocytic anemia with hemoglobin of 9.2. BMP showing hypokalemia with potassium of 3.3. Calcium was low at 7.5 and albumin of 2.3 with a corrected calcium of 8.9. Vancomycin trough therapeutic at 15.5. -Wound cultures positive for E. coli, MRSA, and Pseudomonas aeruginosa. Blood cultures continue to show no growth to date. Vital signs reviewed. Blood pressure 127/81, heart rate 93, respiratory rate 16, temp 98.2 F, and SpO2 of 97% on room air. CODE STATUS: Full code DVT prophylaxis: Heparin Anticipated discharge date: Clinical course to determine Anticipated discharge place: Home with home care Patient was seen independently by Nurse Pracitioner. This document was prepared using [employer] dictation software. Please allow for errors in generator technician, while rare they do occur. Kaushik Delarosa NP rendered care for this patient independently, reviewed the findings and plan as documented in the note above. I did not physically speak with or examine the patient on this date. Plan amended above in italics. Objective - Vital Signs Vital signs: Vital Signs Temp 98.2 F 09/09/23 07:52 Pulse 93 09/09/23 07:52 Resp 16 09/09/23 07:52 BP 127/81 09/09/23 07:52 Pulse Ox 97 09/09/23 07:52 FiO2 Intake & Output 09/08/23 09/09/23 09/09/23 18:59 06:59 18:59 Intake Total 118 Output Total 1150 1100 Balance -1032 -1100 Intake: Oral 118 Output: Urine 1150 1100 Other: Voiding Method External Catheter # Voids 1 1 # Bowel Movements 2 - Labs CBC & Chem 7: 09/09/23 07:32 09/09/23 07:32 Labs: Abnormal Lab Results - Last 24 Hours (Table) 09/08/23 09/08/23 Range/Units 04:34 04:34 BUN <3.5 L (9.0-27.0) mg/dL Creatinine 0.3 L (0.6-1.5) mg/dL BUN/Creatinine Ratio <11.67 L (12.00-20.00) Ratio Glucose 124 H (70-110) mg/dL Calcium 7.2 L (8.7-10.3) mg/dL Iron 20 L (50-170) UG/DL TIBC 98 L (228-460) UG/DL Transferrin 69.9 L (204.0-354.0) mg/dL Total Bilirubin <0.2 L (0.3-1.2) mg/dL Total Protein 4.0 L (6.2-8.2) g/dL Albumin 2.3 L (3.8-4.9) g/dL Albumin/Globulin Ratio 1.35 L (1.60-3.17) Ratio Microbiology - Last 24 Hours (Table) 09/06/23 02:00 Anaerobic Culture - Preliminary Hip - Left 09/06/23 02:00 Anaerobic Culture - Preliminary Thigh - Right 09/06/23 02:00 Anaerobic Culture - Preliminary Thigh - Left 09/05/23 05:15 Blood Culture - Preliminary Blood 09/06/23 02:00 Gram Stain - Final Hip - Left Wound Culture - Final Escherichia coli Methicillin resist S. aureus Pseudomonas aeruginosa 09/06/23 02:00 Gram Stain - Final Thigh - Right Wound Culture - Final Escherichia coli Methicillin resist S. aureus Pseudomonas aeruginosa 09/06/23 02:00 Gram Stain - Final Thigh - Left Wound Culture - Final Pseudomonas aeruginosa Staphylococcus aureus
[2023-09-09] MEDS: POTASSIUM CHLORIDE ER 20 MEQ TAB.ER PO STA (18:16)
[2023-09-09] MEDS: MAGNESIUM SULFATE-D5W PMX 1 GM in DEXTROSE/WATER 1 100ML.BAG IVPB SCH (21:30)
[2023-09-10 08:38] VITALS: PULSE 82
[2023-09-10 11:47] LABS: Anisocytosis Slight; Basophils % (A) 0 %; Eosinophils # (A) 0.2 k/uL (0-0.7); Eosinophils % (A) 2 %; HCT 32.8 % (34.0-46.0); Hypochromasia Slight; Lymphocytes # (A) 1.2 k/uL (1.0-4.8); Lymphocytes % (A) 13 %; MCHC 30.5 g/dL (31.0-37.0); MCV 81.9 fL (80.0-100.0); Mean Platelet Volume 7.7; Microcytosis Slight; Monocytes # (A) 0.6 k/uL (0-1.0); Monocytes % (A) 7 %; Neutrophils # (A) 6.7 k/uL (1.3-7.7); Neutrophils % (A) 76 %; Platelet Count 318 k/uL (150-450); RDW 17.7 % (11.5-15.5); WBC 8.9 k/uL (3.8-10.6)
[2023-09-10 12:32] LABS: African American GFR (CKD) >90 (>60 ml/min/1.73 sqM); Anion Gap 4 mmol/L; Blood Urea Nitrogen 2 mg/dL (7-17); Calcium 7.4 mg/dL (8.4-10.2); Carbon Dioxide 26 mmol/L (22-30); Chloride 107 mmol/L (98-107); Glucose 108 mg/dL (74-99); Magnesium 1.8 mg/dL (1.6-2.3); Non-African American GFR(CKD) >90 (>60 ml/min/1.73 sqM); Potassium 3.5 mmol/L (3.5-5.1); Sodium 137 mmol/L (137-145)
[2023-09-10 12:33] LABS: African American GFR (CKD) >90 (>60 ml/min/1.73 sqM); Non-African American GFR(CKD) >90 (>60 ml/min/1.73 sqM)
[2023-09-10] MEDS: VANCOMYCIN TROUGH DUE 1 EACH MISC MISCELLANE ONE (13:49)
[2023-09-10 14:35] VITALS: BP 120/86; RESP 16; TEMP 97.8
--- NOTE | 2023-09-10 16:39 | P.DS ---
Providers Date of admission: 09/05/23 14:34 Expected date of discharge: 09/10/23 Attending physician: Ambika Rodriguez MD Consults: 09/04/23 21:10 Consult Physician Urgent Consulting Provider: Randy Sanchez Consult Reason/Comments: cp with exertional dyspnea Do you want consulting provider notified?: Yes 09/05/23 00:48 Consult Physician Routine Consulting Provider: Christina Keith Consult Reason/Comments: sepsis , multiple wounds Do you want consulting provider notified?: Yes Primary care physician: [facility] Hospital Course: Assessment: Infected ulcers E. coli, MRSA, and Pseudomonas aeruginosa. Scleroderma with multiple open infected ulcerations with purulent drainage Sepsis upon arrival, secondary to above Atypical chest pain, acute coronary event ruled out Hypokalemia, Hypomagnesemia Polymyositis. Hypertension. Hypothyroidism. Microcytic anemia. Leukocytosis Thrombocytosis, Hospital course: Patient is a pleasant 53-year-old female with a past medical history of hypertension, hypothyroidism, anxiety, depression, scleroderma and polymyositis. She presented to the emergency department with a chief complaint of shortness of breath and complaints of a warm sensation radiating through her chest and arm accompanied by numbness, tingling, nausea, dizziness, and palpitations. She underwent evaluation in the emergency department. Upon arrival vital signs showing tachycardia with heart rate of 121, blood pressure 103/80, respiratory rate 16, temp 97.7 F, and SpO2 of 96% on room air. EKG was completed showing sinus tachycardia at 103 bpm. Chest x-ray negative for acute cardiopulmonary pr ocess. Labs completed and reviewed. CBC showing leukocytosis with WBC count of 14.0 and thrombocytosis with platelet count of 473. Coagulation profile normal findings. BMP unremarkable. Initial lactic acid elevated at 2.4. Troponin was negative at less than 0.012. proBNP 382. Triglycerides normal findings at 95.60 and lipid profile unremarkable with the exception of low HDL of 34.20. Urinalysis was a contaminated specimen but not concerning for infection. Blood cultures obtained and sent to lab for analysis. Patient started on broad- spectrum IV antibiotics with vancomycin. She was admitted under our services with consultation to cardiology and infectious disease. Troponins trended overnight and all were negative at less than 0.012 x 3 draws. Repeat lactate showing resolution of lactic acidosis after IV fluid hydration resulting at 1.5. Dobutamine stress test showing mild EKG changes in response to dobutamine but normal echocardiogram and response to dobutamine. Echocardiogram revealed preserved EF of 50% with no significant valvular or structural abnormalities reported. Wound cultures positive for E. coli, MRSA, and Pseudomonas aeruginosa and remains on antibiotics vancomycin and Flagyl and was started on cefepime as well.. Pt had PICC line placed for IV abx and was arranged for home care infusion services. Pt discharged home with PCP, ID f/u. I spent 45 min coordinating this discharge Gen: In NAD, non-toxic HEENT: normocephalic, atraumatic, hearing acuity is intant, mucous membranes moist CVS: perfusing all extremities well, no pitting edema, Respiratory: symmetric chest expansion, no accessory muscle use, GI: soft, NTTP, ND, : no suprapubic tenderness, no CVA tenderness MSK/Derm: Area surrounding ulcerations continues to appear purulent, however, erythema has improved Neuro: CN II-XII intact, no motor weakness, Psych: cooperative, euthymic mood, judgment and insight is intact Patient Condition at Discharge: Good Plan - Discharge Summary Discharge Rx Participant: No New Discharge Prescriptions: New Aspirin 81 mg PO DAILY tab Nitroglycerin Sl Tabs [Nitrostat] 0.4 mg SUBLINGUAL Q5M PRN tab PRN Reason: Chest Pain metroNIDAZOLE [Flagyl] 500 mg PO TID #63 tab Metoprolol Succinate (ER) [Toprol XL] 50 mg PO DAILY tab Continue buprenorphine HCL [Belbuca] 450 mcg BUCCAL BID Losartan [Cozaar] 50 mg PO HS Loperamide [Imodium] 2 - 4 mg PO QID PRN PRN Reason: Diarrhea Omeprazole 20 mg PO HS DULoxetine HCL [Cymbalta] 90 mg PO HS Colchicine 0.6 mg PO HS Levothyroxine Sodium [Synthroid] 88 mcg PO DAILY predniSONE 1 mg PO HS NIFEdipine XL [Procardia XL] 30 mg PO HS Multivitamins, Thera [Multivitamin (formulary)] 1 tab PO HS Cholecalciferol [Vitamin D3 (25 Mcg = 1000 Iu)] 25 mcg PO HS Methotrexate Sodium 25mg/Ml 25 mg INJ TRAYLOR Discontinued Naproxen Sod/Diphenhydramine [Aleve Pm Caplet] 1 tab PO HS PRN PRN Reason: sleep/pain Ibuprofen [Motrin] 800 mg PO Q6H PRN PRN Reason: Pain Or Fever > 100.5 dilTIAZem HCL [dilTIAZem HCL 24Hr ER (CD)] 120 mg PO HS Discharge Medication List Colchicine 0.6 mg PO HS 06/23/21 [History] DULoxetine HCL [Cymbalta] 90 mg PO HS 06/23/21 [History] Omeprazole 20 mg PO HS 06/23/21 [History] Levothyroxine Sodium [Synthroid] 88 mcg PO DAILY 02/05/22 [History] Cholecalciferol [Vitamin D3 (25 Mcg = 1000 Iu)] 25 mcg PO HS 09/04/23 [History] Loperamide [Imodium] 2 - 4 mg PO QID PRN 09/04/23 [History] Losartan [Cozaar] 50 mg PO HS 09/04/23 [History] Methotrexate Sodium 25mg/Ml 25 mg INJ TRAYLOR 09/04/23 [History] Multivitamins, Thera [Multivitamin (formulary)] 1 tab PO HS 09/04/23 [History] NIFEdipine XL [Procardia XL] 30 mg PO HS 09/04/23 [History] buprenorphine HCL [Belbuca] 450 mcg BUCCAL BID 09/04/23 [History] predniSONE 1 mg PO HS 09/04/23 [History] Aspirin 81 mg PO DAILY tab 09/10/23 [Rx] Metoprolol Succinate (ER) [Toprol XL] 50 mg PO DAILY tab 09/10/23 [Rx] Nitroglycerin Sl Tabs [Nitrostat] 0.4 mg SUBLINGUAL Q5M PRN tab 09/10/23 [Rx] metroNIDAZOLE [Flagyl] 500 mg PO TID #63 tab 09/10/23 [Rx] Follow up Appointment(s)/Referral(s): [facility] [NON-STAFF] - 09/11/23 9:00 am Mumtaz Huang MD [Primary Care Provider] - 1-2 days [facility], [REFERRING] - 09/10/23 6:00 pm Christina Keith MD [STAFF PHYSICIAN] - 09/16/23 3:45 pm Randy Sanchez MD [STAFF PHYSICIAN] - 09/24/23 10:00 am () Patient Instructions/Handouts: Cellulitis (ED) Discharge Disposition: HOME SELF-CARE
[2023-09-10] MEDS ORDERED: VANCOMYCIN 1,000 MG in SODIUM CHLORIDE 0.9% 250 ML IVPB SCH (21:00)
== END 2023-09-10 17:22 | disposition home health service (06) | DRG 872 ==
LOC: EC 12:35 → 6NMEDSUR 21:11 → OBSVTOIN 09-05 14:34
PROVIDERS: ADMIT Internal Medicine; ATTEND Internal Medicine
PROC: 02HV33Z Insertion of Infusion Device into Superior Vena Cava, Percutaneous Approach (ICD-10-PCS; principal; 2023-09-09 08:50)
DX: A41.02 Sepsis due to Methicillin resistant Staphylococcus aureus (principal); M33.20 Polymyositis, organ involvement unspecified; L97.122 Non-pressure chronic ulcer of left thigh with fat layer exposed; L97.112 Non-pressure chronic ulcer of right thigh with fat layer exposed; L03.116 Cellulitis of left lower limb; L03.115 Cellulitis of right lower limb; A41.51 Sepsis due to Escherichia coli [E. coli]; L98.492 Non-pressure chronic ulcer of skin of other sites with fat layer exposed; A41.52 Sepsis due to Pseudomonas; M34.9 Systemic sclerosis, unspecified; R07.89 Other chest pain; E87.6 Hypokalemia; E83.42 Hypomagnesemia; D86.9 Sarcoidosis, unspecified; E03.9 Hypothyroidism, unspecified; D50.9 Iron deficiency anemia, unspecified; D75.839 Thrombocytosis, unspecified; F41.9 Anxiety disorder, unspecified; F32.A Depression, unspecified; I10 Essential (primary) hypertension; Z79.890 Hormone replacement therapy; Z79.899 Other long term (current) drug therapy
CPT/HCPCS: 36415; 36573; 71046; 80048; 80053; 80061; 80202; 80204; 81001; 82565; 83540; 83550; 83605; 83735; 83880; 84484; 85025; 85027; 85610; 85652; 86140; 87040; 87070; 87075; 87077; 87186; 87205; 93005; 93306; 93351; 96361; 96365; 96366; 96372; 96375; 99285

== ENCOUNTER 2023-10-12 18:42 | Emergency (ER) | payer BC, MEDICARE ==
[2023-10-12] MEDS: HYDROmorphone 0.5 MG/0.5 ML SYRINGE IVP STA ×2 (21:35→21:55)
[2023-10-12] MEDS: SODIUM CHLORIDE 0.9% 1,000 ML BAG IV STA (21:36)
[2023-10-12] MEDS: ACETAMINOPHEN TAB 500 MG TAB PO STA (21:36)
[2023-10-12 21:53] LABS: Basophils # (A) 0.1 k/uL (0-0.2); Basophils % (A) 1 %; Eosinophils # (A) 0.2 k/uL (0-0.7); Eosinophils % (A) 1 %; HCT 38.6 % (34.0-46.0); HGB 12.1 gm/dL (11.4-16.0); Lymphocytes # (A) 2.6 k/uL (1.0-4.8); Lymphocytes % (A) 17 %; MCH 26.7 pg (25.0-35.0); MCHC 31.4 g/dL (31.0-37.0); MCV 85.1 fL (80.0-100.0); Mean Platelet Volume 8.1; Monocytes # (A) 0.9 k/uL (0-1.0); Monocytes % (A) 6 %; Neutrophils # (A) 11.5 k/uL (1.3-7.7); Neutrophils % (A) 74 %; Platelet Count 394 k/uL (150-450); RBC 4.53 m/uL (3.80-5.40); WBC 15.6 k/uL (3.8-10.6)
[2023-10-12 22:10] LABS: ALT 9 U/L (4-34); AST 28 U/L (14-36); African American GFR (CKD) >90 (>60 ml/min/1.73 sqM); Albumin 3.1 g/dL (3.5-5.0); Alkaline Phosphatase 117 U/L (38-126); Anion Gap 7 mmol/L; Blood Urea Nitrogen 5 mg/dL (7-17); Calcium 8.2 mg/dL (8.4-10.2); Carbon Dioxide 27 mmol/L (22-30); Chloride 98 mmol/L (98-107); Glucose 105 mg/dL (74-99); Non-African American GFR(CKD) >90 (>60 ml/min/1.73 sqM); Potassium 3.2 mmol/L (3.5-5.1); Sodium 132 mmol/L (137-145); Total Bilirubin 0.8 mg/dL (0.2-1.3); Total Protein 5.6 g/dL (6.3-8.2)
--- NOTE | 2023-10-12 22:14 | XR ---
EXAMINATION TYPE: XR pelvis AP view DATE OF EXAM: 10/12/2023 10:03 PM CLINICAL INDICATION:Female, 53 years old with history of hx multiple ulcers overlying. r/o bony invol vement; [facility] COMPARISON: None TECHNIQUE: The pelvis was examined in a single projection. FINDINGS: Extremely limited exam. Osseous structures are poorly visualized. Diffuse desiccation throu ghout the subcutaneous tissues. IMPRESSION: Extremely limited exam secondary to diffuse calcifications. Consider MRI if this concern for bony inv olvement.
[2023-10-12 22:54] LABS: Appearance,Urine Clear (Clear); Bilirubin,Urine Negative (Negative); Blood,Urine Negative (Negative); Color,Urine Colorless; Glucose,Urine (UA) Negative (Negative); Ketones,Urine Negative (Negative); Leukocyte Esterase,Urine Negative (Negative); Nitrite,Urine Negative (Negative); PH, Urine 6.5 (5.0-8.0); Protein,Urine Negative (Negative); Specific Gravity,Urine 1.005 (1.001-1.035); Urobilinogen,Urine <2.0 mg/dL (<2.0)
[2023-10-12] MEDS ORDERED: VANCOMYCIN IV PER PHARMACY 1 EACH MISC MISCELLANE PRN (23:29)
[2023-10-13] MEDS: SODIUM CHLORIDE 0.9% 1,000 ML BAG IV STA (00:04)
[2023-10-13] MEDS: SODIUM CHLORIDE 0.9% 500 ML 500 ML IV STA (00:04)
[2023-10-13] MEDS: VANCOMYCIN 1,000 MG in SODIUM CHLORIDE 0.9% 250 ML IVPB STA (00:05)
[2023-10-13 00:14] VITALS: RESP 16; TEMP 98
--- NOTE | 2023-10-13 00:50 | ED ---
General Adult HPI - General Chief complaint: Skin/Abscess/Foreign Body Stated complaint: Both Legs/Back Wound Time Seen by Provider: 10/12/23 19:18 Source: patient Mode of arrival: ambulatory Limitations: no limitations - History of Present Illness Initial comments: 57-year-old female with past medical history significant for hypertension, scleroderma, polymyositis presenting to the ED with complaints of wounds. Patient recently discharged from this facility on 09/10/2023 secondary to sepsis secondary to these wounds. Patient reports following up with Dr. Hernandez of wound care at [facility]. Noted over the past few days wounds have been hurting her more. Wounds are located on her left hip. At evaluation there, was advised to present to the ED as wound appeared to have purulent drainage. At this time patient denies fever or chills. Denies chest pain shortness of breath. No other complaints at this time. - Related Data Home Medications Medication Instructions Recorded Confirmed Colchicine 0.6 mg PO HS 06/23/21 10/12/23 DULoxetine HCL [Cymbalta] 90 mg PO HS 06/23/21 10/12/23 Omeprazole 20 mg PO HS 06/23/21 10/12/23 Levothyroxine Sodium [Synthroid] 88 mcg PO DAILY 02/05/22 10/12/23 Cholecalciferol [Vitamin D3 (25 25 mcg PO HS 09/04/23 10/12/23 Mcg = 1000 Iu)] Loperamide [Imodium] 2 - 4 mg PO QID PRN 09/04/23 10/12/23 Losartan [Cozaar] 50 mg PO HS 09/04/23 10/12/23 Methotrexate Sodium 25mg/Ml 25 mg SQ TRAYLOR 09/04/23 10/12/23 Multivitamins, Thera [Multivitamin 1 tab PO HS 09/04/23 10/12/23 (formulary)] NIFEdipine XL [Procardia XL] 30 mg PO HS 09/04/23 10/12/23 buprenorphine HCL [Belbuca] 450 mcg BUCCAL BID 09/04/23 10/12/23 predniSONE 1 mg PO HS 09/04/23 10/12/23 Nitroglycerin Sl Tabs [Nitrostat] 0.4 mg SL Q5M PRN 10/12/23 10/12/23 Previous Rx's Medication Instructions Recorded Aspirin 81 mg PO DAILY tab 09/10/23 Metoprolol Succinate (ER) [Toprol 50 mg PO DAILY #30 tab 09/10/23 XL] Allergies Allergy/AdvReac Type Severity Reaction Status Date / Time No Known Allergies Allergy Verified 10/12/23 20:31 Review of Systems ROS Statement: Those systems with pertinent positive or pertinent negative responses have been documented in the HPI. ROS Other: All systems not noted in ROS Statement are negative. Past Medical History Past Medical History: Hypertension, Thyroid Disorder Additional Past Medical History / Comment(s): scleroderma, polymyositis History of Any Multi-Drug Resistant Organisms: None Reported Past Surgical History: Breast Surgery Additional Past Surgical History / Comment(s): Surgeries for scleroderma calcium deposits, bilateral cataract removals, surgery for detached retina. Past Anesthesia/Blood Transfusion Reactions: No Reported Reaction Past Psychological History: Anxiety, Depression Smoking Status: Never smoker Past Alcohol Use History: None Reported Past Drug Use History: None Reported - Past Family History Father Family Medical History: Hypertension Additional Family Medical History / Comment(s): Heart problems Mother Family Medical History: Cancer Additional Family Medical History / Comment(s): Liver cancer General Exam Limitations: no limitations General appearance: alert Eye exam: Present: normal appearance Neck exam: Present: normal inspection Respiratory exam: Present: normal lung sounds bilaterally Cardiovascular Exam: Present: tachycardia GI/Abdominal exam: Present: soft. Absent: distended, tenderness, guarding, rebound, rigid Extremities exam: Present: other (Clawhand deformities) Neurological exam: Present: alert, oriented X3 Skin exam: Present: other (Multiple calcifications scattered over entire body. On the left hip there are multiple draining ulcerations with foul-smelling purulent material) Course Vital Signs 10/12/23 10/13/23 18:48 00:13 Temperature 98.5 F 98.0 F Pulse Rate 125 H 105 H Respiratory 20 16 Rate Blood Pressure 115/73 131/81 O2 Sat by Pulse 100 99 Oximetry Medical Decision Making - Medical Decision Making Was pt. sent in by a medical professional or institution (, PA, LAUNDRY WORKER, urgent care, hospital, or care home...) When possible be specific @ -No Did you speak to anyone other than the patient for history (EMS, parent, family, police, friend...)? What history was obtained from this source @ -No Did you review nursing and triage notes (agree or disagree)? Why? @ -I reviewed and agree with nursing and triage notes Were old charts reviewed (outside hosp., previous admission, EMS record, old EKG, old radiological studies, urgent care reports/EKG's, care home records)? Report findings @ -No old charts were reviewed Differential Diagnosis (chest pain, altered mental status, abdominal pain women, abdominal pain men, vaginal bleeding, weakness, fever, dyspnea, syncope, headache, dizziness, GI bleed, back pain, seizure, CVA, palpatations, mental health, musculoskeletal)? @ -Differential Musculoskeletal Muscular strain, contusion, ligament sprain, fracture, arthritis, septic arthritis, bursitis, cellulitis, muscle spasm, nerve compression, DVT, arterial occlusion, herpes zoster, electrolyte abnormality, tumor.... This is not meant to be in all inclusive list EKG interpreted by me (3pts min.). @ -EKG interpreted me showing sinus tachycardia with diffuse ST depressions in the rate 108 bpm. VA 142, QRS 75, QT/QTc 341/44. X-rays interpreted by me (1pt min.). @ -None done CT interpreted by me (1pt min.). @ -None done U/S interpreted by me (1pt. min.). @ -None done What testing was considered but not performed or refused? (CT, X-rays, U/S, labs)? Why? @ -None What meds were considered but not given or refused? Why? @ -None Did you discuss the management of the patient with other professionals (professionals i.e. Dr., PA, LAUNDRY WORKER, lab, RT, psych nurse, director of social media marketing, data collection associate, teacher, second officer, business case analyst)? Give summary @ -Case discussed with Dr. Nichole, who advises transfer of the patient as patient would benefit from rheumatology and we do not have rheumatology at this hospital. Case discussed with Dr. Parson of [facility] who declined secondary to capacity Case discussed with Dr. Meera David of [facility] who accepts transfer of the patient Was smoking cessation discussed for >3mins.? @ -No Was critical care preformed (if so, how long)? @ -Yes, 35 minutes Were there social determinants of health that impacted care today? How? (Homelessness, low income, unemployed, alcoholism, drug addiction, transportation, low edu. Level, literacy, decrease access to med. care, snf, rehab)? @ -No Was there de-escalation of care discussed even if they declined (Discuss DNR or withdrawal of care, Hospice)? DNR status @ -No What co-morbidities impacted this encounter? (DM, HTN, Smoking, COPD, CAD, Cancer, CVA, ARF, Chemo, Hep., AIDS, mental health diagnosis, sleep apnea, morbid obesity)? @ -Scleroderma Was patient admitted / discharged? Hospital course, mention meds given and route, prescriptions, significant lab abnormalities, going to OR and other pertinent info. @ -Transfer 53-year-old female presenting to the ED with complaints of ulcerations to her left hip concerning for infection. Patient met sepsis criteria at 21: 29. Blood cultures, wound cultures, IV antibiotics ordered. IV antibiotics ordered at 23: 32. Patient labs significant for an elevated white blood cell count of 15.6, lactic acid at 3.4, urinalysis unremarkable. Troponin undetectable. X-ray of the pelvis was performed however secondary to large amount of calcifications unable to rule out evidence of osteomyelitis. Patient transferred to [facility] as she requires rheumatology and we do not have rheumatology services available at this hospital. Undiagnosed new problem with uncertain prognosis? @ -No Drug Therapy requiring intensive monitoring for toxicity (Heparin, Nitro, Insulin, Cardizem)? @ -No Were any procedures done? @ -No Diagnosis/symptom? @ -Ulcerations, left hip, sepsis Acute, or Chronic, or Acute on Chronic? @ -Acute Uncomplicated (without systemic symptoms) or Complicated (systemic symptoms)? @ -Complicated Side effects of treatment? @ -No e- Exacerbation, Progression, or Severe Exacerbation? @ -No Poses a threat to life or bodily function? How? (Chest pain, [place], [place], pneumonia, PE, COPD, DKA, ARF, appy, cholecystitis, CVA, Diverticulitis, Homicidal, Suicidal, threat to staff... and all critical care pts) @ -Yes, sepsis - Lab Data Result diagrams: 10/12/23 21:25 10/12/23 21:25 Lab Results 10/12/23 10/12/23 10/12/23 Range/Units 20:03 21:25 21:25 WBC 15.6 H (3.8-10.6) k/uL RBC 4.53 (3.80-5.40) m/uL Hgb 12.1 (11.4-16.0) gm/dL Hct 38.6 (34.0-46.0) % MCV 85.1 (80.0-100.0) fL MCH 26.7 (25.0-35.0) pg MCHC 31.4 (31.0-37.0) g/dL RDW 16.0 H (11.5-15.5) % Plt Count 394 (150-450) k/uL MPV 8.1 Neutrophils % 74 % Lymphocytes % 17 % Monocytes % 6 % Eosinophils % 1 % Basophils % 1 % Neutrophils # 11.5 H (1.3-7.7) k/uL Lymphocytes # 2.6 (1.0-4.8) k/uL Monocytes # 0.9 (0-1.0) k/uL Eosinophils # 0.2 (0-0.7) k/uL Basophils # 0.1 (0-0.2) k/uL Sodium 132 L (137-145) mmol/L Potassium 3.2 L (3.5-5.1) mmol/L Chloride 98 (98-107) mmol/L Carbon Dioxide 27 (22-30) mmol/L Anion Gap 7 mmol/L BUN 5 L (7-17) mg/dL Creatinine 0.52 (0.52-1.04) mg/dL Est GFR (CKD-EPI)AfAm >90 (>60 ml/min/1.73 sqM) Est GFR (CKD-EPI)NonAf >90 (>60 ml/min/1.73 sqM) Glucose 105 H (74-99) mg/dL Lactic Ac Sepsis Rflx Plasma Lactic Acid Zack (0.7-2.0) mmol/L Calcium 8.2 L (8.4-10.2) mg/dL Total Bilirubin 0.8 (0.2-1.3) mg/dL AST 28 (14-36) U/L ALT 9 (4-34) U/L Alkaline Phosphatase 117 (38-126) U/L Troponin I (0.000-0.034) ng/mL Total Protein 5.6 L (6.3-8.2) g/dL Albumin 3.1 L (3.5-5.0) g/dL Urine Color Colorless Urine Appearance Clear (Clear) Urine pH 6.5 (5.0-8.0) Ur Specific [place] 1.005 (1.001-1.035) Urine Protein Negative (Negative) Urine Glucose (UA) Negative (Negative) Urine Ketones Negative (Negative) Urine Blood Negative (Negative) Urine Nitrite Negative (Negative) Urine Bilirubin Negative (Negative) Urine Urobilinogen <2.0 (<2.0) mg/dL Ur Leukocyte Esterase Negative (Negative) 10/12/23 10/12/23 10/13/23 Range/Units 21:25 22:39 00:17 WBC (3.8-10.6) k/uL RBC (3.80-5.40) m/uL Hgb (11.4-16.0) gm/dL Hct (34.0-46.0) % MCV (80.0-100.0) fL MCH (25.0-35.0) pg MCHC (31.0-37.0) g/dL RDW (11.5-15.5) % Plt Count (150-450) k/uL MPV Neutrophils % % Lymphocytes % % Monocytes % % Eosinophils % % Basophils % % Neutrophils # (1.3-7.7) k/uL Lymphocytes # (1.0-4.8) k/uL Monocytes # (0-1.0) k/uL Eosinophils # (0-0.7) k/uL Basophils # (0-0.2) k/uL Sodium (137-145) mmol/L Potassium (3.5-5.1) mmol/L Chloride (98-107) mmol/L Carbon Dioxide (22-30) mmol/L Anion Gap mmol/L BUN (7-17) mg/dL Creatinine (0.52-1.04) mg/dL Est GFR (CKD-EPI)AfAm (>60 ml/min/1.73 sqM) Est GFR (CKD-EPI)NonAf (>60 ml/min/1.73 sqM) Glucose (74-99) mg/dL Lactic Ac Sepsis Rflx Y Plasma Lactic Acid Zack 3.4 H* (0.7-2.0) mmol/L Calcium (8.4-10.2) mg/dL Total Bilirubin (0.2-1.3) mg/dL AST (14-36) U/L ALT (4-34) U/L Alkaline Phosphatase (38-126) U/L Troponin I <0.012 (0.000-0.034) ng/mL Total Protein (6.3-8.2) g/dL Albumin (3.5-5.0) g/dL Urine Color Urine Appearance (Clear) Urine pH (5.0-8.0) Ur Specific [place] (1.001-1.035) Urine Protein (Negative) Urine Glucose (UA) (Negative) Urine Ketones (Negative) Urine Blood (Negative) Urine Nitrite (Negative) Urine Bilirubin (Negative) Urine Urobilinogen (<2.0) mg/dL Ur Leukocyte Esterase (Negative) Disposition Clinical Impression: Ulcer, Sepsis Disposition: DC/TRNS W/I HOSP TO SNF SWING Condition: Fair Referrals: Mumtaz Huang MD [Primary Care Provider] - 1-2 days Time of Disposition: 01:22
[2023-10-13] MEDS: HYDROmorphone 1 MG/ML 1 ML SYRINGE IVP STA (00:54)
[2023-10-13] MEDS: SODIUM CHLORIDE 0.9% 1,000 ML IV STA (02:09)
[2023-10-13 02:19] VITALS: BP 140/86; PULSE 95
[2023-10-13] MEDS ORDERED: VANCOMYCIN 1,000 MG in SODIUM CHLORIDE 0.9% 250 ML IVPB SCH (08:00)
== END 2023-10-13 03:19 | disposition swing bed (61) ==
LOC: EC 18:42
DX: A41.9 Sepsis, unspecified organism (principal); L89.220 Pressure ulcer of left hip, unstageable
CPT/HCPCS: 99291; 96365; 96366 ×2; 96375; 96376; 96361 ×2; 36415 ×2; 93005; 80053; 83605 ×2; 84484; 85025; 81003; 87040; 87070; 87205; 87075; 72170; J3370; J1170 ×2

== ENCOUNTER → 2023-11-27 | Day surgery (SDC) | payer BC ==
[2023-11-27 11:37] VITALS: BP 148/72; PULSE 82; RESP 14; TEMP 98.3
[2023-11-27 12:17] LABS: HCG,Qualitative Serum Not Detected
[2023-11-27 12:25] LABS: African American GFR (CKD) >90 (>60 ml/min/1.73 sqM); Blood Urea Nitrogen 13 mg/dL (7-17); Non-African American GFR(CKD) >90 (>60 ml/min/1.73 sqM)
[2023-11-27] MEDS: CEFEPIME 2 GM in SODIUM CHLORIDE 0.9% 100 ML IVPB ONE (15:10)
== END ==
LOC: CATHCVL 11:10
PROVIDERS: ATTEND Registered Nurse
DX: M86.8X9 Other osteomyelitis, unspecified sites (principal)
CPT/HCPCS: 36410; 76937; 82565; 84520; 84703; C1751; J0692

== ENCOUNTER 2023-11-28 19:32 | Emergency (ER) | payer BC ==
[2023-11-28 19:54] VITALS: RESP 18; TEMP 98.1
--- NOTE | 2023-11-28 20:27 | ED ---
General Adult HPI - General Chief complaint: Recheck/Abnormal Lab/Rx Stated complaint: post op comp Time Seen by Provider: 11/28/23 20:12 Source: patient, RN notes reviewed Mode of arrival: wheelchair Limitations: no limitations - History of Present Illness Initial comments: Patient is a 53-year-old female presenting to the emergency department with shavonne spivey for midline problems. Patient states she is on cefepime secondary to wounds of her hips related to her scleroderma. Patient states midline was just placed yesterday. Patient states visiting nurse tried to use it today however was clogged. Patient otherwise did not have new complaints. Wounds are not worsening. No fever. - Related Data Home Medications Medication Instructions Recorded Confirmed Colchicine 0.6 mg PO HS 06/23/21 11/27/23 Omeprazole 20 mg PO HS 06/23/21 11/27/23 Levothyroxine Sodium [Synthroid] 88 mcg PO DAILY 02/05/22 11/27/23 Cholecalciferol [Vitamin D3 (25 25 mcg PO HS 09/04/23 11/27/23 Mcg = 1000 Iu)] Loperamide [Imodium] 2 - 4 mg PO QID PRN 09/04/23 11/27/23 Methotrexate Sodium 25mg/Ml 25 mg SQ TRAYLOR 09/04/23 11/27/23 Multivitamins, Thera [Multivitamin 1 tab PO DAILY 09/04/23 11/27/23 (formulary)] NIFEdipine XL [Procardia XL] 30 mg PO HS 09/04/23 11/27/23 buprenorphine HCL [Belbuca] 450 mcg BUCCAL BID 09/04/23 11/27/23 predniSONE 1 mg PO HS 09/04/23 11/27/23 DULoxetine HCL [Cymbalta] 30 mg PO DAILY 11/27/23 11/27/23 DULoxetine HCL [Cymbalta] 60 mg PO DAILY 11/27/23 11/27/23 Diltiazem Cd [Cardizem CD] 120 mg PO Q24HR 11/27/23 11/27/23 Ibuprofen 800 mg PO Q6H 11/27/23 11/27/23 Losartan [Cozaar] 50 mg PO DAILY 11/27/23 11/27/23 Naproxen Sod/Diphenhydramine 1 each PO HS 07/19/24 07/19/24 [Aleve Pm Caplet] Allergies Allergy/AdvReac Type Severity Reaction Status Date / Time No Known Allergies Allergy Verified 10/12/23 20:31 Review of Systems ROS Statement: Those systems with pertinent positive or pertinent negative responses have been documented in the HPI. ROS Other: All systems not noted in ROS Statement are negative. Constitutional: Denies: fever Eyes: Denies: eye pain ENT: Denies: ear pain Skin: Reports: as per HPI Past Medical History Past Medical History: Hypertension, Thyroid Disorder Additional Past Medical History / Comment(s): scleroderma, polymyositis, midline placed 11/27/2023 CHIVO. History of Any Multi-Drug Resistant Organisms: None Reported Past Surgical History: Breast Surgery Additional Past Surgical History / Comment(s): Surgeries for scleroderma calcium deposits, bilateral cataract removals, surgery for detached retina. Past Anesthesia/Blood Transfusion Reactions: No Reported Reaction Past Psychological History: Anxiety, Depression Smoking Status: Never smoker Past Alcohol Use History: None Reported Past Drug Use History: None Reported - Past Family History Father Family Medical History: Hypertension Additional Family Medical History / Comment(s): Heart problems Mother Family Medical History: Cancer Additional Family Medical History / Comment(s): Liver cancer General Exam Limitations: no limitations General appearance: alert, in no apparent distress Head exam: Present: atraumatic Eye exam: Present: normal appearance Respiratory exam: Present: normal lung sounds bilaterally Cardiovascular Exam: Present: regular rate, normal rhythm GI/Abdominal exam: Present: soft. Absent: tenderness Extremities exam: Present: other (Leg wound) Neurological exam: Present: alert Psychiatric exam: Present: normal affect, normal mood Skin exam: Present: other (subcutaneous calcium deposits with skin opening and ulceration) Course Vital Signs 11/28/23 19:47 Temperature 98.1 F Pulse Rate 88 Respiratory 18 Rate Blood Pressure 112/88 O2 Sat by Pulse 99 Oximetry Medical Decision Making - Medical Decision Making Was pt. sent in by a medical professional or institution (, PA, TOOL REPAIRER, urgent care, hospital, or custodial...) When possible be specific @ -No Did you speak to anyone other than the patient for history (EMS, parent, family, police, friend...)? What history was obtained from this source @ -No Did you review nursing and triage notes (agree or disagree)? Why? @ -I reviewed and agree with nursing and triage notes Were old charts reviewed (outside hosp., previous admission, EMS record, old EKG, old radiological studies, urgent care reports/EKG's, custodial records)? Report findings @ -Previous charts reviewed to determine antibiotic the patient is currently Differential Diagnosis (chest pain, altered mental status, abdominal pain women, abdominal pain men, vaginal bleeding, weakness, fever, dyspnea, syncope, headache, dizziness, GI bleed, back pain, seizure, CVA, palpatations, mental health, musculoskeletal)? @ -Differential Fever: Pneumonia, viral URI, endocarditis, myocarditis, pericarditis, otitis, sinusitis, peritonsillar Abscess, retropharyngeal Abscess, epiglottitis, peritonitis, appendicitis, Teodora cystitis, diverticulitis, hepatitis, colitis, UTI, PID, TOA, pyelonephritis, prostatitis, epididymitis, meningitis, encephalitis, pulmonary embolism, CVA, thyroid storm, pancreatitis, adrenal crisis, cavernous sinus thrombosis, this is not meant to be an all-inclusive list. EKG interpreted by me (3pts min.). @ -As above X-rays interpreted by me (1pt min.). @ -None done CT interpreted by me (1pt min.). @ -None done U/S interpreted by me (1pt. min.). @ -None done What testing was considered but not performed or refused? (CT, X-rays, U/S, labs)? Why? @ -None What meds were considered but not given or refused? Why? @ -None Did you discuss the management of the patient with other professionals (professionals i.e. , PA, TOOL REPAIRER, lab, RT, psych nurse, social services, bioinformatics engineer, teacher, chief lifestyle officer, manager case)? Give summary @ -No Was smoking cessation discussed for >3mins.? @ -No Was critical care preformed (if so, how long)? @ -No Were there social determinants of health that impacted care today? How? (Homelessness, low income, unemployed, alcoholism, drug addiction, transportation, low edu. Level, literacy, decrease access to med. care, [facility], rehab)? @ -No Was there de-escalation of care discussed even if they declined (Discuss DNR or withdrawal of care, Hospice)? DNR status @ -No What co-morbidities impacted this encounter? (DM, HTN, Smoking, COPD, CAD, Cancer, CVA, ARF, Chemo, Hep., AIDS, mental health diagnosis, sleep apnea, morbid obesity)? @ -None Was patient admitted / discharged? Hospital course, mention meds given and route, prescriptions, significant lab abnormalities, going to OR and other pertinent info. @ -Patient will be given IV dose of her antibiotic and discharge. Patient will need to follow-up tomorrow for midline or PICC line placement and does demonstrate understanding with this Undiagnosed new problem with uncertain prognosis? @ -No Drug Therapy requiring intensive monitoring for toxicity (Heparin, Nitro, Insulin, Cardizem)? @ -No Were any procedures done? @ -No Diagnosis/symptom? @ -Pelvic ulcer Acute, or Chronic, or Acute on Chronic? @ -Acute on chronic Uncomplicated (without systemic symptoms) or Complicated (systemic symptoms)? @ -Complicated with limited IV Side effects of treatment? @ -No Exacerbation, Progression, or Severe Exacerbation? @ -No Poses a threat to life or bodily function? How? (Chest pain, [place], [place], pneumonia, PE, COPD, DKA, ARF, appy, cholecystitis, CVA, Diverticulitis, Homicidal, Suicidal, threat to staff... and all critical care pts) @ -No Disposition Clinical Impression: Skin ulcer Disposition: HOME SELF-CARE Condition: Stable Instructions (If sedation given, give patient instructions): Chronic Wounds (ED) Additional Instructions: Please follow-up with your doctor, primary care physician and infectious disease tomorrow and obtain scheduling for line placement. Return for fever, unable to have line placed, worsening or changing symptoms or other concerns. Is patient prescribed a controlled substance at d/c from ED?: No Referrals: Mumtaz Huang MD [Primary Care Provider] - 1-2 days Time of Disposition: 22:38
[2023-11-28] MEDS ORDERED: CEFEPIME 2 GM VIAL IVPB ONE (22:45)
[2023-11-28] MEDS: CEFEPIME 1 GM VIAL IM ONE (23:06)
[2023-11-28] MEDS: CEFEPIME 1 GM VIAL IM STA (23:09)
[2023-11-28] MEDS: CEFEPIME 2 GM in SODIUM CHLORIDE 0.9% 100 ML IVPB STA (23:19)
[2023-11-28 23:21] VITALS: BP 123/76; PULSE 84
== END 2023-11-28 23:21 | disposition home or self-care (01) ==
LOC: EC 19:32
DX: L98.499 Non-pressure chronic ulcer of skin of other sites with unspecified severity (principal)
CPT/HCPCS: 99283; 96372 ×2; J0692

== ENCOUNTER → 2024-03-10 | Outpatient (CLI) | payer BC ==
--- NOTE | 2024-03-10 15:02 | US ---
EXAMINATION TYPE: US kidneys/renal and bladder DATE OF EXAM: 03/10/2024 COMPARISON: US 2019 CLINICAL INDICATION: Female, 53 years old with history of R32 INCONTINENCE; TECHNIQUE: Grayscale and color Doppler imaging of the bilateral kidneys and urinary bladder: FINDINGS: EXAM MEASUREMENTS: Right Kidney: 9.9 x 4.3 x 5.1 cm Left Kidney: 10.9 x 5.3 x 5.0 cm Right Kidney: wnl Left Kidney: visualized portions wnl, limited by rib shadowing and overlying bowel gas Bladder: wnl Bilateral Jets seen: no Normal Post Void Residual: yes - 10.6ml There is no evidence for hydronephrosis at this point in time. Cortical medullary differentiation is maintained bilaterally. No nephrolithiasis is seen. No masses are identified. The urinary bladder i s anechoic. Bilateral ureteral jets are not identified. Normal postvoid residual. IMPRESSION: No hydronephrosis or nephrolithiasis. [facility], , 03/10/2024 2:59 PM
--- NOTE | 2024-03-10 15:04 | US ---
EXAMINATION TYPE: US arterial LE single level DATE OF EXAM: 03/10/2024 2:45 PM CLINICAL INDICATION: Female, 53 years old with history of M79.604 PAIN IN LEG; TECHNIQUE: Systolic pressures were taken of the upper and lower extremity arteries with ankle-brachia l indices and toe brachial indices calculated bilaterally. History of: Smoker: No Hypertension: Yes Diabetic: No Hyperlipidemia: No TIA/CVA: No Previous Vascular Surgery: No NE: No Vascular Ulcers: No Claudication: No Gangrene: No FINDINGS: Doppler Waveforms: Right: Biphasic Left: Biphasic Brachial Artery systolic pressure: Right systolic pressure: 150 Left systolic pressure: 151 Posterior Tibial artery systolic pressure: Right: 159 Left: 186 Dorsalis Pedis artery systolic pressure: Right: 157 Left: 158 Ankle-Brachial Indices: Right: 1.05 Left: 1.23 (Vessel hardening > 1.4; Normal 0.9 - 1.4, Moderate 0.7 - 0.9, Severe 0.5-0.7) IMPRESSION: Normal ankle-brachial brachial indices bilaterally. [facility], , 03/10/2024 3:02 PM
== END | disposition home or self-care (01) ==
LOC: RADUSWWP 13:46
PROVIDERS: ATTEND Family Medicine
CPT/HCPCS: 76770; 93922